=== PATIENT | female | born 1950 | race Caucasian/White ===

== ENCOUNTER 2016-09-11 13:35 | Inpatient (IN) | payer MEDICARE ==
[2016-09-11] MEDS ORDERED: methylPREDNISolone SOD SUCCI 125 MG/2 ML VIAL IV STA (14:32)
[2016-09-11] MEDS ORDERED: IPRATROPIUM-ALBUTEROL 3 ML NEB INHALATION STA ×2 (14:32→15:47)
[2016-09-11] MEDS ORDERED: SODIUM CHLORIDE 0.9% 1,000 ML IV STA (14:32)
[2016-09-11] MEDS ORDERED: MAGNESIUM SULFATE-D5W PMX 1 GM in DEXTROSE/WATER 1 100ML.BAG IVPB STA (14:36)
--- NOTE | 2016-09-11 14:51 | ED ---
SOB HPI - General Chief Complaint: Shortness of Breath Stated Complaint: AILYN Time Seen by Provider: 09/11/16 14:18 Source: patient, family, RN notes reviewed Mode of arrival: wheelchair Limitations: no limitations - History of Present Illness Initial Comments: This is a 66-year-old female history of COPD and emphysema who does still smoke but she states as much as she used to presents with complaints of a protracted course of cough or shortness of breath. She states this started about a month ago and some her family members developed influenza. His been stressed been over last 2 weeks she's had fevers and chills cough with multiple colored phlegm ranging from clear to brown to yellow. Some right-sided discomfort when she takes a deep breath. No other overt chest pain. She has exertional dyspnea she does use oxygen at night 2 L/m none during the day she does not seem to suffer from orthopnea. She denies any peripheral edema. She states that while other family members are getting better she has not. She does also complain some rhinorrhea. MD Complaint: shortness of breath, cough, pain with inspiration - Related Data Home Medications Medication Instructions Recorded Confirmed Albuterol Nebulized [Ventolin 2.5 mg INHALATION RT-Q6H PRN 02/01/16 09/11/16 Nebulized] Aspirin 81 mg PO HS 02/01/16 09/11/16 Cholecalciferol [Vitamin D3] 1,000 unit PO HS 02/01/16 09/11/16 Furosemide [Lasix] 20 mg PO DAILY 02/01/16 09/11/16 Insulin Detemir [Levemir] 80 unit SQ HS 02/01/16 09/11/16 Isosorbide Mononitrate ER [Imdur] 30 mg PO HS 02/01/16 09/11/16 Lisinopril [Zestril] 20 mg PO DAILY 02/01/16 09/11/16 Montelukast [Singulair] 10 mg PO HS 02/01/16 09/11/16 [place]-3 Fatty Acids/Fish Oil [Fish 1 cap PO DAILY 02/01/16 09/11/16 Oil 1,000 mg Softgel] PARoxetine [Paxil] 20 mg PO DAILY 02/01/16 09/11/16 Pravastatin Sodium [Pravachol] 40 mg PO DAILY 02/01/16 09/11/16 metFORMIN HCL [Glucophage] 1,000 mg PO BID 02/01/16 09/11/16 Gabapentin [Neurontin] 300 mg PO QAM 07/13/16 09/11/16 Gabapentin [Neurontin] 600 mg PO HS 09/11/16 09/11/16 Insulin Aspart [NovoLOG Flexpen] 13 units SQ AC-TID 09/11/16 09/11/16 Allergies Allergy/AdvReac Type Severity Reaction Status Date / Time codeine AdvReac jittery Verified 09/11/16 14:51 and shaky Review of Systems ROS Statement: Those systems with pertinent positive or pertinent negative responses have been documented in the HPI. ROS Other: All systems not noted in ROS Statement are negative. 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 Past Anesthesia/Blood Transfusion Reactions: No Reported Reaction Past Psychological History: Panic Disorder Smoking Status: Current every day smoker Past Alcohol Use History: None Reported Additional Past Alcohol Use History / Comment(s): <ppd since age of 16, down from 2ppd Past Drug Use History: None Reported - Past Family History Mother Family Medical History: Cancer Additional Family Medical History / Comment(s): breast General Exam - General Exam Comments Initial Comments: This is a well-developed well-nourished awake alert oriented history female she does demonstrate audible wheezing Limitations: no limitations General appearance: alert, in no apparent distress Head exam: Present: atraumatic, normocephalic, normal inspection Eye exam: Present: normal appearance, PERRL, EOMI. Absent: scleral icterus, conjunctival injection, periorbital swelling ENT exam: Present: normal exam, mucous membranes moist Neck exam: Present: normal inspection. Absent: tenderness, meningismus, lymphadenopathy Respiratory exam: Present: wheezes, accessory muscle use, decreased breath sounds. Absent: respiratory distress, rales, rhonchi, stridor Cardiovascular Exam: Present: regular rate, normal rhythm, normal heart sounds. Absent: systolic murmur, diastolic murmur, rubs, gallop, clicks GI/Abdominal exam: Present: soft, normal bowel sounds. Absent: distended, tenderness, guarding, rebound, rigid Extremities exam: Present: normal inspection, full ROM, normal capillary refill. Absent: tenderness, pedal edema, joint swelling, calf tenderness Back exam: Present: normal inspection Neurological exam: Present: alert, oriented X3, CN II-XII intact Psychiatric exam: Present: normal affect, normal mood Skin exam: Present: warm, dry, intact, normal color. Absent: rash Course Vital Signs 09/11/16 09/11/16 09/11/16 14:15 15:06 15:19 Temperature 101.7 F H Pulse Rate 87 111 H Respiratory 20 22 22 Rate Blood Pressure 144/83 140/61 O2 Sat by Pulse 89 L 90 L Oximetry 09/11/16 09/11/16 15:25 15:35 Temperature Pulse Rate 109 H 112 H Respiratory Rate Blood Pressure O2 Sat by Pulse Oximetry - Reevaluation(s) Reevaluation #1: 09/11/16 15:47 Reevaluation the patient after the initial updraft treatment reveals very slight improvement in her aeration there is more wheezing audible there is some crepitus or right lower lobe Reevaluation #2: 09/11/16 15:51 Patient will require additional updraft treatment she is currently getting IV magnesium. Medical Decision Making - Medical Decision Making I did discuss findings with the patient and family members. Patient does demonstrate a right lower lobe pneumonia along with a COPD/emphysema exacerbation. She will require inpatient treatment. - Lab Data Result diagrams: 09/11/16 14:55 09/11/16 14:55 Lab Results 09/11/16 09/11/16 09/11/16 Range/Units 14:55 14:55 14:55 WBC 18.6 H (3.8-10.6) k/uL RBC 3.69 L (3.80-5.40) m/uL Hgb 11.2 L (11.4-16.0) gm/dL Hct 36.7 (34.0-46.0) % MCV 99.6 (80.0-100.0) fL MCH 30.5 (25.0-35.0) pg MCHC 30.6 L (31.0-37.0) g/dL RDW 15.1 (11.5-15.5) % Plt Count 258 (150-450) k/uL Neutrophils % 86 % Lymphocytes % 8 % Monocytes % 4 % Eosinophils % 1 % Basophils % 0 % Neutrophils # 15.9 H (1.3-7.7) k/uL Lymphocytes # 1.5 (1.0-4.8) k/uL Monocytes # 0.7 (0-1.0) k/uL Eosinophils # 0.2 (0-0.7) k/uL Basophils # 0.1 (0-0.2) k/uL Hypochromasia Moderate Macrocytosis Slight PT 10.0 (9.0-12.0) sec INR 1.0 (<1.1) APTT 22.5 (22.0-30.0) sec D-Dimer 1.21 H (<0.60) mg/L FEU Sodium 138 (137-145) mmol/L Potassium 4.8 (3.5-5.1) mmol/L Chloride 97 L (98-107) mmol/L Carbon Dioxide 31 H (22-30) mmol/L Anion Gap 10 mmol/L BUN 24 H (7-17) mg/dL Creatinine 1.15 H (0.52-1.04) mg/dL Est GFR (MDRD) Af Amer 57 (>60 ml/min/1.73 sqM) Est GFR (MDRD) Non-Af 47 (>60 ml/min/1.73 sqM) Glucose 115 H (74-99) mg/dL Plasma Lactic Acid Elian (0.7-2.0) mmol/L Calcium 10.2 (8.4-10.2) mg/dL Magnesium 1.3 L (1.6-2.3) mg/dL Total Bilirubin 0.9 (0.2-1.3) mg/dL AST 18 (14-36) U/L ALT 24 (9-52) U/L Alkaline Phosphatase 124 (38-126) U/L Total Protein 7.5 (6.3-8.2) g/dL Albumin 4.1 (3.5-5.0) g/dL 09/11/16 Range/Units 14:55 WBC (3.8-10.6) k/uL RBC (3.80-5.40) m/uL Hgb (11.4-16.0) gm/dL Hct (34.0-46.0) % MCV (80.0-100.0) fL MCH (25.0-35.0) pg MCHC (31.0-37.0) g/dL RDW (11.5-15.5) % Plt Count (150-450) k/uL Neutrophils % % Lymphocytes % % Monocytes % % Eosinophils % % Basophils % % Neutrophils # (1.3-7.7) k/uL Lymphocytes # (1.0-4.8) k/uL Monocytes # (0-1.0) k/uL Eosinophils # (0-0.7) k/uL Basophils # (0-0.2) k/uL Hypochromasia Macrocytosis PT (9.0-12.0) sec INR (<1.1) APTT (22.0-30.0) sec D-Dimer (<0.60) mg/L FEU Sodium (137-145) mmol/L Potassium (3.5-5.1) mmol/L Chloride (98-107) mmol/L Carbon Dioxide (22-30) mmol/L Anion Gap mmol/L BUN (7-17) mg/dL Creatinine (0.52-1.04) mg/dL Est GFR (MDRD) Af Amer (>60 ml/min/1.73 sqM) Est GFR (MDRD) Non-Af (>60 ml/min/1.73 sqM) Glucose (74-99) mg/dL Plasma Lactic Acid Elian 1.9 (0.7-2.0) mmol/L Calcium (8.4-10.2) mg/dL Magnesium (1.6-2.3) mg/dL Total Bilirubin (0.2-1.3) mg/dL AST (14-36) U/L ALT (9-52) U/L Alkaline Phosphatase (38-126) U/L Total Protein (6.3-8.2) g/dL Albumin (3.5-5.0) g/dL - EKG Data -: EKG Interpreted by Ny EKG shows normal: sinus rhythm (Sinus rhythm a rate of 113. Interval 120 QRS duration 80 daily since QTC of 314/4:30 left exodeviation old septal changes no acute ST elevations or depressions are is artifact present) Rate: tachycardia - Radiology Data Radiology results: report reviewed, image reviewed (I did review the x-ray and report there is a right lower lobe infiltrate.) Critical Care Time Critical Care Time: Yes Critical Care Time: 37 minutes of critical care time which includes initial presentation with history physical lab and x-rays. Evaluation of the same. Reevaluation patient on several occasions for responsive therapy. Discussion with patient family member regarding the findings. Discussion with the admitting physician. Admission orders documentation of the above. Patient did demonstrate hypoxemia. Her serum lactic acid is within normal limits. She does demonstrate leukocytosis. Disposition Clinical Impression: Adult respiratory distress syndrome, Community acquired pneumonia, Acute exacerbation of chronic obstructive airways disease, Hypoxemia, Febrile illness , acute Disposition: ADMITTED IP TO THIS HOSP Condition: Serious
[2016-09-11 15:24] LABS: Basophils # (A) 0.1 k/uL (0-0.2); Basophils % (A) 0 %; CH 30.2; CHCM 30.4; Eosinophils # (A) 0.2 k/uL (0-0.7); Eosinophils % (A) 1 %; HCT 36.7 % (34.0-46.0); HDW 2.65; HGB 11.2 gm/dL (11.4-16.0); Hypochromasia Moderate; Luc # (Auto) 0.27; Luc % (Auto) 2; Lymphocytes # (A) 1.5 k/uL (1.0-4.8); Lymphocytes % (A) 8 %; MCH 30.5 pg (25.0-35.0); MCHC 30.6 g/dL (31.0-37.0); MCV 99.6 fL (80.0-100.0); Macrocytosis Slight; Mean Platelet Volume 8.4; Monocytes # (A) 0.7 k/uL (0-1.0); Monocytes % (A) 4 %; Neutrophils # (A) 15.9 k/uL (1.3-7.7); Neutrophils % (A) 86 %; RBC 3.69 m/uL (3.80-5.40); RDW 15.1 % (11.5-15.5); WBC 18.6 k/uL (3.8-10.6); WBC (Perox) 19.44
--- NOTE | 2016-09-11 15:31 | XR ---
EXAMINATION TYPE: XR chest 2V DATE OF EXAM: 09/11/2016 3:25 PM COMPARISON: Prior chest x-ray 27 April 2011 HISTORY: Difficulty breathing, cough TECHNIQUE: Frontal and lateral views of the chest are obtained. FINDINGS: Increased attenuation is present at the right lung base which is developed in the interval . Patient is rotated. There is no evident pneumothorax or pleural effusion. Heart may be enlarged. Th ere are prominent lung volumes compatible with emphysema. Suspect coronary artery calcification. IMPRESSION: Findings may represent right lower lobe pneumonia, follow-up is recommended to resolutio n to exclude an underlying mass. Additional findings above.
[2016-09-11 15:38] LABS: Calcium 10.2 mg/dL (8.4-10.2); Magnesium 1.3 mg/dL (1.6-2.3); Potassium 4.8 mmol/L (3.5-5.1); Total Bilirubin 0.9 mg/dL (0.2-1.3); Total Protein 7.5 g/dL (6.3-8.2)
[2016-09-11 15:39] LABS: Partial Thromboplastin Time 22.5 sec (22.0-30.0)
[2016-09-11] MEDS ORDERED: PIPERACILLIN-TAZOBACTAM 3.375 GM in DEXTROSE/WATER 1 50ML.BAG IVPB STA (15:46)
[2016-09-11] MEDS ORDERED: PNEUMONIA PROTOCOL UTILIZED 1 EACH MISC PO PRN (15:53)
[2016-09-11] MEDS ORDERED: LEVOFLOXACIN 750MG-D5W PMX 750 MG in DEXTROSE/WATER 1 150ML.BAG IVPB STA (15:53)
--- NOTE | 2016-09-11 16:00 | ED ---
Medical Decision Making - Lab Data Result diagrams: 09/11/16 14:55 09/11/16 14:55 Lab Results 09/11/16 09/11/16 09/11/16 Range/Units 14:55 14:55 14:55 WBC 18.6 H (3.8-10.6) k/uL RBC 3.69 L (3.80-5.40) m/uL Hgb 11.2 L (11.4-16.0) gm/dL Hct 36.7 (34.0-46.0) % MCV 99.6 (80.0-100.0) fL MCH 30.5 (25.0-35.0) pg MCHC 30.6 L (31.0-37.0) g/dL RDW 15.1 (11.5-15.5) % Plt Count 258 (150-450) k/uL Neutrophils % 86 % Lymphocytes % 8 % Monocytes % 4 % Eosinophils % 1 % Basophils % 0 % Neutrophils # 15.9 H (1.3-7.7) k/uL Lymphocytes # 1.5 (1.0-4.8) k/uL Monocytes # 0.7 (0-1.0) k/uL Eosinophils # 0.2 (0-0.7) k/uL Basophils # 0.1 (0-0.2) k/uL Hypochromasia Moderate Macrocytosis Slight PT 10.0 (9.0-12.0) sec INR 1.0 (<1.1) APTT 22.5 (22.0-30.0) sec D-Dimer 1.21 H (<0.60) mg/L FEU Sodium 138 (137-145) mmol/L Potassium 4.8 (3.5-5.1) mmol/L Chloride 97 L (98-107) mmol/L Carbon Dioxide 31 H (22-30) mmol/L Anion Gap 10 mmol/L BUN 24 H (7-17) mg/dL Creatinine 1.15 H (0.52-1.04) mg/dL Est GFR (MDRD) Af Amer 57 (>60 ml/min/1.73 sqM) Est GFR (MDRD) Non-Af 47 (>60 ml/min/1.73 sqM) Glucose 115 H (74-99) mg/dL Plasma Lactic Acid Elian (0.7-2.0) mmol/L Calcium 10.2 (8.4-10.2) mg/dL Magnesium 1.3 L (1.6-2.3) mg/dL Total Bilirubin 0.9 (0.2-1.3) mg/dL AST 18 (14-36) U/L ALT 24 (9-52) U/L Alkaline Phosphatase 124 (38-126) U/L NT-Pro-B Natriuret Pep pg/mL Total Protein 7.5 (6.3-8.2) g/dL Albumin 4.1 (3.5-5.0) g/dL 09/11/16 09/11/16 Range/Units 14:55 14:55 WBC (3.8-10.6) k/uL RBC (3.80-5.40) m/uL Hgb (11.4-16.0) gm/dL Hct (34.0-46.0) % MCV (80.0-100.0) fL MCH (25.0-35.0) pg MCHC (31.0-37.0) g/dL RDW (11.5-15.5) % Plt Count (150-450) k/uL Neutrophils % % Lymphocytes % % Monocytes % % Eosinophils % % Basophils % % Neutrophils # (1.3-7.7) k/uL Lymphocytes # (1.0-4.8) k/uL Monocytes # (0-1.0) k/uL Eosinophils # (0-0.7) k/uL Basophils # (0-0.2) k/uL Hypochromasia Macrocytosis PT (9.0-12.0) sec INR (<1.1) APTT (22.0-30.0) sec D-Dimer (<0.60) mg/L FEU Sodium (137-145) mmol/L Potassium (3.5-5.1) mmol/L Chloride (98-107) mmol/L Carbon Dioxide (22-30) mmol/L Anion Gap mmol/L BUN (7-17) mg/dL Creatinine (0.52-1.04) mg/dL Est GFR (MDRD) Af Amer (>60 ml/min/1.73 sqM) Est GFR (MDRD) Non-Af (>60 ml/min/1.73 sqM) Glucose (74-99) mg/dL Plasma Lactic Acid Elian 1.9 (0.7-2.0) mmol/L Calcium (8.4-10.2) mg/dL Magnesium (1.6-2.3) mg/dL Total Bilirubin (0.2-1.3) mg/dL AST (14-36) U/L ALT (9-52) U/L Alkaline Phosphatase (38-126) U/L NT-Pro-B Natriuret Pep 621 pg/mL Total Protein (6.3-8.2) g/dL Albumin (3.5-5.0) g/dL Disposition Clinical Impression: Adult respiratory distress syndrome, Community acquired pneumonia, Acute exacerbation of chronic obstructive airways disease, Hypoxemia, Febrile illness , acute, Hypomagnesemia Disposition: ADMITTED IP TO THIS [facility] Condition: Serious Referrals: Zion Cramer MD [Primary Care Provider] - 1-2 days
[2016-09-11 16:03] LABS: Creatine Kinase MB 0.6 ng/mL (0.0-2.4)
[2016-09-11 16:14] LABS: Troponin I 0.048 ng/mL (0.000-0.034)
[2016-09-11] MEDS ORDERED: RX INFO: IV CONTRAST WAS GIVEN 1 EACH MISC MISCELLANE PRN (16:42)
--- NOTE | 2016-09-11 18:57 | CT ---
EXAMINATION TYPE: CT angio chest DATE OF EXAM: 09/11/2016 5:46 PM HISTORY: Pt states of SOB and pneumonia. Elevated D-Dimer. CT DLP: 631 mGycm Automated exposure control for dose reduction was used. CONTRAST: CTA scan of the thorax is performed with IV Contrast, patient injected with 50 mL of Visipaque 320, p ulmonary embolism protocol. FINDINGS: LUNGS/PLEURAL SPACES: There is no pulmonary edema. There are bilateral nonspecific scattered ill-defi arlen added pulmonary opacities, particularly in the lung bases and particularly on the right. These ar e nonspecific and most appear chronic. Clinical exclusion of developing or resolving bronchopneumonia is requested. There is no pleural effusion or pneumothorax seen. The tracheobronchial tree is paten t. MEDIASTINUM: There is satisfactory enhancement of the pulmonary artery and its branches, there is no CT evidence for pulmonary embolism. There are no greater than 1 cm hilar or mediastinal lymph nodes. Coronary calcifications are noted, prominent in degree. Pericardial spaces is unremarkable. There i s no cardiomegaly. The aorta is unremarkable except for atherosclerotic calcifications. The proximal subclavian artery shows prominent stenosis with hard and soft plaque, proximal to the origin of the l eft vertebral artery. 4 significance, correlate for vertebral steal phenomenon. OTHER: The skeletal structures are unremarkable. No incidental findings seen within the visualized pathak bdiaphragmatic anatomy. IMPRESSION: 1. NEGATIVE FOR PULMONARY EMBOLISM. NO DEFINITE ACUTE THORACIC PROCESS. 2. MILD SCATTERED MULTIFOCAL NONSPECIFIC FINDINGS, CAN CORRELATE WITH A CLINICAL DIAGNOSIS OF MULTIFO TARUN BRONCHOPNEUMONIA. 3. CENTRAL FINDING: LEFT SUBCLAVIAN ARTERY SHORT SEGMENT STENOSIS, CORRELATE FOR VERTEBRAL ARTERIAL S TEAL PHYSIOLOGY.
[2016-09-11] MEDS ORDERED: ACETAMINOPHEN TAB 500 MG TAB PO PRN (19:53)
[2016-09-11] MEDS: IPRATROPIUM-ALBUTEROL 3 ML NEB INHALATION SCH (20:16)
[2016-09-11 21:10] LABS: Glucose,Whole Blood 427 mg/dL (75-99)
[2016-09-11] MEDS: ASPIRIN 81 MG CHEW PO SCH (22:21)
[2016-09-11] MEDS: GABAPENTIN 300 MG CAP PO SCH (22:22)
[2016-09-11] MEDS: CHOLECALCIFEROL 1,000 UNIT TAB PO SCH (22:22)
[2016-09-11] MEDS: MONTELUKAST 10 MG TAB PO SCH (22:22)
[2016-09-11] MEDS: ISOSORBIDE MONONITRATE ER 30 MG TAB.ER.24H PO SCH (22:22)
[2016-09-11] MEDS: INSULIN LISPRO (humaLOG) 300 UNIT/3 ML VIAL SQ SCH ×2 (22:24→22:45)
[2016-09-11] MEDS: INSULIN DETEMIR 100 UNIT/ML 10 ML VIAL SQ SCH (22:24)
[2016-09-11] MEDS: metFORMIN 500 MG TAB PO SCH (22:44)
[2016-09-11] MEDS: SODIUM CHLORIDE 0.9% 1,000 ML IV SCH (23:39)
[2016-09-12] MEDS: IPRATROPIUM-ALBUTEROL 3 ML NEB INHALATION SCH ×6 (00:36→20:13)
[2016-09-12] MEDS: PIPERACILLIN-TAZOBACTAM 3.375 GM in DEXTROSE/WATER 1 50ML.BAG IVPB SCH ×4 (02:46→22:54)
[2016-09-12] MEDS: SODIUM CHLORIDE 0.9% 1,000 ML IV SCH ×3 (04:35→20:05)
[2016-09-12 05:45] LABS: Glucose,Whole Blood 203 mg/dL (75-99)
[2016-09-12] MEDS: metFORMIN 500 MG TAB PO SCH ×2 (06:32→12:12)
[2016-09-12] MEDS: INSULIN LISPRO (humaLOG) 300 UNIT/3 ML VIAL SQ SCH ×4 (06:34→21:30)
--- NOTE | 2016-09-12 07:41 | XR ---
EXAMINATION TYPE: XR chest 2V DATE OF EXAM: 09/12/2016 6:30 AM COMPARISON: 09/11/2016 TECHNIQUE: PA and lateral views submitted. HISTORY: Pneumonia FINDINGS: Pleural-based thickening or tiny right effusion with subsegmental changes at both lung bases. The hea rt is enlarged and there is an interstitial pattern. No pneumothorax. Hypertrophic and degenerative c hange of the spine noted. Arthropathy of the shoulders. Postsurgical change in the abdomen. IMPRESSION: 1. Correlate for interstitial pneumonitis or mild venous congestion
[2016-09-12] MEDS: LISINOPRIL 20 MG TAB PO SCH (08:52)
[2016-09-12] MEDS: PRAVASTATIN SODIUM 40 MG TAB PO SCH (08:52)
[2016-09-12] MEDS: PARoxetine 20 MG TAB PO SCH (08:52)
[2016-09-12] MEDS: FUROSEMIDE 20 MG TAB PO SCH (08:52)
[2016-09-12] MEDS: GABAPENTIN 300 MG CAP PO SCH ×2 (08:52→20:03)
[2016-09-12] MEDS ORDERED: NON-FORMULARY DRUG (Omega-3 Fatty Acids/Fish Oil [Fish Oil 1,000 Mg Softgel] 1 CAP) PO SCH (09:00)
[2016-09-12 11:11] LABS: Basophils % (A) 0 %; CH 29.5; CHCM 29.8; Eosinophils % (A) 0 %; HCT 31.2 % (34.0-46.0); HDW 2.73; HGB 9.9 gm/dL (11.4-16.0); Hypochromasia Marked; Luc # (Auto) 0.25; Luc % (Auto) 2; Lymphocytes # (A) 1.4 k/uL (1.0-4.8); Lymphocytes % (A) 10 %; MCH 31.5 pg (25.0-35.0); MCHC 31.8 g/dL (31.0-37.0); MCV 99.2 fL (80.0-100.0); Macrocytosis Slight; Mean Platelet Volume 7.2; Monocytes # (A) 0.7 k/uL (0-1.0); Monocytes % (A) 5 %; Neutrophils # (A) 11.5 k/uL (1.3-7.7); Neutrophils % (A) 83 %; RBC 3.14 m/uL (3.80-5.40); RDW 14.7 % (11.5-15.5); WBC 13.9 k/uL (3.8-10.6); WBC (Perox) 15.45
[2016-09-12 11:19] LABS: Calcium 9.8 mg/dL (8.4-10.2); Magnesium 1.8 mg/dL (1.6-2.3); Potassium 4.2 mmol/L (3.5-5.1)
[2016-09-12 12:10] LABS: Glucose,Whole Blood 192 mg/dL (75-99)
[2016-09-12] MEDS ORDERED: NICOTINE POLACRILEX 2 MG GUM BUCCAL PRN (14:54)
[2016-09-12] MEDS: methylPREDNISolone SOD SUCCI 125 MG/2 ML VIAL IV SCH ×2 (15:06→22:53)
[2016-09-12] MEDS: NICOTINE 21MG/24HR PATCH TRANSDERM SCH (15:06)
[2016-09-12] MEDS ORDERED: LEVOFLOXACIN 750 MG TAB PO SCH (16:00)
--- NOTE | 2016-09-12 16:00 | HP ---
DATE OF ADMISSION: 09/11/2016 PRESENTING COMPLAINT: Short of breath, cough, wheezing. HISTORY OF PRESENTING COMPLAINT: A very pleasant 66-year-old patient of Dr. Cramer whose chronic stable medical conditions include congestive heart failure, diabetes, hyperlipidemia, hypertension, seizure, sleep apnea on home oxygen at night 2 liters, presented with progressive short of breath going on for days, wheezing, cough, with sputum production. Some fever. Feels tired and run down. Admitted with diagnosis of pneumonia, COPD exacerbation. Denies any chest pain. REVIEW OF SYSTEMS: CONSTITUTIONAL: Tired. HEENT: None. RESPIRATORY: As above. CARDIOVASCULAR: No chest pain. GASTROINTESTINAL: None. GENITOURINARY: None. MUSCULOSKELETAL: None. Dermatological: None. HEMATOLOGICAL: None. LYMPHATIC: None. PSYCHIATRY: None. Neurologic: none. Past medical history of CHF, COPD, diabetes, hyperlipidemia, hypertension, seizures, sleep apnea, chronic respiratory failure. PAST SURGICAL HISTORY: Appendectomy, bladder surgery, cholecystectomy, hysterectomy, tonsillectomy, tubal ligation, and rotator cuff surgery on the left side, vein stripping, tumor remoted from the ovary. Past psych history of panic attacks. SOCIAL HISTORY: The patient smoking about a pack a day down from 2 packs a day smoking for close to 40 years. . FAMILY HISTORY: Breast and liver cancer. HOME MEDICATIONS: 1. Glucophage 1000 milligrams p.o. b.i.d. 2. Pravachol 40 mg p.o. daily. 3. Paxil 20 mg p.o. daily. 4. Fish oil 1 capsule p.o. daily. 5. Singulair 10 mg p.o. q.h.s. 6. Zestril 20 mg p.o. daily. 7. Imdur ER 30 mg q.h.s. 8. Levemir 80 units subcu q.h.s. 9. NovoLog 13 units subcu a.c. t.i.d. 10. Neurontin 600 mg p.o. q.h.s. 11. Neurontin 300 mg in the morning. 12. Lasix 20 mg p.o. daily. 13. Vitamin D3 1000 units p.o. q.h.s. 14. Aspirin 81 mg q.h.s. 15. Ventolin 2.5 every 6 hours p.r.n. ALLERGIES TO CODEINE. On examination vital signs on presentation: Temperature 101.7, pulse 111, respirations 22, blood pressure 140/61, pulse ox 90% on 3 liters. GENERAL APPEARANCE: Well built, BMI of 31.8 sitting up, tired-appearing. EYES: Pupils equal. Conjunctivae normal. HEENT: External appearance of nose and ears normal. Oral cavity normal. NECK: JVD not raised. Mass not palpable. RESPIRATORY: Effort increased. LUNGS: Diminished breath sounds with prolonged expiration and wheezing. CARDIOVASCULAR: First and second sounds normal. No edema. ABDOMEN: Soft, nontender. Liver and spleen not palpable. LYMPHATIC: No lymph nodes palpable in neck or axillae. PSYCHIATRY: Alert and oriented x3. Mood and affect normal. NEUROLOGICAL: Pupils equal. Cranial nerves grossly intact. Power and sensation grossly intact. INVESTIGATIONS: White count 18.6, hemoglobin 11.2, potassium 4.8. BUN 24, creatinine 1.15. Troponin 0.048. ProBNP 621. Chest x-ray shows infiltrates in the right lower lobe. ASSESSMENT: 1. Right lower lobe bronchopneumonia, present on admission from gram-negative organism. 2. Acute severe chronic obstructive pulmonary disease exacerbation in a smoker. 3. Chronic nicotine dependence. Patient is a longstanding smoker. 4. Diabetes mellitus, type II, on oral hypoglycemic. 5. Hyperlipidemia. 6. Essential hypertension. 7. Obstructive sleep apnea, uses CPAP machine. 8. Chronic hypoxic respiratory failure on home oxygen. 9. Severe sepsis on presentation from underlying pneumonia. PLAN: Patient started on IV Zosyn and Levaquin. Also, nebulized bronchodilators, steroids. Patient counseled against smoking. We will put on nicotine patch. Home meds are resumed. Patient has no cardiac symptoms. Troponin leak is felt to be from hemodynamic mismatch. Care was discussed with the patient. Copy to Dr. Cramer.
[2016-09-12 16:28] LABS: Glucose,Whole Blood 190 mg/dL (75-99)
[2016-09-12] MEDS: MONTELUKAST 10 MG TAB PO SCH (20:03)
[2016-09-12] MEDS: CHOLECALCIFEROL 1,000 UNIT TAB PO SCH (20:03)
[2016-09-12] MEDS: ASPIRIN 81 MG CHEW PO SCH (20:03)
[2016-09-12] MEDS: ISOSORBIDE MONONITRATE ER 30 MG TAB.ER.24H PO SCH (20:03)
[2016-09-12 20:54] LABS: Glucose,Whole Blood 211 mg/dL (75-99)
[2016-09-12] MEDS: INSULIN DETEMIR 100 UNIT/ML 10 ML VIAL SQ SCH (21:29)
[2016-09-13] MEDS: IPRATROPIUM-ALBUTEROL 3 ML NEB INHALATION SCH ×6 (00:09→20:33)
[2016-09-13 05:47] LABS: Glucose,Whole Blood 277 mg/dL (75-99)
[2016-09-13] MEDS: INSULIN LISPRO (humaLOG) 300 UNIT/3 ML VIAL SQ SCH ×5 (06:31→20:53)
[2016-09-13] MEDS: metFORMIN 500 MG TAB PO SCH ×2 (06:31→17:35)
[2016-09-13] MEDS: methylPREDNISolone SOD SUCCI 125 MG/2 ML VIAL IV SCH (08:48)
[2016-09-13] MEDS: PARoxetine 20 MG TAB PO SCH (08:50)
[2016-09-13] MEDS: GABAPENTIN 300 MG CAP PO SCH ×2 (08:51→20:49)
[2016-09-13] MEDS: LISINOPRIL 20 MG TAB PO SCH (08:51)
[2016-09-13] MEDS: PRAVASTATIN SODIUM 40 MG TAB PO SCH (08:51)
[2016-09-13] MEDS: NICOTINE 21MG/24HR PATCH TRANSDERM SCH (08:52)
[2016-09-13] MEDS: FUROSEMIDE 20 MG TAB PO SCH (08:52)
[2016-09-13] MEDS: PIPERACILLIN-TAZOBACTAM 3.375 GM in DEXTROSE/WATER 1 50ML.BAG IVPB SCH ×3 (08:55→22:35)
[2016-09-13] MEDS: SODIUM CHLORIDE 0.9% 1,000 ML IV SCH ×2 (08:57→17:37)
[2016-09-13 11:39] LABS: Glucose,Whole Blood 203 mg/dL (75-99)
--- NOTE | 2016-09-13 13:20 | CDI ---
In responding to this query, please exercise your independent professional judgment. The [facility] Coding Staff and Clinical Documentation Specialists appreciate your assistance in clarifying documentation, maintaining compliance with coding guidelines, accurately documenting patients condition and capturing severity of illness. The fact that a question is asked does not imply that any particular answer is desired or expected. Communication forms are a method of clarifying documentation and are not made part of the Legal Health Record. Thank you in advance for your clarification. Last Revision, April 2015 Seda Guzman [address] [facility] [place] [address] Documentation Clarification Form Date: 09/13/2016 1:14:00 PM From: Christina Victor Admit Date: 09/11/2016 3:53:00 PM Patient Name: Lisette Patel Visit Number: [id number] Dr. Teodoro Cid History/Risk Factors: Hypertension DM type 2 Clinical Indicators: Labs: BUN 36, Cr 1.44, GFR 37, hgb 9.9 on 09/12 Treatment: IV fluids In order to capture the severity of condition, please clarify if the condition signifies: Acute renal failure Acute on chronic renal failure Chronic kidney disease (CKD) and please stage Stage 1 GFR >90 Stage 2 GFR 60-89 Stage 3 GFR 30-59 Stage 4 GFR 15-29 Stage 5 GFR <15 Unable to determine Other, specify Please document in your progress notes and discharge summary in order to capture severity of illness and risk of mortality. Include clinical findings that support your diagnosis. FYI: Press F11 to launch patient chart. Place X here if this finding has no clinical significance, is not applicable or if you are not able to provide any additional documentation. MTDD
[2016-09-13 16:54] LABS: Glucose,Whole Blood 230 mg/dL (75-99)
--- NOTE | 2016-09-13 19:06 | PN ---
DATE OF SERVICE: 09/13/2016 PRESENTING COMPLAINT: Short of breath, cough, wheezing. INTERVAL HISTORY: This is a patient who presented with bronchopneumonia and severe COPD exacerbation; still wheezing, short of breath, cough, not feeling well, tired. Only a shade better. Did tolerate some diet. Review of systems done for constitutional, cardiovascular, GI, pulmonary; relevant findings as above. Current medications are reviewed that include IV Solu-Medrol, DuoNeb. On examination, temperature 97.9, pulse 99, respiration 18, blood pressure 129/60, pulse ox 92% on 4 L. GENERAL APPEARANCE: Sitting up, tired-appearing. EYES: Pupils equal. Conjunctivae normal. NECK: JVD not raised. Mass not palpable. RESPIRATORY: Effort increased. LUNGS: Decreased breath sounds. Prolonged expiration. CARDIOVASCULAR: First and second sounds normal. No edema. ABDOMEN: Soft, nontender. Liver and spleen not palpable. PSYCHIATRY: Alert and oriented x3. Mood and affect normal. INVESTIGATIONS: Accu-Cheks are noted. ASSESSMENT: 1. Right lower lobe bronchopneumonia; suspect Gram-negative organism; present on admission, slow to respond. 2. Acute severe chronic obstructive pulmonary disease exacerbation in a smoker, slow to respond. 3. Chronic nicotine dependence. Patient is a long-standing smoker. 4. Diabetes mellitus, type 2, on oral hyperglycemic, uncontrolled from steroids. 5. Hyperlipidemia. 6. Essential hypertension. 7. Obstructive sleep apnea; uses CPAP machine. 8. Chronic hypoxic respiratory failure, on home oxygen. 9. Severe sepsis on presentation from underlying pneumonia. PLAN: Continue current medication and treatment plan, including antibiotics, steroids, nebulized bronchodilators. Care was discussed with the patient. Will follow.
[2016-09-13] MEDS: BUDESONIDE 1 MG/2 ML NEBU INHALATION SCH (20:33)
[2016-09-13] MEDS: INSULIN DETEMIR 100 UNIT/ML 10 ML VIAL SQ SCH (20:49)
[2016-09-13] MEDS: CHOLECALCIFEROL 1,000 UNIT TAB PO SCH (20:49)
[2016-09-13] MEDS: ASPIRIN 81 MG CHEW PO SCH (20:49)
[2016-09-13] MEDS: MONTELUKAST 10 MG TAB PO SCH (20:50)
[2016-09-13] MEDS: ISOSORBIDE MONONITRATE ER 30 MG TAB.ER.24H PO SCH (20:50)
[2016-09-13 20:56] LABS: Glucose,Whole Blood 196 mg/dL (75-99)
[2016-09-13] MEDS: methylPREDNISolone SOD SUCCI 40 MG/ML 1 ML VIAL IV SCH (22:35)
[2016-09-14] MEDS ORDERED: IPRATROPIUM-ALBUTEROL 3 ML NEB ONE (03:30)
[2016-09-14] MEDS: IPRATROPIUM-ALBUTEROL 3 ML NEB INHALATION SCH ×4 (05:20→20:14)
[2016-09-14 06:15] LABS: Glucose,Whole Blood 182 mg/dL (75-99)
[2016-09-14] MEDS: INSULIN LISPRO (humaLOG) 300 UNIT/3 ML VIAL SQ SCH ×4 (06:20→23:27)
[2016-09-14] MEDS: SODIUM CHLORIDE 0.9% 1,000 ML IV SCH ×3 (06:20→23:10)
[2016-09-14 06:31] LABS: Calcium 9.9 mg/dL (8.4-10.2); Potassium 5.7 mmol/L (3.5-5.1)
[2016-09-14] MEDS: PIPERACILLIN-TAZOBACTAM 3.375 GM in DEXTROSE/WATER 1 50ML.BAG IVPB SCH ×3 (09:26→23:09)
[2016-09-14] MEDS: methylPREDNISolone SOD SUCCI 40 MG/ML 1 ML VIAL IV SCH ×3 (09:27→23:09)
[2016-09-14] MEDS: GABAPENTIN 300 MG CAP PO SCH ×2 (09:27→20:41)
[2016-09-14] MEDS: NICOTINE 21MG/24HR PATCH TRANSDERM SCH (09:27)
[2016-09-14] MEDS: LISINOPRIL 20 MG TAB PO SCH (09:28)
[2016-09-14] MEDS: FUROSEMIDE 20 MG TAB PO SCH (09:28)
[2016-09-14] MEDS: PRAVASTATIN SODIUM 40 MG TAB PO SCH (09:29)
[2016-09-14] MEDS: PARoxetine 20 MG TAB PO SCH (09:29)
[2016-09-14] MEDS: BUDESONIDE 1 MG/2 ML NEBU INHALATION SCH ×2 (09:39→20:14)
--- NOTE | 2016-09-14 10:13 | P.CNPUL ---
History of Present Illness Consult date: 09/14/16 Requesting physician: Teodoro Cid Reason for consult: COPD Chief complaint: Shortness of breath History of present illness: This is a 66-year-old patient who is being evaluated and examined today on the sixth floor. This patient came into the emergency room with progressive shortness of breath have been going on for the last few days along with wheezing , and a productive cough. She also reported some subjective fevers. Patient feels extremely tired and weak and rundown. Patient also states she has been around family members who had influenza. Chest x-ray reveals the patient has interstitial pneumonitis or mild venous congestion. CTA was negative for pulmonary embolism, however showed multifocal bronchopneumonia. She was admitted to the hospital with a diagnosis of pneumonia, acute COPD exacerbation. Review of Systems 14 point review of systems was completed and is negative other than what's noted in the HPI Past Medical History Past Medical History: Heart Failure, COPD, Diabetes Mellitus, Hyperlipidemia, Hypertension, Seizure Disorder, Sleep Apnea/CPAP/BIPAP Additional Past Medical History / Comment(s): had 2 seizures 40 yrs ago-never had anymore-not sure of cause,uses oxygen 2L @[facility] History of Any Multi-Drug Resistant Organisms: None Reported Past Surgical History: Appendectomy, Bladder Surgery, Cholecystectomy, Hysterectomy, Orthopedic Surgery, Tonsillectomy, Tubal Ligation Additional Past Surgical History / Comment(s): left rotator cuff repair, vein stripping, 20# 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 Past Anesthesia/Blood Transfusion Reactions: No Reported Reaction Past Psychological History: Panic Disorder Additional Psychological History / Comment(s): panick attacks while going through menopause when pt was in her 40's, pt started paxil and is doing fine now Smoking Status: Current every day smoker Past Alcohol Use History: None Reported Additional Past Alcohol Use History / Comment(s): <ppd since age of 16, down from 2ppd Past Drug Use History: None Reported - Past Family History Mother Family Medical History: Cancer Additional Family Medical History / Comment(s): breast/liver Medications and Allergies Home Medications Medication Instructions Recorded Confirmed Type Albuterol Nebulized [Ventolin 2.5 mg INHALATION RT-Q6H PRN 02/01/16 09/11/16 History Nebulized] Aspirin 81 mg PO HS 02/01/16 09/11/16 History Cholecalciferol [Vitamin D3] 1,000 unit PO HS 02/01/16 09/11/16 History Furosemide [Lasix] 20 mg PO DAILY 02/01/16 09/11/16 History Insulin Detemir [Levemir] 80 unit SQ HS 02/01/16 09/11/16 History Isosorbide Mononitrate ER [Imdur] 30 mg PO HS 02/01/16 09/11/16 History Lisinopril [Zestril] 20 mg PO DAILY 02/01/16 09/11/16 History Montelukast [Singulair] 10 mg PO HS 02/01/16 09/11/16 History [employer]-3 Fatty Acids/Fish Oil [Fish 1 cap PO DAILY 02/01/16 09/11/16 History Oil 1,000 mg Softgel] PARoxetine [Paxil] 20 mg PO DAILY 02/01/16 09/11/16 History Pravastatin Sodium [Pravachol] 40 mg PO DAILY 02/01/16 09/11/16 History metFORMIN HCL [Glucophage] 1,000 mg PO BID 02/01/16 09/11/16 History Gabapentin [Neurontin] 300 mg PO [facility] 07/13/16 09/11/16 History Gabapentin [Neurontin] 600 mg PO HS 09/11/16 09/11/16 History Insulin Aspart [NovoLOG Flexpen] 13 units SQ AC-TID 09/11/16 09/11/16 History Allergies Allergy/AdvReac Type Severity Reaction Status Date / Time codeine AdvReac jittery Verified 09/11/16 14:51 and shaky Physical Exam Vitals: Vital Signs Temp Pulse Pulse Resp BP Pulse Ox 09/14/16 09:39 100 09/14/16 04:00 98.6 F 105 H 18 149/66 92 L 09/13/16 22:49 97.8 F 100 18 126/58 92 L 09/13/16 20:48 98 09/13/16 20:33 98 09/13/16 20:00 97.1 F L 98 18 131/63 96 09/13/16 17:42 100 09/13/16 17:30 100 09/13/16 15:35 97.5 F L 102 H 18 132/63 95 09/13/16 12:02 96 09/13/16 11:51 96 09/13/16 11:44 97.9 F 99 18 129/60 92 L Intake and Output 09/13/16 09/14/16 09/14/16 22:59 06:59 14:59 Intake Total 650 950 Output Total 1000 525 Balance -350 425 Intake: IV 400 900 Sodium Chloride 0.9% 1, 400 900 000 ml @ 100 mls/hr IV . Q10H [facility]ARCELO Rx#:[id number] Intake, IV Titration 50 50 Amount Piperacillin-Tazobactam 3 50 50 .375 gm In Dextrose/Water 1 50ml.bag @ 12.5 mls/hr IVPB Q8HR MARCELO Rx#: [id number] Oral 200 Output: Urine 1000 525 Other: Voiding Method Toilet Toilet # Voids 1 1 Weight 90.1 kg GENERAL EXAM: Alert, comfortable in no apparent distress. HEAD: Normocephalic. EYES: Normal reaction of pupils, equal size. NOSE: Clear with pink turbinates. THROAT: No erythema or exudates. NECK: No masses, no JVD. CHEST: No chest wall deformity. LUNGS: Decreased air entry which is coarse, prolonged expiration with wheeze. CVS: S1 and S2 normal with no audible mumurs, regular rhythm. ABDOMEN: No hepatosplenomegaly, normal bowel sounds, no guarding or rigidity. EXTREMITIES: No edema noted, pedal pulses palpable. SKIN: No rashes CENTRAL NERVOUS SYSTEM: No focal deficits, tone is normal in all 4 extremities. Results - Laboratory Findings CBC and BMP: 09/12/16 10:37 09/14/16 05:31 PT/INR, D-dimer PT 10.0 sec (9.0-12.0) 09/11/16 14:55 INR 1.0 (<1.1) 09/11/16 14:55 D-Dimer 1.21 mg/L FEU (<0.60) H 09/11/16 14:55 Abnormal lab findings: Abnormal Labs 09/11/16 09/12/16 09/12/16 21:09 05:43 10:37 WBC 13.9 H RBC 3.14 L Hgb 9.9 L Hct 31.2 L Neutrophils # 11.5 H Potassium Chloride Carbon Dioxide BUN Creatinine Glucose POC Glucose (mg/dL) 427 H 203 H 09/12/16 09/12/16 09/12/16 10:37 12:08 16:22 WBC RBC Hgb Hct Neutrophils # Potassium Chloride 97 L Carbon Dioxide 31 H BUN 36 H Creatinine 1.44 H Glucose 130 H POC Glucose (mg/dL) 192 H 190 H 09/12/16 09/13/16 09/13/16 20:52 05:45 11:37 WBC RBC Hgb Hct Neutrophils # Potassium Chloride Carbon Dioxide BUN Creatinine Glucose POC Glucose (mg/dL) 211 H 277 H 203 H 09/13/16 09/13/16 09/14/16 16:53 20:38 05:31 WBC RBC Hgb Hct Neutrophils # Potassium 5.7 H Chloride Carbon Dioxide BUN 53 H Creatinine 1.47 H Glucose 170 H POC Glucose (mg/dL) 230 H 196 H 09/14/16 06:03 WBC RBC Hgb Hct Neutrophils # Potassium Chloride Carbon Dioxide BUN Creatinine Glucose POC Glucose (mg/dL) 182 H - Diagnostic Findings Chest x-ray: report reviewed CT scan - chest: report reviewed Assessment and Plan Plan: Assessment Acute on chronic hypoxic respiratory failure, patient uses nocturnal oxygen 2 LPM Community-acquired Right lower lobe pneumonia, suspect gram-negative organism Acute exacerbation of COPD Obstructive sleep apnea, uses home CPAP Current nicotine dependence Diabetes mellitus type 2 Hyperlipidemia Hypertension Plan Medications have been reviewed and will be continued. Continue with antibiotics and IV steroids as well as nebulizer treatments. We will continue with pulmonary hygiene, supplemental oxygen, and supportive care. Incentive spirometer initiated. Continue use of home CPAP machine. We will continue to monitor labs/results and adjust treatment as necessary. I performed an examination of the patient and discussed their management with the nurse practitioner. I have reviewed the nurse practitioner's note and agree with the documented findings and plan of care.
[2016-09-14 11:35] LABS: Glucose,Whole Blood 157 mg/dL (75-99)
[2016-09-14] MEDS ORDERED: ALBUTEROL NEB (CONC) 2.5 MG/0.5 ML INHALATION SCH ×2 (16:00→20:00)
[2016-09-14] MEDS ORDERED: IPRATROPIUM 0.5 MG/2.5 ML NEBU INHALATION SCH (16:00)
[2016-09-14] MEDS ORDERED: SODIUM POLYSTYRENE SULFONATE 15 GM/60 ML BOTTLE PO STA (16:18)
[2016-09-14] MEDS ORDERED: SODIUM BICARB 8.4% 50 ML SYR (1 MEQ/ML) IV STA (16:20)
[2016-09-14 16:23] LABS: Glucose,Whole Blood 211 mg/dL (75-99)
[2016-09-14] MEDS: LEVOFLOXACIN 750 MG TAB PO SCH (16:24)
[2016-09-14] MEDS ORDERED: IPRATROPIUM-ALBUTEROL 3 ML NEB INHALATION PRN (18:49)
[2016-09-14 20:31] LABS: Magnesium 1.7 mg/dL (1.6-2.3); Potassium 4.9 mmol/L (3.5-5.1)
[2016-09-14] MEDS: ALBUTEROL NEB (CONC) 2.5 MG/0.5 ML INHALATION SCH (20:34)
[2016-09-14] MEDS: CHOLECALCIFEROL 1,000 UNIT TAB PO SCH (20:40)
[2016-09-14] MEDS: ASPIRIN 81 MG CHEW PO SCH (20:40)
[2016-09-14] MEDS: MONTELUKAST 10 MG TAB PO SCH (20:41)
[2016-09-14] MEDS: ISOSORBIDE MONONITRATE ER 30 MG TAB.ER.24H PO SCH (20:41)
[2016-09-14 21:03] LABS: Glucose,Whole Blood 281 mg/dL (75-99)
--- NOTE | 2016-09-14 22:09 | PN ---
DATE OF SERVICE: 09/14/2016 PRESENTING COMPLAINT: Short of breath, cough. INTERVAL HISTORY: This patient presented with bronchopneumonia, severe COPD exacerbation. Still wheezing, cough, short of breath, tired, slow to respond. Review of systems done for constitutional, cardiovascular, GI, pulmonary; relevant findings as above. Current medications are reviewed. On examination, temperature 97.3, pulse 93, respirations 22, blood pressure 140/69, pulse ox 94% on 4L. GENERAL APPEARANCE: Sitting on his bed, short of breath, coughing. EYES: Pupils equal. Conjunctivae normal. NECK: Not raised. Mass not palpable. RESPIRATORY: Effort increased. LUNGS: Decreased breath sounds. Prolonged expiration, expiratory crackles. CARDIOVASCULAR: First and second sounds normal. No edema. ABDOMEN: Soft, nontender. Liver and spleen not palpable. PSYCHIATRY: Alert and oriented x3. Mood and affect anxious-appearing. INVESTIGATIONS: Potassium 5.7. BUN 33, creatinine 1.47. Accu-Cheks are noted. Sputum is showing normal respiratory mango. ASSESSMENT: 1. Right lower lobe bronchopneumonia, suspect gram-negative organism, present on admission, slow to respond. 2. Acute severe chronic obstructive pulmonary disease exacerbation in a smoker, slow to respond. 3. Chronic nicotine dependence. Patient a long-standing smoker. 4. Diabetes mellitus type 2 on oral hypoglycemic, uncontrolled from steroids. 5. Hyperlipidemia. 6. Essential hypertension. 7. Obstructive sleep apnea, uses CPAP machine. 8. Chronic hypoxic respiratory failure, on home oxygen. 9. Severe sepsis, on presentation, underlying pneumonia. 10. Severe hyperkalemia. PLAN: At this point, will increase patient's nebulized bronchodilators every 4 hours, increasing the albuterol to 5 mg q.4. Also will make the oxygen humidified. Kayexalate 30 g will be given and bicarb. The patient is already on bronchodilators that help with the potassium. Patient's LUIS inhibitor is being discontinued.
[2016-09-14] MEDS: INSULIN DETEMIR 100 UNIT/ML 10 ML VIAL SQ SCH (22:27)
[2016-09-15 06:17] LABS: Calcium 9.8 mg/dL (8.4-10.2); Potassium 4.8 mmol/L (3.5-5.1)
[2016-09-15 06:22] LABS: Glucose,Whole Blood 218 mg/dL (75-99)
[2016-09-15] MEDS: SODIUM CHLORIDE 0.9% 1,000 ML IV SCH ×2 (06:53→09:16)
[2016-09-15] MEDS: INSULIN LISPRO (humaLOG) 300 UNIT/3 ML VIAL SQ SCH ×7 (06:57→20:46)
[2016-09-15] MEDS: metFORMIN 500 MG TAB PO SCH ×2 (07:00→16:57)
[2016-09-15] MEDS: BUDESONIDE 1 MG/2 ML NEBU INHALATION SCH ×2 (08:14→19:12)
[2016-09-15] MEDS: IPRATROPIUM-ALBUTEROL 3 ML NEB INHALATION SCH ×4 (08:14→19:12)
[2016-09-15] MEDS: ALBUTEROL NEB (CONC) 2.5 MG/0.5 ML INHALATION SCH ×4 (08:14→19:12)
[2016-09-15] MEDS: methylPREDNISolone SOD SUCCI 40 MG/ML 1 ML VIAL IV SCH ×2 (09:15→16:26)
[2016-09-15] MEDS: NICOTINE 21MG/24HR PATCH TRANSDERM SCH (09:16)
[2016-09-15] MEDS: FUROSEMIDE 20 MG TAB PO SCH (09:17)
[2016-09-15] MEDS: PRAVASTATIN SODIUM 40 MG TAB PO SCH (09:18)
[2016-09-15] MEDS: PARoxetine 20 MG TAB PO SCH (09:18)
[2016-09-15] MEDS: GABAPENTIN 300 MG CAP PO SCH ×2 (09:18→20:45)
[2016-09-15] MEDS: PIPERACILLIN-TAZOBACTAM 3.375 GM in DEXTROSE/WATER 1 50ML.BAG IVPB SCH ×2 (09:24→16:26)
[2016-09-15 11:59] LABS: Glucose,Whole Blood 134 mg/dL (75-99)
--- NOTE | 2016-09-15 16:15 | P.PN ---
Subjective This patient is a 66-year-old female who is being evaluated and examined today on the sixth floor. The patient came into the emergency room with progressive shortness of breath that had been going on a few days prior to coming in along with wheezing and a productive cough. She also reports some subjective fevers. Patient feels extremely tired and didn't run down. Chest x-ray reveals interstitial pneumonitis or mild venous congestion. CTA was negative for pulmonary embolism, however showed multifocal bronchopneumonia. She was admitted to the hospital with diagnosis of pneumonia and acute exacerbation of COPD. Upon examination the patient is resting up in bed on 3 L of oxygen via nasal cannula. Patient continues to complain of a productive cough. Objective - Vital Signs Vital signs: Vital Signs Temp 98.2 F 09/15/16 11:59 Pulse 101 H 09/15/16 15:36 Resp 18 09/15/16 11:59 BP 136/63 09/15/16 11:59 Pulse Ox 95 09/15/16 15:36 Intake & Output 09/14/16 09/15/16 09/15/16 18:59 06:59 18:59 Intake Total 605 650 780 Output Total 800 Balance -195 650 780 Weight 90.3 kg Intake: IV 650 600 Piperacillin-Tazobactam 3 50 .375 gm In Dextrose/Water 1 50ml.bag @ 12.5 mls/hr IVPB Q8HR MARCELO Rx#: [id number] Sodium Chloride 0.9% 1, 600 600 000 ml @ 100 mls/hr IV . Q10H MARCELO Rx#:[id number] Oral 605 180 Output: Urine 800 Other: Voiding Method Toilet Toilet # Voids 2 1 # Bowel Movements 0 - Exam GENERAL EXAM: Alert, comfortable in no apparent distress. HEAD: Normocephalic. EYES: Normal reaction of pupils, equal size. NOSE: Clear with pink turbinates. THROAT: No erythema or exudates. NECK: No masses, no JVD. CHEST: No chest wall deformity. LUNGS: Decreased air entry which is coarse, prolonged expiration with wheeze. CVS: S1 and S2 normal with no audible mumurs, regular rhythm. ABDOMEN: No hepatosplenomegaly, normal bowel sounds, no guarding or rigidity. EXTREMITIES: No edema noted, pedal pulses palpable. SKIN: No rashes CENTRAL NERVOUS SYSTEM: No focal deficits, tone is normal in all 4 extremities. - Labs CBC & Chem 7: 09/12/16 10:37 09/15/16 05:41 Labs: Abnormal Lab Results - Last 24 Hours (Table) 09/14/16 09/14/16 09/15/16 Range/Units 16:22 20:50 05:41 Carbon Dioxide 33 H (22-30) mmol/L BUN 48 H (7-17) mg/dL Creatinine 1.24 H (0.52-1.04) mg/dL Glucose 205 H (74-99) mg/dL POC Glucose (mg/dL) 211 H 281 H (75-99) mg/dL 09/15/16 09/15/16 Range/Units 06:20 11:58 Carbon Dioxide (22-30) mmol/L BUN (7-17) mg/dL Creatinine (0.52-1.04) mg/dL Glucose (74-99) mg/dL POC Glucose (mg/dL) 218 H 134 H (75-99) mg/dL Assessment and Plan Plan: Assessment Acute on chronic hypoxic respiratory failure, patient uses nocturnal oxygen 2 LPM Community-acquired Right lower lobe pneumonia, suspect gram-negative organism Acute exacerbation of COPD Obstructive sleep apnea, uses home CPAP Current nicotine dependence Diabetes mellitus type 2 Hyperlipidemia Hypertension Plan Medications have been reviewed and will be continued. Continue with antibiotics and IV steroids as well as nebulizer treatments. We will continue with pulmonary hygiene, supplemental oxygen, and supportive care. Incentive spirometer encouraged. Continue use of home CPAP machine. We will continue to monitor labs/results and adjust treatment as necessary. I performed an examination of the patient and discussed their management with the nurse practitioner. I have reviewed the nurse practitioner's note and agree with the documented findings and plan of care.
[2016-09-15 16:52] LABS: Glucose,Whole Blood 177 mg/dL (75-99)
[2016-09-15 20:40] LABS: Glucose,Whole Blood 231 mg/dL (75-99)
[2016-09-15] MEDS: MONTELUKAST 10 MG TAB PO SCH (20:45)
[2016-09-15] MEDS: ASPIRIN 81 MG CHEW PO SCH (20:45)
[2016-09-15] MEDS: CHOLECALCIFEROL 1,000 UNIT TAB PO SCH (20:45)
[2016-09-15] MEDS: ISOSORBIDE MONONITRATE ER 30 MG TAB.ER.24H PO SCH (20:45)
[2016-09-15] MEDS: INSULIN DETEMIR 100 UNIT/ML 10 ML VIAL SQ SCH (20:50)
[2016-09-16] MEDS: PIPERACILLIN-TAZOBACTAM 3.375 GM in DEXTROSE/WATER 1 50ML.BAG IVPB SCH ×4 (00:12→23:08)
[2016-09-16] MEDS: methylPREDNISolone SOD SUCCI 40 MG/ML 1 ML VIAL IV SCH ×5 (00:13→23:07)
[2016-09-16 06:24] LABS: Glucose,Whole Blood 161 mg/dL (75-99)
[2016-09-16] MEDS: metFORMIN 500 MG TAB PO SCH ×2 (06:54→17:19)
[2016-09-16] MEDS: SODIUM CHLORIDE 0.9% 1,000 ML IV SCH ×2 (06:54→15:58)
[2016-09-16] MEDS: INSULIN LISPRO (humaLOG) 300 UNIT/3 ML VIAL SQ SCH ×7 (07:03→21:09)
[2016-09-16] MEDS: methylPREDNISolone SOD SUCCI 125 MG/2 ML VIAL IV SCH (07:36)
[2016-09-16] MEDS: ALBUTEROL NEB (CONC) 2.5 MG/0.5 ML INHALATION SCH ×4 (08:37→20:43)
[2016-09-16] MEDS: BUDESONIDE 1 MG/2 ML NEBU INHALATION SCH ×2 (08:37→20:44)
[2016-09-16] MEDS: IPRATROPIUM-ALBUTEROL 3 ML NEB INHALATION SCH ×4 (08:37→20:43)
[2016-09-16] MEDS: GABAPENTIN 300 MG CAP PO SCH ×2 (09:34→21:54)
[2016-09-16] MEDS: PARoxetine 20 MG TAB PO SCH (09:34)
[2016-09-16] MEDS: PRAVASTATIN SODIUM 40 MG TAB PO SCH (09:34)
[2016-09-16] MEDS: FUROSEMIDE 20 MG TAB PO SCH (09:34)
--- NOTE | 2016-09-16 11:14 | PN ---
DATE OF SERVICE: 09/15/2016 PRESENTING COMPLAINT: Shortness of breath, cough and ( ) bronchopneumonia and severe chronic obstructive pulmonary disease exacerbation. Wheezing is a shade better. Moving air a bit better. Tolerating a diet, sitting up on the bed. REVIEW OF SYSTEMS: For constitutional, cardiovascular, GI, pulmonary are as above. Current medications are reviewed that include nebulized bronchodilators, IV Solu-Medrol, IV Zosyn. On examination, temperature 98.6, pulse 90, respirations 20, blood pressure 127/93, pulse ox 99% on 3 liters. GENERAL APPEARANCE: Sitting up, short of breath. Eyes: Conjunctivae normal. NECK: JVD not raised. Mass not palpable. RESPIRATORY: Effort increased. LUNGS: Decreased breath sounds. Prolonged expiration wheezing. CARDIOVASCULAR: First and second sounds normal. No edema. ABDOMEN: Soft, nontender. Liver and spleen not palpable. PSYCHIATRY: Alert and oriented x3. Mood and affect normal. INVESTIGATIONS: Potassium 4.8. BUN 48, creatinine 1.24. Accu-Cheks as noted. ASSESSMENT: 1. Right lower lobe bronchopneumonia, suspect gram-negative organism, present on admission. 2. Acute severe chronic obstructive pulmonary disease exacerbation in a smoker, slow to respond. 3. Chronic nicotine dependence. Patient is a long-standing smoker. 4. Diabetes mellitus type 2, on oral hypoglycemic, uncontrolled from steroids. 5. Hyperlipidemia. 6. Essential hypertension. 7. Obstructive sleep apnea, uses CPAP machine. 8. Chronic hypoxic respiratory failure on home oxygen. 9. Severe sepsis on presentation from underlying pneumonia. 10. Severe hyperkalemia, improved. PLAN: Continue current medication and treatment plan. ( ) steroids. The patient will still need to be in the hospital because of the severity.
[2016-09-16 11:36] LABS: Glucose,Whole Blood 166 mg/dL (75-99)
--- NOTE | 2016-09-16 13:37 | P.PN ---
Subjective This patient is a 66-year-old female who is being evaluated and examined today on the sixth floor. The patient came into the emergency room with progressive shortness of breath that had been going on a few days prior to coming in along with wheezing and a productive cough. She also reports some subjective fevers. Patient feels extremely tired and didn't run down. Chest x-ray reveals interstitial pneumonitis or mild venous congestion. CTA was negative for pulmonary embolism, however showed multifocal bronchopneumonia. She was admitted to the hospital with diagnosis of pneumonia and acute exacerbation of COPD. Upon examination the patient is resting up in bed on 3-4 L of oxygen via nasal cannula. Patient continues to complain of a productive cough, however she states the frequency is decreasing. Patient states she is starting to feel better. Objective - Vital Signs Vital signs: Vital Signs Temp 97.9 F 09/16/16 12:06 Pulse 84 09/16/16 13:17 Resp 20 09/16/16 12:06 BP 152/72 09/16/16 12:06 Pulse Ox 98 09/16/16 12:06 Intake & Output 09/15/16 09/16/16 09/16/16 18:59 06:59 18:59 Intake Total 1410 600 890 Output Total 300 Balance 1110 600 890 Weight 90.4 kg Intake: IV 1050 600 650 Piperacillin-Tazobactam 3 50 50 .375 gm In Dextrose/Water 1 50ml.bag @ 12.5 mls/hr IVPB Q8HR [facility]ELO Rx#: [id number] Sodium Chloride 0.9% 1, 1000 600 600 000 ml @ 100 mls/hr IV . Q10H MARCELO Rx#:[id number] Oral 360 240 Output: Urine 300 Other: Voiding Method Toilet Toilet Toilet # Voids 1 1 1 # Bowel Movements 0 - Exam GENERAL EXAM: Alert, comfortable in no apparent distress. HEAD: Normocephalic. EYES: Normal reaction of pupils, equal size. NOSE: Clear with pink turbinates. THROAT: No erythema or exudates. NECK: No masses, no JVD. CHEST: No chest wall deformity. LUNGS: Decreased air entry which is coarse, prolonged expiration with wheeze. CVS: S1 and S2 normal with no audible mumurs, regular rhythm. ABDOMEN: No hepatosplenomegaly, normal bowel sounds, no guarding or rigidity. EXTREMITIES: No edema noted, pedal pulses palpable. SKIN: No rashes CENTRAL NERVOUS SYSTEM: No focal deficits, tone is normal in all 4 extremities. - Labs CBC & Chem 7: 09/12/16 10:37 09/15/16 05:41 Labs: Abnormal Lab Results - Last 24 Hours (Table) 09/15/16 09/15/16 09/16/16 Range/Units 16:50 20:38 06:17 POC Glucose (mg/dL) 177 H 231 H 161 H (75-99) mg/dL 09/16/16 Range/Units 11:27 POC Glucose (mg/dL) 166 H (75-99) mg/dL Assessment and Plan Plan: Assessment Acute on chronic hypoxic respiratory failure, patient uses nocturnal oxygen 2 LPM Community-acquired Right lower lobe pneumonia, suspect gram-negative organism Acute exacerbation of COPD Obstructive sleep apnea, uses home CPAP Current nicotine dependence Diabetes mellitus type 2 Hyperlipidemia Hypertension Plan Medications have been reviewed and will be continued. Continue with antibiotics and IV steroids as well as nebulizer treatments. We will continue with pulmonary hygiene, supplemental oxygen, and supportive care. Incentive spirometer encouraged. Continue use of home CPAP machine. We will continue to monitor labs/results and adjust treatment as necessary. I performed an examination of the patient and discussed their management with the nurse practitioner. I have reviewed the nurse practitioner's note and agree with the documented findings and plan of care.
[2016-09-16] MEDS: LEVOFLOXACIN 750 MG TAB PO SCH (16:01)
[2016-09-16 16:48] LABS: Glucose,Whole Blood 275 mg/dL (75-99)
[2016-09-16] MEDS ORDERED: INSULIN LISPRO (humaLOG) 300 UNIT/3 ML VIAL SQ ONE (17:28)
[2016-09-16 20:43] LABS: Glucose,Whole Blood 191 mg/dL (75-99)
[2016-09-16] MEDS: INSULIN DETEMIR 100 UNIT/ML 10 ML VIAL SQ SCH (21:09)
[2016-09-16] MEDS ORDERED: FUROSEMIDE 10 MG/ML 4 ML VIAL IV STA (21:25)
[2016-09-16] MEDS: ISOSORBIDE MONONITRATE ER 30 MG TAB.ER.24H PO SCH (21:54)
[2016-09-16] MEDS: ASPIRIN 81 MG CHEW PO SCH (21:54)
[2016-09-16] MEDS: MONTELUKAST 10 MG TAB PO SCH (21:54)
[2016-09-16] MEDS: CHOLECALCIFEROL 1,000 UNIT TAB PO SCH (21:54)
[2016-09-17] MEDS ORDERED: HEPARIN SODIUM,PORCINE 5,000 UNIT/ML 1 ML VIAL IV ONE (02:07)
[2016-09-17 02:11] LABS: Glucose,Whole Blood 103 mg/dL (75-99)
[2016-09-17] MEDS ORDERED: DILTIAZEM 125 MG in SODIUM CHLORIDE 0.9% 100 ML IV SCH (02:15)
[2016-09-17] MEDS: HEPARIN SODIUM,PORCINE/D5W PMX 25,000 UNIT in DEXTROSE/WATER 1 500ML.BAG IV SCH ×2 (02:49→23:12)
[2016-09-17 06:30] LABS: Glucose,Whole Blood 146 mg/dL (75-99)
[2016-09-17] MEDS: INSULIN LISPRO (humaLOG) 300 UNIT/3 ML VIAL SQ SCH ×7 (07:12→21:04)
[2016-09-17] MEDS: metFORMIN 500 MG TAB PO SCH ×2 (07:13→17:30)
[2016-09-17] MEDS: ALBUTEROL NEB (CONC) 2.5 MG/0.5 ML INHALATION SCH ×4 (08:24→19:53)
[2016-09-17] MEDS: IPRATROPIUM-ALBUTEROL 3 ML NEB INHALATION SCH ×2 (08:24→11:55)
[2016-09-17] MEDS: BUDESONIDE 1 MG/2 ML NEBU INHALATION SCH ×2 (08:24→19:53)
[2016-09-17 08:36] LABS: Basophils % (A) 0 %; CH 29.9; CHCM 29.9; Eosinophils # (A) 0.1 k/uL (0-0.7); Eosinophils % (A) 1 %; HCT 33.2 % (34.0-46.0); HDW 2.59; Hypochromasia Marked; Luc # (Auto) 0.11; Luc % (Auto) 1; Lymphocytes # (A) 1.2 k/uL (1.0-4.8); Lymphocytes % (A) 11 %; MCH 30.2 pg (25.0-35.0); MCHC 30.1 g/dL (31.0-37.0); MCV 100.2 fL (80.0-100.0); Macrocytosis Slight; Monocytes # (A) 0.3 k/uL (0-1.0); Monocytes % (A) 3 %; Neutrophils # (A) 9.5 k/uL (1.3-7.7); Neutrophils % (A) 84 %; RBC 3.31 m/uL (3.80-5.40); RDW 14.7 % (11.5-15.5); WBC 11.3 k/uL (3.8-10.6); WBC (Perox) 12.35
[2016-09-17 08:43] LABS: INR 1.1 (<1.1); Prothrombin Time 10.9 sec (9.0-12.0)
[2016-09-17 08:48] LABS: Potassium 4.4 mmol/L (3.5-5.1)
--- NOTE | 2016-09-17 08:54 | PN ---
DATE OF SERVICE: 09/16/2016 PRESENTING COMPLAINT: Short of breath. INTERVAL HISTORY: This is a patient who presented with bronchopneumonia, severe COPD exacerbation, still wheezing, coughing though slight improvement in sputum production, tired, been in and out of bed. Review of systems done for constitutional, cardiovascular, GI, pulmonary; relevant findings as above. Current medications include nebulized bronchodilators, steroids, antibiotics including Zosyn. On examination, afebrile, pulse 90, respiration 20, blood pressure 152/67, pulse ox 98% on 4 L. GENERAL APPEARANCE: Sitting up, tired appearing. EYES: Pupils equal. Conjunctivae normal. NECK: JVD not raised. Mass not palpable. RESPIRATORY: Effort increased. LUNGS: Decreased breath sounds. Prolonged expiration and wheezing. Some crackles are present. CARDIOVASCULAR: First and second sounds normal. No edema. ABDOMEN: Soft, nontender. Liver and spleen not palpable. PSYCHIATRY: Alert and oriented x3. Mood and affect normal. INVESTIGATIONS: Potassium 4.8. BUN 48, creatinine 1.24. Accu-Cheks are noted. ASSESSMENT: 1. Right lower lobe bronchopneumonia, suspect gram-negative organism, present on admission, slow to respond. 2. Acute severe chronic obstructive pulmonary disease exacerbation in a smoker, slow to respond. 3. Chronic nicotine dependence. Patient is a long-standing smoker. 4. Possibly fluid overload from IV fluids. 5. Diabetes mellitus type 2, on oral hypoglycemics, uncontrolled from steroids. 6. Hyperlipidemia. 7. Essential hypertension. 8. Obstructive sleep apnea, uses CPAP machine. 9. Chronic hypoxic respiratory failure, on home oxygen. 10. Severe sepsis on presentation from underlying pneumonia. 11. Severe hyperkalemia, improved. PLAN: Will discontinue the IV fluids. Give one dose of IV Lasix. Repeat a chest x-ray in the morning and electrolytes. Patient is definitely slow to respond.
[2016-09-17] MEDS: FUROSEMIDE 20 MG TAB PO SCH (09:05)
[2016-09-17] MEDS: methylPREDNISolone SOD SUCCI 40 MG/ML 1 ML VIAL IV SCH ×2 (09:05→16:01)
[2016-09-17] MEDS: NICOTINE 21MG/24HR PATCH TRANSDERM SCH (09:06)
[2016-09-17] MEDS: PRAVASTATIN SODIUM 40 MG TAB PO SCH (09:06)
[2016-09-17] MEDS: GABAPENTIN 300 MG CAP PO SCH ×2 (09:06→21:03)
[2016-09-17] MEDS: PIPERACILLIN-TAZOBACTAM 3.375 GM in DEXTROSE/WATER 1 50ML.BAG IVPB SCH ×2 (09:10→16:04)
[2016-09-17] MEDS: HEPARIN SODIUM,PORCINE 5,000 UNIT/ML 1 ML VIAL IV PRN ×2 (09:15→16:01)
[2016-09-17] MEDS: PARoxetine 20 MG TAB PO SCH (09:48)
--- NOTE | 2016-09-17 11:44 | P.CRDCN ---
History of Present Illness Consult date: 09/17/16 Requesting physician: Teodoro Cid Reason for Consult (text): arrhythmia Chief complaint: Shortness of breath History of present illness: This is a 66-year-old female with history of hypertension, hyperlipidemia, diabetes, COPD O2, chronic nicotine dependence, who initially presented to the hospital with a right lower lobe pneumonia and exacerbation of COPD. Patient was apparently ready for discharge yesterday when her heart rate noted to go fast, they did an EKG at that time which read atrial fibrillation with rapid ventricular response. For this reason her discharge was delayed and a cardiology consultation was requested. According to the patient, she was asymptomatic at the time her heart rate went fast, she does state at times at home she does feel a fluttering in her chest. Patient was initiated on IV heparin and IV Cardizem. This morning is currently in a normal sinus. Patient is noted on her rhythm strips to be tachycardic at times, she was also noted to have 1 run of nonsustained ventricular tachycardia. The patient denies any prior to her knowledge. Initial chest x-ray when the patient was admitted showed pneumonia. CTA of the chest negative for pulmonary embolism. Blood pressure 136/60 with a heart rate in the 70s, 98% on 3 L of oxygen. White blood cell count 11.3, hemoglobin 10.0, BUN 50, creatinine 1.3. BNP level 1700 , on admission 621. Past Medical History Past Medical History: Heart Failure, COPD, Diabetes Mellitus, Hyperlipidemia, Hypertension, Seizure Disorder, Sleep Apnea/CPAP/BIPAP Additional Past Medical History / Comment(s): had 2 seizures 40 yrs ago-never had anymore-not sure of cause,uses oxygen 2L @[facility] History of Any Multi-Drug Resistant Organisms: None Reported Past Surgical History: Appendectomy, Bladder Surgery, Cholecystectomy, Hysterectomy, Orthopedic Surgery, Tonsillectomy, Tubal Ligation Additional Past Surgical History / Comment(s): left rotator cuff repair, vein stripping, 20# 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 Past Anesthesia/Blood Transfusion Reactions: No Reported Reaction Past Psychological History: Panic Disorder Additional Psychological History / Comment(s): panick attacks while going through menopause when pt was in her 40's, pt started paxil and is doing fine now Smoking Status: Current every day smoker Past Alcohol Use History: None Reported Additional Past Alcohol Use History / Comment(s): <ppd since age of 16, down from 2ppd Past Drug Use History: None Reported - Past Family History Mother Family Medical History: Cancer Additional Family Medical History / Comment(s): breast/liver Medications and Allergies Home Medications Medication Instructions Recorded Confirmed Type Albuterol Nebulized [Ventolin 2.5 mg INHALATION RT-Q6H PRN 02/01/16 09/11/16 History Nebulized] Aspirin 81 mg PO HS 02/01/16 09/11/16 History Cholecalciferol [Vitamin D3] 1,000 unit PO HS 02/01/16 09/11/16 History Furosemide [Lasix] 20 mg PO DAILY 02/01/16 09/11/16 History Insulin Detemir [Levemir] 80 unit SQ HS 02/01/16 09/11/16 History Isosorbide Mononitrate ER [Imdur] 30 mg PO HS 02/01/16 09/11/16 History Lisinopril [Zestril] 20 mg PO DAILY 02/01/16 09/11/16 History Montelukast [Singulair] 10 mg PO HS 02/01/16 09/11/16 History [place]-3 Fatty Acids/Fish Oil [Fish 1 cap PO DAILY 02/01/16 09/11/16 History Oil 1,000 mg Softgel] PARoxetine [Paxil] 20 mg PO DAILY 02/01/16 09/11/16 History Pravastatin Sodium [Pravachol] 40 mg PO DAILY 02/01/16 09/11/16 History metFORMIN HCL [Glucophage] 1,000 mg PO BID 02/01/16 09/11/16 History Gabapentin [Neurontin] 300 mg PO QA 07/13/16 09/11/16 History Gabapentin [Neurontin] 600 mg PO 09/11/16 09/11/16 History Insulin Aspart [NovoLOG Flexpen] 13 units SQ AC-TID 09/11/16 09/11/16 History Allergies Allergy/AdvReac Type Severity Reaction Status Date / Time codeine AdvReac jittery Verified 09/11/16 14:51 and shaky Physical Exam Vitals: Vital Signs Temp Pulse Pulse Pulse Resp BP BP 09/17/16 09:05 98.4 F 78 20 136/65 09/17/16 08:43 85 09/17/16 08:27 82 09/17/16 04:00 97 F L 142 H 18 120/74 09/17/16 03:00 153 H 18 09/17/16 02:40 138 H 18 150/62 09/17/16 02:15 148 H 18 113/59 09/17/16 00:00 98.8 F 95 18 154/74 09/16/16 21:06 84 09/16/16 20:48 84 09/16/16 20:00 98.7 F 98 18 149/64 09/16/16 19:37 18 09/16/16 19:00 18 09/16/16 16:57 80 09/16/16 16:47 80 09/16/16 16:35 112 H 22 09/16/16 16:00 97.9 F 90 20 152/67 09/16/16 13:17 84 09/16/16 13:09 80 09/16/16 12:06 97.9 F 91 20 152/72 Pulse Ox 09/17/16 09:05 98 09/17/16 08:43 09/17/16 08:27 96 09/17/16 04:00 93 L 09/17/16 03:00 93 L 09/17/16 02:40 93 L 09/17/16 02:15 92 L 09/17/16 00:00 98 09/16/16 21:06 09/16/16 20:48 09/16/16 20:00 93 L 09/16/16 19:37 93 L 09/16/16 19:00 97 09/16/16 16:57 09/16/16 16:47 09/16/16 16:35 87 L 09/16/16 16:00 98 09/16/16 13:17 09/16/16 13:09 09/16/16 12:06 98 Intake and Output 09/16/16 09/17/16 09/17/16 22:59 06:59 14:59 Intake Total 640 445.18 129.053 Output Total 400 Balance 640 45.18 129.053 Intake: IV 400 50 Piperacillin-Tazobactam 3 50 .375 gm In Dextrose/Water 1 50ml.bag @ 12.5 mls/hr IVPB Q8HR MARCELO Rx#: [id number] Sodium Chloride 0.9% 1, 400 000 ml @ 100 mls/hr IV . Q10H MARCELO Rx#:[id number] Intake, IV Titration 95.18 129.053 Amount Diltiazem 125 mg In 35 Sodium Chloride 0.9% 100 ml @ 10 MG/HR 10 mls/hr IV .[id number] MARCELO Rx#: [id number] Heparin Sodium,Porcine/ 60.18 129.053 D5w Pmx 25,000 unit In Dextrose/Water 1 500ml. bag @ 11.1 UNITS/KG/HR 20 .06 mls/hr IV .Q24H MARCELO Rx#:[id number] Oral 240 300 Output: Urine 400 Other: Voiding Method Toilet Toilet Toilet # Voids 1 Weight 87.5 kg PHYSICAL EXAMINATION: HEENT: Head is atraumatic, normocephalic. Pupils equal, round. Neck is supple. There is no elevated jugular venous pressure. HEART EXAMINATION: Heart S1, S2 normal. No murmur or gallop heard. CHEST EXAMINATION: Lungs reveal decreased air exchange throughout with fine expiratory wheezing. ABDOMEN: Soft, nontender. Bowel sounds are heard. No organomegaly noted. EXTREMITIES: 2+ peripheral pulses with no evidence of peripheral edema and no calf tenderness noted. NEUROLOGIC patient is awake, alert and oriented -3. . Results 09/17/16 08:13 09/17/16 08:13 Coagulation 09/17/16 Range/Units 08:13 PT 10.9 (9.0-12.0) sec APTT 30.0 (22.0-30.0) sec CBC 09/17/16 Range/Units 08:13 WBC 11.3 H (3.8-10.6) k/uL RBC 3.31 L (3.80-5.40) m/uL Hgb 10.0 L (11.4-16.0) gm/dL Hct 33.2 L (34.0-46.0) % Plt Count 325 (150-450) k/uL Comprehensive Metabolic Panel 09/17/16 Range/Units 08:13 Sodium 142 (137-145) mmol/L Potassium 4.4 (3.5-5.1) mmol/L Chloride 90 L (98-107) mmol/L Carbon Dioxide 39 H (22-30) mmol/L BUN 50 H (7-17) mg/dL Creatinine 1.31 H (0.52-1.04) mg/dL Glucose 233 H (74-99) mg/dL Calcium 10.0 (8.4-10.2) mg/dL Current Medications Generic Name Dose Route Start Last Admin Trade Name Freq PRN Reason Stop Dose Admin Acetaminophen 1,000 mg 09/11/16 19:53 09/11/16 19:54 Tylenol Tab PO 1,000 mg ONCE PRN Administration Fever and/ or Pain Albuterol Sulfate 2.5 mg 09/15/16 08:00 09/17/16 08:24 Ventolin Nebulized (Conc) INHALATION 2.5 mg RT-QID MARCELO Administration Albuterol/Ipratropium 3 ml 09/14/16 18:49 Duoneb 0.5 Mg-3 Mg/3 Ml Soln INHALATION RT-QID PRN Shortness Of Breath Or Wheezing Albuterol/Ipratropium 3 ml 09/14/16 20:00 09/17/16 08:24 Duoneb 0.5 Mg-3 Mg/3 Ml Soln INHALATION 3 ml RT-QID MARCELO Administration Aspirin 81 mg 09/11/16 21:00 09/16/16 21:54 Aspirin PO 81 mg HS MARCELO Administration Budesonide 1 mg 09/13/16 20:00 09/17/16 08:24 Pulmicort INHALATION 1 mg RT-BID MARCELO Administration Cholecalciferol 1,000 unit 09/11/16 21:00 09/16/16 21:54 Vitamin D3 PO 1,000 unit HS MARCELO Administration Furosemide 20 mg 09/12/16 09:00 09/17/16 09:05 Lasix PO 20 mg DAILY MARCELO Administration Gabapentin 300 mg 09/12/16 09:00 09/17/16 09:06 Neurontin PO 300 mg QAM MARCELO Administration Gabapentin 600 mg 09/11/16 21:00 09/16/16 21:54 Neurontin PO 600 mg HS MARCELO Administration Heparin Sodium (Porcine) 0 unit 09/17/16 02:07 09/17/16 09:15 Heparin IV 4,000 unit PER PROTOCOL PRN Administration Low PTT Protocol Piperacillin/Tazobactam/ 50 mls @ 12.5 mls/hr 09/12/16 00:00 09/17/16 09:10 Dextrose 3.375 gm/ IV Solution IVPB 09/21/16 00:01 12.5 mls/hr Q8HR MARCELO Administration Diltiazem HCl 125 mg/ Sodium 125 mls @ 10 mls/hr 09/17/16 02:15 09/17/16 02: 49 Chloride IV 10 mg/hr .[id number] MARCELO 10 mls/hr Protocol Administration 10 MG/HR Heparin Sodium/Dextrose 25,000 500 mls @ 20.06 mls/hr 09/17/16 02:15 09:15 unit/ IV Solution IV 14.06 units/kg/hr .Q24H MARCELO 25.42 mls/hr Protocol Titration 11.1 UNITS/KG/HR Insulin Detemir 80 unit 09/11/16 21:00 09/16/16 21:09 Levemir SQ 80 unit HS MARCELO Administration Insulin Human Lispro 0 unit 09/11/16 17:30 09/17/16 07:12 Humalog SQ 2 unit ACHS MARCELO Administration Protocol Insulin Human Lispro 13 unit 09/15/16 07:30 09/17/16 07:12 Humalog SQ 13 unit AC-TID MARCELO Administration Isosorbide Mononitrate 30 mg 09/11/16 21:00 09/16/16 21:54 Imdur PO 30 mg HS MARCELO Administration Levofloxacin 750 mg 09/14/16 16:00 09/16/16 16:01 Levaquin PO 09/17/16 16:01 750 mg Q48H MARCELO Administration Metformin HCl 1,000 mg 09/11/16 17:30 09/17/16 07:13 Glucophage PO 1,000 mg AC-BID MARCELO Administration Methylprednisolone Sodium Succinate 40 mg 09/14/16 00:00 09/17/16 09:05 Solu-Medrol IV 40 mg Q8HR MARCELO Administration Miscellaneous Information 1 each 09/11/16 15:53 Pneumonia Protocol Utilized PO ONCE PRN Per Protocol Montelukast Sodium 10 mg 09/11/16 21:00 09/16/16 21:54 Singulair PO 10 mg HS MARCELO Administration Nicotine 1 patch 09/12/16 15:00 09/17/16 09:06 Habitrol 21mg/24hr Patch TRANSDERM 1 patch DAILY MARCELO Administration Nicotine Polacrilex 2 mg 09/12/16 14:54 Nicorette Gum BUCCAL Q4HR PRN Nicotine Cravings Paroxetine HCl 20 mg 09/12/16 09:00 09/17/16 09:48 Paxil PO 20 mg DAILY MARCELO Administration Pravastatin Sodium 40 mg 09/12/16 09:00 09/17/16 09:06 Pravachol PO 40 mg DAILY MARCELO Administration Intake and Output 09/16/16 09/17/16 09/17/16 22:59 06:59 14:59 Intake Total 640 445.18 129.053 Output Total 400 Balance 640 45.18 129.053 Intake: IV 400 50 Piperacillin-Tazobactam 3 50 .375 gm In Dextrose/Water 1 50ml.bag @ 12.5 mls/hr IVPB Q8HR MARCELO Rx#: [id number] Sodium Chloride 0.9% 1, 400 000 ml @ 100 mls/hr IV . Q10H MARCELO Rx#:[id number] Intake, IV Titration 95.18 129.053 Amount Diltiazem 125 mg In 35 Sodium Chloride 0.9% 100 ml @ 10 MG/HR 10 mls/hr IV .[id number] MARCELO Rx#: [id number] Heparin Sodium,Porcine/ 60.18 129.053 D5w Pmx 25,000 unit In Dextrose/Water 1 500ml. bag @ 11.1 UNITS/KG/HR 20 .06 mls/hr IV .Q24H MARCELO Rx#:[id number] Oral 240 300 Output: Urine 400 Other: Voiding Method Toilet Toilet Toilet # Voids 1 Weight 87.5 kg 09/17/16 08:13 09/17/16 08:13 EKG Interpretations (text) Initial EKG on admission showed a sinus tachycardia with nonspecific ST-T wave changes. EKG performed this morning shows atrial fibrillation with rapid ventricular response. Assessment and Plan Plan: Assessment and plan #1 right lower lobe pneumonia #2 acute severe chronic obstructive pulmonary disease exacerbation #3 nicotine dependence #4 hypertension #5 hyperlipidemia #6 diabetes #7 sleep apnea #8 COPD with home O2 use #9 atrial fibrillation, paroxysmal, of new onset. #10 congestive heart failure, likely diastolic in nature Plan We will discontinue the IV Cardizem and start the patient on verapamil. Obtain echocardiogram with Doppler study. We will also give the patient a one time dose of IV Lasix. Continue IV heparin, we will also look into one of the newer anticoagulants to see if the patient has coverage. Obtain free T4 and TSH level. We'll obtain repeat BNP level Further recommendations to follow. DNP note has been reviewed, I agree with a documented findings and plan of care. Patient was seen and examined.
[2016-09-17 11:49] LABS: Glucose,Whole Blood 223 mg/dL (75-99)
[2016-09-17] MEDS: VERAPAMIL 80 MG TAB PO SCH ×3 (12:10→21:04)
--- NOTE | 2016-09-17 14:28 | P.PN ---
Subjective This patient is a 66-year-old female who is being evaluated and examined today on the sixth floor. The patient came into the emergency room with progressive shortness of breath that had been going on a few days prior to coming in along with wheezing and a productive cough. She also reports some subjective fevers. Patient feels extremely tired and didn't run down. Chest x-ray reveals interstitial pneumonitis or mild venous congestion. CTA was negative for pulmonary embolism, however showed multifocal bronchopneumonia. She was admitted to the hospital with diagnosis of pneumonia and acute exacerbation of COPD. Upon examination the patient is resting up in bed on 3-4 L of oxygen via nasal cannula. Patient continues to complain of a productive cough, however she states the frequency is decreasing. Patient states she is starting to feel better. The patient did have some ectopy noted last night and also went into atrial fibrillation, cardiology on consult. Patient was put on a heparin drip and a Cardizem drip. Objective - Vital Signs Vital signs: Vital Signs Temp 98.4 F 09/17/16 09:05 Pulse 78 09/17/16 09:05 Resp 20 09/17/16 09:05 BP 136/65 09/17/16 09:05 Pulse Ox 98 09/17/16 09:05 Intake & Output 09/16/16 09/17/16 09/17/16 18:59 06:59 18:59 Intake Total 1770 445.18 129.053 Output Total 400 Balance 1770 45.18 129.053 Weight 87.5 kg Intake: IV 1050 50 Piperacillin-Tazobactam 3 50 50 .375 gm In Dextrose/Water 1 50ml.bag @ 12.5 mls/hr IVPB Q8HR MARCELO Rx#: [id number] Sodium Chloride 0.9% 1, 1000 000 ml @ 100 mls/hr IV . Q10H MARCELO Rx#:[id number] Intake, IV Titration 95.18 129.053 Amount Diltiazem 125 mg In 35 Sodium Chloride 0.9% 100 ml @ 10 MG/HR 10 mls/hr IV .[id number] MARCELO Rx#: [id number] Heparin Sodium,Porcine/ 60.18 129.053 D5w Pmx 25,000 unit In Dextrose/Water 1 500ml. bag @ 11.1 UNITS/KG/HR 20 .06 mls/hr IV .Q24H MARCELO Rx#:[id number] Oral 720 300 Output: Urine 400 Other: Voiding Method Toilet Toilet Toilet # Voids 1 1 # Bowel Movements 0 - Exam GENERAL EXAM: Alert, comfortable in no apparent distress. HEAD: Normocephalic. EYES: Normal reaction of pupils, equal size. NOSE: Clear with pink turbinates. THROAT: No erythema or exudates. NECK: No masses, no JVD. CHEST: No chest wall deformity. LUNGS: Decreased air entry which is coarse, prolonged expiration with wheeze. CVS: S1 and S2 normal with no audible mumurs, regular rhythm. ABDOMEN: No hepatosplenomegaly, normal bowel sounds, no guarding or rigidity. EXTREMITIES: No edema noted, pedal pulses palpable. SKIN: No rashes CENTRAL NERVOUS SYSTEM: No focal deficits, tone is normal in all 4 extremities. - Labs CBC & Chem 7: 09/17/16 08:13 09/17/16 08:13 Labs: Abnormal Lab Results - Last 24 Hours (Table) 09/16/16 09/16/16 09/16/16 Range/Units 11:27 16:36 20:40 WBC (3.8-10.6) k/uL RBC (3.80-5.40) m/uL Hgb (11.4-16.0) gm/dL Hct (34.0-46.0) % MCV (80.0-100.0) fL MCHC (31.0-37.0) g/dL Neutrophils # (1.3-7.7) k/uL Chloride (98-107) mmol/L Carbon Dioxide (22-30) mmol/L BUN (7-17) mg/dL Creatinine (0.52-1.04) mg/dL Glucose (74-99) mg/dL POC Glucose (mg/dL) 166 H 275 H 191 H (75-99) mg/dL 09/17/16 09/17/16 09/17/16 Range/Units 02:09 06:28 08:13 WBC (3.8-10.6) k/uL RBC (3.80-5.40) m/uL Hgb (11.4-16.0) gm/dL Hct (34.0-46.0) % MCV (80.0-100.0) fL MCHC (31.0-37.0) g/dL Neutrophils # (1.3-7.7) k/uL Chloride 90 L (98-107) mmol/L Carbon Dioxide 39 H (22-30) mmol/L BUN 50 H (7-17) mg/dL Creatinine 1.31 H (0.52-1.04) mg/dL Glucose 233 H (74-99) mg/dL POC Glucose (mg/dL) 103 H 146 H (75-99) mg/dL 09/17/16 Range/Units 08:13 WBC 11.3 H (3.8-10.6) k/uL RBC 3.31 L (3.80-5.40) m/uL Hgb 10.0 L (11.4-16.0) gm/dL Hct 33.2 L (34.0-46.0) % MCV 100.2 H (80.0-100.0) fL MCHC 30.1 L (31.0-37.0) g/dL Neutrophils # 9.5 H (1.3-7.7) k/uL Chloride (98-107) mmol/L Carbon Dioxide (22-30) mmol/L BUN (7-17) mg/dL Creatinine (0.52-1.04) mg/dL Glucose (74-99) mg/dL POC Glucose (mg/dL) (75-99) mg/dL Assessment and Plan Plan: Assessment Acute on chronic hypoxic respiratory failure, patient uses nocturnal oxygen 2 LPM Community-acquired Right lower lobe pneumonia, suspect gram-negative organism Acute exacerbation of COPD Obstructive sleep apnea, uses home CPAP Current nicotine dependence Diabetes mellitus type 2 Hyperlipidemia Hypertension Plan Medications have been reviewed and will be continued. Currently awaiting chest x-ray to be completed. The patient's nebulizer treatments have been switched from albuterol to Xopenex due to her going into A. fib with RVR. Continue with antibiotics and IV steroids as well as nebulizer treatments. We will continue with pulmonary hygiene, supplemental oxygen, and supportive care. Incentive spirometer encouraged. Continue use of home CPAP machine. We will continue to monitor labs/results and adjust treatment as necessary. I performed an examination of the patient and discussed their management with the nurse practitioner. I have reviewed the nurse practitioner's note and agree with the documented findings and plan of care.
--- NOTE | 2016-09-17 15:18 | XR ---
EXAMINATION TYPE: XR chest 2V DATE OF EXAM: 09/17/2016 1:06 PM COMPARISON: Prior chest x-ray September HISTORY: Pneumonia TECHNIQUE: Frontal and lateral views of the chest are obtained. FINDINGS: Prominent lung volumes are again noted. Improved aeration is suspected at the posterior yesica ng bases. Surgical clips are present in the upper outer. No pneumothorax or pleural effusion. Cardiac mediastinal silhouette, pulmonary vascularity and deb are not significantly changed from the heart is enlarged. Patient is rotated. There are overlying cardiac leads. Postop change suspected to the di stal left clavicle. IMPRESSION: Similar findings. Cardiomegaly. There is improved aeration as compared to prior exam.
[2016-09-17] MEDS: IPRATROPIUM 0.5 MG/2.5 ML NEBU INHALATION SCH ×2 (15:50→19:53)
[2016-09-17] MEDS: LEVALBUTEROL NEB (CONC) 1.25 MG/0.5 ML AMP INHALATION SCH ×2 (15:50→19:53)
[2016-09-17 17:02] LABS: Glucose,Whole Blood 279 mg/dL (75-99)
[2016-09-17] MEDS ORDERED: INSULIN LISPRO (humaLOG) 300 UNIT/3 ML VIAL SQ ONE (17:39)
[2016-09-17 20:48] LABS: Glucose,Whole Blood 202 mg/dL (75-99)
[2016-09-17] MEDS: ASPIRIN 81 MG CHEW PO SCH (21:03)
[2016-09-17] MEDS: CHOLECALCIFEROL 1,000 UNIT TAB PO SCH (21:03)
[2016-09-17] MEDS: AMOXIC-POT CLAV 500-125 MG 1 EACH TAB PO SCH (21:03)
[2016-09-17] MEDS: INSULIN DETEMIR 100 UNIT/ML 10 ML VIAL SQ SCH (21:04)
[2016-09-17] MEDS: ISOSORBIDE MONONITRATE ER 30 MG TAB.ER.24H PO SCH (21:04)
[2016-09-17] MEDS: MONTELUKAST 10 MG TAB PO SCH (21:04)
--- NOTE | 2016-09-17 22:59 | PN ---
DATE OF SERVICE: 09/17/2016 PRESENTING COMPLAINT: Short of breath. INTERVAL HISTORY: This patient presented with bronchopneumonia, severe COPD exacerbation. Wheezing and coughing are better. Overnight the patient did go into atrial fibrillation. Cardiology was consulted. Patient was started on IV Cardizem. Patient then later reverted to sinus rhythm. Overall feeling better. Diet is being tolerated. Two-D echo is pending. Review of systems done for constitutional, cardiovascular, GI, pulmonary; relevant findings as above. Current medications are reviewed that include nebulized bronchodilator, IV heparin, IV Solu-Medrol, IV Zosyn. On examination, temperature 97.1, pulse 83, respiration 20, blood pressure 106/54, pulse ox 93% on 3 L. GENERAL APPEARANCE: Sitting up on bed, looking more peppy. EYES: Pupils equal. Conjunctivae normal. NECK: JVD not raised. Mass not palpable. RESPIRATORY: Effort increased. LUNGS: Improved air entry. Decreased wheezing. CARDIOVASCULAR: First and second sounds normal. No edema. ABDOMEN: Soft, nontender. Liver and spleen not palpable. PSYCHIATRY: Alert and oriented x3. Mood and affect normal. INVESTIGATIONS: White count 11.3, hemoglobin 10. Potassium 4.4. BUN 50, creatinine 1.31. Accu-Cheks are noted. Chest x-ray reviewed by me; it shows cardiomegaly; ( ) infiltrates have improved. ASSESSMENT: 1. Right lower lobe bronchopneumonia; suspect Gram-negative organism; with clinical improvement. 2. Paroxysmal atrial fibrillation, back in sinus rhythm. Anticoagulation per Cardiology. 3. Acute severe chronic obstructive pulmonary disease exacerbation in a smoker, responding well now. 4. Chronic nicotine dependence. Patient is a long-standing smoker. 5. Diabetes mellitus, type 2, on oral hypoglycemic, uncontrolled from steroids. 6. Hyperlipidemia. 7. Essential hypertension. 8. Obstructive sleep apnea; uses a CPAP machine. 9. Chronic hypoxic respiratory failure, on home oxygen. 10. Severe sepsis on presentation from underlying pneumonia. 11. Severe ( )emia, improved. 12. Chronic kidney disease, stage III, from diabetic nephropathy and hypertensive nephrosclerosis. 13. Intravenous heparin monitoring. PLAN: Will switch the patient to p.o. prednisone. IV heparin to be maintained until anticoagulation is resumed. Patient will be switched to p.o. Augmentin. Patient encouraged to walk in the hallway. Patient is already walking up to the bathroom. Looking at hopefully discharge tomorrow. Two-D echo is pending.
[2016-09-18 01:44] VITALS: RESP 18
[2016-09-18 06:13] LABS: Glucose,Whole Blood 150 mg/dL (75-99)
[2016-09-18] MEDS: metFORMIN 500 MG TAB PO SCH (07:02)
[2016-09-18] MEDS: INSULIN LISPRO (humaLOG) 300 UNIT/3 ML VIAL SQ SCH ×4 (07:02→12:17)
[2016-09-18 07:37] LABS: Basophils % (A) 0 %; CH 29.6; CHCM 30.2; Eosinophils % (A) 0 %; HCT 31.2 % (34.0-46.0); HDW 2.53; HGB 9.5 gm/dL (11.4-16.0); Hypochromasia Moderate; Luc # (Auto) 0.43; Luc % (Auto) 3; Lymphocytes # (A) 2.2 k/uL (1.0-4.8); Lymphocytes % (A) 16 %; MCH 29.8 pg (25.0-35.0); MCHC 30.4 g/dL (31.0-37.0); MCV 98.3 fL (80.0-100.0); Mean Platelet Volume 7.2; Monocytes # (A) 0.9 k/uL (0-1.0); Monocytes % (A) 7 %; Neutrophils % (A) 74 %; RBC 3.17 m/uL (3.80-5.40); RDW 14.8 % (11.5-15.5); WBC 13.6 k/uL (3.8-10.6); WBC (Perox) 14.45
[2016-09-18 08:18] LABS: Calcium 9.8 mg/dL (8.4-10.2); Magnesium 1.7 mg/dL (1.6-2.3); Potassium 4.1 mmol/L (3.5-5.1); Total Bilirubin 0.4 mg/dL (0.2-1.3); Total Protein 6.2 g/dL (6.3-8.2)
[2016-09-18] MEDS: AMOXIC-POT CLAV 500-125 MG 1 EACH TAB PO SCH (08:27)
[2016-09-18] MEDS: VERAPAMIL 80 MG TAB PO SCH ×2 (08:28→15:45)
[2016-09-18] MEDS: GABAPENTIN 300 MG CAP PO SCH (08:28)
[2016-09-18] MEDS: PRAVASTATIN SODIUM 40 MG TAB PO SCH (08:29)
[2016-09-18] MEDS: PARoxetine 20 MG TAB PO SCH (08:29)
[2016-09-18] MEDS: FUROSEMIDE 20 MG TAB PO SCH (08:29)
[2016-09-18] MEDS: NICOTINE 21MG/24HR PATCH TRANSDERM SCH (08:33)
[2016-09-18 08:38] VITALS: TEMP 96.2
[2016-09-18] MEDS: BUDESONIDE 1 MG/2 ML NEBU INHALATION SCH (08:54)
[2016-09-18] MEDS: IPRATROPIUM 0.5 MG/2.5 ML NEBU INHALATION SCH ×2 (08:55→13:08)
[2016-09-18] MEDS: ALBUTEROL NEB (CONC) 2.5 MG/0.5 ML INHALATION SCH ×2 (08:55→13:08)
[2016-09-18] MEDS ORDERED: predniSONE 20 MG TAB PO SCH (09:00)
[2016-09-18] MEDS: LEVALBUTEROL NEB (CONC) 1.25 MG/0.5 ML AMP INHALATION SCH ×3 (09:23→13:27)
--- NOTE | 2016-09-18 10:16 | ECHOF ---
Referral Reason:AFIB MEASUREMENTS -------- HEIGHT: 167.6 cm WEIGHT: 87.1 kg BP: 136/65 RVIDd: 3.5 cm (< 3.3) IVSd: 1.2 cm (0.6 - 1.1) LVIDd: 4.7 cm (3.9 - 5.3) LVPWd: 1.3 cm (0.6 - 1.1) IVSs: 2.2 cm LVIDs: 3.4 cm LVPWs: 1.6 cm LA Diam: 3.5 cm (2.7 - 3.8) LAESV Index (A-L): 25.84 ml/m Ao Diam: 2.8 cm (2.0 - 3.7) AV Cusp: 1.6 cm (1.5 - 2.6) LA Diam: 2.9 cm (2.7 - 3.8) MV EXCURSION: 12.169 mm (> 18.000) MV EF SLOPE: 61 mm/s (70 - 150) EPSS: 0.5 cm MV E Blake: 1.12 m/s MV DecT: 220 ms MV A Blake: 0.98 m/s MV E/A Ratio: 1.15 AV maxP.53 mmHg AV meanP.01 mmHg FINDINGS -------- Sinus rhythm. This was a technically adequate study. There is mild concentric left ventricular hypertrophy. Overall left ventricular systolic function is normal with, an EF between 55 - 60 %. The right ventricle is mildly enlarged. Normal LA size by volume 22+/-6 ml/m2. The right atrium is normal in size. Aortic valve is trileaflet and is mildly thickened. Peak/mean gradient across the Aortic Valve is 16.53mmHg / 9.01mmHg. Mild mitral annular calcification present. There is trace mitral regurgitation. Trace tricuspid regurgitation present. Trace/mild (physiologic) pulmonic regurgitation. The aortic root size is normal. Normal inferior vena cava with normal inspiratory collapse consistent with estimated right atrial pressure of 5 mmHg. Echo free space may represent effusion or a pericardial fat pad. CONCLUSIONS -------- 1. Sinus rhythm. 2. Mild mitral annular calcification present. 3. There is trace mitral regurgitation. 4. Trace tricuspid regurgitation present. 5. Trace/mild (physiologic) pulmonic regurgitation. 6. The aortic root size is normal. 7. Normal inferior vena cava with normal inspiratory collapse consistent with estimated right atrial pressure of 5 mmHg. 8. Echo free space may represent effusion or a pericardial fat pad. 9. This was a technically adequate study. 10. There is mild concentric left ventricular hypertrophy. 11. Overall left ventricular systolic function is normal with, an EF between 55 - 60 %. 12. The right ventricle is mildly enlarged. 13. Normal LA size by volume 22+/-6 ml/m2. 14. The right atrium is normal in size. 15. Aortic valve is trileaflet and is mildly thickened. 16. Peak/mean gradient across the Aortic Valve is 16.53mmHg / 9.01mmHg. 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
--- NOTE | 2016-09-18 11:00 | P.PN ---
Subjective This patient is a 66-year-old female who is being evaluated and examined today on the sixth floor. The patient came into the emergency room with progressive shortness of breath that had been going on a few days prior to coming in along with wheezing and a productive cough. She also reports some subjective fevers. Patient feels extremely tired and didn't run down. Chest x-ray reveals interstitial pneumonitis or mild venous congestion. CTA was negative for pulmonary embolism, however showed multifocal bronchopneumonia. She was admitted to the hospital with diagnosis of pneumonia and acute exacerbation of COPD. Upon examination the patient is resting up in bed on 3 L of oxygen via nasal cannula. Patient continues to complain of a productive cough, however she states the frequency is decreasing. Patient states she is starting to feel better. The patient did have some ectopy noted last night and also went into atrial fibrillation, cardiology on consult. Patient currently in normal sinus rhythm. Patient had an echocardiogram which revealed an EF between 55-60%. Objective - Vital Signs Vital signs: Vital Signs Temp 96.2 F L 09/18/16 08:00 Pulse 84 09/18/16 09:15 Resp 18 09/18/16 08:00 BP 108/58 09/18/16 08:00 Pulse Ox 96 09/18/16 08:00 Intake & Output 09/17/16 09/18/16 09/18/16 18:59 06:59 18:59 Intake Total 661.485 758.515 240 Output Total 1150 300 Balance -488.515 758.515 -60 Weight 89 kg Intake: IV 360 Heparin Sodium,Porcine/ 360 D5w Pmx 25,000 unit In Dextrose/Water 1 500ml. bag @ 11.1 UNITS/KG/HR 20 .06 mls/hr IV .Q24H MARCELO Rx#:[id number] Intake, IV Titration 301.485 198.515 Amount Heparin Sodium,Porcine/ 301.485 198.515 D5w Pmx 25,000 unit In Dextrose/Water 1 500ml. bag @ 11.1 UNITS/KG/HR 20 .06 mls/hr IV .Q24H MARCELO Rx#:[id number] Oral 360 200 240 Output: Urine 1150 300 Other: Voiding Method Toilet Toilet # Voids 1 # Bowel Movements 0 0 - Exam GENERAL EXAM: Alert, comfortable in no apparent distress. HEAD: Normocephalic. EYES: Normal reaction of pupils, equal size. NOSE: Clear with pink turbinates. THROAT: No erythema or exudates. NECK: No masses, no JVD. CHEST: No chest wall deformity. LUNGS: Decreased air entry which is coarse, prolonged expiration with wheeze. CVS: S1 and S2 normal with no audible mumurs, regular rhythm. ABDOMEN: No hepatosplenomegaly, normal bowel sounds, no guarding or rigidity. EXTREMITIES: No edema noted, pedal pulses palpable. SKIN: No rashes CENTRAL NERVOUS SYSTEM: No focal deficits, tone is normal in all 4 extremities. - Labs CBC & Chem 7: 09/18/16 06:53 09/18/16 06:53 Labs: Abnormal Lab Results - Last 24 Hours (Table) 09/17/16 09/17/16 09/17/16 Range/Units 11:39 15:15 16:55 WBC (3.8-10.6) k/uL RBC (3.80-5.40) m/uL Hgb (11.4-16.0) gm/dL Hct (34.0-46.0) % MCHC (31.0-37.0) g/dL Neutrophils # (1.3-7.7) k/uL APTT 39.3 H (22.0-30.0) sec Chloride (98-107) mmol/L Carbon Dioxide (22-30) mmol/L BUN (7-17) mg/dL Creatinine (0.52-1.04) mg/dL Glucose (74-99) mg/dL POC Glucose (mg/dL) 223 H 279 H (75-99) mg/dL Total Protein (6.3-8.2) g/dL Albumin (3.5-5.0) g/dL 09/17/16 09/17/16 09/18/16 Range/Units 20:47 21:30 06:12 WBC (3.8-10.6) k/uL RBC (3.80-5.40) m/uL Hgb (11.4-16.0) gm/dL Hct (34.0-46.0) % MCHC (31.0-37.0) g/dL Neutrophils # (1.3-7.7) k/uL APTT 54.3 H (22.0-30.0) sec Chloride (98-107) mmol/L Carbon Dioxide (22-30) mmol/L BUN (7-17) mg/dL Creatinine (0.52-1.04) mg/dL Glucose (74-99) mg/dL POC Glucose (mg/dL) 202 H 150 H (75-99) mg/dL Total Protein (6.3-8.2) g/dL Albumin (3.5-5.0) g/dL 09/18/16 09/18/16 Range/Units 06:53 06:53 WBC 13.6 H (3.8-10.6) k/uL RBC 3.17 L (3.80-5.40) m/uL Hgb 9.5 L (11.4-16.0) gm/dL Hct 31.2 L (34.0-46.0) % MCHC 30.4 L (31.0-37.0) g/dL Neutrophils # 10.0 H (1.3-7.7) k/uL APTT (22.0-30.0) sec Chloride 96 L (98-107) mmol/L Carbon Dioxide 37 H (22-30) mmol/L BUN 56 H (7-17) mg/dL Creatinine 1.48 H (0.52-1.04) mg/dL Glucose 121 H (74-99) mg/dL POC Glucose (mg/dL) (75-99) mg/dL Total Protein 6.2 L (6.3-8.2) g/dL Albumin 3.3 L (3.5-5.0) g/dL Assessment and Plan Plan: Assessment Acute on chronic hypoxic respiratory failure, patient uses nocturnal oxygen 2 LPM Community-acquired Right lower lobe pneumonia, suspect gram-negative organism Acute exacerbation of COPD Obstructive sleep apnea, uses home CPAP Current nicotine dependence Diabetes mellitus type 2 Hyperlipidemia Hypertension Plan Patient could be discharged from a pulmonary standpoint.Medications have been reviewed and will be continued. The patient's nebulizer treatments have been switched from albuterol to Xopenex due to her going into A. fib with RVR. Continue with antibiotics as well as nebulizer treatments. patient has been switched from IV steroids to oral. We will continue with pulmonary hygiene, supplemental oxygen, and supportive care. Incentive spirometer encouraged. Continue use of home CPAP machine. We will continue to monitor labs/results and adjust treatment as necessary. I performed an examination of the patient and discussed their management with the nurse practitioner. I have reviewed the nurse practitioner's note and agree with the documented findings and plan of care.
--- NOTE | 2016-09-18 11:03 | XR ---
EXAMINATION TYPE: XR chest 2V DATE OF EXAM: 09/18/2016 8:14 AM COMPARISON: Prior chest x-ray September HISTORY: Recent fall, shortness of breath, cough TECHNIQUE: Frontal and lateral views of the chest are obtained. FINDINGS: There are prominent lung volumes. Heart size is stable. No pneumothorax or pleural effusio n. Apical scarring is stable. Patient is rotated. There are coronary artery calcifications. IMPRESSION: Similar findings to prior exam. Emphysema, there is likely associated scarring. Follow-u p as indicated.
[2016-09-18 11:54] LABS: Glucose,Whole Blood 155 mg/dL (75-99)
[2016-09-18 12:28] VITALS: BP 116/58
[2016-09-18 13:12] VITALS: PULSE 80
--- NOTE | 2016-09-18 14:53 | CDI ---
In responding to this query, please exercise your independent professional judgment. The [facility] Coding Staff and Clinical Documentation Specialists appreciate your assistance in clarifying documentation, maintaining compliance with coding guidelines, accurately documenting patients condition and capturing severity of illness. The fact that a question is asked does not imply that any particular answer is desired or expected. Communication forms are a method of clarifying documentation and are not made part of the Legal Health Record. Thank you in advance for your clarification. Last Revision, August [address] [place] [address] Documentation Clarification Form Date: 09/18/2016 2:37:00 PM From: Christina Victor Admit Date: 09/11/2016 3:53:00 PM Patient Name: Lisette Patel Visit Number: [id number] Dr. Kalli Maria and Shana Robles DNP CHF likely diastolic is documented in the progress note on 09/17. Further specificity needed. History/Risk Factors: Hypertension COPD Pneumonia Diabetes Atrial Fibrillation Clinical Indicators: BNP on 09/17: 1700 Echo on 09/17: ef 55-60%, mild left vent hypertrophy Chest X Ray on 09/17: prominent lung volumes, no pleural effusion Treatment: IV Lasix x1 Consults: Cardiology In your professional opinion, can you please clarify the acuity of CHF if known? Acute Diastolic CHF Chronic Diastolic CHF Acute on Chronic Diastolic CHF Unable to determine Other, please specify Please document in your progress notes and discharge summary in order to capture severity of illness and risk of mortality. Include clinical findings that support your diagnosis. FYI: Press F11 to launch patient chart. Place X here if this finding has no clinical significance, is not applicable or if you are not able to provide any additional documentation. BRANDYN
[2016-09-18 15:13] VITALS: BMI 31.6
--- NOTE | 2016-09-18 15:58 | P.PN ---
Subjective Principal diagnosis: COPD exacerbation This is a 66-year-old female with history of hypertension, hyperlipidemia, diabetes, COPD O2, chronic nicotine dependence, who initially presented to the hospital with a right lower lobe pneumonia and exacerbation of COPD. Patient was apparently ready for discharge yesterday when her heart rate noted to go fast, they did an EKG at that time which read atrial fibrillation with rapid ventricular response. For this reason a cardiology consultation was requested. Patient is currently in a normal sinus rhythm. She was initiated today on Eliquis 5 mg one tablet by mouth twice a day. Overall the patient is feeling much better and is eager to be discharged home today. Objective - Vital Signs Vital signs: Vital Signs Temp 96.2 F L 09/18/16 12:00 Pulse 80 09/18/16 13:24 Resp 18 09/18/16 12:00 BP 116/58 09/18/16 12:00 Pulse Ox 92 L 09/18/16 12:00 Intake & Output 09/17/16 09/18/16 09/18/16 18:59 06:59 18:59 Intake Total 661.485 788.634 6950 Output Total 1150 600 Balance -488.515 758.515 500 Weight 89 kg 89 kg Intake: IV 360 180 Heparin Sodium,Porcine/ 360 180 D5w Pmx 25,000 unit In Dextrose/Water 1 500ml. bag @ 11.1 UNITS/KG/HR 20 .06 mls/hr IV .Q24H MARCELO Rx#:[id number] Intake, IV Titration 301.485 198.515 Amount Heparin Sodium,Porcine/ 301.485 198.515 D5w Pmx 25,000 unit In Dextrose/Water 1 500ml. bag @ 11.1 UNITS/KG/HR 20 .06 mls/hr IV .Q24H MARCELO Rx#:[id number] Oral 360 200 920 Output: Urine 1150 600 Other: Voiding Method Toilet Toilet # Voids 1 1 # Bowel Movements 0 0 - Exam PHYSICAL EXAMINATION: HEENT: Head is atraumatic, normocephalic. Pupils equal, round. Neck is supple. There is no elevated jugular venous pressure. HEART EXAMINATION: Heart S1, S2 normal. No murmur or gallop heard. CHEST EXAMINATION: Lungs reveal decreased air exchange throughout with fine expiratory wheezing. ABDOMEN: Soft, nontender. Bowel sounds are heard. No organomegaly noted. EXTREMITIES: 2+ peripheral pulses with no evidence of peripheral edema and no calf tenderness noted. NEUROLOGIC patient is awake, alert and oriented -3. - Labs CBC & Chem 7: 09/18/16 06:53 09/18/16 06:53 Labs: Abnormal Lab Results - Last 24 Hours (Table) 09/17/16 09/17/16 09/17/16 Range/Units 16:55 20:47 21:30 WBC (3.8-10.6) k/uL RBC (3.80-5.40) m/uL Hgb (11.4-16.0) gm/dL Hct (34.0-46.0) % MCHC (31.0-37.0) g/dL Neutrophils # (1.3-7.7) k/uL APTT 54.3 H (22.0-30.0) sec Chloride (98-107) mmol/L Carbon Dioxide (22-30) mmol/L BUN (7-17) mg/dL Creatinine (0.52-1.04) mg/dL Glucose (74-99) mg/dL POC Glucose (mg/dL) 279 H 202 H (75-99) mg/dL Total Protein (6.3-8.2) g/dL Albumin (3.5-5.0) g/dL 09/18/16 09/18/16 09/18/16 Range/Units 06:12 06:53 06:53 WBC 13.6 H (3.8-10.6) k/uL RBC 3.17 L (3.80-5.40) m/uL Hgb 9.5 L (11.4-16.0) gm/dL Hct 31.2 L (34.0-46.0) % MCHC 30.4 L (31.0-37.0) g/dL Neutrophils # 10.0 H (1.3-7.7) k/uL APTT (22.0-30.0) sec Chloride 96 L (98-107) mmol/L Carbon Dioxide 37 H (22-30) mmol/L BUN 56 H (7-17) mg/dL Creatinine 1.48 H (0.52-1.04) mg/dL Glucose 121 H (74-99) mg/dL POC Glucose (mg/dL) 150 H (75-99) mg/dL Total Protein 6.2 L (6.3-8.2) g/dL Albumin 3.3 L (3.5-5.0) g/dL 09/18/16 Range/Units 11:53 WBC (3.8-10.6) k/uL RBC (3.80-5.40) m/uL Hgb (11.4-16.0) gm/dL Hct (34.0-46.0) % MCHC (31.0-37.0) g/dL Neutrophils # (1.3-7.7) k/uL APTT (22.0-30.0) sec Chloride (98-107) mmol/L Carbon Dioxide (22-30) mmol/L BUN (7-17) mg/dL Creatinine (0.52-1.04) mg/dL Glucose (74-99) mg/dL POC Glucose (mg/dL) 155 H (75-99) mg/dL Total Protein (6.3-8.2) g/dL Albumin (3.5-5.0) g/dL Assessment and Plan Plan: Assessment and plan #1 right lower lobe pneumonia #2 acute severe chronic obstructive pulmonary disease exacerbation #3 nicotine dependence #4 hypertension #5 hyperlipidemia #6 diabetes #7 sleep apnea #8 COPD with home O2 use #9 atrial fibrillation, paroxysmal, of new onset. #10 congestive heart failure, diastolic, acute on chronic, likely secondary to atrial fibrillation. Plan Patient has been initiated on Eliquis 5 mg one tablet by mouth twice a day. From cardiology standpoint she may be able to be discharged home today. Appointment will be made with Dr. Maria in the office post discharge. DNP note has been reviewed, I agree with a documented findings and plan of care. Patient was seen and examined.
[2016-09-18] MEDS ORDERED: APIXABAN 5 MG TAB PO SCH (21:00)
--- NOTE | 2016-09-19 23:11 | DS ---
DATE OF ADMISSION: 09/11/2016 DATE OF DISCHARGE: 09/18/2016 FINAL DIAGNOSES: 1. Right lower lobe pneumonia; suspect Gram-negative organism, with clinical improvement. 2. Paroxysmal atrial fibrillation, back in sinus rhythm. Patient was started on Eliquis. 3. Acute severe chronic obstructive pulmonary disease exacerbation in a smoker, present on admission. 4. Chronic nicotine dependence. Patient is a long-standing smoker. 5. Diabetes mellitus, type 2, on oral hypoglycemic, uncontrolled from steroids. 6. Hyperlipidemia. 7. Essential hypertension. 8. Obstructive sleep apnea; uses CPAP machine. 9. Chronic hypoxic respiratory failure, on home oxygen. 10. Severe sepsis on presentation underlying pneumonia. 11. Chronic kidney disease, stage III, from diabetic nephropathy and hypertensive nephrosclerosis. 12. Intravenous heparin monitoring. HOSPITAL COURSE: This patient, a smoker, presented with pneumonia, severe COPD exacerbation. Doing better at the time of discharge. Patient did go into paroxysmal atrial fibrillation, then reverted to sinus rhythm on Cardizem. Patient's 2-D echocardiogram showed EF preserved at 55% to 60%. Patient was counseled against smoking. CONSULTATIONS: 1. [facility]. 2. Dr. Sae Guillermo from Pulmonary. DISCHARGE MEDICATIONS: 1. Aspirin 81 mg at bedtime. 2. Vitamin D3 1000 units p.o. at bedtime. 3. Lasix 20 mg p.o. daily. 4. Levemir 80 units subcutaneously at bedtime. 5. Imdur ER 30 mg at bedtime. 6. Zestril 20 mg p.o. daily. 7. Singulair 10 mg p.o. at bedtime. 8. Fish oil 1000 mg p.o. daily. 9. Paxil 20 mg p.o. daily. 10. Pravachol 40 mg p.o. daily. 11. Glucophage 1000 mg p.o. b.i.d. 12. Neurontin 300 mg in the morning, 600 mg at night. 13. FlexPen 13 units subcutaneously before meals t.i.d. 14. Augmentin 500 one tablet p.o. b.i.d. 15. Eliquis 5 mg p.o. b.i.d. 16. Pulmicort 1 mg nebulizer b.i.d. 17. Atrovent nebulizer q.i.d. 18. Xopenex nebulizer 1.25 mg q.i.d. 19. Nicotine patch. 20. Isoptin 80 mg p.o. t.i.d. 21. Prednisone taper. Discharge planning more than 35 minutes. Follow up with Dr. Cramer in 3 days. Follow up with Dr. Sae Guillermo on 10/04/16. Follow up with Dr. Maria on 10/03/16. Eliquis prescriptions has been sent by Cardiology to the outpatient pharmacy.
--- NOTE | 2016-10-25 11:14 | DS ---
DATE OF ADMISSION: 09/11/2016 DATE OF DISCHARGE: 09/18/2016 ADDENDUM On exam, lungs decreased breath sounds, mild wheezing. CARDIOVASCULAR: First and second sounds normal. PSYCH: Alert and oriented x3. Mood and affect normal.
== END 2016-09-18 16:09 | disposition home or self-care (01) | DRG 871 ==
LOC: EC 13:35 → 6SEL 15:53
PROVIDERS: ADMIT Hospitalist; ATTEND Hospitalist
DX: A41.50 Gram-negative sepsis, unspecified (principal); J96.21 Acute and chronic respiratory failure with hypoxia; I47.2 Ventricular tachycardia; I50.33 Acute on chronic diastolic (congestive) heart failure; N18.3 Chronic kidney disease, stage 3 (moderate); J18.0 Bronchopneumonia, unspecified organism; J44.1 Chronic obstructive pulmonary disease with (acute) exacerbation; J44.0 Chronic obstructive pulmonary disease with (acute) lower respiratory infection; I13.0 Hypertensive heart and chronic kidney disease with heart failure and stage 1 through stage 4 chronic kidney disease, or unspecified chronic kidney disease; E11.21 Type 2 diabetes mellitus with diabetic nephropathy; Z99.81 Dependence on supplemental oxygen; R65.20 Severe sepsis without septic shock; I48.0 Paroxysmal atrial fibrillation; T38.0X5A Adverse effect of glucocorticoids and synthetic analogues, initial encounter; E11.22 Type 2 diabetes mellitus with diabetic chronic kidney disease; E83.42 Hypomagnesemia; E87.5 Hyperkalemia; E11.65 Type 2 diabetes mellitus with hyperglycemia; G47.33 Obstructive sleep apnea (adult) (pediatric); G40.909 Epilepsy, unspecified, not intractable, without status epilepticus; E78.5 Hyperlipidemia, unspecified; F41.0 Panic disorder [episodic paroxysmal anxiety]; R74.8 Abnormal levels of other serum enzymes; J34.89 Other specified disorders of nose and nasal sinuses; M19.90 Unspecified osteoarthritis, unspecified site; F17.200 Nicotine dependence, unspecified, uncomplicated; R53.1 Weakness; Z71.3 Dietary counseling and surveillance; Z98.51 Tubal ligation status; Z90.710 Acquired absence of both cervix and uterus; Z90.49 Acquired absence of other specified parts of digestive tract; Z63.79 Other stressful life events affecting family and household; Z80.3 Family history of malignant neoplasm of breast; Z71.6 Tobacco abuse counseling; Z79.4 Long term (current) use of insulin; Z79.899 Other long term (current) drug therapy; Z79.82 Long term (current) use of aspirin; Z88.5 Allergy status to narcotic agent; Z80.0 Family history of malignant neoplasm of digestive organs; Z87.42 Personal history of other diseases of the female genital tract; Z78.0 Asymptomatic menopausal state
CPT/HCPCS: 36415; 71020; 71275; 80048; 80053; 82550; 82553; 83036; 83605; 83735; 83880; 84132; 84443; 84484; 85025; 85379; 85610; 85730; 87040; 87070; 87205; 87502; 93005; 93306; 94640; 94760; 96365; 96366; 96367; 96375; 99291

== ENCOUNTER 2016-10-18 12:29 | Inpatient (IN) | payer MEDICARE ==
[2016-10-18 13:19] LABS: Glucose,Whole Blood 166 mg/dL (75-99)
[2016-10-18 13:56] LABS: Basophils # (A) 0.1 k/uL (0-0.2); Basophils % (A) 1 %; CH 27.2; Eosinophils # (A) 0.1 k/uL (0-0.7); Eosinophils % (A) 1 %; HCT 25.3 % (34.0-46.0); HDW 3.57; Hypochromasia Marked; Luc # (Auto) 0.26; Luc % (Auto) 3; Lymphocytes # (A) 1.5 k/uL (1.0-4.8); Lymphocytes % (A) 15 %; MCHC 27.8 g/dL (31.0-37.0); MCV 97.2 fL (80.0-100.0); Monocytes # (A) 0.5 k/uL (0-1.0); Monocytes % (A) 5 %; Neutrophils # (A) 7.5 k/uL (1.3-7.7); Neutrophils % (A) 76 %; Poikilocytosis Slight; RDW 15.6 % (11.5-15.5); WBC 9.9 k/uL (3.8-10.6); WBC (Perox) 10.26
[2016-10-18 14:00] LABS: Calcium 9.5 mg/dL (8.4-10.2); Potassium 4.9 mmol/L (3.5-5.1)
[2016-10-18] MEDS ORDERED: IPRATROPIUM-ALBUTEROL 3 ML NEB INHALATION PRN (14:36)
--- NOTE | 2016-10-18 15:21 | XR ---
EXAMINATION TYPE: XR chest 2V DATE OF EXAM: 10/18/2016 3:17 PM COMPARISON: Chest x-ray from one month ago HISTORY: Shortness of breath for 2 days. TECHNIQUE: Frontal and lateral views of the chest are obtained. FINDINGS: There is chronic emphysematous change without suspicious focal air space opacity, pleural effusion, or pneumothorax seen. The cardiac silhouette size is enlarged. The osseous structures ar e intact. IMPRESSION: Cardiomegaly and chronic emphysematous change without acute pulmonary process.
[2016-10-18] MEDS: methylPREDNISolone SOD SUCCI 40 MG/ML 1 ML VIAL IV SCH ×2 (16:00→23:52)
[2016-10-18] MEDS ORDERED: IPRATROPIUM-ALBUTEROL 3 ML NEB INHALATION SCH (16:00)
[2016-10-18] MEDS: VERAPAMIL 80 MG TAB PO SCH ×2 (16:01→23:51)
[2016-10-18 16:48] LABS: Glucose,Whole Blood 166 mg/dL (75-99)
[2016-10-18] MEDS: PANTOPRAZOLE 40 MG/10 ML VIAL IVP SCH (17:07)
[2016-10-18] MEDS: ENOXAPARIN 40 MG/0.4 ML SYRINGE SQ SCH (17:08)
[2016-10-18] MEDS: INSULIN LISPRO (humaLOG) 300 UNIT/3 ML VIAL SQ SCH ×3 (17:09→22:14)
[2016-10-18 17:23] LABS: Appearance,Urine Clear (Clear); Bilirubin,Urine Negative (Negative); Glucose,Urine (UA) Negative (Negative); Ketones,Urine Negative (Negative); Leukocyte Esterase,Urine Negative (Negative); Nitrite,Urine Negative (Negative); Protein,Urine Negative (Negative); Specific Gravity,Urine 1.009 (1.001-1.035); UA Billing (MACRO vs. MICRO) CHEM; Urobilinogen,Urine <2.0 mg/dL (<2.0)
[2016-10-18] MEDS ORDERED: INSULIN NPH/REG INSULIN 70/30 300 UNIT/3 ML VIAL SQ SCH (17:30)
[2016-10-18] MEDS ORDERED: SODIUM BICARB 8.4% 50 ML SYR (1 MEQ/ML) ONE (18:29)
[2016-10-18] MEDS ORDERED: EPINEPHrine 10 ML SYRINGE (0.1 MG/ML) ONE (18:29)
[2016-10-18 18:50] LABS: Hemoglobin A1C 6.6 % (4.2-6.1)
--- NOTE | 2016-10-18 19:25 | CONS ---
DATE OF CONSULTATION: 10/18/2016 CHIEF COMPLAINT: Increased shortness of breath and acute on chronic hypoxic respiratory failure. Ms. Lisette Patel is seen, evaluated and examined in the office followed by in the hospital. This is a 66-year-old female who not been feeling well for increasing shortness of breath, increased lower extremity swelling. Of note that 4 days ago, patient was evaluated by Cardiovascular Service. At that time, patient was asymptomatic; however, 3 days prior to coming into the office, started having increased lower extremity swelling and increasing shortness of breath up to a point that she gets short of breath on taking 3 or 4 steps. Patient was brought in ( ) here in the office. Her stats were noted to be only 70%. Her FiO2 was increased to 3L. With that, her stats were 88% to 89%. She was obviously short of breath with audible wheezing. She does have cough with thick purulent sputum production. She also describes her leg to be more swollen. At that time, discussion were done with the patient and the daughter present at bedside at length. Patient elected to be admitted to hospital, given progressive worsening clinical status. Past medical history significant for recent pneumonia, severe COPD, chronic hypoxic respiratory failure, diabetes mellitus, congestive heart failure related to chronic diastolic heart failure. Last echo performed back in September revealed ejection fraction of 55% to 60%. ALLERGIES INCLUDE CODEINE. Medications at home include: 1. Insulin. 2. Humalog 13 units 3 times a day with meals. 3. Glucophage 1 g 2 times a day. 4. Isoptin 80 mg 2 times a day. 5. Pravachol 40 mg daily. 6. Paxil 20 mg daily. 7. [place]-3 fatty acids. 8. Also on Singulair 10 mg. 9. Zestril 20 mg daily. 10. Imdur 30 mg daily. 11. Levemir 80 mg daily. 12. Neurontin 60 mg daily and 300 mg in the morning. 13. Lasix 20 mg p.o. daily. 14. Vitamin D3. 15. Eliquis 5 mg p.o. 2 times a day. 16. Ventolin HFA 4 times a day along with nebulizer 2 or 3 times a day. PAST SURGICAL HISTORY: Unremarkable. FAMILY HISTORY AND SOCIAL HISTORY: Extensive history of smoking and nicotine use. REVIEW OF SYSTEMS: CHIEF PHYSICAL THERAPIST: Denies any seizure activity, loss of consciousness or hemiparesis. CARDIORESPIRATORY: As dictated above, includes shortness of breath, cough and wheezing; however, denies any chest pain. GI/: Unremarkable. MUSCULOSKELETAL/DERMATOLOGICAL: Unremarkable and noncontributory. On examination, her most recent vitals include blood pressure is 126/48, respiratory rate 16, pulse 87, temperature 98, saturation 96% on 2L oxygen. HEENT: Atraumatic, normocephalic. Pharynx is clear. Narrow pharyngeal opening is present. NECK: Supple. Neck veins are prominent. LUNGS: Bilateral coarse inspiratory and expiratory wheezing and rhonchi are present. HEART: Regular rate and rhythm. S1 and S2 audible. ABDOMEN: Soft. No rebound or rigidity. EXTREMITIES: +1 peripheral pulses. NEUROLOGICAL: Awake, alert. EXTREMITIES: +2 to 3 edema. Chest x-ray performed consistent with COPD-like changes. Labs are reviewed. White cell count 9009, hemoglobin 7, hematocrit 25, platelet count 394,000. BUN and creatinine 32 and 1.32, glucose is 140. Calcium is 9.5. IMPRESSION: 1. Acute chronic obstructive pulmonary disease exacerbation. 2. Purulent tracheobronchitis. Current pneumonia cannot be excluded. 3. Severe anemia. Will check stool for occult blood. Patient to be started on proton pump inhibitor as well. If the stool for occult blood is positive, consider holding Eliquis. 4. Paroxysmal atrial fibrillation as above. At this point in time, however, will hold Eliquis. Repeat labs tomorrow. Follow clinical course closely. The patient will be started on broad-spectrum antibiotics, breathing treatments and steroids as well. Care plan discussed with the primary service at length.
--- NOTE | 2016-10-18 19:41 | HP ---
DATE OF ADMISSION: 10/18/2016 PRESENTING COMPLAINT: Short of breath, wheezing. HISTORY OF PRESENTING COMPLAINT: This is a pleasant 66-year-old patient who was admitted today from Dr. Sae Guillermo's office. Patient's chronic stable medical conditions include diabetes mellitus, type II, hyperlipidemia, hypertension, obstructive sleep apnea, hypoxic respiratory failure on 2 L at home including and chronic kidney disease. Patient has continued to smoke a pack a day. Patient presents with worsening shortness of breath. Some edema in lower extremity. Clear sputum, decreased appetite, tired, rundown, short of breath, wheezing, admitted for the same. REVIEW OF SYSTEMS: CONSTITUTIONAL: Tired. HEENT: As above. RESPIRATORY: As above. CARDIOVASCULAR: None. GASTROINTESTINAL: None. GENITOURINARY: None. MUSCULOSKELETAL: Pain in different joints. Dermatological: None. HEMATOLOGIC: None. LYMPHATIC: None. PSYCHIATRY: Some anxiety. NEUROLOGICAL: None. PAST MEDICAL HISTORY: Paroxysmal atrial fibrillation, COPD, diabetes mellitus type 2, hyperlipidemia, hypertension, obstructive sleep apnea, home oxygen. Chronic kidney disease, stage III, also seizure disorder. PAST SURGICAL HISTORY: Appendectomy, bladder surgery, cholecystectomy, hysterectomy, tonsillectomy, tubal ligation, and left rotator cuff repair, left leg vein stripping, benign tumor removed from the ovary and bladder suspension. SOCIAL HISTORY: , ( ) sometimes uses a cane. The patient used to smoke more than 2 packs a day, down to a pack a day, close to 50 years. ALCOHOL: None. . FAMILY HISTORY: Breast and liver cancer. HOME MEDICATIONS: 1. Insulin Humalog 30 units subcu a.c. t.i.d. 2. Glucophage 1000 mg p.o. b.i.d. 3. Isoptin 80 mg p.o. t.i.d. 4. Pravachol 40 mg p.o. daily. 5. Paxil 20 mg p.o. daily. 6. Fish oil 1 capsule p.o. daily. 7. Singulair 10 mg p.o. q.h.s. 8. Zestril 20 mg p.o. daily. 9. Imdur ER 30 mg p.o. q.h.s. 10. Levemir 80 milligrams subcu q.h.s. 11. Neurontin 600 mg p.o. q.h.s. 12. ( ) mg p.o. daily. 13. Lasix 20 mg p.o. daily. 14. Vitamin D3, 1000 units p.o. q.h.s. 15. Eliquis 5 mg b.i.d. 16. Ventolin HFA 1 to 2 puffs q.4 p.r.n. ALLERGIES: CODEINE. On examination, temperature 97.6, pulse 90, respiration 22, blood pressure 111/52, pulse ox 80% on room air. GENERAL APPEARANCE: Overweight, BMI of 32. Sitting up, short of breath, wheezing. EYES: Pupils equal. Conjunctivae normal. HEENT: External appearance of nose and ears normal. Oral cavity normal. NECK: JVD unable to assess. Mass not palpable. RESPIRATORY: Effort increased. Short of breath at rest. Decreased breath sounds. Prolonged expiration, expiratory wheezing. CARDIOVASCULAR: First and second sounds normal. No edema. Mild edema. ABDOMEN: Soft, nontender. Liver and spleen not palpable. LYMPHATIC: No lymph nodes palpable in neck or axilla. PSYCHIATRY: Mood and affect anxious -appearing. NEUROLOGICAL: Pupils equal. Cranial nerves grossly intact. Power and sensation grossly intact. INVESTIGATIONS: White count 9.9, hemoglobin is 7. BUN 32, creatinine 1.32. The patient hemoglobin was 9.5 on 09/18/2016 and BUN and creatinine are 56 and 1.06. Chest x-ray shows questionable infiltrate. ASSESSMENT: 1. Acute severe chronic obstructive pulmonary disease exacerbation in a smoker probably a viral pneumonitis, cannot rule out a gram-negative organism. 2. Paroxysmal atrial fibrillation. 3. Chronic nicotine dependence. Patient is a long-standing smoker. 4. Type 2 diabetes mellitus, on oral hypoglycemics. 5. Hyperlipidemia. 6. Essential hypertension. 7. Obstructive sleep apnea using CPAP machine. 8. Chronic hypoxic respiratory failure on home oxygen. 9. Acute hypoxic respiratory failure secondary to chronic obstructive pulmonary disease exacerbation, present on admission. 10. Chronic kidney disease, stage III, from diabetic nephropathy and hypertensive nephrosclerosis. PLAN: Dr. Guillermo from pulmonary is consulted. Patient's home medications are resumed. We will put the DuoNebs to q.4 hours and IV Solu-Medrol. Patient advised against smoking. Will be given a nicotine patch. Also put on IV ceftriaxone. Copy to Dr. Cramer.
[2016-10-18] MEDS ORDERED: BUDESONIDE 0.5 MG/2 ML NEBU INHALATION SCH (20:00)
[2016-10-18 20:39] LABS: Glucose,Whole Blood 256 mg/dL (75-99)
[2016-10-18] MEDS ORDERED: APIXABAN 5 MG TAB PO SCH (21:00)
[2016-10-18] MEDS: IPRATROPIUM-ALBUTEROL 3 ML NEB INHALATION SCH (21:13)
[2016-10-18] MEDS: BUDESONIDE 1 MG/2 ML NEBU INHALATION SCH (21:13)
[2016-10-18] MEDS: NICOTINE 21MG/24HR PATCH TRANSDERM SCH (22:10)
[2016-10-18] MEDS: GABAPENTIN 300 MG CAP PO SCH (22:12)
[2016-10-18] MEDS: INSULIN DETEMIR 100 UNIT/ML 10 ML VIAL SQ SCH (22:12)
[2016-10-18] MEDS: CHOLECALCIFEROL 1,000 UNIT TAB PO SCH (22:13)
[2016-10-18] MEDS: ISOSORBIDE MONONITRATE ER 30 MG TAB.ER.24H PO SCH (22:15)
[2016-10-18] MEDS: metFORMIN 500 MG TAB PO SCH (22:16)
[2016-10-18] MEDS: MONTELUKAST 10 MG TAB PO SCH (22:16)
[2016-10-19] MEDS: IPRATROPIUM-ALBUTEROL 3 ML NEB INHALATION SCH ×6 (00:21→20:32)
[2016-10-19 05:36] LABS: Glucose,Whole Blood 316 mg/dL (75-99)
[2016-10-19 06:28] LABS: Basophils % (A) 0 %; CH 27.6; CHCM 28.3; Eosinophils % (A) 0 %; HCT 22.4 % (34.0-46.0); HDW 3.56; Hypochromasia Marked; Luc # (Auto) 0.05; Luc % (Auto) 0; Lymphocytes # (A) 0.5 k/uL (1.0-4.8); Lymphocytes % (A) 4 %; MCH 28.8 pg (25.0-35.0); MCHC 29.5 g/dL (31.0-37.0); MCV 97.7 fL (80.0-100.0); Mean Platelet Volume 7.1; Monocytes # (A) 0.2 k/uL (0-1.0); Monocytes % (A) 2 %; Neutrophils # (A) 10.4 k/uL (1.3-7.7); Neutrophils % (A) 93 %; Poikilocytosis Slight; RBC 2.29 m/uL (3.80-5.40); RDW 15.4 % (11.5-15.5); WBC 11.2 k/uL (3.8-10.6); WBC (Perox) 11.28
[2016-10-19 06:41] LABS: Magnesium 1.9 mg/dL (1.6-2.3); Phosphorous 3.7 mg/dL (2.5-4.5)
[2016-10-19 06:51] LABS: HGB 6.6 gm/dL (11.4-16.0)
[2016-10-19] MEDS: INSULIN LISPRO (humaLOG) 300 UNIT/3 ML VIAL SQ SCH ×7 (07:14→22:49)
[2016-10-19] MEDS: BUDESONIDE 1 MG/2 ML NEBU INHALATION SCH ×2 (07:30→20:32)
[2016-10-19] MEDS: methylPREDNISolone SOD SUCCI 40 MG/ML 1 ML VIAL IV SCH ×3 (08:36→22:50)
[2016-10-19] MEDS: ENOXAPARIN 40 MG/0.4 ML SYRINGE SQ SCH (08:37)
[2016-10-19] MEDS: LISINOPRIL 20 MG TAB PO SCH (08:38)
[2016-10-19] MEDS: NICOTINE 21MG/24HR PATCH TRANSDERM SCH (08:38)
[2016-10-19] MEDS: metFORMIN 500 MG TAB PO SCH ×2 (08:38→20:11)
[2016-10-19] MEDS: PARoxetine 20 MG TAB PO SCH (08:38)
[2016-10-19] MEDS: GABAPENTIN 300 MG CAP PO SCH ×2 (08:38→20:12)
[2016-10-19] MEDS: VERAPAMIL 80 MG TAB PO SCH ×3 (08:39→20:11)
[2016-10-19] MEDS: PRAVASTATIN SODIUM 40 MG TAB PO SCH (08:39)
--- NOTE | 2016-10-19 09:45 | P.CRDCN ---
History of Present Illness Consult date: 10/19/16 Reason for Consult (text): CHF Chief complaint: shortness of breath History of present illness: This is a pleasant 66-year-old female who was sent here from Dr. Guillermo's office yesterday for increased shortness of breath and acute on chronic hypoxic respiratory failure. Patient has a recent history of paroxysmal atrial fibrillation and follows with Dr. Maria in the office. She has a known history also of COPD, on home O2, recent pneumonia, chronic diastolic heart failure, diabetes mellitus type 2 and current smoker. Upon admission BNP was 463 and chest x-ray showed chronic emphysematous change without acute cardiopulmonary process. Her diagnosis of paroxysmal atrial fibrillation is fairly new and she was started on Eliquis about a month ago. Labs showed the patient to be anemic with a hemoglobin of 6.6. Anticoagulation is currently on hold. Upon examination this morning, patient is feeling quite a bit better on Solu-Medrol and breathing treatments. Past Medical History Past Medical History: Atrial Fibrillation, Heart Failure, COPD, Diabetes Mellitus, Hyperlipidemia, Hypertension, Pneumonia, Renal Disease, Seizure Disorder, Sleep Apnea/CPAP/BIPAP Additional Past Medical History / Comment(s): Pt recently admitted to [facility] on 04/19 with R lower lobe pnemonia/paroxysmal Afib with was converted to NSR at discharge/ acute exacerbation of COPD. Other HX: had 2 seizures 40 yrs ago- never had anymore-not sure of cause,uses oxygen 2L/NC ATC, CKD stage III- nephropathy, RAMIN/CPAP, tracheobronchitis, cataracts bilaterally, DJD. 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 Past Anesthesia/Blood Transfusion Reactions: No Reported Reaction Past Psychological History: Panic Disorder Additional Psychological History / Comment(s): Panick attacks while going through menopause when pt was in her 40's, pt started paxil and is doing fine now. Pt resides with her spouse and her adult daughter. She just started using a cane today. She is not currently driving due to cataracts/eyesight issues-she is to have cataract surgery soon and hopes to then be able to drive. she manages her own medications. Her david takes her to app. She has home O2 concentrator, nebulizer and glucometer at home. Smoking Status: Current every day smoker Past Alcohol Use History: None Reported Additional Past Alcohol Use History / Comment(s): <ppd since age of 16, down from 2ppd. Pt states she is quitting smoking today. Past Drug Use History: None Reported - Past Family History Mother Family Medical History: Cancer Additional Family Medical History / Comment(s): breast/liver Medications and Allergies Home Medications Medication Instructions Recorded Confirmed Type Cholecalciferol [Vitamin D3] 1,000 unit PO HS 02/01/16 10/18/16 History Furosemide [Lasix] 20 mg PO DAILY 02/01/16 10/18/16 History Insulin Detemir [Levemir] 80 unit SQ HS 02/01/16 10/18/16 History Isosorbide Mononitrate ER [Imdur] 30 mg PO HS 02/01/16 10/18/16 History Lisinopril [Zestril] 20 mg PO DAILY 02/01/16 10/18/16 History Montelukast [Singulair] 10 mg PO HS 02/01/16 10/18/16 History Whatley-3 Fatty Acids/Fish Oil [Fish 1 cap PO DAILY 02/01/16 10/18/16 History Oil 1,000 mg Softgel] PARoxetine [Paxil] 20 mg PO DAILY 02/01/16 10/18/16 History Pravastatin Sodium [Pravachol] 40 mg PO DAILY 02/01/16 10/18/16 History metFORMIN HCL [Glucophage] 1,000 mg PO BID 02/01/16 10/18/16 History Gabapentin [Neurontin] 300 mg PO QAM 07/13/16 10/18/16 History Gabapentin [Neurontin] 600 mg PO HS 09/11/16 10/18/16 History Albuterol Inhaler [Ventolin Hfa 1 - 2 puff INHALATION RT-Q4H PRN 10/18/16 History Inhaler] INSULIN LISPRO (HumaLOG) [HumaLOG] 13 units SQ AC-TID 10/18/16 10/18/16 History Allergies Allergy/AdvReac Type Severity Reaction Status Date / Time codeine AdvReac jittery Verified 10/18/16 14:23 and shaky Physical Exam Vitals: Vital Signs Temp Pulse Pulse Resp BP Pulse Ox 10/19/16 07:44 96 10/19/16 07:30 100 10/19/16 04:05 88 10/19/16 04:00 98.0 F 98 18 130/67 91 L 10/19/16 03:54 88 10/19/16 00:25 88 10/19/16 00:15 80 10/19/16 00:00 98.4 F 104 H 16 137/66 10/18/16 21:33 94 10/18/16 21:13 94 10/18/16 20:00 99.0 F 95 16 111/77 10/18/16 16:17 90 10/18/16 16:07 90 96 10/18/16 15:50 16 10/18/16 15:29 87 16 126/48 96 10/18/16 12:58 97 10/18/16 12:57 97.6 F 90 16 111/52 80 L Intake and Output 10/18/16 10/19/16 10/19/16 22:59 06:59 14:59 Intake Total 180 Output Total 300 Balance -120 Intake: Oral 180 Output: Urine 300 Other: # Voids 1 Weight 91.3 kg PHYSICAL EXAMINATION: HEENT: Head is atraumatic, normocephalic. Pupils equal, round. Neck is supple. There is no elevated jugular venous pressure. HEART EXAMINATION: Heart sounds regular, S1 and S2 normal. No murmur or gallop heard. CHEST EXAMINATION: Lungs are diminished with faint expiratory wheezing throughout. No chest wall tenderness is noted on palpation or with deep breathing. ABDOMEN: Soft, nontender. Bowel sounds are heard. No organomegaly noted. EXTREMITIES: 2+ peripheral pulses with no evidence of peripheral edema and no calf tenderness noted. NEUROLOGIC patient is awake, alert and oriented x3. . Results 10/19/16 06:09 10/18/16 13:16 CBC 10/18/16 10/19/16 Range/Units 13:16 06:09 WBC 9.9 11.2 H (3.8-10.6) k/uL RBC 2.60 L 2.29 L (3.80-5.40) m/uL Hgb 7.0 L* D 6.6 L* (11.4-16.0) gm/dL Hct 25.3 L 22.4 L (34.0-46.0) % Plt Count 394 371 (150-450) k/uL Comprehensive Metabolic Panel 10/18/16 Range/Units 13:16 Sodium 142 (137-145) mmol/L Potassium 4.9 (3.5-5.1) mmol/L Chloride 102 (98-107) mmol/L Carbon Dioxide 29 (22-30) mmol/L BUN 32 H (7-17) mg/dL Creatinine 1.32 H (0.52-1.04) mg/dL Glucose 140 H (74-99) mg/dL Calcium 9.5 (8.4-10.2) mg/dL Current Medications Generic Name Dose Route Start Last Admin Trade Name Freq PRN Reason Stop Dose Admin Albuterol/Ipratropium 3 ml 10/18/16 14:36 Duoneb 0.5 Mg-3 Mg/3 Ml Soln INHALATION RT-Q2H PRN Shortness Of Breath Or Wheezing Albuterol/Ipratropium 3 ml 10/18/16 20:00 10/19/16 07:30 Duoneb 0.5 Mg-3 Mg/3 Ml Soln INHALATION 3 ml RT-Q4H MARCELO Administration Budesonide 1 mg 10/18/16 20:00 10/19/16 07:30 Pulmicort INHALATION 1 mg RT-BID MARCELO Administration Cholecalciferol 1,000 unit 10/18/16 21:00 10/18/16 22:13 Vitamin D3 PO 1,000 unit HS MARCELO Administration Enoxaparin Sodium 40 mg 10/18/16 17:00 10/19/16 08:37 Lovenox SQ Not Given DAILY MARCELO Gabapentin 300 mg 10/19/16 09:00 10/19/16 08:38 Neurontin PO 300 mg QAM MARCELO Administration Gabapentin 600 mg 10/18/16 21:00 10/18/16 22:12 Neurontin PO 600 mg HS MARCELO Administration Ceftriaxone Sodium 1,000 mg/ 50 mls @ 100 mls/hr 10/18/16 15:00 10/18/16 16: 00 Sodium Chloride IVPB 100 mls/hr Q24HR MARCELO Administration Insulin Detemir 80 unit 10/18/16 21:00 10/18/16 22:12 Levemir SQ 80 unit HS MARCELO Administration Insulin Human Lispro 0 unit 10/18/16 17:30 10/19/16 07:15 Humalog SQ 8 unit ACHS MARCELO Administration Protocol Insulin Human Lispro 13 unit 10/18/16 17:30 10/19/16 07:14 Humalog SQ 13 unit AC-TID MARCELO Administration Isosorbide Mononitrate 30 mg 10/18/16 21:00 10/18/16 22:15 Imdur PO 30 mg HS MARCELO Administration Lisinopril 20 mg 10/19/16 09:00 10/19/16 08:38 Zestril PO 20 mg DAILY MARCELO Administration Metformin HCl 1,000 mg 10/18/16 21:00 10/19/16 08:38 Glucophage PO 1,000 mg BID MARCELO Administration Methylprednisolone Sodium Succinate 40 mg 10/18/16 16:00 10/19/16 08:36 Solu-Medrol IV 40 mg Q8HR MARCELO Administration Montelukast Sodium 10 mg 10/18/16 21:00 10/18/16 22:16 Singulair PO 10 mg HS MARCELO Administration Nicotine 1 patch 10/18/16 17:00 10/19/16 08:38 Habitrol 21mg/24hr Patch TRANSDERM 1 patch DAILY MARCELO Administration Pantoprazole Sodium 40 mg 10/18/16 16:30 10/18/16 17:07 Protonix IVP 40 mg DAILY MARCELO Administration Paroxetine HCl 20 mg 10/19/16 09:00 10/19/16 08:38 Paxil PO 20 mg DAILY MARCELO Administration Pravastatin Sodium 40 mg 10/19/16 09:00 10/19/16 08:39 Pravachol PO 40 mg DAILY MARCELO Administration Verapamil HCl 80 mg 10/18/16 16:00 10/19/16 08:39 Isoptin PO 80 mg TID MARCELO Administration Intake and Output 10/18/16 10/19/16 10/19/16 22:59 06:59 14:59 Intake Total 180 Output Total 300 Balance -120 Intake: Oral 180 Output: Urine 300 Other: # Voids 1 Weight 91.3 kg 10/19/16 06:09 10/18/16 13:16 Assessment and Plan Plan: Assessment and plan #1 acute COPD exacerbation #2. Purulent tracheobronchitis, pneumonia cannot be excluded #3 severe anemia, stool for occult blood is ordered, anticoagulant and hold #4 chronic diastolic heart failure, there does not appear to be any acute exacerbation of this time #5 paroxysmal atrial fibrillation, currently maintaining sinus rhythm From a cardiac standpoint, most recent echocardiogram was reviewed view and showed ejection fraction of 55-60%. We do not believe that this is an acute exacerbation of chronic congestive heart failure with a BNP of 463 in no acute process on chest x-ray. Primary to determine source of bleeding and decide on resuming anticoagulation. We will follow the patient on an as-needed basis. Please do not hesitate to call for questions. PAYROLL REPRESENTATIVE note has been reviewed, I agree with a documented findings and plan of care. Patient was seen and examined.
[2016-10-19] MEDS: PANTOPRAZOLE 40 MG/10 ML VIAL IVP SCH (09:47)
--- NOTE | 2016-10-19 11:00 | P.PN ---
Subjective This is a 66-year-old female who is being evaluated and examined today on the sixth floor. This patient has came in with increasing shortness of breath over the last few weeks as well as increased lower extremity swelling. Of note the patient was evaluated 4 days ago in the cardimi vascular office and at that time the patient was asymptomatic however after that she started having lower extremity swelling and increasing shortness of breath and she couldn't take 3 or 4 steps without eating break. Therefore she was brought in to our office. The patient's pulse ox is ranged from 88-89% on 3 L in the office, so Dr. Guillermo recommended she come into the hospital. She currently wears 2 L of oxygen at home via nasal cannula. She is easily short of breath with no audible wheeze. She also has cough with thick purulent sputum production. Upon examination today the patient is resting up in bed on 4 L of oxygen she feels her lungs continue to be tight. Patient states that she's had good urine output and her appetite has been stable. Objective - Vital Signs Vital signs: Vital Signs Temp 98.0 F 10/19/16 04:00 Pulse 96 10/19/16 07:44 Resp 18 10/19/16 04:00 BP 130/67 10/19/16 04:00 Pulse Ox 91 L 10/19/16 04:00 Intake & Output 10/18/16 10/19/16 10/19/16 18:59 06:59 18:59 Intake Total 180 Output Total 300 Balance 180 -300 Weight 89.9 kg 91.3 kg Intake: Oral 180 Output: Urine 300 Other: # Voids 1 - Exam GENERAL EXAM: Alert, active, comfortable in no apparent distress. HEAD: Normocephalic. EYES: Normal reaction of pupils, equal size. NOSE: Clear with pink turbinates. THROAT: No erythema or exudates. No pharyngeal opening is present NECK: No masses, no JVD. CHEST: No chest wall deformity. LUNGS: Bilaterally coarse expiratory and expiratory wheezing and rhonchi are scattered throughout. CVS: S1 and S2 normal with no audible mumurs, regular rhythm. ABDOMEN: No hepatosplenomegaly, normal bowel sounds, no guarding or rigidity. EXTREMITIES: +2-3 edema noted, pedal pulses palpable. SKIN: No rashes CENTRAL NERVOUS SYSTEM: No focal deficits, tone is normal in all 4 extremities. - Labs CBC & Chem 7: 0519/17 06:09 10/18/16 13:16 Labs: Abnormal Lab Results - Last 24 Hours (Table) 10/18/16 10/18/16 10/18/16 Range/Units 13:14 13:16 13:16 WBC (3.8-10.6) k/uL RBC 2.60 L (3.80-5.40) m/uL Hgb 7.0 L* D (11.4-16.0) gm/dL Hct 25.3 L (34.0-46.0) % MCHC 27.8 L (31.0-37.0) g/dL RDW 15.6 H (11.5-15.5) % Neutrophils # (1.3-7.7) k/uL Lymphocytes # (1.0-4.8) k/uL BUN 32 H (7-17) mg/dL Creatinine 1.32 H (0.52-1.04) mg/dL Glucose 140 H (74-99) mg/dL POC Glucose (mg/dL) 166 H (75-99) mg/dL Hemoglobin A1c (4.2-6.1) % 10/18/16 10/18/16 10/18/16 Range/Units 13:16 16:36 20:38 WBC (3.8-10.6) k/uL RBC (3.80-5.40) m/uL Hgb (11.4-16.0) gm/dL Hct (34.0-46.0) % MCHC (31.0-37.0) g/dL RDW (11.5-15.5) % Neutrophils # (1.3-7.7) k/uL Lymphocytes # (1.0-4.8) k/uL BUN (7-17) mg/dL Creatinine (0.52-1.04) mg/dL Glucose (74-99) mg/dL POC Glucose (mg/dL) 166 H 256 H (75-99) mg/dL Hemoglobin A1c 6.6 H (4.2-6.1) % 10/19/16 10/19/16 Range/Units 05:34 06:09 WBC 11.2 H (3.8-10.6) k/uL RBC 2.29 L (3.80-5.40) m/uL Hgb 6.6 L* (11.4-16.0) gm/dL Hct 22.4 L (34.0-46.0) % MCHC 29.5 L (31.0-37.0) g/dL RDW (11.5-15.5) % Neutrophils # 10.4 H (1.3-7.7) k/uL Lymphocytes # 0.5 L (1.0-4.8) k/uL BUN (7-17) mg/dL Creatinine (0.52-1.04) mg/dL Glucose (74-99) mg/dL POC Glucose (mg/dL) 316 H (75-99) mg/dL Hemoglobin A1c (4.2-6.1) % Microbiology - Last 24 Hours (Table) 10/18/16 17:15 Urine Culture - Preliminary Urine,Clean Catch Assessment and Plan Plan: Assessment Acute exacerbation of COPD Acute on chronic hypoxic respiratory failure Purulent tracheobronchitis, pneumonia cannot be excluded Severe anemia Paroxysmal atrial fibrillation Diabetes mellitus2 Hypertension Obstructive sleep apnea Chronic kidney disease stage III Plan Medications have been reviewed and will be continued as ordered. Patient should bring in home CPAP machine to use while in the hospital. Continue on supplemental oxygen via nasal cannula to keep oxygen saturations above 92%. Continue on broad-spectrum antibiotics, breathing treatments as well as steroids. Obtain stool for occult blood. Obtain sputum culture Continue to hold Eliqus. Smoking cessation discussed at length, patient on nicotine patch currently. We will continue to monitor labs/results and adjust treatment as necessary.
--- NOTE | 2016-10-19 11:47 | PN ---
DATE OF SERVICE: 10/19/2016 PRESENTING COMPLAINT: Shortness of breath and wheezing. INTERVAL HISTORY: This is a 66-year-old patient who presented to the emergency department with increasing shortness of breath and wheezing. Patient is a current smoker. Today patient is sitting up in bed, looking quite spry, full of energy, states she feels much improved from how she was on admission. No shortness of breath noted. No nasal flaring. No accessory muscle use. Review of systems done for constitutional, cardiovascular, GI, pulmonary, with relevant findings as above. CURRENT MEDICATIONS: DuoNeb, Pulmicort, ceftriaxone, Lovenox, insulin, Solu-Medrol, Singulair, nicotine patch, verapamil. PHYSICAL EXAM: VITAL SIGNS: Temperature 98.2, pulse 92, respirations 18, blood pressure 142/66, oxygen saturation 97% on 4 L nasal cannula. GENERAL APPEARANCE: Patient is awake and alert, sitting up in bed. No acute distress noted or voiced. Pupils equal. Conjunctivae are normal. NECK: JVD not raised. Mass not palpable. Lung sounds crackles to the right, dim to the left, tight breath sounds in the upper lobes. RESPIRATORY: Effort normal, slightly labored. CARDIOVASCULAR: First and second sounds noted, +1 edema to bilateral lower extremities. ABDOMEN: Soft, nontender. Liver and spleen not palpable. PSYCHIATRY: Alert and oriented x3. Mood and affect normal. INVESTIGATIONS: White blood cell count 11.2, hemoglobin 6.6, platelet count 371. Cardiology consultation. ASSESSMENT: 1. Acute severe chronic obstructive pulmonary disease exacerbation in a smoker, probably viral pneumonitis. Cannot rule out gram-negative organism. 2. Paroxysmal atrial fibrillation. 3. Chronic nicotine dependence. Patient is a long-time smoker. 4. Diabetes type 2 mellitus on oral hypoglycemics. 5. Hyperlipidemia. 6. Essential hypertension. 7. Obstructive sleep apnea, using CPAP machine. 8. Chronic hypoxic respiratory failure, on home oxygen therapy. 9. Acute hypoxic respiratory failure secondary to chronic obstructive pulmonary disease exacerbation. Present on admission. 10. Chronic kidney disease stage III from diabetic nephropathy and hypertensive nephrosclerosis. PLAN: Awaiting Pulmonology consult and recommendations. Will continue current medication and treatment plan. Hemoglobin found to be 6.6. Will resend lab value to evaluate if in fact this is a true drop in her hemoglobin and assess the need for a unit of blood; however, the patient is not currently symptomatic. Will continue to follow. Patient was seen and examined by nurse practitioner, Susi Funes and all elements of the case discussed with attending, Dr. Cid.
[2016-10-19 12:12] LABS: Glucose,Whole Blood 268 mg/dL (75-99)
[2016-10-19 12:30] LABS: CH 27.6; CHCM 28.3; HCT 22.3 % (34.0-46.0); HDW 3.57; Hypochromasia Marked; MCH 27.8 pg (25.0-35.0); MCHC 28.5 g/dL (31.0-37.0); MCV 97.6 fL (80.0-100.0); Macrocytosis Slight; Mean Platelet Volume 7.4; Poikilocytosis Slight; RBC 2.28 m/uL (3.80-5.40); RDW 15.6 % (11.5-15.5); WBC 10.7 k/uL (3.8-10.6)
[2016-10-19 12:31] LABS: HGB 6.3 gm/dL (11.4-16.0)
[2016-10-19 16:21] LABS: Glucose,Whole Blood 188 mg/dL (75-99)
[2016-10-19] MEDS: MONTELUKAST 10 MG TAB PO SCH (20:11)
[2016-10-19] MEDS: CHOLECALCIFEROL 1,000 UNIT TAB PO SCH (20:12)
[2016-10-19] MEDS: ISOSORBIDE MONONITRATE ER 30 MG TAB.ER.24H PO SCH (20:12)
[2016-10-19 20:34] LABS: Glucose,Whole Blood 256 mg/dL (75-99)
--- NOTE | 2016-10-19 22:18 | PN ---
DATE OF SERVICE: 10/19/2016 ATTENDING NOTE: This patient examined by me earlier today. I reviewed the note of my nurse practitioner, Melody Funes, discussed and agree with the same. The patient admitted with COPD exacerbation in a smoker with acute hypoxic respiratory failure. Patient is a shade better. Patient did get to the bathroom, but became very short of breath. Did tolerate some diet. Current medications include: 1. IV ceftriaxone. 2. IV Solu-Medrol. On examination, blood pressure 142/66, pulse ox 97% on 4L. GENERAL APPEARANCE: Sitting up in bed, tired-appearing. LUNGS: Increased respiration. Diminished breath sounds. Prolonged expiration, wheezing. CARDIOVASCULAR: First and second sounds normal. INVESTIGATIONS: Hemoglobin is 6.3. Accu-Cheks are noted. ASSESSMENT: 1. Acute severe chronic obstructive pulmonary disease exacerbation in a smoker, probably viral pneumonitis, could be gram-negative organism, slow to respond. 2. Symptomatic anemia hypotensive. 3. Other medical problems. PLAN: Will transfuse a unit of blood. Continue with other medication and treatment plan. Follow.
[2016-10-19] MEDS: INSULIN DETEMIR 100 UNIT/ML 10 ML VIAL SQ SCH (22:50)
[2016-10-20] MEDS: IPRATROPIUM-ALBUTEROL 3 ML NEB INHALATION SCH ×6 (00:42→21:19)
[2016-10-20 06:25] LABS: Glucose,Whole Blood 254 mg/dL (75-99)
[2016-10-20 06:59] LABS: Basophils % (A) 0 %; CH 27.4; CHCM 28.5; Eosinophils % (A) 0 %; HCT 26.8 % (34.0-46.0); HDW 3.76; HGB 7.6 gm/dL (11.4-16.0); Hypochromasia Marked; Luc # (Auto) 0.13; Luc % (Auto) 1; Lymphocytes # (A) 0.4 k/uL (1.0-4.8); Lymphocytes % (A) 3 %; MCH 27.6 pg (25.0-35.0); MCHC 28.6 g/dL (31.0-37.0); MCV 96.6 fL (80.0-100.0); Mean Platelet Volume 7.4; Monocytes # (A) 0.4 k/uL (0-1.0); Monocytes % (A) 3 %; Neutrophils # (A) 13.1 k/uL (1.3-7.7); Neutrophils % (A) 93 %; Poikilocytosis Slight; RBC 2.77 m/uL (3.80-5.40); RDW 15.9 % (11.5-15.5); WBC (Perox) 14.73
[2016-10-20] MEDS: PANTOPRAZOLE 40 MG TABLET PO SCH (07:09)
[2016-10-20] MEDS: INSULIN LISPRO (humaLOG) 300 UNIT/3 ML VIAL SQ SCH ×7 (07:09→21:33)
[2016-10-20 08:13] LABS: Phosphorous 3.9 mg/dL (2.5-4.5)
[2016-10-20] MEDS: methylPREDNISolone SOD SUCCI 40 MG/ML 1 ML VIAL IV SCH ×2 (09:02→21:34)
[2016-10-20] MEDS: ENOXAPARIN 40 MG/0.4 ML SYRINGE SQ SCH (09:02)
[2016-10-20] MEDS: GABAPENTIN 300 MG CAP PO SCH ×2 (09:03→21:33)
[2016-10-20] MEDS: metFORMIN 500 MG TAB PO SCH ×2 (09:03→21:34)
[2016-10-20] MEDS: LISINOPRIL 20 MG TAB PO SCH (09:03)
[2016-10-20] MEDS: NICOTINE 21MG/24HR PATCH TRANSDERM SCH (09:04)
[2016-10-20] MEDS: PARoxetine 20 MG TAB PO SCH (09:04)
[2016-10-20] MEDS: PRAVASTATIN SODIUM 40 MG TAB PO SCH (09:04)
[2016-10-20] MEDS: VERAPAMIL 80 MG TAB PO SCH ×3 (09:04→22:21)
[2016-10-20] MEDS: BUDESONIDE 1 MG/2 ML NEBU INHALATION SCH ×2 (09:48→21:19)
[2016-10-20 11:45] LABS: Glucose,Whole Blood 161 mg/dL (75-99)
--- NOTE | 2016-10-20 12:40 | P.PN ---
Subjective Principal diagnosis: Acute exacerbation of COPD Patient seen and examined covering for Dr. Guillermo. The patient states that she is feeling a little bit better today. She states she did have to have a blood transfusion overnight because her hemoglobin was 6. She denies any evidence of bleeding including black tarry stools. The patient states that she has not had a bowel movement today. She states she is still coughing but does not have fevers or chills. Objective - Vital Signs Vital signs: Vital Signs Temp 97.6 F 10/20/16 04:00 Pulse 90 10/20/16 12:26 Resp 18 10/20/16 08:00 BP 112/70 10/20/16 08:00 Pulse Ox 94 L 10/20/16 09:49 Intake & Output 10/19/16 10/20/16 10/20/16 18:59 06:59 18:59 Intake Total 1050 310 118 Balance 1050 310 118 Weight 93.8 kg Intake: IV 100 60 0.9 NS 100 60 Intake, IV Titration 50 Amount cefTRIAXone 1,000 mg In 50 Sodium Chloride 0.9% 50 ml @ 100 mls/hr IVPB Q24HR [facility] Rx#:[id number] Oral 900 118 Blood Product 250 Rc Cpda-1 Unit 250 [id number] Other: # Voids 1 - Exam Gen.: Patient is alert and oriented 3, no acute distress Cardiovascular: Regular rate and rhythm, S1/S2 Lungs: Diminished breath sounds bilaterally with scattered expiratory wheezing Abdomen: Soft nontender nondistended positive bowel sounds Extremities: No edema - Labs CBC & Chem 7: 10/20/16 06:27 10/18/16 13:16 Labs: Abnormal Lab Results - Last 24 Hours (Table) 10/19/16 10/19/16 10/19/16 Range/Units 16:19 19:54 20:33 WBC (3.8-10.6) k/uL RBC (3.80-5.40) m/uL Hgb (11.4-16.0) gm/dL Hct (34.0-46.0) % MCHC (31.0-37.0) g/dL RDW (11.5-15.5) % Neutrophils # (1.3-7.7) k/uL Lymphocytes # (1.0-4.8) k/uL POC Glucose (mg/dL) 188 H 256 H (75-99) mg/dL Crossmatch See Detail 10/20/16 10/20/16 10/20/16 Range/Units 06:19 06:27 11:42 WBC 14.0 H (3.8-10.6) k/uL RBC 2.77 L (3.80-5.40) m/uL Hgb 7.6 L (11.4-16.0) gm/dL Hct 26.8 L (34.0-46.0) % MCHC 28.6 L (31.0-37.0) g/dL RDW 15.9 H (11.5-15.5) % Neutrophils # 13.1 H (1.3-7.7) k/uL Lymphocytes # 0.4 L (1.0-4.8) k/uL POC Glucose (mg/dL) 254 H 161 H (75-99) mg/dL Crossmatch Microbiology - Last 24 Hours (Table) 10/18/16 17:15 Urine Culture - Final Urine,Clean Catch 10/18/16 15:58 Blood Culture - Preliminary Blood No Growth after 24 hours 10/18/16 15:43 Blood Culture - Preliminary Blood No Growth after 24 hours Assessment and Plan Plan: Acute exacerbation of COPD Acute on chronic hypoxic respiratory failure Purulent tracheobronchitis, pneumonia cannot be excluded Severe anemia Paroxysmal atrial fibrillation Diabetes mellitus2 Hypertension Obstructive sleep apnea Chronic kidney disease stage III Plan Medications have been reviewed and will be continued as ordered. Patient should bring in home CPAP machine to use while in the hospital. Continue on supplemental oxygen via nasal cannula to keep oxygen saturations above 92%. Continue on broad-spectrum antibiotics, breathing treatments as well as steroids. Obtain stool for occult blood. Obtain sputum culture Continue to hold Eliqus. Smoking cessation discussed at length, patient on nicotine patch currently. We will continue to monitor labs/results and adjust treatment as necessary. Steroid taper. Transfuse for Hgb < 7.
[2016-10-20 16:07] LABS: Glucose,Whole Blood 237 mg/dL (75-99)
--- NOTE | 2016-10-20 19:03 | PN ---
DATE OF SERVICE: 10/20/2016 PRESENTING COMPLAINT: Shortness of breath or wheezing. INTERVAL HISTORY: This is a patient with exacerbation of COPD. Today patient is sitting up in bed breathing mildly labored. Patient states she is "getting better." Review of systems done for constitutional, cardiovascular, GI, pulmonary, with relevant findings as above. CURRENT MEDICATIONS: DuoNeb 0.5 mg-3 mg/3 ml solution every 2 hours p.r.n., Pulmicort 1 mg inhalation b.i.d., Ceftin 500 mg b.i.d., Solu-Medrol 40 mg IV q.12h., verapamil 80 mg p.o. t.i.d., Pravachol 40 mg. PHYSICAL EXAMINATION: VITAL SIGNS: Temperature 97.6, heart rate 88, respiratory rate 16, blood pressure 112/70, oxygen saturation 92% on 2 liters nasal cannula. GENERAL APPEARANCE: Patient sitting up in bed, legs crossed in a tripod position, breathing mildly labored. EYES: Pupils equal. Conjunctivae normal. NECK: JVD not raised. Mass not palpable. LUNGS: Breath sounds diminished bilaterally. RESPIRATORY: Effort normal. CARDIOVASCULAR: First and second sounds normal. No edema. ABDOMEN: Soft, nontender. Liver and spleen not palpable. PSYCHIATRY: Alert and oriented x3. Mood and affect normal. INVESTIGATIONS: White blood cell count 14.0, hemoglobin 7.6, platelet count 416, phosphorus 3.9, magnesium 2.0. ASSESSMENT: 1. Acute severe chronic obstructive pulmonary disease exacerbation in a smoker, probably viral pneumonitis. Cannot rule out gram-negative organism, improving. 2. Paroxysmal atrial fibrillation controlled. 3. Chronic nicotine dependence. Patient is a long-time smoker. 4. Diabetes mellitus, type II on oral hypoglycemics. 5. Hyperlipidemia. 6. Essential hypertension. 7. Obstructive sleep apnea, uses a CPAP machine. 8. Chronic hypoxic respiratory failure, on home oxygen therapy. 9. Acute hypoxic respiratory failure secondary to chronic obstructive pulmonary disease exacerbation. Present on admission. 10. Chronic kidney disease stage III from diabetic nephropathy and hypertensive nephrosclerosis. PLAN: We will continue current medication and treatment plan. Per Pulmonology's recommendations, continued antibiotics, breathing treatments and steroids. We will follow. Patient was seen and examined by nurse practitioner, Susi Funes, and all the elements of the case discussed with attending, Dr. Cid. I performed a history and physical examination of this patient and discussed the same with the dictator. I agree with the dictator's note. Any additional findings/opinions, etc. will be noted.
[2016-10-20 21:17] LABS: Glucose,Whole Blood 216 mg/dL (75-99)
[2016-10-20] MEDS: CHOLECALCIFEROL 1,000 UNIT TAB PO SCH (21:32)
[2016-10-20] MEDS: INSULIN DETEMIR 100 UNIT/ML 10 ML VIAL SQ SCH (21:33)
[2016-10-20] MEDS: ISOSORBIDE MONONITRATE ER 30 MG TAB.ER.24H PO SCH (21:34)
[2016-10-20] MEDS: MONTELUKAST 10 MG TAB PO SCH (21:35)
--- NOTE | 2016-10-20 22:37 | PN ---
DATE OF SERVICE: 10/21/2016 ATTENDING NOTE: This patient was seen and examined by me earlier today. I reviewed the note of my nurse practitioner, Ms. Funes, and discussed with her. Patient admitted with COPD exacerbation. Breathing slightly getting better. Did tolerate some diet. Did get up to the bathroom. On examination, blood pressure 100/78, pulse ox 92% on 2L. RESPIRATORY: Effort increased. LUNGS: Decreased breath sounds. Mild wheezing. CARDIOVASCULAR: First and second sounds normal. No edema. PSYCH: Alert and oriented x3. INVESTIGATIONS: White count 14, hemoglobin 7.6. Accu-Cheks are noted. ASSESSMENT: 1. Acute severe chronic obstructive pulmonary disease exacerbation in a smoker, probably a viral pneumonitis, cannot rule out gram-negative organism, improving. 2. Paroxysmal atrial fibrillation, controlled. 3. Symptomatic anemia, status post blood transfusion. 4. Diabetes mellitus type 2, uncontrolled from IV steroids. PLAN: At this point continue with IV Solu-Medrol, nebulized bronchodilators. Care was discussed with the patient. Will switch the patient to oral antibiotic. Encouraged to be out of bed.
[2016-10-21] MEDS: IPRATROPIUM-ALBUTEROL 3 ML NEB INHALATION SCH ×6 (00:19→20:39)
[2016-10-21 01:58] LABS: Basophils # (A) 0.1 k/uL (0-0.2); Basophils % (A) 0 %; CH 27.4; CHCM 28.1; Eosinophils % (A) 0 %; HCT 26.8 % (34.0-46.0); HDW 3.76; HGB 7.4 gm/dL (11.4-16.0); Hypochromasia Marked; Luc # (Auto) 0.18; Luc % (Auto) 1; Lymphocytes # (A) 0.4 k/uL (1.0-4.8); Lymphocytes % (A) 3 %; MCH 26.8 pg (25.0-35.0); MCHC 27.5 g/dL (31.0-37.0); MCV 97.8 fL (80.0-100.0); Macrocytosis Slight; Mean Platelet Volume 7.6; Monocytes # (A) 0.5 k/uL (0-1.0); Monocytes % (A) 3 %; Neutrophils # (A) 14.9 k/uL (1.3-7.7); Neutrophils % (A) 93 %; Poikilocytosis Slight; RBC 2.74 m/uL (3.80-5.40); RDW 15.8 % (11.5-15.5); WBC (Perox) 16.27
[2016-10-21] MEDS: DILTIAZEM 125 MG in SODIUM CHLORIDE 0.9% 100 ML IV SCH ×2 (02:41→14:07)
[2016-10-21 07:05] LABS: Basophils % (A) 0 %; CH 27.2; CHCM 27.8; Eosinophils % (A) 0 %; HCT 27.7 % (34.0-46.0); HDW 3.67; HGB 7.8 gm/dL (11.4-16.0); Hypochromasia Marked; Luc # (Auto) 0.14; Luc % (Auto) 1; Lymphocytes # (A) 0.5 k/uL (1.0-4.8); Lymphocytes % (A) 3 %; MCH 27.9 pg (25.0-35.0); MCHC 28.3 g/dL (31.0-37.0); MCV 98.4 fL (80.0-100.0); Macrocytosis Slight; Mean Platelet Volume 7.3; Monocytes # (A) 0.4 k/uL (0-1.0); Monocytes % (A) 3 %; Neutrophils # (A) 13.3 k/uL (1.3-7.7); Neutrophils % (A) 93 %; Poikilocytosis Slight; RBC 2.81 m/uL (3.80-5.40); RDW 15.6 % (11.5-15.5); WBC 14.3 k/uL (3.8-10.6); WBC (Perox) 15.39
[2016-10-21 07:12] LABS: Glucose,Whole Blood 248 mg/dL (75-99)
[2016-10-21 07:17] LABS: Magnesium 2.2 mg/dL (1.6-2.3); Phosphorous 4.8 mg/dL (2.5-4.5)
[2016-10-21] MEDS: PANTOPRAZOLE 40 MG TABLET PO SCH (07:25)
[2016-10-21] MEDS: INSULIN LISPRO (humaLOG) 300 UNIT/3 ML VIAL SQ SCH ×7 (07:25→21:07)
[2016-10-21 08:33] LABS: Calcium 9.1 mg/dL (8.4-10.2); Potassium 5.8 mmol/L (3.5-5.1)
[2016-10-21] MEDS: CEFUROXIME 250 MG TAB PO SCH ×2 (08:53→21:05)
[2016-10-21] MEDS: GABAPENTIN 300 MG CAP PO SCH ×2 (08:54→21:06)
[2016-10-21] MEDS: LISINOPRIL 20 MG TAB PO SCH (08:54)
[2016-10-21] MEDS: BUDESONIDE 1 MG/2 ML NEBU INHALATION SCH ×2 (08:54→20:39)
[2016-10-21] MEDS: methylPREDNISolone SOD SUCCI 40 MG/ML 1 ML VIAL IV SCH (08:54)
[2016-10-21] MEDS: metFORMIN 500 MG TAB PO SCH (08:54)
[2016-10-21] MEDS: NICOTINE 21MG/24HR PATCH TRANSDERM SCH (08:55)
[2016-10-21] MEDS: PARoxetine 20 MG TAB PO SCH (08:55)
[2016-10-21] MEDS: PRAVASTATIN SODIUM 40 MG TAB PO SCH (08:55)
[2016-10-21 12:00] LABS: Glucose,Whole Blood 221 mg/dL (75-99)
[2016-10-21] MEDS: ENOXAPARIN 40 MG/0.4 ML SYRINGE SQ SCH (13:18)
[2016-10-21] MEDS: FERROUS SULFATE 325 MG TAB PO SCH (13:18)
[2016-10-21] MEDS ORDERED: SODIUM POLYSTYRENE SULFONATE 15 GM/60 ML BOTTLE PO STA (13:25)
[2016-10-21] MEDS ORDERED: CALCIUM GLUCONATE 1,000 MG in SODIUM CHLORIDE 0.9% 100 ML IVPB ONE (13:45)
[2016-10-21] MEDS: predniSONE 20 MG TAB PO SCH (14:13)
[2016-10-21] MEDS ORDERED: ONDANSETRON 4 MG/2 ML VIAL IVP STA (14:23)
--- NOTE | 2016-10-21 15:47 | P.PN ---
Subjective Principal diagnosis: Acute exacerbation of COPD Patient seen and examined covering for Dr. Guillermo. The patient states that her breathing is okay today however she is having nausea, vomiting, abdominal pain. The patient states it has been several days since she had a bowel movement. She was given Zofran for nausea which is helping. She also has elevated potassium and is taking Kayexalate. The patient denies any dark tarry stools, fever, chills. Objective - Vital Signs Vital signs: Vital Signs Temp 96.7 F L 10/21/16 08:45 Pulse 89 10/21/16 12:10 Resp 18 10/21/16 12:10 BP 123/58 10/21/16 12:10 Pulse Ox 90 L 10/21/16 12:10 Intake & Output 10/20/16 10/21/16 10/21/16 18:59 06:59 18:59 Intake Total 598 10 114.333 Balance 598 10 114.333 Weight 95.3 kg Intake: IV 120 10 0.9 NS 120 Diltiazem 125 mg In 10 Sodium Chloride 0.9% 100 ml @ 10 MG/HR 10 mls/hr IV .[id number] MARCELO Rx#: [id number] Intake, IV Titration 114.333 Amount Diltiazem 125 mg In 114.333 Sodium Chloride 0.9% 100 ml @ 10 MG/HR 10 mls/hr IV .[id number] MARCELO Rx#: [id number] Oral 478 Other: # Voids 1 1 1 - Exam Gen.: Patient is alert and oriented 3, no acute distress Cardiovascular: Regular rate and rhythm, S1/S2 Lungs: Diminished breath sounds bilaterally with scattered expiratory wheezing Abdomen: Soft nontender nondistended positive bowel sounds Extremities: No edema - Labs CBC & Chem 7: 10/21/16 06:36 10/21/16 06:36 Labs: Abnormal Lab Results - Last 24 Hours (Table) 10/20/16 10/20/16 10/21/16 Range/Units 16:06 21:13 01:39 WBC 16.0 H (3.8-10.6) k/uL RBC 2.74 L (3.80-5.40) m/uL Hgb 7.4 L (11.4-16.0) gm/dL Hct 26.8 L (34.0-46.0) % MCHC 27.5 L (31.0-37.0) g/dL RDW 15.8 H (11.5-15.5) % Plt Count (150-450) k/uL Neutrophils # 14.9 H (1.3-7.7) k/uL Lymphocytes # 0.4 L (1.0-4.8) k/uL Potassium (3.5-5.1) mmol/L BUN (7-17) mg/dL Creatinine (0.52-1.04) mg/dL Glucose (74-99) mg/dL POC Glucose (mg/dL) 237 H 216 H (75-99) mg/dL Phosphorus (2.5-4.5) mg/dL 10/21/16 10/21/16 10/21/16 Range/Units 06:36 06:36 06:36 WBC 14.3 H (3.8-10.6) k/uL RBC 2.81 L (3.80-5.40) m/uL Hgb 7.8 L (11.4-16.0) gm/dL Hct 27.7 L (34.0-46.0) % MCHC 28.3 L (31.0-37.0) g/dL RDW 15.6 H (11.5-15.5) % Plt Count 481 H (150-450) k/uL Neutrophils # 13.3 H (1.3-7.7) k/uL Lymphocytes # 0.5 L (1.0-4.8) k/uL Potassium 5.8 H (3.5-5.1) mmol/L BUN 82 H* (7-17) mg/dL Creatinine 1.82 H (0.52-1.04) mg/dL Glucose 247 H (74-99) mg/dL POC Glucose (mg/dL) (75-99) mg/dL Phosphorus 4.8 H (2.5-4.5) mg/dL 10/21/16 10/21/16 Range/Units 06:51 11:58 WBC (3.8-10.6) k/uL RBC (3.80-5.40) m/uL Hgb (11.4-16.0) gm/dL Hct (34.0-46.0) % MCHC (31.0-37.0) g/dL RDW (11.5-15.5) % Plt Count (150-450) k/uL Neutrophils # (1.3-7.7) k/uL Lymphocytes # (1.0-4.8) k/uL Potassium (3.5-5.1) mmol/L BUN (7-17) mg/dL Creatinine (0.52-1.04) mg/dL Glucose (74-99) mg/dL POC Glucose (mg/dL) 248 H 221 H (75-99) mg/dL Phosphorus (2.5-4.5) mg/dL Microbiology - Last 24 Hours (Table) 10/18/16 15:58 Blood Culture - Preliminary Blood No Growth after 48 hours 10/18/16 15:43 Blood Culture - Preliminary Blood No Growth after 48 hours Assessment and Plan Plan: Acute exacerbation of COPD Acute on chronic hypoxic respiratory failure Purulent tracheobronchitis, pneumonia cannot be excluded Severe anemia Paroxysmal atrial fibrillation Diabetes mellitus2 Hypertension Obstructive sleep apnea Chronic kidney disease stage III Plan Medications have been reviewed and will be continued as ordered. Patient should bring in home CPAP machine to use while in the hospital. Continue on supplemental oxygen via nasal cannula to keep oxygen saturations above 92%. Continue on broad-spectrum antibiotics, breathing treatments as well as steroids. Obtain stool for occult blood. Obtain sputum culture Continue to hold Eliqus. Smoking cessation discussed at length, patient on nicotine patch currently. We will continue to monitor labs/results and adjust treatment as necessary. Steroid taper. Transfuse for Hgb < 7. Increase IV fluids, check abdominal x-ray
--- NOTE | 2016-10-21 16:54 | PN ---
DATE OF SERVICE: 10/21/2016 PRESENTING COMPLAINT: Shortness of breath and wheezing. INTERVAL HISTORY: This is a patient with a COPD exacerbation. Today patient looks comfortable, lying in the bed, breathing is mildly labored. Patient states she is very tired, had a very difficult night. Patient is very sleepy. Review of systems done for constitutional, cardiovascular, GI, pulmonary with relevant findings as above. CURRENT MEDICATIONS: 1. DuoNeb 3 mL solution every 2 hours p.r.n. 2. Pulmicort 1 mg inhalation b.i.d. 3. Ceftin 500 mg b.i.d. 4. Solu-Medrol 40 mg IV q.12 hours. 5. Verapamil 80 mg p.o. t.i.d. 6. Pravachol 40 mg daily. PHYSICAL EXAMINATION: VITAL SIGNS: Temperature 96.6, pulse 84, respirations 16, blood pressure 110/51, 92% on 4 liters nasal cannula oxygen saturation. GENERAL APPEARANCE: Patient lying in bed appears tired, breathing mildly labored. EYES: Pupils equal. Conjunctivae normal. NECK: JVD not raised. Mass not palpable. LUNG: Sounds diminished bilaterally. Some expiratory wheezing noted. RESPIRATORY: Effort normal. CARDIOVASCULAR: First and second sounds noted. Mild edema noted. ABDOMEN: Soft, nontender. Liver and spleen not palpable. PSYCHIATRY: Alert and oriented x3. Mood and affect are normal. INVESTIGATIONS: White blood cell count 14.3, hemoglobin 7.8, platelet count 481. Sodium 141, potassium 5.8. BUN 82, creatinine 1.82. ASSESSMENT: 1. Acute severe chronic obstructive pulmonary disease exacerbation in a smoker, probably viral pneumonitis and cannot rule out gram-negative organism, improving. 2. Paroxysmal atrial fibrillation, controlled. 3. Symptomatic anemia, status post blood transfusion. 4. Diabetes mellitus type 2, uncontrolled from IV steroids. 5. Chronic nicotine dependence. Patient is a long-time smoker. 6. Hyperlipidemia. 7. Essential hypertension. 8. Obstructive sleep apnea uses a CPAP machine. 9. Chronic hypoxic respiratory failure, on home oxygen therapy. 10. Acute hypoxic respiratory failure secondary to chronic obstructive pulmonary disease exacerbation, present on admission. 11. Chronic kidney disease stage III from diabetic nephropathy and hypertensive nephrosclerosis. 12. Hyperkalemia. PLAN: Patient's potassium was 5.8. Today patient received calcium gluconate and Kayexalate to bring down her potassium level. Additionally, lisinopril, Glucophage was stopped and we changed Solu-Medrol to prednisone. Will continue with current medication and treatment plan and make changes as patient's condition warrants. Patient was seen and examined by nurse practitioner, Susi Funes, and all elements of the case discussed with attending, Dr. Cid.
--- NOTE | 2016-10-21 17:13 | XR ---
EXAMINATION TYPE: XR abdomen acute w cxr DATE OF EXAM: 10/21/2016 4:25 PM COMPARISON: Chest x-ray 10/18/2016 HISTORY: Abdominal pain nausea vomiting TECHNIQUE: Supine and upright views abdomen supplemented with a frontal chest. FINDINGS: There is prominent pulmonary vascular markings. Heart size is at the upper limits of normal . No suspicious focal consolidation is evident. No free air is under the diaphragm. Some blunting of the right costophrenic angle may be present. Cholecystectomy clips are present. Nonspecific colonic bowel gas is present. No mass effect is eviden t. No suspicious air-fluid levels or differential air-fluid levels are present. IMPRESSION: 1. Nonspecific abdomen. 2. Suggestion of mild right lower lobe infiltrate at the costophrenic angle. 3. Possible early volume overload
[2016-10-21 17:49] LABS: Glucose,Whole Blood 108 mg/dL (75-99)
[2016-10-21] MEDS: SODIUM CHLORIDE 0.9% 1,000 ML IV SCH (17:54)
[2016-10-21 21:01] LABS: Glucose,Whole Blood 207 mg/dL (75-99)
[2016-10-21] MEDS: CHOLECALCIFEROL 1,000 UNIT TAB PO SCH (21:05)
[2016-10-21] MEDS: ISOSORBIDE MONONITRATE ER 30 MG TAB.ER.24H PO SCH (21:06)
[2016-10-21] MEDS: MONTELUKAST 10 MG TAB PO SCH (21:07)
[2016-10-21] MEDS: INSULIN DETEMIR 100 UNIT/ML 10 ML VIAL SQ SCH (21:45)
[2016-10-22] MEDS: IPRATROPIUM-ALBUTEROL 3 ML NEB INHALATION SCH ×6 (00:09→19:11)
[2016-10-22 06:20] LABS: Glucose,Whole Blood 141 mg/dL (75-99)
[2016-10-22 06:55] LABS: Basophils # (A) 0.1 k/uL (0-0.2); Basophils % (A) 0 %; CH 27.5; CHCM 27.6; Eosinophils % (A) 0 %; HCT 29.5 % (34.0-46.0); HDW 3.66; Hypochromasia Marked; Luc # (Auto) 0.43; Luc % (Auto) 3; Lymphocytes # (A) 1.4 k/uL (1.0-4.8); Lymphocytes % (A) 9 %; MCH 27.2 pg (25.0-35.0); MCHC 27.2 g/dL (31.0-37.0); MCV 99.9 fL (80.0-100.0); Macrocytosis Slight; Mean Platelet Volume 7.1; Monocytes # (A) 1.3 k/uL (0-1.0); Monocytes % (A) 8 %; Neutrophils # (A) 12.6 k/uL (1.3-7.7); Neutrophils % (A) 80 %; Poikilocytosis Slight; RBC 2.96 m/uL (3.80-5.40); RDW 15.9 % (11.5-15.5); WBC 15.8 k/uL (3.8-10.6); WBC (Perox) 15.71
[2016-10-22 07:30] LABS: Magnesium 2.4 mg/dL (1.6-2.3); Phosphorous 5.3 mg/dL (2.5-4.5)
[2016-10-22] MEDS ORDERED: SODIUM POLYSTYRENE SULFONATE 15 GM/60 ML BOTTLE PO STA ×2 (07:48→13:35)
[2016-10-22] MEDS: DILTIAZEM 125 MG in SODIUM CHLORIDE 0.9% 100 ML IV SCH ×2 (08:09→17:31)
[2016-10-22] MEDS: PANTOPRAZOLE 40 MG TABLET PO SCH ×2 (08:10→09:13)
[2016-10-22] MEDS: INSULIN LISPRO (humaLOG) 300 UNIT/3 ML VIAL SQ SCH ×9 (08:10→22:38)
[2016-10-22 08:31] LABS: Glucose,Whole Blood 162 mg/dL (75-99)
[2016-10-22] MEDS: BUDESONIDE 1 MG/2 ML NEBU INHALATION SCH ×2 (08:45→19:11)
[2016-10-22 08:49] LABS: Calcium 9.7 mg/dL (8.4-10.2); Potassium 5.5 mmol/L (3.5-5.1); Total Bilirubin 0.4 mg/dL (0.2-1.3); Total Protein 6.6 g/dL (6.3-8.2)
--- NOTE | 2016-10-22 09:02 | PN ---
DATE OF SERVICE: 10/21/2016 ATTENDING NOTE: This patient was seen and examined by me yesterday on 10/21/2016. I reviewed the note of my nurse practitioner, Ms. Funes and discussed with her. This patient admitted with COPD exacerbation, breathing is somewhat better, but really not sleep too well last night, rather tired and somnolent. On examination, temperature 96.6, blood pressure 125/51, pulse ox 92% on 4 L. GENERAL APPEARANCE: Tired -appearing. LUNGS: Diminished breath sounds, less wheezing, arousable. INVESTIGATIONS: Hemoglobin 7.8. Potassium 5.8. BUN 82, creatinine 1.82. ASSESSMENT: 1. Acute severe chronic obstructive pulmonary disease exacerbation in a smoker, probably viral pneumonitis, cannot rule out a gram-negative organism. 2. Hyperkalemia, secondary to acute renal failure. 3. Acute renal failure, probably from decreased oral intake and from patient being on a diuretic and LUIS inhibitor. PLAN: Patient's lisinopril, Glucophage is being discontinued. IV Solu-Medrol changed to prednisone. Patient will be given Kayexalate, breathing treatment. Calcium gluconate to bring the potassium down. Will be rechecked.
[2016-10-22] MEDS: ENOXAPARIN 40 MG/0.4 ML SYRINGE SQ SCH (09:09)
[2016-10-22] MEDS: NICOTINE 21MG/24HR PATCH TRANSDERM SCH (09:09)
[2016-10-22 09:26] LABS: ABG Base Excess -0.5 mmol/L; ABG HCO3 26 mmol/L (21-25); ABG PCO2 64 mmHg (35-45); ABG PH 7.23 (7.35-7.45); ABG PO2 325 mmHg (83-108); ABG TCO2 28 mmol/L (19-24)
[2016-10-22 11:20] LABS: Glucose,Whole Blood 176 mg/dL (75-99)
--- NOTE | 2016-10-22 13:34 | P.PN ---
Subjective This is a 66-year-old female who is being evaluated and examined today on the sixth floor. This patient has came in with increasing shortness of breath over the last few weeks as well as increased lower extremity swelling. Of note the patient was evaluated 4 days ago in the [facility] and at that time the patient was asymptomatic however after that she started having lower extremity swelling and increasing shortness of breath and she couldn't take 3 or 4 steps without eating break. Therefore she was brought in to our office. The patient's pulse ox is ranged from 88-89% on 3 L in the office, so Dr. Guillermo recommended she come into the hospital. She currently wears 2 L of oxygen at home via nasal cannula. Upon examination today the patient is resting up in bed on BiPAP. Apparently the patient was found this morning with her oxygen off and her oxygen saturations were 51% ejection was reapplied and she was put up to 6 L of O2 via nasal cannula to which she recovered well and pulse ox increased to 93%. Patient then continued with to become lethargic and was unable to eat her breakfast. We obtained stat blood gases and in her oxygen saturations continued to decrease despite a nonrebreather mask. Therefore patient was put on BiPAP and she responded well. The patient continues to be lethargic however her pulse ox is stable. We will put in stat VQ scan and days that bilateral lower extremity ultrasound. Stat d-dimer was obtained and noted to be elevated as well. Objective - Vital Signs Vital signs: Vital Signs Temp 97.0 F L 10/22/16 08:00 Pulse 88 10/22/16 12:48 Resp 18 10/22/16 12:00 BP 133/61 10/22/16 12:00 Pulse Ox 94 L 10/22/16 12:00 Intake & Output 10/21/16 10/22/16 10/22/16 18:59 06:59 18:59 Intake Total 114.333 365 350 Balance 114.333 365 350 Weight 97.1 kg Intake: IV 250 0.9 NS 250 Intake, IV Titration 114.333 125 Amount Diltiazem 125 mg In 114.333 125 Sodium Chloride 0.9% 100 ml @ 10 MG/HR 10 mls/hr IV .[id number] [facility]ARCELO Rx#: [id number] Oral 240 100 Other: Voiding Method Toilet Toilet # Voids 1 1 - Exam GENERAL EXAM: Alert, active, comfortable in no apparent distress. HEAD: Normocephalic. EYES: Normal reaction of pupils, equal size. NOSE: Clear with pink turbinates. THROAT: No erythema or exudates. No pharyngeal opening is present NECK: No masses, no JVD. CHEST: No chest wall deformity. LUNGS: Lungs noted to have bilaterally poor air entry throughout. CVS: S1 and S2 normal with no audible mumurs, regular rhythm. ABDOMEN: No hepatosplenomegaly, normal bowel sounds, no guarding or rigidity. EXTREMITIES: +2-3 edema noted, pedal pulses palpable. SKIN: No rashes CENTRAL NERVOUS SYSTEM: No focal deficits, tone is normal in all 4 extremities. - Labs CBC & Chem 7: 10/22/16 06:01 10/22/16 06:01 Labs: Abnormal Lab Results - Last 24 Hours (Table) 10/21/16 10/21/16 10/21/16 Range/Units 17:21 19:45 21:00 WBC (3.8-10.6) k/uL RBC (3.80-5.40) m/uL Hgb (11.4-16.0) gm/dL Hct (34.0-46.0) % MCHC (31.0-37.0) g/dL RDW (11.5-15.5) % Plt Count (150-450) k/uL Neutrophils # (1.3-7.7) k/uL Monocytes # (0-1.0) k/uL D-Dimer (<0.60) mg/L FEU ABG pH (7.35-7.45) ABG pCO2 (35-45) mmHg ABG pO2 (83-108) mmHg ABG HCO3 (21-25) mmol/L ABG Total CO2 (19-24) mmol/L ABG O2 Saturation (94-97) % Potassium 5.6 H (3.5-5.1) mmol/L BUN (7-17) mg/dL Creatinine (0.52-1.04) mg/dL Glucose (74-99) mg/dL POC Glucose (mg/dL) 108 H 207 H (75-99) mg/dL Phosphorus (2.5-4.5) mg/dL Magnesium (1.6-2.3) mg/dL 10/22/16 10/22/16 10/22/16 Range/Units 06:01 06:01 06:01 WBC 15.8 H (3.8-10.6) k/uL RBC 2.96 L (3.80-5.40) m/uL Hgb 8.0 L (11.4-16.0) gm/dL Hct 29.5 L (34.0-46.0) % MCHC 27.2 L (31.0-37.0) g/dL RDW 15.9 H (11.5-15.5) % Plt Count 562 H (150-450) k/uL Neutrophils # 12.6 H (1.3-7.7) k/uL Monocytes # 1.3 H (0-1.0) k/uL D-Dimer (<0.60) mg/L FEU ABG pH (7.35-7.45) ABG pCO2 (35-45) mmHg ABG pO2 (83-108) mmHg ABG HCO3 (21-25) mmol/L ABG Total CO2 (19-24) mmol/L ABG O2 Saturation (94-97) % Potassium 5.5 H (3.5-5.1) mmol/L BUN 93 H* (7-17) mg/dL Creatinine 2.07 H (0.52-1.04) mg/dL Glucose 133 H (74-99) mg/dL POC Glucose (mg/dL) (75-99) mg/dL Phosphorus 5.3 H (2.5-4.5) mg/dL Magnesium 2.4 H (1.6-2.3) mg/dL 10/22/16 10/22/16 10/22/16 Range/Units 06:18 08:19 08:50 WBC (3.8-10.6) k/uL RBC (3.80-5.40) m/uL Hgb (11.4-16.0) gm/dL Hct (34.0-46.0) % MCHC (31.0-37.0) g/dL RDW (11.5-15.5) % Plt Count (150-450) k/uL Neutrophils # (1.3-7.7) k/uL Monocytes # (0-1.0) k/uL D-Dimer (<0.60) mg/L FEU ABG pH 7.23 L (7.35-7.45) ABG pCO2 64 H (35-45) mmHg ABG pO2 325 H (83-108) mmHg ABG HCO3 26 H (21-25) mmol/L ABG Total CO2 28 H (19-24) mmol/L ABG O2 Saturation 100.0 H (94-97) % Potassium (3.5-5.1) mmol/L BUN (7-17) mg/dL Creatinine (0.52-1.04) mg/dL Glucose (74-99) mg/dL POC Glucose (mg/dL) 141 H 162 H (75-99) mg/dL Phosphorus (2.5-4.5) mg/dL Magnesium (1.6-2.3) mg/dL 10/22/16 10/22/16 Range/Units 09:13 11:18 WBC (3.8-10.6) k/uL RBC (3.80-5.40) m/uL Hgb (11.4-16.0) gm/dL Hct (34.0-46.0) % MCHC (31.0-37.0) g/dL RDW (11.5-15.5) % Plt Count (150-450) k/uL Neutrophils # (1.3-7.7) k/uL Monocytes # (0-1.0) k/uL D-Dimer 1.72 H (<0.60) mg/L FEU ABG pH (7.35-7.45) ABG pCO2 (35-45) mmHg ABG pO2 (83-108) mmHg ABG HCO3 (21-25) mmol/L ABG Total CO2 (19-24) mmol/L ABG O2 Saturation (94-97) % Potassium (3.5-5.1) mmol/L BUN (7-17) mg/dL Creatinine (0.52-1.04) mg/dL Glucose (74-99) mg/dL POC Glucose (mg/dL) 176 H (75-99) mg/dL Phosphorus (2.5-4.5) mg/dL Magnesium (1.6-2.3) mg/dL Microbiology - Last 24 Hours (Table) 10/18/16 15:58 Blood Culture - Preliminary Blood No Growth after 72 hours 10/18/16 15:43 Blood Culture - Preliminary Blood No Growth after 72 hours Assessment and Plan Plan: Assessment Acute exacerbation of COPD Acute on chronic hypoxic respiratory failure Purulent tracheobronchitis, pneumonia cannot be excluded Severe anemia Paroxysmal atrial fibrillation Diabetes mellitus2 Hypertension Obstructive sleep apnea Chronic kidney disease stage III Plan We will obtain stat VQ scan and stat bilateral lower extremity ultrasound to look for PE or DVT. Repeat ABG to be done at 4 PM. We will start the patient on low-dose heparin drip with no bolus. Medications have been reviewed and will be continued as ordered. P Continue on supplemental oxygen via nasal cannula to keep oxygen saturations above 92%. Continue on broad-spectrum antibiotics, breathing treatments as well as steroids. Obtain stool for occult blood. Smoking cessation discussed at length, patient on nicotine patch currently. We will obtain a repeat chest x-ray in the morning. We will continue to monitor labs/results and adjust treatment as necessary.
[2016-10-22] MEDS ORDERED: CALCIUM GLUCONATE 1,000 MG in SODIUM CHLORIDE 0.9% 100 ML IVPB ONE (14:00)
[2016-10-22 14:50] LABS: Prothrombin Time 10.5 sec (9.0-12.0)
[2016-10-22 15:02] LABS: Partial Thromboplastin Time 20.9 sec (22.0-30.0)
--- NOTE | 2016-10-22 15:24 | CT ---
EXAMINATION TYPE: CT brain wo con DATE OF EXAM: 10/22/2016 3:19 PM COMPARISON: NONE HISTORY: Decreased LOC and lethargic. CT DLP: 1033.6 mGycm Automated exposure control for dose reduction was used. FINDINGS: Central structures are midline. There is mild prominence of the ventricular system is especially true of the occipital horn on the right. There is no mass effect, midline shift or intracranial blood. There is mild mucoperiosteal thickening involving the ethmoid air cells. The remainder of the paranas al sinuses and mastoids are clear. IMPRESSION: MILD PROMINENCE OF THE VENTRICLES OUT OF KEEPING WITH THE DEGREE OF SULCAL PROMINENCE. I CANNOT EXCLU DE SOME DEGREE OF NORMAL PRESSURE HYDROCEPHALUS.
--- NOTE | 2016-10-22 16:28 | NM ---
EXAMINATION TYPE: NM pul vent and perfuse DATE OF EXAM: 10/22/2016 4:24 PM COMPARISON: Chest x-ray 10/23/2016 HISTORY: Short of breath TECHNIQUE: Utilizing inhalation of 66.8 mCi Tc 99m DTPA aerosol and intravenous injection of 5.5 mCi of Tc 99m MAA, ventilation and perfusion images are acquired post injection in multiple projections. FINDINGS: There is abnormal radiotracer accumulation perfusion. Ventilation and patchy central deposition liliam tible COPD. This makes the study. No moderate or large mismatched defects are evident. IMPRESSION: Indeterminate probability for pulmonary embolism
[2016-10-22] MEDS: CEFUROXIME 250 MG TAB PO SCH ×2 (16:41→19:54)
[2016-10-22] MEDS: PARoxetine 20 MG TAB PO SCH (16:41)
[2016-10-22] MEDS: GABAPENTIN 300 MG CAP PO SCH ×2 (16:41→19:54)
[2016-10-22] MEDS: predniSONE 20 MG TAB PO SCH (16:42)
[2016-10-22] MEDS: FERROUS SULFATE 325 MG TAB PO SCH (16:42)
[2016-10-22 16:51] LABS: Glucose,Whole Blood 97 mg/dL (75-99)
[2016-10-22] MEDS: SODIUM CHLORIDE 0.9% 1,000 ML IV SCH (17:19)
[2016-10-22] MEDS: PRAVASTATIN SODIUM 40 MG TAB PO SCH (17:19)
[2016-10-22] MEDS: VERAPAMIL 80 MG TAB PO SCH ×2 (17:20→17:21)
[2016-10-22] MEDS: HEPARIN SODIUM,PORCINE/D5W PMX 25,000 UNIT in DEXTROSE/WATER 1 500ML.BAG IV SCH (17:25)
--- NOTE | 2016-10-22 18:45 | US ---
EXAMINATION TYPE: US venous doppler duplex LE BI DATE OF EXAM: 10/22/2016 3:57 PM COMPARISON: 08/10/2009 CLINICAL HISTORY: mario leg swelling. SIDE PERFORMED: bilateral TECHNIQUE: The lower extremity deep venous system is examined utilizing real time linear array sonog ike with graded compression, doppler sonography and color-flow sonography. VESSELS IMAGED: External Iliac Vein (EIV) Common Femoral Vein Deep Femoral Vein Greater Saphenous Vein * Femoral Vein Popliteal Vein Small Saphenous Vein * Proximal Calf Veins (* superficial vessels) Right Leg: Negative for DVT Left Leg: Negative for DVT IMPRESSION: Grayscale, color doppler, spectral doppler imaging performed of the deep veins of the lo wer extremities. There is normal flow, compressibility, vascular waveforms bilaterally. Normal exam . No evidence of deep venous thrombosis in both legs.
[2016-10-22 19:00] LABS: ABG Base Excess -0.2 mmol/L; ABG HCO3 26 mmol/L (21-25); ABG PCO2 61 mmHg (35-45); ABG PH 7.25 (7.35-7.45); ABG PO2 72 mmHg (83-108); ABG TCO2 28 mmol/L (19-24)
[2016-10-22] MEDS: CHOLECALCIFEROL 1,000 UNIT TAB PO SCH (19:54)
[2016-10-22] MEDS: ISOSORBIDE MONONITRATE ER 30 MG TAB.ER.24H PO SCH (19:55)
[2016-10-22] MEDS: MONTELUKAST 10 MG TAB PO SCH (19:55)
[2016-10-22 20:38] LABS: Glucose,Whole Blood 231 mg/dL (75-99)
[2016-10-22] MEDS: INSULIN DETEMIR 100 UNIT/ML 10 ML VIAL SQ SCH (22:39)
[2016-10-23] MEDS: IPRATROPIUM-ALBUTEROL 3 ML NEB INHALATION SCH ×7 (00:25→23:49)
[2016-10-23 05:05] LABS: Basophils % (A) 0 %; CH 27.2; CHCM 27.6; Eosinophils # (A) 0.1 k/uL (0-0.7); Eosinophils % (A) 1 %; HCT 29.7 % (34.0-46.0); HDW 3.59; HGB 8.3 gm/dL (11.4-16.0); Hypochromasia Marked; Luc # (Auto) 0.14; Luc % (Auto) 1; Lymphocytes # (A) 0.6 k/uL (1.0-4.8); Lymphocytes % (A) 5 %; MCH 27.5 pg (25.0-35.0); MCHC 27.8 g/dL (31.0-37.0); MCV 98.8 fL (80.0-100.0); Macrocytosis Slight; Mean Platelet Volume 7.3; Monocytes # (A) 0.4 k/uL (0-1.0); Monocytes % (A) 4 %; Neutrophils # (A) 10.4 k/uL (1.3-7.7); Neutrophils % (A) 89 %; Poikilocytosis Slight; RBC 3.01 m/uL (3.80-5.40); RDW 15.8 % (11.5-15.5); WBC 11.7 k/uL (3.8-10.6); WBC (Perox) 12.61
[2016-10-23 05:15] LABS: Calcium 9.8 mg/dL (8.4-10.2); Magnesium 2.4 mg/dL (1.6-2.3); Phosphorous 5.4 mg/dL (2.5-4.5); Potassium 5.1 mmol/L (3.5-5.1); Total Bilirubin 0.2 mg/dL (0.2-1.3); Total Protein 6.6 g/dL (6.3-8.2)
[2016-10-23 06:07] LABS: Glucose,Whole Blood 138 mg/dL (75-99)
--- NOTE | 2016-10-23 06:29 | PN ---
DATE OF SERVICE: 10/22/2016 INTERVAL HISTORY: This is a patient with COPD exacerbation. Today, patient is on a BiPAP. Informed by the nurse that the patient had several acute episodes of acute desaturation of oxygen. Breathing is labored. However, she looks comfortable on the BiPAP. Patient really is unable to speak with the BiPAP mask on. Patient is very sleepy. Review of systems done for constitutional, cardiovascular, GI, pulmonary with relevant findings as above. CURRENT MEDICATIONS: DuoNeb 3 mL solution every 2 hours p.r.n., Pulmicort 1 mg inhalation b.i.d., Ceftin 500 mg b.i.d., Solu-Medrol 40 mg IV q.12 hours, verapamil 80 mg p.o. t.i.d., Pravachol 40 mg daily. PHYSICAL EXAM: VITAL SIGNS: Temperature 97.0, pulse 84, respirations 18, oxygen saturation 98% on 15 L BiPAP. GENERAL APPEARANCE: Patient looks comfortable on the BiPAP. Lying in bed. EYES: Pupils equal. Conjunctivae normal. NECK: JVD not raised. Mass not palpable. Lung sounds diminished bilaterally. Some expiratory wheezing noted. RESPIRATORY: Effort normal. CARDIOVASCULAR: First and second sounds noted. Mild edema noted. ABDOMEN: Soft, nontender. Liver and spleen not palpable. PSYCHIATRY: Alert to name only. Patient is really unable to speak at this time. INVESTIGATIONS: White blood cell count 15.8, hemoglobin 8.0, platelet count 562. D-dimer 1.72. ABG pH 7.25, pCO2 of 61, pO2 of 72, HCO3 of 26, base excess -0.2. Sodium 144, potassium 5.5, BUN 93, creatinine 2.07. Phosphorus 5.3. Museum 2.4. ASSESSMENT: 1. Acute severe chronic obstructive pulmonary disease exacerbation in a smoker, probably viral pneumonitis, cannot rule out gram-negative organism, worsening. 2. Paroxysmal atrial fibrillation, controlled. 3. Symptomatic anemia, status post drug blood transfusion. 4. Diabetes mellitus, type 2, uncontrolled from IV steroids. 5. Chronic nicotine dependence. Patient is a long-time smoker. 6. Hyperlipidemia, stable. 7. Essential hypertension, stable. 8. Obstructive sleep apnea, uses a CPAP machine. 9. Chronic hypoxic respiratory failure on home oxygen therapy. 10. Acute hypoxic respiratory failure secondary to chronic obstructive pulmonary disease exacerbation, present on admission. 11. Chronic kidney disease, stage III from diabetic nephropathy and hypertensive nephrosclerosis. 12. Hyperkalemia likely due to acute renal failure. 13. Acute renal failure worsening from acute tubular necrosis. 14. Metabolic encephalopathy, multifactorial. PLAN: Patient's potassium was 5.5 today. Patient received calcium gluconate and Kayexalate to bring down potassium level. We will consult Nephrology. Pulmonology on the case and awaiting additional recommendations from them. Will continue to follow closely. Patient was seen and examined by nurse practitioner, Susi Funes, and all elements of the case was discussed with Dr. Cid attending.
[2016-10-23] MEDS: BUDESONIDE 1 MG/2 ML NEBU INHALATION SCH ×2 (07:14→19:23)
[2016-10-23] MEDS: INSULIN LISPRO (humaLOG) 300 UNIT/3 ML VIAL SQ SCH ×7 (07:28→20:57)
[2016-10-23] MEDS: PANTOPRAZOLE 40 MG TABLET PO SCH (07:29)
--- NOTE | 2016-10-23 08:42 | XR ---
EXAMINATION TYPE: XR chest 1V DATE OF EXAM: 10/23/2016 7:09 AM COMPARISON: NONE HISTORY: pt on BiPap TECHNIQUE: Single frontal view of the chest is obtained. FINDINGS: The heart is prominent there is a diffuse interstitial pattern which is stable. Subsegmenta l changes at the left lung base. No pneumothorax. IMPRESSION: 1. Correlate for mild chronic interstitial venous congestion or pneumonitis. Findings are stable. 2. Cardiomegaly and left basilar atelectasis or infiltrate.
[2016-10-23] MEDS: SODIUM CHLORIDE 0.9% 1,000 ML IV SCH (09:25)
--- NOTE | 2016-10-23 10:21 | P.NPCON ---
History of Present Illness - Reason for Consult acute renal failure - History of Present Illness Reason for consultation: Acute kidney injury History of present illness: Patient is a 66-year-old female seen in renal consultation for acute kidney injury on chronic kidney disease. Patient has chronic kidney disease stage III secondary to nephrosclerosis with baseline creatinine in the range of 1.1-1.2. Her creatinine this admission peaked at 2 and is down to 1.5 today. Patient presented with dyspnea and is currently being treated for COPD exacerbation. She does have diastolic CHF which seems to be compensated at this time. There is no pitting edema. Patient was also noted to have a hemoglobin of 6.3 for which she did receive a blood transfusion this admission. Hemoglobin is 8.3 this morning. Urinalysis is noted to be benign. She did go into atrial fibrillation with RVR last night and is currently maintained on IV heparin drip as well as a Cardizem drip. No vomiting or diarrhea. She is currently on a BiPAP and does open her eyes to verbal commands but is not able to provide much history. She is nonoliguric. Vital signs are stable. General: The patient appeared well nourished and normally developed. HEENT: Head exam is unremarkable. Neck is without jugular venous distension. LUNGS: Rhonchi at bases. Breath sounds decreased. HEART: Rate and Rhythm are regular. First and second heart sounds normal. No murmurs, rubs or gallops. ABDOMEN: Abdominal exam reveals normal bowel sounds. Non-tender and non- distended. No evidence of peritonitis. EXTREMITITES: No clubbing, cyanosis, or edema. Past Medical History Past Medical History: Atrial Fibrillation, Heart Failure, COPD, Diabetes Mellitus, Hyperlipidemia, Hypertension, Pneumonia, Renal Disease, Seizure Disorder, Sleep Apnea/CPAP/BIPAP Additional Past Medical History / Comment(s): Pt recently admitted to [facility] on 04/19 with R lower lobe pnemonia/paroxysmal Afib with was converted to NSR at discharge/ acute exacerbation of COPD. Other HX: had 2 seizures 40 yrs ago- never had anymore-not sure of cause,uses oxygen 2L/NC ATC, CKD stage III- nephropathy, RAMIN/CPAP, tracheobronchitis, cataracts bilaterally, DJD. 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 Past Anesthesia/Blood Transfusion Reactions: No Reported Reaction Past Psychological History: Panic Disorder Additional Psychological History / Comment(s): Panick attacks while going through menopause when pt was in her 40's, pt started paxil and is doing fine now. Pt resides with her spouse and her adult daughter. She just started using a cane today. She is not currently driving due to cataracts/eyesight issues-she is to have cataract surgery soon and hopes to then be able to drive. she manages her own medications. Her david takes her to appts. She has home O2 concentrator, nebulizer and glucometer at home. Smoking Status: Current every day smoker Past Alcohol Use History: None Reported Additional Past Alcohol Use History / Comment(s): <ppd since age of 16, down from 2ppd. Pt states she is quitting smoking today. Past Drug Use History: None Reported - Past Family History Mother Family Medical History: Cancer Additional Family Medical History / Comment(s): breast/liver Medications and Allergies Home Medications Medication Instructions Recorded Confirmed Type Cholecalciferol [Vitamin D3] 1,000 unit PO HS 02/01/16 10/18/16 History Furosemide [Lasix] 20 mg PO DAILY 02/01/16 10/18/16 History Insulin Detemir [Levemir] 80 unit SQ HS 02/01/16 10/18/16 History Isosorbide Mononitrate ER [Imdur] 30 mg PO HS 02/01/16 10/18/16 History Lisinopril [Zestril] 20 mg PO DAILY 02/01/16 10/18/16 History Montelukast [Singulair] 10 mg PO HS 02/01/16 10/18/16 History [place]-3 Fatty Acids/Fish Oil [Fish 1 cap PO DAILY 02/01/16 10/18/16 History Oil 1,000 mg Softgel] PARoxetine [Paxil] 20 mg PO DAILY 02/01/16 10/18/16 History Pravastatin Sodium [Pravachol] 40 mg PO DAILY 02/01/16 10/18/16 History metFORMIN HCL [Glucophage] 1,000 mg PO BID 02/01/16 10/18/16 History Gabapentin [Neurontin] 300 mg PO QAM 07/13/16 10/18/16 History Gabapentin [Neurontin] 600 mg PO HS 09/11/16 10/18/16 History Albuterol Inhaler [Ventolin Hfa 1 - 2 puff INHALATION RT-Q4H PRN 10/18/16 History Inhaler] INSULIN LISPRO (HumaLOG) [HumaLOG] 13 units SQ AC-TID 10/18/16 10/18/16 History Allergies Allergy/AdvReac Type Severity Reaction Status Date / Time codeine AdvReac jittery Verified 10/18/16 14:23 and shaky Physical Exam Vitals: Vital Signs Temp Pulse Pulse Resp BP Pulse Ox 10/23/16 07:24 88 10/23/16 07:14 84 10/23/16 04:00 137 H 18 109/73 96 10/23/16 03:59 88 10/23/16 03:48 88 10/23/16 00:29 88 10/23/16 00:14 88 10/23/16 00:00 72 18 117/56 98 10/22/16 20:00 97.1 F L 146 H 18 127/68 96 10/22/16 19:24 110 H 10/22/16 19:11 110 H 10/22/16 17:39 120 H 10/22/16 17:28 132 H 97 10/22/16 16:00 132 H 18 132/68 94 L 10/22/16 12:48 88 10/22/16 12:40 88 10/22/16 12:00 78 18 133/61 94 L Intake and Output 10/22/16 10/23/16 10/23/16 22:59 06:59 14:59 Intake Total 740 263.667 Output Total 600 Balance 740 -336.333 Intake: IV 440 0.9 NS 400 Diltiazem 125 mg In 40 Sodium Chloride 0.9% 100 ml @ 10 MG/HR 10 mls/hr IV .[id number] [facility] Rx#: [id number] Intake, IV Titration 263.667 Amount Heparin Sodium,Porcine/ 263.667 D5w Pmx 25,000 unit In Dextrose/Water 1 500ml. bag @ 10.3 UNITS/KG/HR 20 mls/hr IV .Q24H [facility] Rx#: [id number] Oral 300 Output: Urine 600 Other: Voiding Method Bedside Commode Bedside Commode Weight 97.2 kg Results - Lab Results Most recent lab results ABG pH 7.25 (7.35-7.45) L 10/22/16 18:54 ABG pCO2 61 mmHg (35-45) H 10/22/16 18:54 ABG pO2 72 mmHg (83-108) L 10/22/16 18:54 ABG HCO3 26 mmol/L (21-25) H 10/22/16 18:54 ABG O2 Saturation 91.0 % (94-97) L 10/22/16 18:54 Calcium 9.8 mg/dL (8.4-10.2) 10/23/16 04:41 Phosphorus 5.4 mg/dL (2.5-4.5) H 10/23/16 04:41 Magnesium 2.4 mg/dL (1.6-2.3) H 10/23/16 04:41 10/23/16 04:41 10/23/16 04:41 Assessment and Plan Plan: Assessment: #1. Nonoliguric acute kidney injury mostly prerenal in nature secondary to acute anemia and hemodynamic instability. Creatinine peaked at 2 this admission and is down to 1.5 today. Urinalysis noted to be benign. #2. Chronic kidney disease stage III with baseline creatinine in the range of 1.1-1.2 secondary to nephrosclerosis. #3. Acute anemia status post blood transfusion. Hemoglobin 8.3 this morning. #4. Atrial fibrillation with RVR. Currently maintained on heparin as well as Cardizem drip. #5. Insulin-dependent diabetes mellitus. No proteinuria on urinalysis. #6. Dyspnea secondary to acute COPD exacerbation. Plan: Continue normal saline to be run at 50 mL an hour. Monitor hemoglobin and transfuse as needed. Check iron studies. Check renal ultrasound. Avoid nephrotoxic agents and hypotensive episodes. Repeat electrolytes in the morning. Cardiology following. Thank you for the consultation. I will continue to follow the patient with you during her hospital stay.
[2016-10-23 11:10] LABS: % Iron Saturation 10.1 % (20-50)
--- NOTE | 2016-10-23 11:33 | PN ---
DATE OF SERVICE: 10/22/2016 This patient was seen and examined by me yesterday. I reviewed the note of my nurse practitioner, Ms. Funes, discussed and agree with the same. Patient has been tired on and off. Renal function is a bit more off. On examination, tired but able to communicate. LUNGS: Decreased breath sounds, decreased wheezing. ABDOMEN: Soft, nontender. INVESTIGATIONS: White count 15.8, hemoglobin 8, potassium 5.5. BUN 93, creatinine 2.07. ASSESSMENT: 1. Acute severe chronic obstructive pulmonary disease exacerbation in a smoker. 2. Viral pneumonitis, with some improvement. 3. Metabolic encephalopathy, likely from renal failure. 4. Acute renal failure, worsening, probably from acute tubular necrosis. 5. Hyperkalemia, due to his renal failure. PLAN: Patient continues to be hydrated, more Kayexalate was given, potassium is being treated. I do expect patient to turn around in the next 24 hours. Care was discussed with the patient.
--- NOTE | 2016-10-23 11:39 | P.PN ---
Subjective This is a 66-year-old female who is being evaluated and examined today on the sixth floor. This patient has came in with increasing shortness of breath over the last few weeks as well as increased lower extremity swelling. Of note the patient was evaluated 4 days ago in the cardial vascular office and at that time the patient was asymptomatic however after that she started having lower extremity swelling and increasing shortness of breath and she couldn't take 3 or 4 steps without eating break. Therefore she was brought in to our office. The patient's pulse ox is ranged from 88-89% on 3 L in the office, so Dr. Guillermo recommended she come into the hospital. She currently wears 2 L of oxygen at home via nasal cannula. Patient did have a venous Doppler of the bilateral lower shortness x-ray is negative. DVT. Patient also had a brain CT completed which showed mild prominence of ventricles out of keeping with the degree of sulcal prominence cannot exclude some degree of normal pressure hydrocephalus. V/Q scan was completed and showed indeterminate probability of pulmonary embolism. Upon examination today the patient is resting up in bed on BiPAP, napping. Patient is able to wake up and to respond appropriately to questions. She does open her eyes however she is noted to be tired. Patient currently continues on heparin drip and Cardizem drip. Nephrology was also put on consult. Objective - Vital Signs Vital signs: Vital Signs Temp 97 F L 10/23/16 08:00 Pulse 88 10/23/16 11:14 Resp 18 10/23/16 04:00 BP 121/86 10/23/16 08:00 Pulse Ox 94 L 10/23/16 08:00 Intake & Output 10/22/16 10/23/16 10/23/16 18:59 06:59 18:59 Intake Total 650 703.667 Output Total 600 Balance 650 103.667 Weight 97.2 kg Intake: IV 250 440 0.9 NS 250 400 Diltiazem 125 mg In 40 Sodium Chloride 0.9% 100 ml @ 10 MG/HR 10 mls/hr IV .[id number] [facility] Rx#: [id number] Intake, IV Titration 263.667 Amount Heparin Sodium,Porcine/ 263.667 D5w Pmx 25,000 unit In Dextrose/Water 1 500ml. bag @ 10.3 UNITS/KG/HR 20 mls/hr IV .Q24H [facility] Rx#: [id number] Oral 400 Output: Urine 600 Other: Voiding Method Toilet Bedside Commode - Exam GENERAL EXAM: Alert, active, comfortable in no apparent distress. HEAD: Normocephalic. EYES: Normal reaction of pupils, equal size. NOSE: Clear with pink turbinates. THROAT: No erythema or exudates. No pharyngeal opening is present NECK: No masses, no JVD. CHEST: No chest wall deformity. LUNGS: Lungs noted to have bilaterally poor air entry throughout. Rhonchi noticed at bases CVS: S1 and S2 normal with no audible mumurs, regular rhythm. ABDOMEN: No hepatosplenomegaly, normal bowel sounds, no guarding or rigidity. EXTREMITIES: +2-3 edema noted, pedal pulses palpable. SKIN: No rashes CENTRAL NERVOUS SYSTEM: No focal deficits, tone is normal in all 4 extremities. - Labs CBC & Chem 7: 10/23/16 04:41 10/23/16 04:41 Labs: Abnormal Lab Results - Last 24 Hours (Table) 10/22/16 10/22/16 10/22/16 Range/Units 14:30 16:56 18:54 WBC (3.8-10.6) k/uL RBC (3.80-5.40) m/uL Hgb (11.4-16.0) gm/dL Hct (34.0-46.0) % MCHC (31.0-37.0) g/dL RDW (11.5-15.5) % Plt Count (150-450) k/uL Neutrophils # (1.3-7.7) k/uL Lymphocytes # (1.0-4.8) k/uL APTT 20.9 L (22.0-30.0) sec ABG pH 7.25 L (7.35-7.45) ABG pCO2 61 H (35-45) mmHg ABG pO2 72 L (83-108) mmHg ABG HCO3 26 H (21-25) mmol/L ABG Total CO2 28 H (19-24) mmol/L ABG O2 Saturation 91.0 L (94-97) % Potassium 5.3 H (3.5-5.1) mmol/L BUN (7-17) mg/dL Creatinine (0.52-1.04) mg/dL Glucose (74-99) mg/dL POC Glucose (mg/dL) (75-99) mg/dL Phosphorus (2.5-4.5) mg/dL Magnesium (1.6-2.3) mg/dL % Saturation (20-50) % 10/22/16 10/23/16 10/23/16 Range/Units 20:37 04:41 04:41 WBC 11.7 H (3.8-10.6) k/uL RBC 3.01 L (3.80-5.40) m/uL Hgb 8.3 L (11.4-16.0) gm/dL Hct 29.7 L (34.0-46.0) % MCHC 27.8 L (31.0-37.0) g/dL RDW 15.8 H (11.5-15.5) % Plt Count 471 H (150-450) k/uL Neutrophils # 10.4 H (1.3-7.7) k/uL Lymphocytes # 0.6 L (1.0-4.8) k/uL APTT (22.0-30.0) sec ABG pH (7.35-7.45) ABG pCO2 (35-45) mmHg ABG pO2 (83-108) mmHg ABG HCO3 (21-25) mmol/L ABG Total CO2 (19-24) mmol/L ABG O2 Saturation (94-97) % Potassium (3.5-5.1) mmol/L BUN 70 H (7-17) mg/dL Creatinine 1.50 H (0.52-1.04) mg/dL Glucose 133 H (74-99) mg/dL POC Glucose (mg/dL) 231 H (75-99) mg/dL Phosphorus 5.4 H (2.5-4.5) mg/dL Magnesium 2.4 H (1.6-2.3) mg/dL % Saturation (20-50) % 10/23/16 10/23/16 10/23/16 Range/Units 04:41 04:41 06:06 WBC (3.8-10.6) k/uL RBC (3.80-5.40) m/uL Hgb (11.4-16.0) gm/dL Hct (34.0-46.0) % MCHC (31.0-37.0) g/dL RDW (11.5-15.5) % Plt Count (150-450) k/uL Neutrophils # (1.3-7.7) k/uL Lymphocytes # (1.0-4.8) k/uL APTT 36.8 H (22.0-30.0) sec ABG pH (7.35-7.45) ABG pCO2 (35-45) mmHg ABG pO2 (83-108) mmHg ABG HCO3 (21-25) mmol/L ABG Total CO2 (19-24) mmol/L ABG O2 Saturation (94-97) % Potassium (3.5-5.1) mmol/L BUN (7-17) mg/dL Creatinine (0.52-1.04) mg/dL Glucose (74-99) mg/dL POC Glucose (mg/dL) 138 H (75-99) mg/dL Phosphorus (2.5-4.5) mg/dL Magnesium (1.6-2.3) mg/dL % Saturation 10.1 L (20-50) % Microbiology - Last 24 Hours (Table) 10/18/16 15:58 Blood Culture - Preliminary Blood No Growth after 96 hours 10/18/16 15:43 Blood Culture - Preliminary Blood No Growth after 96 hours Assessment and Plan Plan: Assessment Pneumonitis, suspect mixed bacterial Acute exacerbation of COPD Acute on chronic hypoxic respiratory failure Purulent tracheobronchitis, pneumonia cannot be excluded Severe anemia Paroxysmal atrial fibrillation Diabetes mellitus2 Hypertension Obstructive sleep apnea Chronic kidney disease stage III Plan Medications have been reviewed and will be continued as ordered. BiPAP at night and when necessary as well as during naps. Continue on supplemental oxygen via nasal cannula to keep oxygen saturations above 92%. Continue on broad-spectrum antibiotics, breathing treatments as well as steroids. Obtain stool for occult blood. Smoking cessation discussed at length, patient on nicotine patch currently. Continue on heparin drip and Cardizem drip. We will obtain a sputum culture. We will continue to monitor labs/results and adjust treatment as necessary. I performed an examination of the patient and discussed their management with the nurse practitioner. I have reviewed the nurse practitioner's note and agree with the documented findings and plan of care.
[2016-10-23 11:58] LABS: Glucose,Whole Blood 110 mg/dL (75-99)
[2016-10-23] MEDS: NICOTINE 21MG/24HR PATCH TRANSDERM SCH (12:49)
[2016-10-23] MEDS: CEFUROXIME 250 MG TAB PO SCH ×2 (12:49→19:57)
[2016-10-23] MEDS: FERROUS SULFATE 325 MG TAB PO SCH (12:49)
[2016-10-23] MEDS: PARoxetine 20 MG TAB PO SCH (12:50)
[2016-10-23] MEDS: predniSONE 20 MG TAB PO SCH (12:50)
[2016-10-23] MEDS: PRAVASTATIN SODIUM 40 MG TAB PO SCH (12:50)
[2016-10-23] MEDS: GABAPENTIN 300 MG CAP PO SCH ×2 (12:50→19:57)
--- NOTE | 2016-10-23 14:53 | US ---
EXAMINATION TYPE: US kidneys/renal and bladder DATE OF EXAM: 10/23/2016 1:50 PM COMPARISON: NONE CLINICAL HISTORY: arsalan. Renal failure EXAM MEASUREMENTS: Right Kidney: 10.8 x 5.4 x 5.3 cm Left Kidney: 9.9 x5.5 x 4.3 cm Post Void Residual Volume not completed on this inpatient as she needed a nurse to help. Right Kidney: wnl, Partially Obscured by overlying bowel gas Left Kidney: wnl, Partially Obscured by overlying bowel gas Bladder: very distended Bilateral Jets seen: yes Normal Post Void Residual: Not completed. IMPRESSION: 1. Limited exam demonstrates no definite hydronephrosis or nephrolithiasis.
[2016-10-23 16:29] LABS: Glucose,Whole Blood 90 mg/dL (75-99)
[2016-10-23] MEDS: HEPARIN SODIUM,PORCINE/D5W PMX 25,000 UNIT in DEXTROSE/WATER 1 500ML.BAG IV SCH (17:54)
[2016-10-23] MEDS: DILTIAZEM 125 MG in SODIUM CHLORIDE 0.9% 100 ML IV SCH ×3 (17:55→18:23)
[2016-10-23] MEDS ORDERED: DILTIAZEM 5 MG/ML 5 ML VIAL IVP STA (18:08)
[2016-10-23] MEDS: CHOLECALCIFEROL 1,000 UNIT TAB PO SCH (19:57)
[2016-10-23] MEDS: MONTELUKAST 10 MG TAB PO SCH (19:57)
[2016-10-23] MEDS: ISOSORBIDE MONONITRATE ER 30 MG TAB.ER.24H PO SCH (19:57)
[2016-10-23] MEDS: METOPROLOL TARTRATE 25 MG TAB PO SCH (19:57)
[2016-10-23 20:54] LABS: Glucose,Whole Blood 301 mg/dL (75-99)
[2016-10-23] MEDS: INSULIN DETEMIR 100 UNIT/ML 10 ML VIAL SQ SCH (20:58)
[2016-10-24] MEDS: SODIUM CHLORIDE 0.9% 1,000 ML IV SCH ×2 (02:42→23:18)
[2016-10-24] MEDS: IPRATROPIUM-ALBUTEROL 3 ML NEB INHALATION SCH ×5 (03:37→18:56)
[2016-10-24] MEDS: DILTIAZEM 125 MG in SODIUM CHLORIDE 0.9% 100 ML IV SCH ×2 (04:54→16:05)
[2016-10-24 05:41] LABS: Glucose,Whole Blood 135 mg/dL (75-99)
[2016-10-24] MEDS: INSULIN LISPRO (humaLOG) 300 UNIT/3 ML VIAL SQ SCH ×7 (07:15→21:05)
[2016-10-24] MEDS: PANTOPRAZOLE 40 MG TABLET PO SCH (07:15)
[2016-10-24 07:28] LABS: Anisocytosis Slight; Basophils % (A) 0 %; CH 27.4; CHCM 28.4; Eosinophils % (A) 0 %; HCT 26.1 % (34.0-46.0); HDW 3.61; HGB 7.5 gm/dL (11.4-16.0); Hypochromasia Marked; Luc # (Auto) 0.26; Luc % (Auto) 2; Lymphocytes # (A) 2.2 k/uL (1.0-4.8); Lymphocytes % (A) 19 %; MCHC 28.9 g/dL (31.0-37.0); MCV 96.9 fL (80.0-100.0); Macrocytosis Slight; Mean Platelet Volume 7.3; Monocytes # (A) 0.8 k/uL (0-1.0); Monocytes % (A) 7 %; Neutrophils # (A) 8.4 k/uL (1.3-7.7); Neutrophils % (A) 72 %; Poikilocytosis Slight; RBC 2.69 m/uL (3.80-5.40); RDW 16.2 % (11.5-15.5); WBC 11.7 k/uL (3.8-10.6); WBC (Perox) 12.32
[2016-10-24 07:34] LABS: Calcium 9.6 mg/dL (8.4-10.2); Potassium 4.4 mmol/L (3.5-5.1)
[2016-10-24] MEDS: BUDESONIDE 1 MG/2 ML NEBU INHALATION SCH ×2 (08:15→18:56)
--- NOTE | 2016-10-24 09:18 | P.PN ---
Subjective Patient is seen in follow-up for acute kidney injury on chronic kidney disease. It appears patient has chronic kidney disease stage III. Baseline creatinine in the range of 1.1-1.2 secondary to nephrosclerosis. Her creatinine peaked at to this admission and is down to 1.22 today. She is current is sitting up in bed. Denies chest pain. Dyspnea is improved. No vomiting or diarrhea. Admits to good urine output. Her hemoglobin was as low as 6.3 this admission and she did receive blood transfusion. Hemoglobin is 7.5 this morning. Vital signs are stable. General: The patient appeared well nourished and normally developed. HEENT: Head exam is unremarkable. Neck is without jugular venous distension. LUNGS: Lungs are clear to auscultation and percussion. Breath sounds decreased. HEART: Rate and Rhythm are regular. First and second heart sounds normal. No murmurs, rubs or gallops. ABDOMEN: Abdominal exam reveals normal bowel sounds. Non-tender and non- distended. No evidence of peritonitis. EXTREMITITES: No clubbing, cyanosis, or edema. Objective - Vital Signs Vital signs: Vital Signs Temp 98.4 F 10/24/16 08:39 Pulse 142 H 10/24/16 08:39 Resp 18 10/24/16 08:39 BP 92/55 10/24/16 08:39 Pulse Ox 91 L 10/24/16 08:39 Intake & Output 10/23/16 10/24/16 10/24/16 18:59 06:59 18:59 Intake Total 776.015 8440.167 180 Output Total 302 200 Balance 418.166 856.167 180 Weight 98.6 kg Intake: IV 350 Diltiazem 125 mg In 100 Sodium Chloride 0.9% 100 ml @ 10 MG/HR 10 mls/hr IV .[id number] [facility] Rx#: [id number] Heparin Sodium,Porcine/ 250 D5w Pmx 25,000 unit In Dextrose/Water 1 500ml. bag @ 10.3 UNITS/KG/HR 20 mls/hr IV .Q24H [facility] Rx#: [id number] Intake, IV Titration 360.166 106.167 Amount Diltiazem 125 mg In 123.833 106.167 Sodium Chloride 0.9% 100 ml @ 10 MG/HR 10 mls/hr IV .[id number] [facility] Rx#: [id number] Heparin Sodium,Porcine/ 236.333 D5w Pmx 25,000 unit In Dextrose/Water 1 500ml. bag @ 10.3 UNITS/KG/HR 20 mls/hr IV .Q24H [facility] Rx#: [id number] Oral 360 600 180 Output: Urine 300 200 Stool 2 Other: Voiding Method Bedside Commode # Voids 1 1 # Bowel Movements 1 - Labs CBC & Chem 7: 10/24/16 06:35 10/24/16 06:35 Labs: Abnormal Lab Results - Last 24 Hours (Table) 10/23/16 10/23/16 10/23/16 Range/Units 04:41 11:54 20:53 WBC (3.8-10.6) k/uL RBC (3.80-5.40) m/uL Hgb (11.4-16.0) gm/dL Hct (34.0-46.0) % MCHC (31.0-37.0) g/dL RDW (11.5-15.5) % Plt Count (150-450) k/uL Neutrophils # (1.3-7.7) k/uL APTT (22.0-30.0) sec BUN (7-17) mg/dL Creatinine (0.52-1.04) mg/dL Glucose (74-99) mg/dL POC Glucose (mg/dL) 110 H 301 H (75-99) mg/dL % Saturation 10.1 L (20-50) % 10/24/16 10/24/16 10/24/16 Range/Units 05:39 06:35 06:35 WBC 11.7 H (3.8-10.6) k/uL RBC 2.69 L (3.80-5.40) m/uL Hgb 7.5 L (11.4-16.0) gm/dL Hct 26.1 L (34.0-46.0) % MCHC 28.9 L (31.0-37.0) g/dL RDW 16.2 H (11.5-15.5) % Plt Count 462 H (150-450) k/uL Neutrophils # 8.4 H (1.3-7.7) k/uL APTT (22.0-30.0) sec BUN 60 H (7-17) mg/dL Creatinine 1.22 H (0.52-1.04) mg/dL Glucose 100 H (74-99) mg/dL POC Glucose (mg/dL) 135 H (75-99) mg/dL % Saturation (20-50) % 10/24/16 Range/Units 06:35 WBC (3.8-10.6) k/uL RBC (3.80-5.40) m/uL Hgb (11.4-16.0) gm/dL Hct (34.0-46.0) % MCHC (31.0-37.0) g/dL RDW (11.5-15.5) % Plt Count (150-450) k/uL Neutrophils # (1.3-7.7) k/uL APTT 49.6 H (22.0-30.0) sec BUN (7-17) mg/dL Creatinine (0.52-1.04) mg/dL Glucose (74-99) mg/dL POC Glucose (mg/dL) (75-99) mg/dL % Saturation (20-50) % Microbiology - Last 24 Hours (Table) 10/18/16 15:58 Blood Culture - Preliminary Blood No Growth after 120 hours 10/18/16 15:43 Blood Culture - Preliminary Blood No Growth after 120 hours Assessment and Plan Plan: Assessment: #1. Nonoliguric acute kidney injury mostly prerenal in nature secondary to acute anemia and hemodynamic instability. Creatinine peaked at 2 this admission and is down to 1.22 today. Urinalysis noted to be benign. No evidence of hydronephrosis. #2. Chronic kidney disease stage III with baseline creatinine in the range of 1.1-1.2 secondary to nephrosclerosis. #3. Acute anemia status post blood transfusion. Hemoglobin 7.5 this morning. Iron deficiency present. #4. Atrial fibrillation with RVR. Currently maintained on heparin as well as Cardizem drip. #5. Insulin-dependent diabetes mellitus. No proteinuria on urinalysis. #6. Dyspnea secondary to acute COPD exacerbation. Plan: Continue normal saline to be run at 50 mL an hour. Monitor hemoglobin and transfuse as needed. Ferrlecit 125 mg IV daily for 3 days. First dose today. Avoid nephrotoxic agents and hypotensive episodes. Repeat electrolytes in the morning. Cardiology following.
[2016-10-24] MEDS: NICOTINE 21MG/24HR PATCH TRANSDERM SCH (09:20)
[2016-10-24] MEDS: METOPROLOL TARTRATE 25 MG TAB PO SCH ×2 (09:20→21:06)
[2016-10-24] MEDS: GABAPENTIN 300 MG CAP PO SCH ×2 (09:20→21:06)
[2016-10-24] MEDS: predniSONE 20 MG TAB PO SCH (09:20)
[2016-10-24] MEDS: CEFUROXIME 250 MG TAB PO SCH ×2 (09:20→21:06)
[2016-10-24] MEDS: PARoxetine 20 MG TAB PO SCH (09:21)
[2016-10-24] MEDS: PRAVASTATIN SODIUM 40 MG TAB PO SCH (09:21)
[2016-10-24] MEDS: HEPARIN SODIUM,PORCINE/D5W PMX 25,000 UNIT in DEXTROSE/WATER 1 500ML.BAG IV SCH (10:13)
--- NOTE | 2016-10-24 10:42 | P.PN ---
Subjective This is a 66-year-old female who is being evaluated and examined today on the sixth floor. This patient has came in with increasing shortness of breath over the last few weeks as well as increased lower extremity swelling. Of note the patient was evaluated 4 days ago in the [facility] vascular office and at that time the patient was asymptomatic however after that she started having lower extremity swelling and increasing shortness of breath and she couldn't take 3 or 4 steps without eating break. Therefore she was brought in to our office. The patient's pulse ox is ranged from 88-89% on 3 L in the office, so Dr. Guillermo recommended she come into the hospital. She currently wears 2 L of oxygen at home via nasal cannula. Patient did have a venous Doppler of the bilateral lower shortness x-ray is negative. DVT. Patient also had a brain CT completed which showed mild prominence of ventricles out of keeping with the degree of sulcal prominence cannot exclude some degree of normal pressure hydrocephalus. V/Q scan was completed and showed indeterminate probability of pulmonary embolism. Upon examination today the patient is resting up in bed on 3 L of oxygen via nasal cannula. Patient is much more alert and awake today. Patient is also consuming more food and fluids today. Patient will be working with physical therapy today. Patient currently continues on heparin drip and Cardizem drip. Nephrology was also put on consult. Objective - Vital Signs Vital signs: Vital Signs Temp 98.4 F 10/24/16 08:39 Pulse 142 H 10/24/16 08:39 Resp 18 10/24/16 08:39 BP 131/63 10/24/16 10:21 Pulse Ox 91 L 10/24/16 08:39 Intake & Output 10/23/16 10/24/16 10/24/16 18:59 06:59 18:59 Intake Total 443.756 2455.167 601.296 Output Total 302 200 Balance 418.166 856.167 601.296 Weight 98.6 kg Intake: IV 350 Diltiazem 125 mg In 100 Sodium Chloride 0.9% 100 ml @ 10 MG/HR 10 mls/hr IV .[id number] [facility] Rx#: [id number] Heparin Sodium,Porcine/ 250 D5w Pmx 25,000 unit In Dextrose/Water 1 500ml. bag @ 10.3 UNITS/KG/HR 20 mls/hr IV .Q24H [facility]O Rx#: [id number] Intake, IV Titration 360.166 106.167 421.296 Amount Diltiazem 125 mg In 123.833 106.167 Sodium Chloride 0.9% 100 ml @ 10 MG/HR 10 mls/hr IV .[id number] [facility] Rx#: [id number] Heparin Sodium,Porcine/ 236.333 421.296 D5w Pmx 25,000 unit In Dextrose/Water 1 500ml. bag @ 10.3 UNITS/KG/HR 20 mls/hr IV .Q24H [facility] Rx#: [id number] Oral 360 600 180 Output: Urine 300 200 Stool 2 Other: Voiding Method Bedside Commode # Voids 1 1 # Bowel Movements 1 - Exam GENERAL EXAM: Alert, active, comfortable in no apparent distress. HEAD: Normocephalic. EYES: Normal reaction of pupils, equal size. NOSE: Clear with pink turbinates. THROAT: No erythema or exudates. No pharyngeal opening is present NECK: No masses, no JVD. CHEST: No chest wall deformity. LUNGS: Lungs noted to have bilaterally poor air entry throughout. Rhonchi noticed at bases CVS: S1 and S2 normal with no audible mumurs, regular rhythm. ABDOMEN: No hepatosplenomegaly, normal bowel sounds, no guarding or rigidity. EXTREMITIES: +2-3 edema noted, pedal pulses palpable. SKIN: No rashes CENTRAL NERVOUS SYSTEM: No focal deficits, tone is normal in all 4 extremities. - Labs CBC & Chem 7: 10/24/16 06:35 10/24/16 06:35 Labs: Abnormal Lab Results - Last 24 Hours (Table) 10/23/16 10/23/16 10/23/16 Range/Units 04:41 11:54 20:53 WBC (3.8-10.6) k/uL RBC (3.80-5.40) m/uL Hgb (11.4-16.0) gm/dL Hct (34.0-46.0) % MCHC (31.0-37.0) g/dL RDW (11.5-15.5) % Plt Count (150-450) k/uL Neutrophils # (1.3-7.7) k/uL APTT (22.0-30.0) sec BUN (7-17) mg/dL Creatinine (0.52-1.04) mg/dL Glucose (74-99) mg/dL POC Glucose (mg/dL) 110 H 301 H (75-99) mg/dL % Saturation 10.1 L (20-50) % 10/24/16 10/24/16 10/24/16 Range/Units 05:39 06:35 06:35 WBC 11.7 H (3.8-10.6) k/uL RBC 2.69 L (3.80-5.40) m/uL Hgb 7.5 L (11.4-16.0) gm/dL Hct 26.1 L (34.0-46.0) % MCHC 28.9 L (31.0-37.0) g/dL RDW 16.2 H (11.5-15.5) % Plt Count 462 H (150-450) k/uL Neutrophils # 8.4 H (1.3-7.7) k/uL APTT (22.0-30.0) sec BUN 60 H (7-17) mg/dL Creatinine 1.22 H (0.52-1.04) mg/dL Glucose 100 H (74-99) mg/dL POC Glucose (mg/dL) 135 H (75-99) mg/dL % Saturation (20-50) % 10/24/16 Range/Units 06:35 WBC (3.8-10.6) k/uL RBC (3.80-5.40) m/uL Hgb (11.4-16.0) gm/dL Hct (34.0-46.0) % MCHC (31.0-37.0) g/dL RDW (11.5-15.5) % Plt Count (150-450) k/uL Neutrophils # (1.3-7.7) k/uL APTT 49.6 H (22.0-30.0) sec BUN (7-17) mg/dL Creatinine (0.52-1.04) mg/dL Glucose (74-99) mg/dL POC Glucose (mg/dL) (75-99) mg/dL % Saturation (20-50) % Microbiology - Last 24 Hours (Table) 10/18/16 15:58 Blood Culture - Preliminary Blood No Growth after 120 hours 10/18/16 15:43 Blood Culture - Preliminary Blood No Growth after 120 hours Assessment and Plan Plan: Assessment Pneumonitis, suspect mixed bacterial Acute exacerbation of COPD Acute on chronic hypoxic respiratory failure Purulent tracheobronchitis, pneumonia cannot be excluded Severe anemia Paroxysmal atrial fibrillation Diabetes mellitus2 Hypertension Obstructive sleep apnea Chronic kidney disease stage III Plan Medications have been reviewed and will be continued as ordered. BiPAP at night and when necessary as well as during naps. Continue on supplemental oxygen via nasal cannula to keep oxygen saturations above 92%. Continue on broad-spectrum antibiotics, breathing treatments as well as steroids. Obtain stool for occult blood. Smoking cessation discussed at length, patient on nicotine patch currently. Continue on heparin drip and Cardizem drip. We will obtain a sputum culture. Increase activity as tolerated and work with physical therapy. Continue to try to wean the oxygen down to 2 L which is her baseline. We will continue to monitor labs/results and adjust treatment as necessary. I performed an examination of the patient and discussed their management with the nurse practitioner. I have reviewed the nurse practitioner's note and agree with the documented findings and plan of care.
[2016-10-24] MEDS: SODIUM FERRIC GLUCONAT-SUCROSE 125 MG in SODIUM CHLORIDE 0.9% 100 ML IVPB SCH (10:59)
[2016-10-24] MEDS ORDERED: APIXABAN 5 MG TAB PO SCH (11:15)
[2016-10-24 11:35] VITALS: BMI 35.1
[2016-10-24 11:35] LABS: Glucose,Whole Blood 161 mg/dL (75-99)
[2016-10-24] MEDS: VERAPAMIL SR 240 MG TABLET.ER PO SCH (12:01)
[2016-10-24] MEDS: FERROUS SULFATE 325 MG TAB PO SCH (12:01)
--- NOTE | 2016-10-24 14:20 | P.PN ---
Subjective Principal diagnosis: Atrial fibrillation This is a pleasant 66-year-old female who was sent here from Dr. Guillermo's office for increased shortness of breath and acute on chronic hypoxic respiratory failure. Patient has a recent history of paroxysmal atrial fibrillation and follows with Dr. Maria in the office. She has a known history also of COPD, on home O2, recent pneumonia, chronic diastolic heart failure, diabetes mellitus type 2 and current smoker. Upon admission BNP was 463 and chest x-ray showed chronic emphysematous change without acute cardiopulmonary process. Her diagnosis of paroxysmal atrial fibrillation is fairly new and she was started on Eliquis about a month ago. This was initially held on admission here because of anemia. HemoGlobin today 7.5. She went back into A. fib with RVR, was resumed on IV Cardizem drip. She was started yesterday on beta jonathan as well. We will resume the verapamil 240 mg daily along with a Cardizem drip with intention to discontinue the Cardizem drip tomorrow if the heart rate stabilizes. Objective - Vital Signs Vital signs: Vital Signs Temp 96.1 F L 10/24/16 12:00 Pulse 100 10/24/16 12:12 Resp 20 10/24/16 12:00 BP 117/56 10/24/16 12:00 Pulse Ox 92 L 10/24/16 12:00 Intake & Output 10/23/16 10/24/16 10/24/16 18:59 06:59 18:59 Intake Total 623.709 5221.167 1446.296 Output Total 302 200 Balance 418.166 205.076 0249.296 Weight 98.6 kg 98.6 kg Intake: IV 350 645 0.9 NS 400 Diltiazem 125 mg In 100 120 Sodium Chloride 0.9% 100 ml @ 10 MG/HR 10 mls/hr IV .[id number] [facility] Rx#: [id number] Heparin Sodium,Porcine/ 250 125 D5w Pmx 25,000 unit In Dextrose/Water 1 500ml. bag @ 10.3 UNITS/KG/HR 20 mls/hr IV .Q24H [facility] Rx#: [id number] Intake, IV Titration 360.166 106.167 521.296 Amount Diltiazem 125 mg In 123.833 106.167 Sodium Chloride 0.9% 100 ml @ 10 MG/HR 10 mls/hr IV .[id number] [facility] Rx#: [id number] Heparin Sodium,Porcine/ 236.333 421.296 D5w Pmx 25,000 unit In Dextrose/Water 1 500ml. bag @ 10.3 UNITS/KG/HR 20 mls/hr IV .Q24H [facility] Rx#: [id number] Sodium Ferric Gluconat- 100 Sucrose 125 mg In Sodium Chloride 0.9% 100 ml @ 100 mls/hr IVPB DAILY [facility] Rx#:[id number] Oral 360 600 280 Output: Urine 300 200 Stool 2 Other: Voiding Method Bedside Commode Bedside Commode # Voids 1 1 # Bowel Movements 1 - Exam PHYSICAL EXAMINATION: HEENT: Head is atraumatic, normocephalic. Pupils equal, round. Neck is supple. There is no elevated jugular venous pressure. HEART EXAMINATION: Heart sounds regular, S1 and S2 normal. No murmur or gallop heard. CHEST EXAMINATION: Lungs are diminished with faint expiratory wheezing throughout. No chest wall tenderness is noted on palpation or with deep breathing. ABDOMEN: Soft, nontender. Bowel sounds are heard. No organomegaly noted. EXTREMITIES: 2+ peripheral pulses with no evidence of peripheral edema and no calf tenderness noted. NEUROLOGIC patient is awake, alert and oriented x3. . - Labs CBC & Chem 7: 10/24/16 06:35 10/24/16 06:35 Labs: Abnormal Lab Results - Last 24 Hours (Table) 10/23/16 10/24/16 10/24/16 Range/Units 20:53 05:39 06:35 WBC 11.7 H (3.8-10.6) k/uL RBC 2.69 L (3.80-5.40) m/uL Hgb 7.5 L (11.4-16.0) gm/dL Hct 26.1 L (34.0-46.0) % MCHC 28.9 L (31.0-37.0) g/dL RDW 16.2 H (11.5-15.5) % Plt Count 462 H (150-450) k/uL Neutrophils # 8.4 H (1.3-7.7) k/uL APTT (22.0-30.0) sec BUN (7-17) mg/dL Creatinine (0.52-1.04) mg/dL Glucose (74-99) mg/dL POC Glucose (mg/dL) 301 H 135 H (75-99) mg/dL 10/24/16 10/24/16 10/24/16 Range/Units 06:35 06:35 11:33 WBC (3.8-10.6) k/uL RBC (3.80-5.40) m/uL Hgb (11.4-16.0) gm/dL Hct (34.0-46.0) % MCHC (31.0-37.0) g/dL RDW (11.5-15.5) % Plt Count (150-450) k/uL Neutrophils # (1.3-7.7) k/uL APTT 49.6 H (22.0-30.0) sec BUN 60 H (7-17) mg/dL Creatinine 1.22 H (0.52-1.04) mg/dL Glucose 100 H (74-99) mg/dL POC Glucose (mg/dL) 161 H (75-99) mg/dL Microbiology - Last 24 Hours (Table) 10/18/16 15:58 Blood Culture - Preliminary Blood No Growth after 120 hours 10/18/16 15:43 Blood Culture - Preliminary Blood No Growth after 120 hours Assessment and Plan (1) Tracheobronchitis Status: Acute (2) Diastolic CHF, chronic Status: Acute (3) Paroxysmal a-fib Status: Acute (4) Acute exacerbation of chronic obstructive airways disease Status: Acute (5) Adult respiratory distress syndrome Status: Acute Plan: From cardiology's perspective, we will add verapamil 240 mg to the patient's medication regime and continue along with the Cardizem until tomorrow. Patient maintains adequate heart rate control we will discontinue the Cardizem drip from tomorrow. DNP note has been reviewed, I agree with a documented findings and plan of care. Patient was seen and examined.
[2016-10-24 16:33] LABS: Glucose,Whole Blood 121 mg/dL (75-99)
[2016-10-24] MEDS: ALPRAZolam 0.25 MG TAB PO PRN (17:28)
[2016-10-24 20:48] LABS: Glucose,Whole Blood 133 mg/dL (75-99)
[2016-10-24] MEDS: CHOLECALCIFEROL 1,000 UNIT TAB PO SCH (21:06)
[2016-10-24] MEDS: MONTELUKAST 10 MG TAB PO SCH (21:06)
--- NOTE | 2016-10-24 22:02 | PN ---
DATE OF SERVICE: 10/23/2016 PRESENTING COMPLAINT: Short of breath. This patient was seen and examined by me on 10/23/2016. Patient was admitted with COPD exacerbation, oxygen-dependent fluctuating. Patient does get tired easily but less coughing, the patient also in acute renal failure, getting IV fluids. Review of systems done for constitutional, cardiovascular, GI, pulmonary findings as above. Current medications are reviewed. On examination, temperature 97, pulse 120, blood pressure 120/86, pulse ox 94% on BiPAP. GENERAL APPEARANCE: Lying in bed, tired-appearing. EYES: Pupils equal. Conjunctivae normal. NECK: JVD not raised. Mass not palpable. RESPIRATORY: Effort increased. LUNGS: Diminished breath sounds. Some wheezing. CARDIOVASCULAR: First and second sounds normal. No edema. ABDOMEN: Soft, liver and spleen not palpable. PSYCHIATRY: The patient lethargic but arousable. Answer questions and then dozes off. INVESTIGATIONS: White count 11.7, hemoglobin 8.3, potassium 5.1. BUN 70, creatinine 1.50. ASSESSMENT: 1. Acute severe chronic obstructive pulmonary disease exacerbation in a smoker, probably viral pneumonitis, versus possibly gram-negative pneumonia, courses a bit fluctuating, but overall it seems a bit better. 2. Paroxysmal atrial fibrillation in and out of atrial fibrillation. 3. Symptomatic anemia, status post blood transfusion. 4. Diabetes mellitus type 2, uncontrolled from IV steroids. 5. Chronic nicotine dependence. The patient is a long-standing smoker. 6. Hyperlipidemia. 7. Essential hypertension. 8. Obstructive sleep apnea, uses CPAP machine. 9. Chronic hypoxic respiratory failure on home oxygen therapy. 10. Acute hypoxic respiratory failure, secondary to chronic obstructive pulmonary disease exacerbation. 11. Chronic kidney disease, stage III, from diabetic nephropathy and hypertensive nephrosclerosis. 12. Hyperkalemia secondary to acute renal failure. 13. Acute renal failure from acute tubular necrosis with some improvement. 14. Metabolic encephalopathy, multifactorial fluctuating. PLAN: Continue current medication and treatment plan. Expect the renal function to be a bit more better tomorrow. Follow with pulmonary. Oncology is on the case for ( ) in and out. This patient was seen by me yesterday on 10/23/2016. I am doing the note today.
--- NOTE | 2016-10-24 22:28 | PN ---
DATE OF SERVICE: 10/24/2016 INTERVAL HISTORY: This is a patient with COPD exacerbation. Today patient is sitting up in the bed, awake, alert, much more perky than she has been over the previous days. Patient has eaten her breakfast. She has gotten up to the bathroom with assistance. She looks comfortable at this time. She is on nasal cannula. Review of systems is done for constitutional, cardiovascular, GI, pulmonary, with relevant findings as above. CURRENT MEDICATIONS: 1. DuoNeb 3 mL solution every 2 hours p.r.n. 2. Pulmicort 1 mg inhalation b.i.d. 3. Ceftin 500 mg b.i.d. 4. Solu-Medrol 40 mg IV q.12 hours. 5. Verapamil 80 mg p.o. t.i.d. 6. Pravachol 40 mg daily. 7. Cardizem drip 10 mL/hour. PHYSICAL EXAMINATION: VITAL SIGNS: Temperature 96.7, pulse 67, respiratory rate 22, blood pressure 130/91, oxygen saturation 91% on 3 L nasal cannula. GENERAL APPEARANCE: Patient appears relaxed, comfortable, breathing easily. Nasal cannula in place. No accessory muscle use noted. EYES: Pupils equal. Conjunctivae normal. NECK: JVD not raised. Mass not palpable LUNGS: Diminished bilaterally. Some expiratory wheezing noted. CARDIOVASCULAR: First and second sounds noted, irregular. Mild edema noted. ABDOMEN: Soft, nontender. Liver and spleen not palpable. PSYCHIATRY: Alert and oriented x3. Mood and affect normal. INVESTIGATIONS: White blood cell count 11.7, hemoglobin 7.5, platelets 462. BUN 60, creatinine 1.22. Abdominal and bladder ultrasound is a limited exam; demonstrates no definite hydronephrosis or nephrolithiasis. ASSESSMENT: 1. Acute severe chronic obstructive pulmonary disease exacerbation in a smoker, probably viral pneumonitis. Cannot rule out Gram-negative organism. Improving. 2. Paroxysmal atrial fibrillation, uncontrolled, on Cardizem drip. 3. Symptomatic anemia, status post blood transfusion. 4. Diabetes mellitus, type 2, uncontrolled from IV steroids. 5. Nicotine dependence. Patient is a long-time smoker. 6. Hyperlipidemia, stable. 7. Essential hypertension, stable. 8. Obstructive sleep apnea; uses a CPAP machine. 9. Chronic hypoxic respiratory failure, on home oxygen therapy. 10. Acute hypoxic respiratory failure secondary to chronic obstructive pulmonary disease exacerbation, present on admission. 11. Chronic kidney disease, stage III, from diabetic nephropathy and hypertensive nephrosclerosis. 12. Hyperkalemia, likely due to acute renal failure. 13. Acute renal failure, worsening, from acute tubular necrosis. 14. Metabolic encephalopathy, multifactorial. PLAN: Patient is much more alert today, looking much better. Cardiology is planning on increasing patient's Verapamil back to her home dose of 240 along with a Cardizem drip and hopes to discontinue the Cardizem in the morning. Pulmonology wants the patient to wear her BiPAP at night and during naps. Will continue antibiotic therapy and will collect a sputum culture. Nephrology ordered Ferrlecit 125 mg IV daily for 3 days. We will continue medication regimen and await additional recommendations from consultants. Patient was seen and examined by nurse practitioner Susi Funes, and all elements of the case were discussed with Dr. Cid, attending.
[2016-10-24] MEDS: ISOSORBIDE MONONITRATE ER 30 MG TAB.ER.24H PO SCH (23:16)
[2016-10-24] MEDS: INSULIN DETEMIR 100 UNIT/ML 10 ML VIAL SQ SCH (23:17)
[2016-10-25] MEDS: IPRATROPIUM-ALBUTEROL 3 ML NEB INHALATION SCH ×6 (00:28→19:34)
[2016-10-25 02:02] LABS: Glucose,Whole Blood 207 mg/dL (75-99)
[2016-10-25] MEDS: DILTIAZEM 125 MG in SODIUM CHLORIDE 0.9% 100 ML IV SCH (05:57)
[2016-10-25 05:58] LABS: Glucose,Whole Blood 224 mg/dL (75-99)
[2016-10-25 06:58] LABS: Calcium 9.1 mg/dL (8.4-10.2); Potassium 5.3 mmol/L (3.5-5.1)
[2016-10-25] MEDS: INSULIN LISPRO (humaLOG) 300 UNIT/3 ML VIAL SQ SCH ×7 (06:59→20:50)
[2016-10-25] MEDS: PANTOPRAZOLE 40 MG TABLET PO SCH (07:00)
[2016-10-25 07:18] LABS: Anisocytosis Slight; CH 27.6; CHCM 28.1; HCT 29.1 % (34.0-46.0); HDW 3.25; HGB 8.2 gm/dL (11.4-16.0); Hypochromasia Marked; MCH 27.7 pg (25.0-35.0); MCHC 28.2 g/dL (31.0-37.0); MCV 98.3 fL (80.0-100.0); Macrocytosis Slight; Mean Platelet Volume 8.2; RBC 2.96 m/uL (3.80-5.40); RDW 16.6 % (11.5-15.5); WBC 21.7 k/uL (3.8-10.6); WBC (Perox) 21.91
[2016-10-25] MEDS: PARoxetine 20 MG TAB PO SCH (07:54)
[2016-10-25] MEDS: CEFUROXIME 250 MG TAB PO SCH ×2 (07:54→20:49)
[2016-10-25] MEDS: predniSONE 20 MG TAB PO SCH (07:54)
[2016-10-25] MEDS: METOPROLOL TARTRATE 25 MG TAB PO SCH ×2 (07:54→20:34)
[2016-10-25] MEDS: PRAVASTATIN SODIUM 40 MG TAB PO SCH (07:54)
[2016-10-25] MEDS: VERAPAMIL SR 240 MG TABLET.ER PO SCH (07:54)
[2016-10-25] MEDS: NICOTINE 21MG/24HR PATCH TRANSDERM SCH (07:55)
[2016-10-25] MEDS: SODIUM FERRIC GLUCONAT-SUCROSE 125 MG in SODIUM CHLORIDE 0.9% 100 ML IVPB SCH (07:55)
[2016-10-25] MEDS: GABAPENTIN 300 MG CAP PO SCH ×2 (07:55→20:50)
[2016-10-25 08:02] LABS: Add Differential Manual Differential
[2016-10-25 08:04] LABS: Manual Review Performed; Metamyelocytes % 1.5 %; Myelocytes % 3.5 %; Nucleated Red Blood Cells 0 /100 WBC (0-0); Total Cells Counted 200
[2016-10-25 08:05] LABS: Polychromasia Present
[2016-10-25] MEDS: BUDESONIDE 1 MG/2 ML NEBU INHALATION SCH ×2 (09:12→19:34)
[2016-10-25] MEDS: SODIUM CHLORIDE 0.9% 1,000 ML IV SCH ×4 (09:24→22:28)
--- NOTE | 2016-10-25 10:04 | P.PN ---
Subjective Patient is seen in follow-up for acute kidney injury on chronic kidney disease. It appears patient has chronic kidney disease stage III. Baseline creatinine in the range of 1.1-1.2 secondary to nephrosclerosis. Renal function was recovering and creatinine was down to 1.22 yesterday and is elevated at 2.26 today. She is currently resting in bed. Denies chest pain. Dyspnea is improved. No vomiting or diarrhea. Admits to good urine output. Her hemoglobin was as low as 6.3 this admission and she did receive blood transfusion. Hemoglobin is 8.2 this morning. She was also in atrial fibrillation this admission and is now in sinus rhythm. Her blood pressures have been on the lower side and was as low as 92/55 yesterday. Vital signs are stable. General: The patient appeared well nourished and normally developed. HEENT: Head exam is unremarkable. Neck is without jugular venous distension. LUNGS: Lungs are clear to auscultation and percussion. Breath sounds decreased. HEART: Rate and Rhythm are regular. First and second heart sounds normal. No murmurs, rubs or gallops. ABDOMEN: Abdominal exam reveals normal bowel sounds. Non-tender and non- distended. No evidence of peritonitis. EXTREMITITES: No clubbing, cyanosis, or edema. Objective - Vital Signs Vital signs: Vital Signs Temp 96.9 F L 10/25/16 07:58 Pulse 90 10/25/16 09:30 Resp 20 10/25/16 07:58 BP 118/56 10/25/16 07:58 Pulse Ox 91 L 10/25/16 07:58 Intake & Output 10/24/16 10/25/16 10/25/16 18:59 06:59 18:59 Intake Total 1446.296 600 240 Balance 1446.296 600 240 Weight 98.6 kg 101 kg Intake: IV 645 600 0.9 NS 400 600 Diltiazem 125 mg In 120 Sodium Chloride 0.9% 100 ml @ 10 MG/HR 10 mls/hr IV .[id number] [facility] Rx#: [id number] Heparin Sodium,Porcine/ 125 D5w Pmx 25,000 unit In Dextrose/Water 1 500ml. bag @ 10.3 UNITS/KG/HR 20 mls/hr IV .Q24H [facility] Rx#: [id number] Intake, IV Titration 521.296 Amount Heparin Sodium,Porcine/ 421.296 D5w Pmx 25,000 unit In Dextrose/Water 1 500ml. bag @ 10.3 UNITS/KG/HR 20 mls/hr IV .Q24H [facility] Rx#: [id number] Sodium Ferric Gluconat- 100 Sucrose 125 mg In Sodium Chloride 0.9% 100 ml @ 100 mls/hr IVPB DAILY [facility] Rx#:[id number] Oral 280 240 Other: Voiding Method Bedside Commode Bedside Commode Bedside Commode # Voids 1 - Labs CBC & Chem 7: 10/25/16 05:57 10/25/16 05:57 Labs: Abnormal Lab Results - Last 24 Hours (Table) 10/24/16 10/24/16 10/24/16 Range/Units 11:33 16:31 20:46 WBC (3.8-10.6) k/uL RBC (3.80-5.40) m/uL Hgb (11.4-16.0) gm/dL Hct (34.0-46.0) % MCHC (31.0-37.0) g/dL RDW (11.5-15.5) % Neutrophils # (Manual) (1.3-7.7) k/uL Monocytes # (Manual) (0-1.0) k/uL APTT (22.0-30.0) sec Potassium (3.5-5.1) mmol/L BUN (7-17) mg/dL Creatinine (0.52-1.04) mg/dL Glucose (74-99) mg/dL POC Glucose (mg/dL) 161 H 121 H 133 H (75-99) mg/dL 10/25/16 10/25/16 10/25/16 Range/Units 02:00 05:57 05:57 WBC 21.7 H (3.8-10.6) k/uL RBC 2.96 L (3.80-5.40) m/uL Hgb 8.2 L (11.4-16.0) gm/dL Hct 29.1 L (34.0-46.0) % MCHC 28.2 L (31.0-37.0) g/dL RDW 16.6 H (11.5-15.5) % Neutrophils # (Manual) 18.0 H (1.3-7.7) k/uL Monocytes # (Manual) 1.3 H (0-1.0) k/uL APTT (22.0-30.0) sec Potassium 5.3 H (3.5-5.1) mmol/L BUN 73 H (7-17) mg/dL Creatinine 2.26 H (0.52-1.04) mg/dL Glucose 177 H (74-99) mg/dL POC Glucose (mg/dL) 207 H (75-99) mg/dL 10/25/16 10/25/16 Range/Units 05:57 05:57 WBC (3.8-10.6) k/uL RBC (3.80-5.40) m/uL Hgb (11.4-16.0) gm/dL Hct (34.0-46.0) % MCHC (31.0-37.0) g/dL RDW (11.5-15.5) % Neutrophils # (Manual) (1.3-7.7) k/uL Monocytes # (Manual) (0-1.0) k/uL APTT 21.7 L (22.0-30.0) sec Potassium (3.5-5.1) mmol/L BUN (7-17) mg/dL Creatinine (0.52-1.04) mg/dL Glucose (74-99) mg/dL POC Glucose (mg/dL) 224 H (75-99) mg/dL Microbiology - Last 24 Hours (Table) 10/18/16 15:58 Blood Culture - Final Blood No Growth after 144 hours 10/18/16 15:43 Blood Culture - Final Blood No Growth after 144 hours Assessment and Plan Plan: Assessment: #1. Nonoliguric acute kidney injury mostly prerenal in nature secondary to acute anemia and hemodynamic instability. Renal function worsened with creatinine at 2.26 today. Urinalysis noted to be benign. No evidence of hydronephrosis. No evidence of urinary retention. #2. Chronic kidney disease stage III with baseline creatinine in the range of 1.1-1.2 secondary to nephrosclerosis. #3. Acute anemia status post blood transfusion. Hemoglobin 8.2 this morning. Iron deficiency present. #4. Atrial fibrillation with RVR. Now in sinus rhythm. #5. Insulin-dependent diabetes mellitus. No proteinuria on urinalysis. #6. Dyspnea secondary to acute COPD exacerbation. Plan: Increase normal saline to be run at 75 mL an hour. Continue to monitor serial postvoid residuals and to insert Andres greater than 250 mL present. Strict I's and O's. Monitor hemoglobin and transfuse as needed. Ferrlecit 125 mg IV daily for 3 days. Second dose today. Avoid nephrotoxic agents and hypotensive episodes. Repeat electrolytes in the morning. Cardiology following. Repeat urinalysis. Patient also noted to have significant jump in white blood cell count. Repeat cultures.
--- NOTE | 2016-10-25 10:29 | PN ---
DATE OF SERVICE: 10/24/2016 ATTENDING NOTE: This patient was seen and examined by me on 10/24/2016. I reviewed the note by my nurse practitioner, Ms. Funes and discussed. Patient is more awake, but tired, tolerating some diet. Does get bouts of anxiety. On examination, afebrile, blood pressure 130/91, pulse ox 91% on 3 L. GENERAL: Sitting up in bed, somewhat tired -appearing. RESPIRATORY: Effort increased. LUNGS: Decreased breath sounds, decreased wheezing. CARDIOVASCULAR: First and second sounds normal. Minimal edema. PSYCH: Tired-appearing. INVESTIGATIONS: White count 11.7, hemoglobin 7.5, potassium 4.4. BUN 60, creatinine 1.22. ASSESSMENT: 1. Chronic obstructive pulmonary disease exacerbation, improving. 2. Paroxysmal atrial fibrillation back in atrial fibrillation, uncontrolled, been on Cardizem drip. 3. Metabolic encephalopathy, multifactorial. PLAN: Renal function is actually improving. Cardiology has increased patient's verapamil. From a pulmonary standpoint patient is actually doing better. Keep a close eye. Will follow.
--- NOTE | 2016-10-25 10:47 | P.PN ---
Subjective This is a 66-year-old female who is being evaluated and examined today on the sixth floor. This patient has came in with increasing shortness of breath over the last few weeks as well as increased lower extremity swelling. Of note the patient was evaluated 4 days ago in the cardial vascular office and at that time the patient was asymptomatic however after that she started having lower extremity swelling and increasing shortness of breath and she couldn't take 3 or 4 steps without eating break. Therefore she was brought in to our office. The patient's pulse ox is ranged from 88-89% on 3 L in the office, so Dr. Guillermo recommended she come into the hospital. She currently wears 2 L of oxygen at home via nasal cannula. Patient did have a venous Doppler of the bilateral lower shortness x-ray is negative. DVT. Patient also had a brain CT completed which showed mild prominence of ventricles out of keeping with the degree of sulcal prominence cannot exclude some degree of normal pressure hydrocephalus. V/Q scan was completed and showed indeterminate probability of pulmonary embolism. Upon examination today the patient is resting up in bed on 3 L of oxygen via nasal cannula. Patient did have some anxiety overnight with increased shortness of breath. She also could not tolerate the BiPAP when she was having some bouts of anxiety. The patient's white cell count was noted to have jumps to 21.7 we will get repeat cultures as well as consult infectious disease. Per the nursing staff the patient was also confused throughout the night, intermittently. Cardizem drip was discontinued yesterday for some transient bradycardia. Nephrology on consult. Objective - Vital Signs Vital signs: Vital Signs Temp 96.9 F L 10/25/16 07:58 Pulse 90 10/25/16 09:30 Resp 20 10/25/16 07:58 BP 118/56 10/25/16 07:58 Pulse Ox 91 L 10/25/16 07:58 Intake & Output 10/24/16 10/25/16 10/25/16 18:59 06:59 18:59 Intake Total 1446.296 600 240 Balance 1446.296 600 240 Weight 98.6 kg 101 kg Intake: IV 645 600 0.9 NS 400 600 Diltiazem 125 mg In 120 Sodium Chloride 0.9% 100 ml @ 10 MG/HR 10 mls/hr IV .[id number] [facility] Rx#: [id number] Heparin Sodium,Porcine/ 125 D5w Pmx 25,000 unit In Dextrose/Water 1 500ml. bag @ 10.3 UNITS/KG/HR 20 mls/hr IV .Q24H [facility] Rx#: [id number] Intake, IV Titration 521.296 Amount Heparin Sodium,Porcine/ 421.296 D5w Pmx 25,000 unit In Dextrose/Water 1 500ml. bag @ 10.3 UNITS/KG/HR 20 mls/hr IV .Q24H [facility] Rx#: [id number] Sodium Ferric Gluconat- 100 Sucrose 125 mg In Sodium Chloride 0.9% 100 ml @ 100 mls/hr IVPB DAILY [facility] Rx#:[id number] Oral 280 240 Other: Voiding Method Bedside Commode Bedside Commode Bedside Commode # Voids 1 - Exam GENERAL EXAM: Alert, active, comfortable in no apparent distress. HEAD: Normocephalic. EYES: Normal reaction of pupils, equal size. NOSE: Clear with pink turbinates. THROAT: No erythema or exudates. No pharyngeal opening is present NECK: No masses, no JVD. CHEST: No chest wall deformity. LUNGS: Lungs noted to have bilaterally poor air entry throughout. Rhonchi noticed at bases CVS: S1 and S2 normal with no audible mumurs, regular rhythm. ABDOMEN: No hepatosplenomegaly, normal bowel sounds, no guarding or rigidity. EXTREMITIES: +2-3 edema noted, pedal pulses palpable. SKIN: No rashes CENTRAL NERVOUS SYSTEM: No focal deficits, tone is normal in all 4 extremities. - Labs CBC & Chem 7: 10/25/16 05:57 10/25/16 05:57 Labs: Abnormal Lab Results - Last 24 Hours (Table) 10/24/16 10/24/16 10/24/16 Range/Units 11:33 16:31 20:46 WBC (3.8-10.6) k/uL RBC (3.80-5.40) m/uL Hgb (11.4-16.0) gm/dL Hct (34.0-46.0) % MCHC (31.0-37.0) g/dL RDW (11.5-15.5) % Neutrophils # (Manual) (1.3-7.7) k/uL Monocytes # (Manual) (0-1.0) k/uL APTT (22.0-30.0) sec Potassium (3.5-5.1) mmol/L BUN (7-17) mg/dL Creatinine (0.52-1.04) mg/dL Glucose (74-99) mg/dL POC Glucose (mg/dL) 161 H 121 H 133 H (75-99) mg/dL 10/25/16 10/25/16 10/25/16 Range/Units 02:00 05:57 05:57 WBC 21.7 H (3.8-10.6) k/uL RBC 2.96 L (3.80-5.40) m/uL Hgb 8.2 L (11.4-16.0) gm/dL Hct 29.1 L (34.0-46.0) % MCHC 28.2 L (31.0-37.0) g/dL RDW 16.6 H (11.5-15.5) % Neutrophils # (Manual) 18.0 H (1.3-7.7) k/uL Monocytes # (Manual) 1.3 H (0-1.0) k/uL APTT (22.0-30.0) sec Potassium 5.3 H (3.5-5.1) mmol/L BUN 73 H (7-17) mg/dL Creatinine 2.26 H (0.52-1.04) mg/dL Glucose 177 H (74-99) mg/dL POC Glucose (mg/dL) 207 H (75-99) mg/dL 10/25/16 10/25/16 Range/Units 05:57 05:57 WBC (3.8-10.6) k/uL RBC (3.80-5.40) m/uL Hgb (11.4-16.0) gm/dL Hct (34.0-46.0) % MCHC (31.0-37.0) g/dL RDW (11.5-15.5) % Neutrophils # (Manual) (1.3-7.7) k/uL Monocytes # (Manual) (0-1.0) k/uL APTT 21.7 L (22.0-30.0) sec Potassium (3.5-5.1) mmol/L BUN (7-17) mg/dL Creatinine (0.52-1.04) mg/dL Glucose (74-99) mg/dL POC Glucose (mg/dL) 224 H (75-99) mg/dL Microbiology - Last 24 Hours (Table) 10/18/16 15:58 Blood Culture - Final Blood No Growth after 144 hours 10/18/16 15:43 Blood Culture - Final Blood No Growth after 144 hours Assessment and Plan Plan: Assessment Pneumonitis, suspect mixed bacterial Acute exacerbation of COPD Acute on chronic hypoxic respiratory failure Purulent tracheobronchitis, pneumonia cannot be excluded Severe anemia Paroxysmal atrial fibrillation Diabetes mellitus2 Hypertension Obstructive sleep apnea Chronic kidney disease stage III Plan Medications have been reviewed and will be continued as ordered. BiPAP at night and when necessary as well as during naps. Continue on supplemental oxygen via nasal cannula to keep oxygen saturations above 92%. Continue on broad-spectrum antibiotics, breathing treatments as well as steroids. We will repeat cultures. Infectious disease on consult. Smoking cessation discussed at length, patient on nicotine patch currently. We will obtain a sputum culture. Repeat chest x-ray today. Increase activity as tolerated and work with physical therapy. Continue to try to wean the oxygen down to 2 L which is her baseline. We will continue to monitor labs/results and adjust treatment as necessary. I performed an examination of the patient and discussed their management with the nurse practitioner. I have reviewed the nurse practitioner's note and agree with the documented findings and plan of care.
[2016-10-25 11:55] LABS: Glucose,Whole Blood 227 mg/dL (75-99)
[2016-10-25] MEDS: FERROUS SULFATE 325 MG TAB PO SCH (12:12)
--- NOTE | 2016-10-25 13:43 | XR ---
EXAMINATION TYPE: XR chest 2V DATE OF EXAM: 10/25/2016 1:12 PM HISTORY: shortness of breath. REFERENCE: Previous study dated 10/23/2016. FINDINGS: The heart is enlarged. There is vascular congestion and mild interstitial change. There are bilateral effusions. IMPRESSION: 1. WORSENING CHANGES OF HEART FAILURE. 2. CARDIOMEGALY. 3. WORSENING BILATERAL EFFUSIONS.
[2016-10-25 13:51] LABS: Anisocytosis Slight; Basophils # (A) 0.1 k/uL (0-0.2); Basophils % (A) 0 %; CH 27.3; Eosinophils # (A) 0.1 k/uL (0-0.7); Eosinophils % (A) 0 %; HCT 28.5 % (34.0-46.0); HDW 3.27; Hypochromasia Marked; Luc # (Auto) 0.12; Luc % (Auto) 1; Lymphocytes # (A) 0.5 k/uL (1.0-4.8); Lymphocytes % (A) 3 %; MCH 27.7 pg (25.0-35.0); MCHC 28.2 g/dL (31.0-37.0); Macrocytosis Slight; Mean Platelet Volume 7.6; Monocytes # (A) 0.6 k/uL (0-1.0); Monocytes % (A) 4 %; Neutrophils # (A) 14.5 k/uL (1.3-7.7); Neutrophils % (A) 91 %; RBC 2.91 m/uL (3.80-5.40); RDW 16.3 % (11.5-15.5); WBC 15.9 k/uL (3.8-10.6); WBC (Perox) 16.73
[2016-10-25 14:03] LABS: Calcium 8.8 mg/dL (8.4-10.2); Potassium 5.2 mmol/L (3.5-5.1)
--- NOTE | 2016-10-25 14:41 | P.PN ---
Subjective Principal diagnosis: Atrial fibrillation This is a pleasant 66-year-old female who was sent here from Dr. Guillermo's office for increased shortness of breath and acute on chronic hypoxic respiratory failure. Patient has a recent history of paroxysmal atrial fibrillation and follows with Dr. Maria in the office. She has a known history also of COPD, on home O2, recent pneumonia, chronic diastolic heart failure, diabetes mellitus type 2 and current smoker. Upon admission BNP was 463 and chest x-ray showed chronic emphysematous change without acute cardiopulmonary process. Her diagnosis of paroxysmal atrial fibrillation is fairly new and she was started on Eliquis about a month ago. This was held on admission here because of anemia. Cardiology was asked to revisit the patient yesterday because of A. fib with RVR. Cardizem drip has now been discontinued and she is currently on verapamil 240 mg daily which we will recommend to continue Objective - Vital Signs Vital signs: Vital Signs Temp 96.7 F L 10/25/16 11:40 Pulse 88 10/25/16 12:01 Resp 16 10/25/16 11:40 BP 97/51 10/25/16 11:40 Pulse Ox 93 L 10/25/16 11:40 Intake & Output 10/24/16 10/25/16 10/25/16 18:59 06:59 18:59 Intake Total 1446.296 600 240 Balance 1446.296 600 240 Weight 98.6 kg 101 kg Intake: IV 645 600 0.9 NS 400 600 Diltiazem 125 mg In 120 Sodium Chloride 0.9% 100 ml @ 10 MG/HR 10 mls/hr IV .[id number] [facility] Rx#: [id number] Heparin Sodium,Porcine/ 125 D5w Pmx 25,000 unit In Dextrose/Water 1 500ml. bag @ 10.3 UNITS/KG/HR 20 mls/hr IV .Q24H [facility] Rx#: [id number] Intake, IV Titration 521.296 Amount Heparin Sodium,Porcine/ 421.296 D5w Pmx 25,000 unit In Dextrose/Water 1 500ml. bag @ 10.3 UNITS/KG/HR 20 mls/hr IV .Q24H [facility] Rx#: [id number] Sodium Ferric Gluconat- 100 Sucrose 125 mg In Sodium Chloride 0.9% 100 ml @ 100 mls/hr IVPB DAILY [facility] Rx#:[id number] Oral 280 240 Other: Voiding Method Bedside Commode Bedside Commode Bedside Commode # Voids 1 - Exam PHYSICAL EXAMINATION: HEENT: Head is atraumatic, normocephalic. Pupils equal, round. Neck is supple. There is no elevated jugular venous pressure. HEART EXAMINATION: Heart sounds regular, S1 and S2 normal. No murmur or gallop heard. CHEST EXAMINATION: Lungs are diminished with faint expiratory wheezing throughout. No chest wall tenderness is noted on palpation or with deep breathing. ABDOMEN: Soft, nontender. Bowel sounds are heard. No organomegaly noted. EXTREMITIES: 2+ peripheral pulses with no evidence of peripheral edema and no calf tenderness noted. NEUROLOGIC patient is awake, alert and oriented x3. . - Labs CBC & Chem 7: 10/25/16 13:26 10/25/16 05:57 Labs: Abnormal Lab Results - Last 24 Hours (Table) 10/24/16 10/24/16 10/25/16 Range/Units 16:31 20:46 02:00 WBC (3.8-10.6) k/uL RBC (3.80-5.40) m/uL Hgb (11.4-16.0) gm/dL Hct (34.0-46.0) % MCHC (31.0-37.0) g/dL RDW (11.5-15.5) % Neutrophils # (1.3-7.7) k/uL Neutrophils # (Manual) (1.3-7.7) k/uL Lymphocytes # (1.0-4.8) k/uL Monocytes # (Manual) (0-1.0) k/uL APTT (22.0-30.0) sec Potassium (3.5-5.1) mmol/L BUN (7-17) mg/dL Creatinine (0.52-1.04) mg/dL Glucose (74-99) mg/dL POC Glucose (mg/dL) 121 H 133 H 207 H (75-99) mg/dL 10/25/16 10/25/16 10/25/16 Range/Units 05:57 05:57 05:57 WBC 21.7 H (3.8-10.6) k/uL RBC 2.96 L (3.80-5.40) m/uL Hgb 8.2 L (11.4-16.0) gm/dL Hct 29.1 L (34.0-46.0) % MCHC 28.2 L (31.0-37.0) g/dL RDW 16.6 H (11.5-15.5) % Neutrophils # (1.3-7.7) k/uL Neutrophils # (Manual) 18.0 H (1.3-7.7) k/uL Lymphocytes # (1.0-4.8) k/uL Monocytes # (Manual) 1.3 H (0-1.0) k/uL APTT 21.7 L (22.0-30.0) sec Potassium 5.3 H (3.5-5.1) mmol/L BUN 73 H (7-17) mg/dL Creatinine 2.26 H (0.52-1.04) mg/dL Glucose 177 H (74-99) mg/dL POC Glucose (mg/dL) (75-99) mg/dL 10/25/16 10/25/16 10/25/16 Range/Units 05:57 11:53 13:26 WBC 15.9 H (3.8-10.6) k/uL RBC 2.91 L (3.80-5.40) m/uL Hgb 8.0 L (11.4-16.0) gm/dL Hct 28.5 L (34.0-46.0) % MCHC 28.2 L (31.0-37.0) g/dL RDW 16.3 H (11.5-15.5) % Neutrophils # 14.5 H (1.3-7.7) k/uL Neutrophils # (Manual) (1.3-7.7) k/uL Lymphocytes # 0.5 L (1.0-4.8) k/uL Monocytes # (Manual) (0-1.0) k/uL APTT (22.0-30.0) sec Potassium (3.5-5.1) mmol/L BUN (7-17) mg/dL Creatinine (0.52-1.04) mg/dL Glucose (74-99) mg/dL POC Glucose (mg/dL) 224 H 227 H (75-99) mg/dL Microbiology - Last 24 Hours (Table) 05/18/17 15:58 Blood Culture - Final Blood No Growth after 144 hours 10/18/16 15:43 Blood Culture - Final Blood No Growth after 144 hours Assessment and Plan (1) Tracheobronchitis Status: Acute (2) Diastolic CHF, chronic Status: Acute (3) Paroxysmal a-fib Status: Acute (4) Acute exacerbation of chronic obstructive airways disease Status: Acute (5) Adult respiratory distress syndrome Status: Acute Plan: From cardiology's perspective, we will recommend to continue the patient on verapamil 240 mg one tablet by mouth daily, along with the beta jonathan. is currently in normal sinus rhythm with PACs. DNP note has been reviewed, I agree with a documented findings and plan of care. Patient was seen and examined.
[2016-10-25] MEDS ORDERED: FUROSEMIDE 10 MG/ML 4 ML VIAL IV STA (14:49)
[2016-10-25 16:41] LABS: Glucose,Whole Blood 273 mg/dL (75-99)
--- NOTE | 2016-10-25 17:22 | US ---
EXAMINATION TYPE: US chest DATE OF EXAM: 10/25/2016 4:58 PM COMPARISON: CXR CLINICAL HISTORY: bilateraly pl effusions. Pleural effusions EXAM MEASUREMENTS: Right Pleural Effusion fluid pocket: 4.3m Right skin to fluid thickness: 5.0m Left Pleural Effusion fluid pocket: 1.8m Right side marked for possible thoracentesis outside the dept. Left side NOT marked for possible thoracentesis outside the dept. Pulmonologists are able to review the images in the patient?s EMR. IMPRESSIONS: Bilateral pleural effusions are demonstrated and larger on the right side.
[2016-10-25 19:08] LABS: Appearance,Urine Cloudy (Clear); Bacteria,Urine Rare /hpf; Bilirubin,Urine Negative (Negative); Glucose,Urine (UA) Negative (Negative); Ketones,Urine Negative (Negative); Leukocyte Esterase,Urine Negative (Negative); Nitrite,Urine Negative (Negative); Particle Count 28083; Protein,Urine 1+ (Negative); Specific Gravity,Urine 1.016 (1.001-1.035); Squamous Epithelial Cell,Urine 1 /hpf (0-4); UA Billing (MACRO vs. MICRO) MICRO; Urobilinogen,Urine <2.0 mg/dL (<2.0); WBC,Urine 1 /hpf (0-5)
[2016-10-25] MEDS: ISOSORBIDE MONONITRATE ER 30 MG TAB.ER.24H PO SCH (20:21)
[2016-10-25 20:23] LABS: Glucose,Whole Blood 224 mg/dL (75-99)
[2016-10-25] MEDS: CHOLECALCIFEROL 1,000 UNIT TAB PO SCH (20:49)
[2016-10-25] MEDS: INSULIN DETEMIR 100 UNIT/ML 10 ML VIAL SQ SCH (20:50)
[2016-10-25] MEDS: MONTELUKAST 10 MG TAB PO SCH (20:50)
--- NOTE | 2016-10-25 22:31 | PN ---
DATE OF SERVICE: 10/25/2016 INTERVAL HISTORY: This is a patient with COPD exacerbation. Today the patient is sitting up in bed, awake, alert. However, she looks tired. Patient has eaten her breakfast with no difficulty. Patient has been able to get up to the bathroom with minimal assistance. She remains on nasal cannula. Some shortness of breath noted at rest. Review of systems was done for constitutional, cardiovascular, GI, pulmonary, with relevant findings as above. CURRENT MEDICATIONS: 1. DuoNeb 3 mL solution every 2 hours p.r.n. 2. Pulmicort 1 mg inhalation b.i.d. 3. Ceftin 500 mg b.i.d. 4. Solu-Medrol 40 mg IV q.12 hours. 5. Verapamil 240 mg p.o. t.i.d. 6. Pravachol 40 mg p.o. daily. PHYSICAL EXAMINATION: VITAL SIGNS: Temperature 96.7, pulse 63, respirations 16, blood pressure 97/51, oxygen saturation 93% on 3 L nasal cannula. GENERAL APPEARANCE: Patient is sitting up in bed visiting with a friend. Short of breath at rest. Oxygen in place. No accessory muscle use noted. No retractions. EYES: Pupils equal. Conjunctivae normal. NECK: JVD not raised. Mass not palpable LUNGS: Diminished with an expiratory wheeze bilaterally. RESPIRATORY: Effort normal, mildly labored. CARDIOVASCULAR: First and second sounds noted. No edema. ABDOMEN: Soft, nontender. Liver and spleen not palpable. PSYCHIATRY: Alert and oriented x3. Mood and affect are normal. INVESTIGATIONS: White blood cell count 15.9, hemoglobin 8.0, platelet count 349. Potassium 5.2. BUN 77, creatinine 2.51. Blood glucose 198. Calcium 8.8. Chest x-ray reveals worsening changes of heart failure, cardiomegaly, and worsening bilateral effusions. Ultrasound of the chest wall reveals right-sided effusion and left-sided effusion. Right is greater than left. ASSESSMENT: 1. Acute severe chronic obstructive pulmonary disease exacerbation in a smoker, probably viral pneumonitis. Slow to respond. 2. Paroxysmal atrial fibrillation, currently in normal sinus rhythm on Verapamil. 3. Symptomatic anemia, status post blood transfusion. 4. Diabetes mellitus, type 2, uncontrolled from IV steroids. 5. Nicotine dependence. Patient is a long-time smoker. 6. Hyperlipidemia, stable. 7. Essential hypertension, stable. 8. Obstructive sleep apnea; uses a CPAP machine. 9. Chronic obstructive respiratory failure, on home oxygen therapy. 10. Acute hypoxic respiratory failure secondary to chronic obstructive pulmonary disease exacerbation, present on admission. 11. Chronic kidney disease, stage III, from diabetic nephropathy and hypertensive nephrosclerosis. 12. Hyperkalemia, likely due to acute renal failure. 13. Acute renal failure, likely from acute tubular necrosis, worsening. 14. Metabolic encephalopathy, multifactorial. PLAN: Patient is more alert today; however, she does not look a whole lot better. Cardiology has changed patient's Verapamil. Patient is in normal sinus rhythm. Will continue the beta jonathan. Patient has a worsening chest x-ray and bilateral pleural effusions, the right one of which may be considered for a tap. Pulmonology is following. Nephrology continues to follow, monitoring patient's acute kidney injury and chronic kidney disease. Patient was seen and examined by nurse practitioner Susi Funes, and all elements of the case were discussed with attending, Dr. Cid.
[2016-10-26] MEDS: IPRATROPIUM-ALBUTEROL 3 ML NEB INHALATION SCH ×7 (00:24→23:49)
[2016-10-26] MEDS: ALPRAZolam 0.25 MG TAB PO PRN ×2 (03:14→20:56)
[2016-10-26 06:07] LABS: Anisocytosis Slight; CHCM 29.5; Calcium 8.5 mg/dL (8.4-10.2); Hypochromasia Marked; MCV 94.3 fL (80.0-100.0); Magnesium 2.5 mg/dL (1.6-2.3); Poikilocytosis Slight; Potassium 4.8 mmol/L (3.5-5.1); Total Bilirubin 0.5 mg/dL (0.2-1.3); Total Protein 5.2 g/dL (6.3-8.2)
[2016-10-26 06:09] LABS: CH 27.8; HCT 27.5 % (34.0-46.0); HGB 8.3 gm/dL (11.4-16.0); MCH 28.5 pg (25.0-35.0); MCHC 30.3 g/dL (31.0-37.0); Mean Platelet Volume 7.7; RBC 2.92 m/uL (3.80-5.40); RDW 17.3 % (11.5-15.5); WBC 20.5 k/uL (3.8-10.6); WBC (Perox) 19.96
[2016-10-26 06:21] LABS: Add Differential Manual Differential
[2016-10-26 06:22] LABS: Glucose,Whole Blood 176 mg/dL (75-99)
[2016-10-26 06:24] LABS: Manual Review Performed; Nucleated Red Blood Cells 0 /100 WBC (0-0); Polychromasia Present; Total Cells Counted 200
[2016-10-26] MEDS: BUDESONIDE 1 MG/2 ML NEBU INHALATION SCH ×2 (08:22→20:23)
[2016-10-26] MEDS ORDERED: FUROSEMIDE 10 MG/ML 10 ML VIAL IV STA (08:28)
--- NOTE | 2016-10-26 08:28 | P.PN ---
Subjective Patient is seen in follow-up for acute kidney injury on chronic kidney disease. It appears patient has chronic kidney disease stage III. Baseline creatinine in the range of 1.1-1.2 secondary to nephrosclerosis and cardiorenal syndrome. Renal function was recovering and creatinine was down to 1.22 as of October 24. However the last 2 days her renal function has been worsening with creatinine at 3.5 this morning. Her urine output overnight was 250 mL. She has a Andres catheter in place. Her AST and ALT were also normal and now are above 4000. She is currently resting in bed and is wearing a BiPAP. Chest x-ray from yesterday showed worsening heart failure with bilateral pleural effusions. Her blood pressures have been quite labile and were noted to be as low as 84/38 yesterday. She does have history of diastolic CHF. Additionally she was anemic on admission with hemoglobin as low as 6.3 for which she did receive blood transfusion. Hemoglobin the last 2-3 days has been stable and is 8.3 this morning. Vital signs are stable. General: The patient appeared well nourished and normally developed. HEENT: Head exam is unremarkable. Neck is without jugular venous distension. LUNGS: Diffuse rhonchi. Breath sounds decreased. HEART: Rate and Rhythm are regular. First and second heart sounds normal. No murmurs, rubs or gallops. ABDOMEN: Abdominal exam reveals normal bowel sounds. Non-tender and non- distended. No evidence of peritonitis. EXTREMITITES: 1+ edema. Objective - Vital Signs Vital signs: Vital Signs Temp 97.2 F L 10/26/16 04:00 Pulse 76 10/26/16 04:11 Resp 19 10/26/16 04:00 BP 103/57 10/26/16 04:00 Pulse Ox 92 L 10/26/16 04:00 Intake & Output 10/25/16 10/26/16 10/26/16 18:59 06:59 18:59 Intake Total 1000 Output Total 100 275 Balance 1000 -100 -275 Weight 107.5 kg Intake: IV 300 0.9 NS 300 Intake, IV Titration 100 Amount Sodium Ferric Gluconat- 100 Sucrose 125 mg In Sodium Chloride 0.9% 100 ml @ 100 mls/hr IVPB DAILY [facility] Rx#:[id number] Oral 600 Output: Urine 100 275 Other: Voiding Method Bedside Commode Indwelling Catheter # Voids 0 - Labs CBC & Chem 7: 10/26/16 05:29 10/26/16 05:29 Labs: Abnormal Lab Results - Last 24 Hours (Table) 10/25/16 10/25/16 10/25/16 Range/Units 11:53 13:26 13:26 WBC 15.9 H (3.8-10.6) k/uL RBC 2.91 L (3.80-5.40) m/uL Hgb 8.0 L (11.4-16.0) gm/dL Hct 28.5 L (34.0-46.0) % MCHC 28.2 L (31.0-37.0) g/dL RDW 16.3 H (11.5-15.5) % Neutrophils # 14.5 H (1.3-7.7) k/uL Neutrophils # (Manual) (1.3-7.7) k/uL Lymphocytes # 0.5 L (1.0-4.8) k/uL Monocytes # (Manual) (0-1.0) k/uL Potassium 5.2 H (3.5-5.1) mmol/L BUN 77 H (7-17) mg/dL Creatinine 2.51 H (0.52-1.04) mg/dL Glucose 198 H (74-99) mg/dL POC Glucose (mg/dL) 227 H (75-99) mg/dL Magnesium (1.6-2.3) mg/dL AST (14-36) U/L ALT (9-52) U/L Alkaline Phosphatase (38-126) U/L Total Protein (6.3-8.2) g/dL Albumin (3.5-5.0) g/dL Urine Appearance (Clear) Urine Protein (Negative) Urine Blood (Negative) Urine Bacteria (None) /hpf 10/25/16 10/25/16 10/25/16 Range/Units 16:39 18:51 20:18 WBC (3.8-10.6) k/uL RBC (3.80-5.40) m/uL Hgb (11.4-16.0) gm/dL Hct (34.0-46.0) % MCHC (31.0-37.0) g/dL RDW (11.5-15.5) % Neutrophils # (1.3-7.7) k/uL Neutrophils # (Manual) (1.3-7.7) k/uL Lymphocytes # (1.0-4.8) k/uL Monocytes # (Manual) (0-1.0) k/uL Potassium (3.5-5.1) mmol/L BUN (7-17) mg/dL Creatinine (0.52-1.04) mg/dL Glucose (74-99) mg/dL POC Glucose (mg/dL) 273 H 224 H (75-99) mg/dL Magnesium (1.6-2.3) mg/dL AST (14-36) U/L ALT (9-52) U/L Alkaline Phosphatase (38-126) U/L Total Protein (6.3-8.2) g/dL Albumin (3.5-5.0) g/dL Urine Appearance Cloudy H (Clear) Urine Protein 1+ H (Negative) Urine Blood Trace H (Negative) Urine Bacteria Rare H (None) /hpf 10/26/16 10/26/16 10/26/16 Range/Units 05:29 05:29 06:20 WBC 20.5 H (3.8-10.6) k/uL RBC 2.92 L (3.80-5.40) m/uL Hgb 8.3 L (11.4-16.0) gm/dL Hct 27.5 L (34.0-46.0) % MCHC 30.3 L (31.0-37.0) g/dL RDW 17.3 H (11.5-15.5) % Neutrophils # (1.3-7.7) k/uL Neutrophils # (Manual) 16.7 H (1.3-7.7) k/uL Lymphocytes # (1.0-4.8) k/uL Monocytes # (Manual) 1.7 H (0-1.0) k/uL Potassium (3.5-5.1) mmol/L BUN 84 H* (7-17) mg/dL Creatinine 3.50 H (0.52-1.04) mg/dL Glucose 153 H (74-99) mg/dL POC Glucose (mg/dL) 176 H (75-99) mg/dL Magnesium 2.5 H (1.6-2.3) mg/dL AST 4436 H (14-36) U/L ALT 6713 H (9-52) U/L Alkaline Phosphatase 151 H (38-126) U/L Total Protein 5.2 L (6.3-8.2) g/dL Albumin 3.0 L (3.5-5.0) g/dL Urine Appearance (Clear) Urine Protein (Negative) Urine Blood (Negative) Urine Bacteria (None) /hpf Microbiology - Last 24 Hours (Table) 10/25/16 18:51 Urine Culture - Preliminary Urine,Catheterized Assessment and Plan Plan: Assessment: #1. Nonoliguric acute kidney injury secondary to ATN secondary to acute anemia and hemodynamic instability. Also underlying cardiorenal syndrome. Renal function worsened with creatinine at 3.5 today. Urinalysis noted to be benign initially and repeat UA shows 1+ proteinuria. No evidence of hydronephrosis. No evidence of urinary retention. #2. Chronic kidney disease stage III with baseline creatinine in the range of 1.1-1.2 secondary to nephrosclerosis and cardiorenal syndrome. #3. Acute anemia status post blood transfusion. Hemoglobin 8.3 this morning. Iron deficiency present. #4. Atrial fibrillation with RVR. Now in sinus rhythm. #5. Insulin-dependent diabetes mellitus. No proteinuria on urinalysis. #6. Dyspnea secondary to acute COPD exacerbation and fluid overload. #7. Diastolic CHF with worsening pleural effusions and pulmonary edema on chest x-ray. #8. Transaminitis with AST and ALT over 4000. There were normal on admission. Concern for sepsis. Plan: Lasix 80 mg IV once today. Start Lasix drip to be run at 5 mL an hour. Maintain Andres catheter with strict I's and O's. Monitor hemoglobin and transfuse as needed. Ferrlecit 125 mg IV daily for 3 days. Third dose today. Avoid nephrotoxic agents and hypotensive episodes. Repeat electrolytes in the morning. Cardiology following. Repeat urinalysis. Patient also noted to have significant jump in white blood cell count. Repeat cultures done. Check hepatitis panel. Family was present in the room. All their questions were answered. I did discuss with them the potential need for renal placement therapy if her renal function continues to worsen or no improvement in her urine output.
--- NOTE | 2016-10-26 09:09 | CONS ---
DATE OF CONSULTATION: 10/25/2016 Reason for consultation is worsening leukocytosis and a question of pneumonia. HISTORY OF PRESENT ILLNESS: The patient is a 56 -year-old female with past medical history significant for COPD. Patient was admitted to the hospital about a month ago to this facility and was being treated for underlying pneumonia. Patient family who provided most of the history has not completely recovered, says it has been about a week ago . The patient did have a fall per Dr. Guillermo and the patient was having significant shortness of breath just walking from the car to the office. In the office she was noted to have pulse oximetry with sats in the 70s. Hence, the patient has been sent to the ER for further evaluation. Patient was evaluated by the ER physician. The patient did have an chest x-ray which shows cardiomegaly and chronic change without acute pulmonary process. The patient has been treated with steroids and bronchodilators therapy. Patient did have acute further work-up including a VQ scan intermediate probability and lower extremity Doppler was negative for DVT. The patient with no fever during this admission. However, the patient who did have a normal white count on admission of 9.9, did jump to 21.7 this morning, was 11.7 yesterday and I did consult the pulmonary team and hence ID was consulted for further recommendation regarding antibiotic therapy. At the time of my evaluation, the patient remains to be afebrile, remains to be shortness of breath. She has very minimal cough, not bringing up a significant amount of sputum. No hemoptysis. No chest pain. No URI symptoms. The patient denies having any abdominal pain. Denies any diarrhea. No burning or frequency of urine. REVIEW OF SYSTEMS: CONSTITUTIONAL: Positive for weakness, but no fever. EYES: No complaint. ENT: No complaint. RESPIRATORY: As per HPI. CARDIOVASCULAR: As per HPI. GENITOURINARY: No complaint. GASTROINTESTINAL: No complaint. MUSCULOSKELETAL: No complaint. ENT: No complaint. PSYCHOLOGIC: No complaint. ENDOCRINE: No complaint. NEUROLOGICAL: No complaint. Past medical history significant for paroxysmal atrial fibrillation, COPD, diabetes mellitus, hypertension, hyperlipidemia, obstructive sleep apnea, chronic renal insufficiency, anxiety disorder. Past surgical history: Cholecystectomy, appendectomy, hysterectomy, tonsillectomy, tubal ligation, left rotator cuff repair, left leg vein stripping. bladder suspension. SOCIAL HISTORY: The patient is . She used to smoke about 2 packs a day. Has cut down to a pack a day with more than 50 pack years of smoking. No drinking or drug use. FAMILY HISTORY: Positive for breast and liver cancer. ALLERGIES: CODEINE. Medications currently include the patient is on: 1. Verapamil. 2. Prednisone. 3. Pravachol. 4. Paxil. 5. Protonix. 6. Nicotine patch. 7. Singular. 8. Lopressor. 9. Duoneb. 10. Xanax. On examination, blood pressure is 150/80 with a pulse of 88, temperature 98. She is 91% on 3 liters nasal cannula. General description is an elderly female, lying in bed in no distress. No tachypnea or accessory muscle of respiration use. HEENT examination shows pallor. There is no scleral icterus. Oral mucous membranes dry. NECK: Trachea central. There is no thyromegaly. LUNGS: Unlabored breathing with decreased breath sounds at the bases. Increased wheeze. HEART: S1, S2. Regular rate and rhythm. ABDOMEN: Soft, no tenderness. EXTREMITIES: No edema of feet. SKIN EXAMINATION: No rash or mass palpable. NEUROLOGICAL: The patient is awake, alert, oriented x3. Mood and affect normal. LABS: Hemoglobin 8.1, and white count 21.7 with a BUN of 77 and creatinine 2.51. Potassium 5.2. Urine has been negative x2. Chest x-ray with pleural effusion. DIAGNOSTIC IMPRESSION AND PLAN: Patient with elevated white count of 21.7, which is likely multifactorial and likely reactive and secondary to steroid use. Clinically doubt any worsening infection as the patient does not look toxic, not running any fever. Her main symptom remains to be shortness of breath, which could be related to underlying congestive heart failure, pneumonia as the patient did not have any purulent sputum. Patient UA reported to be negative. The abdomen was soft on clinical examination and no evidence of any cellulitis. PLAN: 1. We will continue to monitor closely and if the patient spikes any fever or any jump in her white count to obtain appropriate cultures and adjust antibiotics further. 2. Await possible thoracocentesis and send fluid for gram stain and culture. 3. Family was present at beside. Their questions and concerns were answered. BRANDYN
[2016-10-26] MEDS: NICOTINE 21MG/24HR PATCH TRANSDERM SCH (09:29)
[2016-10-26] MEDS: INSULIN LISPRO (humaLOG) 300 UNIT/3 ML VIAL SQ SCH ×7 (09:30→20:57)
[2016-10-26] MEDS: PANTOPRAZOLE 40 MG TABLET PO SCH (09:32)
[2016-10-26] MEDS: CEFUROXIME 250 MG TAB PO SCH ×2 (09:32→20:56)
[2016-10-26] MEDS: FUROSEMIDE 250 MG in SODIUM CHLORIDE 0.9% 225 ML IVP SCH (09:32)
[2016-10-26] MEDS: predniSONE 20 MG TAB PO SCH (09:33)
[2016-10-26] MEDS: GABAPENTIN 300 MG CAP PO SCH ×2 (09:33→20:54)
[2016-10-26] MEDS: FERROUS SULFATE 325 MG TAB PO SCH (09:33)
[2016-10-26] MEDS: VERAPAMIL SR 240 MG TABLET.ER PO SCH (09:34)
[2016-10-26] MEDS: PRAVASTATIN SODIUM 40 MG TAB PO SCH (09:35)
[2016-10-26] MEDS: PARoxetine 20 MG TAB PO SCH (09:35)
[2016-10-26] MEDS: METOPROLOL TARTRATE 25 MG TAB PO SCH ×2 (09:35→20:55)
[2016-10-26] MEDS: SODIUM FERRIC GLUCONAT-SUCROSE 125 MG in SODIUM CHLORIDE 0.9% 100 ML IVPB SCH (09:42)
[2016-10-26 10:16] LABS: Hepatitis B Surface Ag Index 0.05
[2016-10-26 10:21] LABS: Hepatitis B Core IgM Index 0.03
[2016-10-26 10:33] LABS: Hepatitis C Virus IgG Ab Negative (Negative); Hepatitis C Virus IgG Index 0.01
--- NOTE | 2016-10-26 10:37 | ECHOF ---
Referral Reason:assess lvf MEASUREMENTS -------- HEIGHT: 167.6 cm WEIGHT: 107.0 kg BP: RVIDd: 3.5 cm (< 3.3) IVSd: 1.3 cm (0.6 - 1.1) LVIDd: 5.5 cm (3.9 - 5.3) LVPWd: 1.2 cm (0.6 - 1.1) IVSs: 1.9 cm LVIDs: 3.8 cm LVPWs: 1.5 cm LAESV Index (A-L): 22.81 ml/m Ao Diam: 2.6 cm (2.0 - 3.7) AV Cusp: 1.5 cm (1.5 - 2.6) LA Diam: 4.3 cm (2.7 - 3.8) MV E Blake: 1.46 m/s MV DecT: 202 ms MV A Blake: 0.90 m/s MV E/A Ratio: 1.63 RAP: 15.00 mmHg RVSP: 72.17 mmHg FINDINGS -------- Atrial fibrillation. This was a technically adequate study. There is mild concentric left ventricular hypertrophy. Overall left ventricular systolic function is normal with, an EF between 55 - 60 %. The right ventricle is normal in size and function. Normal LA size by volume 22+/-6 ml/m2. The right atrium is normal in size. Aortic valve is trileaflet and is mildly thickened. There is no evidence of aortic regurgitation. There is no evidence of aortic stenosis. The mitral valve leaflets are mildly thickened. Mild mitral regurgitation is present. Mild tricuspid regurgitation present. There is moderate to severe pulmonary hypertension. The right ventricular systolic pressure, as measured by Doppler, is 72.17mmHg. The pulmonic valve was not well visualized. The aortic root size is normal. The inferior vena cava is dilated with no significant inspiratory collapse which is consistent estimated right atrial pressure of >20 mmHg. The pericardium is normal. There is no pericardial effusion. CONCLUSIONS -------- 1. Atrial fibrillation. 2. The right ventricular systolic pressure, as measured by Doppler, is 72.17mmHg. 3. The pulmonic valve was not well visualized. 4. The aortic root size is normal. 5. The inferior vena cava is dilated with no significant inspiratory collapse which is consistent estimated right atrial pressure of >20 mmHg. 6. There is no pericardial effusion. 7. There is mild concentric left ventricular hypertrophy. 8. Overall left ventricular systolic function is normal with, an EF between 55 - 60 %. 9. Normal LA size by volume 22+/-6 ml/m2. 10. Aortic valve is trileaflet and is mildly thickened. 11. The mitral valve leaflets are mildly thickened. 12. Mild mitral regurgitation is present. 13. Mild tricuspid regurgitation present. 14. There is moderate to severe pulmonary hypertension. PHARMACOGENETICIST: Ancelmo Pastor RDCS
[2016-10-26 11:36] LABS: Glucose,Whole Blood 167 mg/dL (75-99)
--- NOTE | 2016-10-26 15:01 | P.PN ---
Subjective This is a 66-year-old female who is being evaluated and examined today on the sixth floor. This patient has came in with increasing shortness of breath over the last few weeks as well as increased lower extremity swelling. Of note the patient was evaluated 4 days ago in the cardial vascular office and at that time the patient was asymptomatic however after that she started having lower extremity swelling and increasing shortness of breath and she couldn't take 3 or 4 steps without eating break. Therefore she was brought in to our office. The patient's pulse ox is ranged from 88-89% on 3 L in the office, so Dr. Guillermo recommended she come into the hospital. She currently wears 2 L of oxygen at home via nasal cannula. Patient did have a venous Doppler of the bilateral lower shortness x-ray is negative. DVT. Patient also had a brain CT completed which showed mild prominence of ventricles out of keeping with the degree of sulcal prominence cannot exclude some degree of normal pressure hydrocephalus. V/Q scan was completed and showed indeterminate probability of pulmonary embolism. Upon examination today the patient is resting up in bed on 3-4 L of oxygen via nasal cannula. Patient had no overnight issues. She did tolerate the BiPAP last night. She states Xanax helped her to tolerate the bipap. Patient did have a ultrasound of the chest 10/25/16, which revealed a right pleural effusion pocket of 4.3 and a left pleural effusion fluid pocket of 1.8. These effusions currently as is we will just observe no need for thoracentesis at this time. Patient was also put on Lasix strip this morning per nephrology. Patient also had an echocardiogram this morning which revealed an EF between 55 and 60% it is also noted that she has moderate to severe pulmonary hypertension. Patient has chronic A. fib. Cardiology is following closely, as well as nephrology. Objective - Vital Signs Vital signs: Vital Signs Temp 97.1 F L 10/26/16 08:00 Pulse 82 10/26/16 12:14 Resp 20 10/26/16 08:00 BP 110/57 10/26/16 08:00 Pulse Ox 93 L 10/26/16 08:00 Intake & Output 10/25/16 10/26/16 10/26/16 18:59 06:59 18:59 Intake Total 1000 120 Output Total 100 275 Balance 1000 -100 -155 Weight 107.5 kg Intake: IV 300 0.9 NS 300 Intake, IV Titration 100 Amount Sodium Ferric Gluconat- 100 Sucrose 125 mg In Sodium Chloride 0.9% 100 ml @ 100 mls/hr IVPB DAILY [facility] Rx#:[id number] Oral 600 120 Output: Urine 100 275 Other: Voiding Method Bedside Commode Indwelling Catheter Indwelling Catheter # Voids 0 - Exam GENERAL EXAM: Alert, active, comfortable in no apparent distress. HEAD: Normocephalic. EYES: Normal reaction of pupils, equal size. NOSE: Clear with pink turbinates. THROAT: No erythema or exudates. No pharyngeal opening is present NECK: No masses, no JVD. CHEST: No chest wall deformity. LUNGS: Lungs noted to have bilaterally poor air entry throughout. Rhonchi noticed at bases CVS: S1 and S2 normal with no audible mumurs, regular rhythm. ABDOMEN: No hepatosplenomegaly, normal bowel sounds, no guarding or rigidity. EXTREMITIES: +2 edema noted, pedal pulses palpable. SKIN: No rashes CENTRAL NERVOUS SYSTEM: No focal deficits, tone is normal in all 4 extremities. - Labs CBC & Chem 7: 10/26/16 05:29 10/26/16 05:29 Labs: Abnormal Lab Results - Last 24 Hours (Table) 10/25/16 10/25/16 10/25/16 Range/Units 16:39 18:51 20:18 WBC (3.8-10.6) k/uL RBC (3.80-5.40) m/uL Hgb (11.4-16.0) gm/dL Hct (34.0-46.0) % MCHC (31.0-37.0) g/dL RDW (11.5-15.5) % Neutrophils # (Manual) (1.3-7.7) k/uL Monocytes # (Manual) (0-1.0) k/uL BUN (7-17) mg/dL Creatinine (0.52-1.04) mg/dL Glucose (74-99) mg/dL POC Glucose (mg/dL) 273 H 224 H (75-99) mg/dL Magnesium (1.6-2.3) mg/dL AST (14-36) U/L ALT (9-52) U/L Alkaline Phosphatase (38-126) U/L Total Protein (6.3-8.2) g/dL Albumin (3.5-5.0) g/dL Urine Appearance Cloudy H (Clear) Urine Protein 1+ H (Negative) Urine Blood Trace H (Negative) Urine Bacteria Rare H (None) /hpf 10/26/16 10/26/16 10/26/16 Range/Units 05:29 05:29 06:20 WBC 20.5 H (3.8-10.6) k/uL RBC 2.92 L (3.80-5.40) m/uL Hgb 8.3 L (11.4-16.0) gm/dL Hct 27.5 L (34.0-46.0) % MCHC 30.3 L (31.0-37.0) g/dL RDW 17.3 H (11.5-15.5) % Neutrophils # (Manual) 16.7 H (1.3-7.7) k/uL Monocytes # (Manual) 1.7 H (0-1.0) k/uL BUN 84 H* (7-17) mg/dL Creatinine 3.50 H (0.52-1.04) mg/dL Glucose 153 H (74-99) mg/dL POC Glucose (mg/dL) 176 H (75-99) mg/dL Magnesium 2.5 H (1.6-2.3) mg/dL AST 4436 H (14-36) U/L ALT 6713 H (9-52) U/L Alkaline Phosphatase 151 H (38-126) U/L Total Protein 5.2 L (6.3-8.2) g/dL Albumin 3.0 L (3.5-5.0) g/dL Urine Appearance (Clear) Urine Protein (Negative) Urine Blood (Negative) Urine Bacteria (None) /hpf 10/26/16 Range/Units 11:31 WBC (3.8-10.6) k/uL RBC (3.80-5.40) m/uL Hgb (11.4-16.0) gm/dL Hct (34.0-46.0) % MCHC (31.0-37.0) g/dL RDW (11.5-15.5) % Neutrophils # (Manual) (1.3-7.7) k/uL Monocytes # (Manual) (0-1.0) k/uL BUN (7-17) mg/dL Creatinine (0.52-1.04) mg/dL Glucose (74-99) mg/dL POC Glucose (mg/dL) 167 H (75-99) mg/dL Magnesium (1.6-2.3) mg/dL AST (14-36) U/L ALT (9-52) U/L Alkaline Phosphatase (38-126) U/L Total Protein (6.3-8.2) g/dL Albumin (3.5-5.0) g/dL Urine Appearance (Clear) Urine Protein (Negative) Urine Blood (Negative) Urine Bacteria (None) /hpf Microbiology - Last 24 Hours (Table) 10/25/16 11:09 Blood Culture - Preliminary Blood No Growth after 24 hours 10/25/16 18:51 Urine Culture - Preliminary Urine,Catheterized Assessment and Plan Plan: Assessment Moderate to severe pulmonary hypertension Chronic diastolic congestive heart failure Pneumonitis, suspect mixed bacterial Acute exacerbation of COPD Acute on chronic hypoxic respiratory failure Purulent tracheobronchitis, pneumonia cannot be excluded Severe anemia Paroxysmal atrial fibrillation Diabetes mellitus2 Hypertension Obstructive sleep apnea Chronic kidney disease stage III Plan Medications have been reviewed and will be continued as ordered. BiPAP at night and when necessary as well as during naps. Continue on supplemental oxygen via nasal cannula to keep oxygen saturations above 92%. Continue on broad-spectrum antibiotics, breathing treatments as well as steroids. Repeat cultures, pending. Infectious disease, cardiology and nephrology on consult. Smoking cessation discussed at length, patient on nicotine patch currently. We will continue to monitor pleural effusions. Increase activity as tolerated and work with physical therapy. Continue to try to wean the oxygen down to 2 L which is her baseline. We will continue to monitor labs/results and adjust treatment as necessary. I performed an examination of the patient and discussed their management with the nurse practitioner. I have reviewed the nurse practitioner's note and agree with the documented findings and plan of care.
[2016-10-26 16:28] LABS: Glucose,Whole Blood 218 mg/dL (75-99)
[2016-10-26] MEDS: SODIUM CHLORIDE 0.9% 1,000 ML IV SCH (17:32)
--- NOTE | 2016-10-26 18:26 | PN ---
DATE OF SERVICE: 10/25/2016 ATTENDING NOTE: This patient was seen and examined by me on 10/25/16. I reviewed the note of my nurse practitioner Ms. Funes. I discussed it with her and agree with the same. Patient admitted with COPD exacerbation. Remains tired, slightly short of breath. Did tolerate some diet. On examination, afebrile. Blood pressure 97/51. LUNGS: Decreased breath sounds. Prolonged expiration. CARDIOVASCULAR: First and second sounds normal. No edema. PSYCH: Sitting up. Answering questions. INVESTIGATIONS: Potassium 5.3. BUN 73, creatinine 2.26. White count 21.7. ASSESSMENT: 1. Acute severe chronic obstructive pulmonary disease exacerbation, slow to respond. 2. Acute renal failure, probably acute tubular necrosis, worsening. 3. Hyperkalemia in the setting of acute renal failure. PLAN: Nephrology has already been consulted. Will follow with them. Patient is getting hydrated. Patient ( ) not ready right now. Discussed with her; reassured her. Will follow closely.
[2016-10-26] MEDS: CHOLECALCIFEROL 1,000 UNIT TAB PO SCH (20:55)
[2016-10-26] MEDS: MONTELUKAST 10 MG TAB PO SCH (20:56)
[2016-10-26] MEDS: ISOSORBIDE MONONITRATE ER 30 MG TAB.ER.24H PO SCH (20:56)
[2016-10-26] MEDS: INSULIN DETEMIR 100 UNIT/ML 10 ML VIAL SQ SCH (20:56)
[2016-10-26 21:09] LABS: Glucose,Whole Blood 220 mg/dL (75-99)
--- NOTE | 2016-10-26 21:46 | PN ---
DATE OF SERVICE: 10/26/2016 INTERVAL HISTORY: This is a patient with COPD exacerbation. Today the patient is sitting up in bed, awake, alert. Patient continues to look tired. She is short of breath at rest. She has had her breakfast. Family is at the bedside, both daughters and her son and a granddaughter. Patient seems to be enjoying the company. Patient is ambulatory to and from the bathroom with minimal assist. Remains on nasal cannula. Patient has had some changes to her lab values which are concerning, and additionally patient's urine output has decreased in the past 24 hours. Review of systems was done for constitutional, cardiovascular, GI, pulmonary, with relevant findings as above. CURRENT MEDICATIONS: 1. DuoNeb 3 mL solution every 2 hours p.r.n. 2. Pulmicort 1 mg inhalation b.i.d. 3. Ceftin 500 mg b.i.d. 4. Solu-Medrol 40 mg IV q.12 hours. 5. Verapamil 240 mg p.o. t.i.d. 6. Pravachol 40 mg p.o. daily. PHYSICAL EXAMINATION: VITAL SIGNS: Temperature 97.1, pulse 69, respirations 20, blood pressure 110/57, oxygen saturation 93% on 3 L nasal cannula. GENERAL APPEARANCE: Patient appears pale, tired, sick-appearing. Short of breath at rest. EYES: Pupils equal. Conjunctivae normal. NECK: JVD not raised. Mass not palpable. LUNGS: Breath sounds diminished. Expiratory wheezing noted. RESPIRATORY: Effort increased. Moderately labored. CARDIOVASCULAR: First and second sounds noted. Edema present. ABDOMEN: Soft, nontender. Liver and spleen not palpable. PSYCHIATRY: Alert and oriented x3. Mood and affect are normal. INVESTIGATIONS: White blood cell count 20.5, hemoglobin 8.3, platelet count 267. BUN 84, creatinine 3.50. Blood glucose 153. AST 4436, ALT 6713, alkaline phosphatase 151. Echocardiogram reveals atrial fibrillation and an EF between 55% and 60%. Chest ultrasound reveals right pleural effusion fluid pocket of 4.3, left pleural effusion fluid pocket 1.8. Right side was marked for possible thoracentesis. Left side is not marked for possible thoracentesis. Pulmonology will review the images. Chest x-ray shows worsening heart failure, cardiomegaly and worsening bilateral effusions. ASSESSMENT: 1. Acute severe chronic obstructive pulmonary disease exacerbation in a smoker, probably viral pneumonitis, worsening. 2. Paroxysmal atrial fibrillation, currently in normal sinus rhythm on Verapamil. 3. Symptomatic anemia, status post blood transfusion. 4. Diabetes mellitus, type 2, uncontrolled from IV steroids. 5. Nicotine dependence. Patient is a long-time smoker. 6. Hyperlipidemia, stable. 7. Essential hypertension, stable. 8. Obstructive sleep apnea; uses a CPAP machine. 9. Chronic respiratory failure, on home oxygen therapy. 10. Acute hypoxic respiratory failure secondary to chronic obstructive pulmonary disease exacerbation, present on admission. 11. Chronic kidney disease, stage III, from diabetic nephropathy and hypertensive nephrosclerosis. 12. Hyperkalemia, likely due to acute renal failure. 13. Acute renal failure, likely from acute tubular necrosis, worsening. 14. Metabolic encephalopathy, multifactorial. PLAN: Patient's urine output has dropped significantly in the last 24 hours. Patient's liver enzymes have increased significantly in the last 24 hours. There is some concern about the patient developing sepsis as a result of the increase in AST and ALT. Patient may require transfer to the ICU. Staff should have a low threshold for initiating the transfer. Pulmonology has evaluated the ultrasound of the chest and the bilateral pleural effusions, and at this time there will not be a thoracentesis scheduled. They will continue to monitor these effusions and tap if necessary. Patient's white blood cell count has jumped significantly. It is believed that it is multifactorial and reactive and secondary to the use of steroids. Infectious Disease does not feel that there is a worsening of infection, as patient does not look toxic and there are no fevers. Nursing staff was informed to have a low threshold for transfer to the ICU, should patient decompensate in any way. We will continue to follow closely. Patient was seen and examined by nurse practitioner Susi Funes, and all elements of the case were discussed with the attending, Dr. Cid.
--- NOTE | 2016-10-26 22:23 | PN ---
DATE OF SERVICE: 10/26/2016 Reason for Follow-up: Leukocytosis and a question of pneumonia. INTERVAL HISTORY: The patient is afebrile. She has been breathing more comfortably. Mild cough. Not bringing up any sputum. No chest pain. No abdominal pain. No diarrhea. On examination, blood pressure is 124/71 with a pulse of 82, temperature 96.2. She is 93% on 3 liters nasal cannula. General description: Elderly female lying in bed in no distress. RESPIRATORY SYSTEM: Unlabored breathing. Clear to auscultation. No wheeze. HEART: S1, S2 regular rate and rhythm. ABDOMEN: soft, no tenderness. labs, hemoglobin is 8.3, white count 20.5. BUN of 84, creatinine of 3.50. DIAGNOSTIC IMPRESSION AND PLAN: Patient with leukocytosis with possible reactive to steroid effect. suspicious for underlying pneumonia. await sputum, continue current antibiotics . . Family present at beside. All their questions were answered. BRANDYN
[2016-10-27] MEDS: IPRATROPIUM-ALBUTEROL 3 ML NEB INHALATION SCH ×3 (03:20→11:29)
[2016-10-27 06:00] LABS: Anisocytosis Slight; Basophils # (A) 0.2 k/uL (0-0.2); Basophils % (A) 1 %; CH 27.6; Eosinophils # (A) 0.1 k/uL (0-0.7); Eosinophils % (A) 1 %; HCT 26.3 % (34.0-46.0); HDW 3.41; HGB 7.8 gm/dL (11.4-16.0); Hypochromasia Marked; Luc % (Auto) 1; Lymphocytes # (A) 1.2 k/uL (1.0-4.8); Lymphocytes % (A) 7 %; MCH 28.2 pg (25.0-35.0); MCHC 29.5 g/dL (31.0-37.0); MCV 95.3 fL (80.0-100.0); Macrocytosis Slight; Mean Platelet Volume 8.9; Monocytes # (A) 0.7 k/uL (0-1.0); Monocytes % (A) 4 %; Neutrophils # (A) 14.3 k/uL (1.3-7.7); Neutrophils % (A) 86 %; Poikilocytosis Slight; RBC 2.75 m/uL (3.80-5.40); RDW 17.5 % (11.5-15.5); WBC 16.6 k/uL (3.8-10.6); WBC (Perox) 17.69
[2016-10-27 06:09] LABS: Calcium 8.5 mg/dL (8.4-10.2); Potassium 4.6 mmol/L (3.5-5.1); Total Bilirubin 0.6 mg/dL (0.2-1.3); Total Protein 5.1 g/dL (6.3-8.2)
[2016-10-27 06:32] LABS: Glucose,Whole Blood 114 mg/dL (75-99)
[2016-10-27] MEDS: INSULIN LISPRO (humaLOG) 300 UNIT/3 ML VIAL SQ SCH ×4 (06:40→11:53)
[2016-10-27] MEDS: PANTOPRAZOLE 40 MG TABLET PO SCH (07:07)
[2016-10-27] MEDS: FERROUS SULFATE 325 MG TAB PO SCH (07:57)
[2016-10-27] MEDS: CEFUROXIME 250 MG TAB PO SCH (07:57)
[2016-10-27] MEDS: METOPROLOL TARTRATE 25 MG TAB PO SCH (07:58)
[2016-10-27] MEDS: GABAPENTIN 300 MG CAP PO SCH (07:58)
[2016-10-27] MEDS: NICOTINE 21MG/24HR PATCH TRANSDERM SCH (07:59)
[2016-10-27] MEDS: PARoxetine 20 MG TAB PO SCH (07:59)
[2016-10-27] MEDS: PRAVASTATIN SODIUM 40 MG TAB PO SCH (07:59)
[2016-10-27] MEDS: predniSONE 20 MG TAB PO SCH (07:59)
[2016-10-27] MEDS: VERAPAMIL SR 240 MG TABLET.ER PO SCH (08:01)
[2016-10-27] MEDS: SODIUM FERRIC GLUCONAT-SUCROSE 125 MG in SODIUM CHLORIDE 0.9% 100 ML IVPB SCH (08:04)
[2016-10-27] MEDS: FUROSEMIDE 250 MG in SODIUM CHLORIDE 0.9% 225 ML IVP SCH (08:05)
[2016-10-27] MEDS: BUDESONIDE 1 MG/2 ML NEBU INHALATION SCH (08:17)
--- NOTE | 2016-10-27 08:33 | P.PN ---
Subjective Principal diagnosis: Atrial fibrillation This is a pleasant 66-year-old female who was sent here from Dr. Guillermo's office for increased shortness of breath and acute on chronic hypoxic respiratory failure. Patient has a recent history of paroxysmal atrial fibrillation and follows with Dr. Maria in the office. She has a known history also of COPD, on home O2, recent pneumonia, chronic diastolic heart failure, diabetes mellitus type 2 and current smoker. Upon admission BNP was 463 and chest x-ray showed chronic emphysematous change without acute cardiopulmonary process. Her diagnosis of paroxysmal atrial fibrillation is fairly new and she was started on Eliquis about a month ago. This was held on admission here because of anemia. Cardiology was asked to revisit the patient yesterday because of A. fib with RVR. Cardizem drip has now been discontinued and she is currently on verapamil 240 mg daily which we will recommend to continue. 10/26/2016 Patient seen and examined this morning, heart rate up into the 120s. It has been noted that in the past 2 days the patient's renal function has been worsening, 3.5 this morning. Minimal urine output. AST and ALT significantly elevated this morning as well. Patient did have a chest x-ray performed yesterday which revealed worsening congestive heart failure with bilateral effusions. Hemoglobin 8.3 this morning. Patient does state overall that she feels short of breath and incredibly fatigued today. Patient was given a dose of IV Lasix and initiated on IV Lasix drip by nephrology. Repeat echocardiogram with Doppler study was performed which revealed a normal left ventricular systolic function with moderate to severe pulmonary hypertension. Patient continues to be on verapamil along with beta jonathan. Objective - Vital Signs Vital signs: Vital Signs Temp 97.2 F L 10/27/16 04:00 Pulse 88 10/27/16 08:21 Resp 14 10/27/16 04:00 BP 101/52 10/27/16 04:00 Pulse Ox 93 L 10/27/16 08:21 Intake & Output 10/26/16 10/27/16 10/27/16 18:59 06:59 18:59 Intake Total 700 550 112.75 Output Total 625 2904 Balance 75 -2354 112.75 Weight 108 kg Intake: IV 400 500 0.9 NS 400 500 Intake, IV Titration 50 112.75 Amount Furosemide 250 mg In 50 112.75 Sodium Chloride 0.9% 225 ml @ 5 MG/HR 5 mls/hr IVP .Q24H [facility] Rx#:[id number] Oral 300 Output: Urine 625 2900 Stool 4 Other: Voiding Method Indwelling Catheter Indwelling Catheter - Exam PHYSICAL EXAMINATION: HEENT: Head is atraumatic, normocephalic. Pupils equal, round. Neck is supple. There is elevated jugular venous pressure. HEART EXAMINATION: Heart S1 and S2 irregular irregular . No murmur or gallop heard. CHEST EXAMINATION: Lungs are diminished with scattered coarse wheezing throughout. No chest wall tenderness is noted on palpation or with deep breathing. ABDOMEN: Soft, nontender. Bowel sounds are heard. No organomegaly noted. EXTREMITIES: 2+ peripheral pulses with evidence of peripheral edema and no calf tenderness noted. NEUROLOGIC patient is awake, alert and oriented x3. . - Labs CBC & Chem 7: 10/27/16 05:47 10/27/16 05:47 Labs: Abnormal Lab Results - Last 24 Hours (Table) 10/26/16 10/26/16 10/26/16 Range/Units 11:31 16:27 20:50 WBC (3.8-10.6) k/uL RBC (3.80-5.40) m/uL Hgb (11.4-16.0) gm/dL Hct (34.0-46.0) % MCHC (31.0-37.0) g/dL RDW (11.5-15.5) % Neutrophils # (1.3-7.7) k/uL BUN (7-17) mg/dL Creatinine (0.52-1.04) mg/dL Glucose (74-99) mg/dL POC Glucose (mg/dL) 167 H 218 H 220 H (75-99) mg/dL AST (14-36) U/L ALT (9-52) U/L Alkaline Phosphatase (38-126) U/L Total Protein (6.3-8.2) g/dL Albumin (3.5-5.0) g/dL 10/27/16 10/27/16 10/27/16 Range/Units 05:47 05:47 06:28 WBC 16.6 H (3.8-10.6) k/uL RBC 2.75 L (3.80-5.40) m/uL Hgb 7.8 L (11.4-16.0) gm/dL Hct 26.3 L (34.0-46.0) % MCHC 29.5 L (31.0-37.0) g/dL RDW 17.5 H (11.5-15.5) % Neutrophils # 14.3 H (1.3-7.7) k/uL BUN 96 H* (7-17) mg/dL Creatinine 3.45 H (0.52-1.04) mg/dL Glucose 113 H (74-99) mg/dL POC Glucose (mg/dL) 114 H (75-99) mg/dL AST 1221 H (14-36) U/L ALT 4125 H (9-52) U/L Alkaline Phosphatase 138 H (38-126) U/L Total Protein 5.1 L (6.3-8.2) g/dL Albumin 2.7 L (3.5-5.0) g/dL Microbiology - Last 24 Hours (Table) 10/25/16 18:51 Urine Culture - Final Urine,Catheterized 10/25/16 11:09 Blood Culture - Preliminary Blood No Growth after 24 hours Assessment and Plan (1) Tracheobronchitis Status: Acute (2) Diastolic CHF, chronic Status: Acute (3) Paroxysmal a-fib Status: Acute (4) Acute exacerbation of chronic obstructive airways disease Status: Acute (5) Adult respiratory distress syndrome Status: Acute Plan: From cardiology's perspective, we will recommend to increase metoprolol tartrate 25 mg one tablet by mouth 3 times a day continue the patient on verapamil 240 mg one tablet by mouth daily. Continue to monitor intake and output, daily CMP. DNP note has been reviewed, I agree with a documented findings and plan of care. Patient was seen and examined.
--- NOTE | 2016-10-27 08:36 | P.PN ---
Subjective Principal diagnosis: Atrial fibrillation This is a pleasant 66-year-old female who was sent here from Dr. Guillermo's office for increased shortness of breath and acute on chronic hypoxic respiratory failure. Patient has a recent history of paroxysmal atrial fibrillation and follows with Dr. Maria in the office. She has a known history also of COPD, on home O2, recent pneumonia, chronic diastolic heart failure, diabetes mellitus type 2 and current smoker. Upon admission BNP was 463 and chest x-ray showed chronic emphysematous change without acute cardiopulmonary process. Her diagnosis of paroxysmal atrial fibrillation is fairly new and she was started on Eliquis about a month ago. This was held on admission here because of anemia. Cardiology was asked to revisit the patient yesterday because of A. fib with RVR. Cardizem drip has now been discontinued and she is currently on verapamil 240 mg daily which we will recommend to continue. 10/26/2016 Patient seen and examined this morning, heart rate up into the 120s. It has been noted that in the past 2 days the patient's renal function has been worsening, 3.5 this morning. Minimal urine output. AST and ALT significantly elevated this morning as well. Patient did have a chest x-ray performed yesterday which revealed worsening congestive heart failure with bilateral effusions. Hemoglobin 8.3 this morning. Patient does state overall that she feels short of breath and incredibly fatigued today. Patient was given a dose of IV Lasix and initiated on IV Lasix drip by nephrology. Repeat echocardiogram with Doppler study was performed which revealed a normal left ventricular systolic function with moderate to severe pulmonary hypertension. Patient continues to be on verapamil along with beta jonathan. 10/27/2016 patient seen and examined this morning, states she's feeling much better overall. She slept well last night. Continues to be in atrial fibrillation, heart rate in the 1 teens to 120s this morning. HemoGlobin this morning 7.8, white blood cell count 16.6, BUN 96, creatinine 3.4. AST 1221, ALT 4125, alk phos 138. Excellent urine output through the night last night. Objective - Vital Signs Vital signs: Vital Signs Temp 97.2 F L 10/27/16 04:00 Pulse 88 10/27/16 08:30 Resp 14 10/27/16 04:00 BP 101/52 10/27/16 04:00 Pulse Ox 93 L 10/27/16 08:21 Intake & Output 10/26/16 10/27/16 10/27/16 18:59 06:59 18:59 Intake Total 700 550 112.75 Output Total 625 2904 Balance 75 -2354 112.75 Weight 108 kg Intake: IV 400 500 0.9 NS 400 500 Intake, IV Titration 50 112.75 Amount Furosemide 250 mg In 50 112.75 Sodium Chloride 0.9% 225 ml @ 5 MG/HR 5 mls/hr IVP .Q24H COUNTS INCLUDE 234 BEDS AT THE [facility] Rx#:[id number] Oral 300 Output: Urine 625 2900 Stool 4 Other: Voiding Method Indwelling Catheter Indwelling Catheter - Exam PHYSICAL EXAMINATION: HEENT: Head is atraumatic, normocephalic. Pupils equal, round. Neck is supple. There is elevated jugular venous pressure. HEART EXAMINATION: Heart S1 and S2 irregular irregular . No murmur or gallop heard. CHEST EXAMINATION: Lungs are diminished with scattered coarse wheezing throughout. No chest wall tenderness is noted on palpation or with deep breathing. ABDOMEN: Soft, nontender. Bowel sounds are heard. No organomegaly noted. EXTREMITIES: 2+ peripheral pulses with evidence of peripheral edema and no calf tenderness noted. NEUROLOGIC patient is awake, alert and oriented x3. . - Labs CBC & Chem 7: 10/27/16 05:47 10/27/16 05:47 Labs: Abnormal Lab Results - Last 24 Hours (Table) 10/26/16 10/26/16 10/26/16 Range/Units 11:31 16:27 20:50 WBC (3.8-10.6) k/uL RBC (3.80-5.40) m/uL Hgb (11.4-16.0) gm/dL Hct (34.0-46.0) % MCHC (31.0-37.0) g/dL RDW (11.5-15.5) % Neutrophils # (1.3-7.7) k/uL BUN (7-17) mg/dL Creatinine (0.52-1.04) mg/dL Glucose (74-99) mg/dL POC Glucose (mg/dL) 167 H 218 H 220 H (75-99) mg/dL AST (14-36) U/L ALT (9-52) U/L Alkaline Phosphatase (38-126) U/L Total Protein (6.3-8.2) g/dL Albumin (3.5-5.0) g/dL 10/27/16 10/27/16 10/27/16 Range/Units 05:47 05:47 06:28 WBC 16.6 H (3.8-10.6) k/uL RBC 2.75 L (3.80-5.40) m/uL Hgb 7.8 L (11.4-16.0) gm/dL Hct 26.3 L (34.0-46.0) % MCHC 29.5 L (31.0-37.0) g/dL RDW 17.5 H (11.5-15.5) % Neutrophils # 14.3 H (1.3-7.7) k/uL BUN 96 H* (7-17) mg/dL Creatinine 3.45 H (0.52-1.04) mg/dL Glucose 113 H (74-99) mg/dL POC Glucose (mg/dL) 114 H (75-99) mg/dL AST 1221 H (14-36) U/L ALT 4125 H (9-52) U/L Alkaline Phosphatase 138 H (38-126) U/L Total Protein 5.1 L (6.3-8.2) g/dL Albumin 2.7 L (3.5-5.0) g/dL Microbiology - Last 24 Hours (Table) 10/25/16 18:51 Urine Culture - Final Urine,Catheterized 10/25/16 11:09 Blood Culture - Preliminary Blood No Growth after 24 hours Assessment and Plan (1) Tracheobronchitis Status: Acute (2) Diastolic CHF, chronic Status: Acute (3) Paroxysmal a-fib Status: Acute (4) Acute exacerbation of chronic obstructive airways disease Status: Acute (5) Adult respiratory distress syndrome Status: Acute Plan: From cardiology's perspective, we will recommend to continue metoprolol tartrate 25 mg one tablet by mouth 3 times a day continue the patient on verapamil 240 mg one tablet by mouth daily. Continue Lasix drip. Patient's overall status improving today. Continue to monitor intake and output, daily CMP. DNP note has been reviewed, I agree with a documented findings and plan of care. Patient was seen and examined.
--- NOTE | 2016-10-27 11:24 | PN ---
DATE OF SERVICE: 10/26/2016 ATTENDING NOTE: This patient was seen and examined by me on 10/26/2016. I reviewed the note of my nurse practitioner, Ms. Funes and discussed and agreed with the same. Patient admitted with COPD exacerbation, has been in and out of A. fib. Then patient went into renal failure. Tolerating some diet. Family members at the bedside. Tired appearing. ON EXAMINATION: LUNGS: Decreased breath sounds. Mild wheezing. No edema. Patient is tired, but able to carry out a conversation. INVESTIGATIONS: White count 20.5, hemoglobin 8.3, BUN 84, creatinine 3.5. AST 4436, ALT 6713. ASSESSMENT: 1. Acute severe chronic obstructive pulmonary disease exacerbation in smoker, probably viral pneumonitis. 2. Paroxysmal atrial fibrillation with rapid burst of atrial fibrillation in between. 3. Acute hepatitis, likely ischemic, expect it to come down. 4. Acute renal failure, likely acute tubular necrosis, worsening. PLAN: Keep a close eye on patient's labs. Follow with Nephrology and ID. Repeat labs in the morning. Care was discussed with the patient. Additionally, we will stop patient's Pravachol and also cut back on the patient's dose of Neurontin in view of the renal failure.
[2016-10-27] MEDS: SODIUM CHLORIDE 0.9% 1,000 ML IV SCH (11:49)
[2016-10-27 12:20] LABS: Glucose,Whole Blood 178 mg/dL (75-99)
[2016-10-27] MEDS ORDERED: GABAPENTIN 100 MG CAP PO SCH (16:00)
[2016-10-27] MEDS ORDERED: LEVALBUTEROL NEB (CONC) 1.25 MG/0.5 ML AMP INHALATION SCH (16:00)
[2016-10-27] MEDS ORDERED: IPRATROPIUM 0.5 MG/2.5 ML NEBU INHALATION SCH (16:00)
[2016-10-27] MEDS ORDERED: METOPROLOL TARTRATE 25 MG TAB PO SCH (16:00)
--- NOTE | 2016-10-27 16:32 | PN ---
Patient is seen for followup for acute kidney injury. Her renal function has been slowly improving. Creatinine is at 3.45 from 3.5 yesterday. Initial creatinine was at 1.32 on 10/18. Patient is currently lying in bed. She is comfortable. She is not in any acute distress. Patient is maintained on IV fluids at about 50 mL an hour. IV fluids were held and I see patient is now on a Lasix drip. Her daughter is present at bedside. On examination, blood pressure is 104/51, heart rate about 130 per minute. She is afebrile. EXAMINATION OF THE HEART: S1 and S2. EXAMINATION OF THE LUNGS: Decreased breath sounds in bases. ABDOMEN: Soft, nontender. Examination of lower extremities shows trace edema bilaterally. Labs show sodium 139, potassium 4.6, BUN 96, serum creatinine 3.45. Hemoglobin 7.8 g/dL. ASSESSMENT: Continue with Lasix drip for now. Discontinue the IV fluids. Repeat labs in a.m.
[2016-10-27 16:57] LABS: Glucose,Whole Blood 145 mg/dL (75-99)
[2016-10-27] MEDS ORDERED: SODIUM CHLORIDE 0.9% IVPB ONE (17:25)
[2016-10-27] MEDS ORDERED: VANCOMYCIN IVPB ONE (17:25)
[2016-10-27] MEDS ORDERED: IV VANCOMYCIN PER PHARMACY 1 EACH MISC MISCELLANE PRN (17:25)
[2016-10-27] MEDS ORDERED: PIPERACILLIN-TAZOBACTAM 3.375 GM in DEXTROSE/WATER 1 50ML.BAG IVPB SCH (17:30)
[2016-10-27] MEDS ORDERED: PROPOFOL 50 ML IV ONE (17:34)
--- NOTE | 2016-10-27 17:35 | PN ---
DATE OF SERVICE: 10/27/2016 Ms. Lisette Patel is a 66-year-old female who is seen, evaluated, examined on the [facility]. The patient has been using BiPAP machine regularly. She has been on 5 mg per hour of Lasix drip as well. She is making good urine. Her urine output in the last 12 hours was more than 2 L. She had an episode of atrial fibrillation with rapid ventricular response resolved spontaneously with medications though I have discussed with cardiovascular services, Dr. Degroot. Patient has good LV function, but significant pulmonary hypertension has been noted. Of note that since I have emphasized with the family about importance of using the BiPAP machine each night and p.r.n. during the day. Currently she is on 5 L oxygen. She had transient desaturation, which has improved now. Her last set of vitals include blood pressure 104/51, respiratory rate 18, pulse 110 to 130, heart rate is 84, temperature 96, saturation of 93% on 3 L. HEENT: Atraumatic, normocephalic. Pharynx is clear. Narrow pharyngeal opening is present. Mallampati grade 4. NECK: Supple. Neck veins are prominent. No bruits present. LUNGS: Bilateral good air entry with basal crackles. HEART: Regular rate and rhythm. S1 and S2. ABDOMEN: Soft. No rebound or rigidity. EXTREMITIES: Trace to +1 edema. NEUROLOGICAL EXAMINATION: Otherwise, awake and alert. No focal neurological ( ). Labs and medications reviewed. Currently on DuoNeb updraft 4 times a day. Also on Xanax as needed, Pulmicort 2 times a day, Ceftin 500 b.i.d., cholecalciferol, ferrous sulfate, Lasix drips, sliding scale insulin, Levemir, Humalog, Imdur, Lopressor, Habitrol, Singulair, Protonix, Paxil, IV fluid normal saline is KVO, Isoptin. Laboratory data reviewed. The white cell count 16,600, hemoglobin of 7.8, hematocrit 26, platelet count 240,000. BUN and creatinine 96 and 3.45. The AST and ALT in 1221 and 4125. Total bili is 0.6. Elevated liver enzymes likely passive hepatic congestion and severe pulmonary hypertension. Laboratory data and results are reviewed. The ultrasound of the chest results are reviewed as well. Patient is receiving ferrous sulfate. IMPRESSION: 1. Acute on chronic hypoxic hypercapnic respiratory failure. 2. Severe pulmonary hypertension likely related to sleep disorder breathing and sleep apnea, obesity hypoventilation and morbid obesity. 3. Severe anemia. Anticoagulation on hold, related severe anemia. 4. Atrial fibrillation with rapid ventricular response with component of diastolic heart failure, likely acute. 5. Morbid obesity of severe ( ). 6. Uncontrolled diabetes and hyperglycemia. 7. Elevated liver enzymes likely related to severe pulmonary hypertension. 8. Acute renal failure, multifactorial process including intrinsic kidney disease as well as poor perfusion. PLAN: As above. Continue diuresis, continue BiPAP. Follow clinical course closely. Would recommend to maintain patient on current therapy. Lower down the Pulmicort to 0.5 b.i.d. Use Xopenex and discontinue the DuoNeb.
[2016-10-27 17:41] LABS: Glucose,Whole Blood 91 mg/dL (75-99)
[2016-10-27] MEDS ORDERED: PROPOFOL 500 MG in EMPTY BAG 1 BAG IV SCH (17:45)
[2016-10-27] MEDS ORDERED: VANCOMYCIN 2,000 MG in SODIUM CHLORIDE 0.9% 500 ML IVPB ONE (18:00)
--- NOTE | 2016-10-27 18:12 | XR ---
EXAMINATION TYPE: XR chest 1V portable DATE OF EXAM: 10/27/2016 COMPARISON: Prior chest x-ray 25 Oct 2016 HISTORY: Interval intubation TECHNIQUE: Single frontal view of the chest is obtained. FINDINGS: Endotracheal tube, NG tube are overlying appropriate positions. Patient is rotated. No elda dent pneumothorax. There are overlying cardiac leads. Heart size may be accentuated by rotation. Basi lar density persists. IMPRESSION: No evident complication status post intubation.
[2016-10-27] MEDS ORDERED: ATROPINE SULFATE 0.1 MG/ML 10ML SYRINGE ONE (18:28)
[2016-10-27] MEDS ORDERED: MORPHINE SULFATE 4 MG/ML SYRINGE ONE (19:00)
--- NOTE | 2016-10-27 19:10 | ED ---
Medical Decision Making - Medical Decision Making A CODE BLUE was called on the patient had approximately 1820 9 PM. I did respond to the code. Patient was found to be pulseless and appendectomy. She had previously pull out her oral tracheal tube. ACLS was in progress. Patient remained in pulselessness for a long period time she again sporadic pulses back and some agonal efforts after IV epinephrine administration. For the most part patient was in asystole however. I did discuss the findings with multiple family members or present. The family has decided to make the patient comfort care. The patient's attending physician will be notified. Patient's and daughter and multiple other family members are present at bedside. I did a long discussion regarding findings and the efforts that were put forth so far and the prognosis. Patient did demonstrate 6 and dilated pupils she was demonstrating agonal respiratory effort and intermittent agonal pulses with asystole. She was unresponsive. I perform and CPR had been performed at this time. Per family wishes the patient will be placed on TPAs and comfort measures. - Lab Data Result diagrams: 10/27/16 05:47 10/27/16 05:47 Lab Results 10/18/16 10/18/16 10/18/16 Range/Units 13:14 13:16 13:16 WBC 9.9 (3.8-10.6) k/uL RBC 2.60 L (3.80-5.40) m/uL Hgb 7.0 L* D (11.4-16.0) gm/dL Hct 25.3 L (34.0-46.0) % MCV 97.2 (80.0-100.0) fL MCH 27.0 (25.0-35.0) pg MCHC 27.8 L (31.0-37.0) g/dL RDW 15.6 H (11.5-15.5) % Plt Count 394 (150-450) k/uL Neutrophils % 76 % Neutrophils % (Manual) % Lymphocytes % 15 % Lymphocytes % (Manual) % Monocytes % 5 % Monocytes % (Manual) % Eosinophils % 1 % Basophils % 1 % Metamyelocytes % % Myelocytes % % Neutrophils # 7.5 (1.3-7.7) k/uL Neutrophils # (Manual) (1.3-7.7) k/uL Lymphocytes # 1.5 (1.0-4.8) k/uL Lymphocytes # (Manual) (1.0-4.8) k/uL Monocytes # 0.5 (0-1.0) k/uL Monocytes # (Manual) (0-1.0) k/uL Eosinophils # 0.1 (0-0.7) k/uL Basophils # 0.1 (0-0.2) k/uL Nucleated RBCs (0-0) /100 WBC Manual Slide Review Polychromasia Hypochromasia Marked Poikilocytosis Slight Poikilocytosis (manual Anisocytosis Macrocytosis PT (9.0-12.0) sec INR (<1.1) APTT (22.0-30.0) sec D-Dimer (<0.60) mg/L FEU Sample Site ABG pH (7.35-7.45) ABG pCO2 (35-45) mmHg ABG pO2 (83-108) mmHg ABG HCO3 (21-25) mmol/L ABG Total CO2 (19-24) mmol/L ABG O2 Saturation (94-97) % ABG Base Excess mmol/L FiO2 % Sodium 142 (137-145) mmol/L Potassium 4.9 (3.5-5.1) mmol/L Chloride 102 (98-107) mmol/L Carbon Dioxide 29 (22-30) mmol/L Anion Gap 11 mmol/L BUN 32 H (7-17) mg/dL Creatinine 1.32 H (0.52-1.04) mg/dL Est GFR (MDRD) Af Amer 49 (>60 ml/min/1.73 sqM) Est GFR (MDRD) Non-Af 40 (>60 ml/min/1.73 sqM) Glucose 140 H (74-99) mg/dL POC Glucose (mg/dL) 166 H (75-99) mg/dL POC Glu Regional Maintenance Manager ID Demetrio, Frieda [address] Glu mg/dL mg/dL Hemoglobin A1c (4.2-6.1) % Calcium 9.5 (8.4-10.2) mg/dL Phosphorus (2.5-4.5) mg/dL Magnesium (1.6-2.3) mg/dL Iron (37-170) ug/dL TIBC (265-497) ug/dL % Saturation (20-50) % Ferritin (11-264) ng/mL Total Bilirubin (0.2-1.3) mg/dL AST (14-36) U/L ALT (9-52) U/L Alkaline Phosphatase (38-126) U/L NT-Pro-B Natriuret Pep pg/mL Total Protein (6.3-8.2) g/dL Albumin (3.5-5.0) g/dL Urine Color Urine Appearance (Clear) Urine pH (5.0-8.0) Ur Specific [place] (1.001-1.035) Urine Protein (Negative) Urine Glucose (UA) (Negative) Urine Ketones (Negative) Urine Blood (Negative) Urine Nitrite (Negative) Urine Bilirubin (Negative) Urine Urobilinogen (<2.0) mg/dL Ur Leukocyte Esterase (Negative) Urine WBC (0-5) /hpf Ur Squamous Epith Cells (0-4) /hpf Urine Bacteria (None) /hpf Hepatitis A IgM Ab Hep Bs Antigen Hep B Core IgM Ab Hep C IgG Ab (Negative) Blood Type Blood Type Recheck Antibody Screen Crossmatch Spec Expiration Date 10/18/16 10/18/16 10/18/16 Range/Units 13:16 13:16 16:36 WBC (3.8-10.6) k/uL RBC (3.80-5.40) m/uL Hgb (11.4-16.0) gm/dL Hct (34.0-46.0) % MCV (80.0-100.0) fL MCH (25.0-35.0) pg MCHC (31.0-37.0) g/dL RDW (11.5-15.5) % Plt Count (150-450) k/uL Neutrophils % % Neutrophils % (Manual) % Lymphocytes % % Lymphocytes % (Manual) % Monocytes % % Monocytes % (Manual) % Eosinophils % % Basophils % % Metamyelocytes % % Myelocytes % % Neutrophils # (1.3-7.7) k/uL Neutrophils # (Manual) (1.3-7.7) k/uL Lymphocytes # (1.0-4.8) k/uL Lymphocytes # (Manual) (1.0-4.8) k/uL Monocytes # (0-1.0) k/uL Monocytes # (Manual) (0-1.0) k/uL Eosinophils # (0-0.7) k/uL Basophils # (0-0.2) k/uL Nucleated RBCs (0-0) /100 WBC Manual Slide Review Polychromasia Hypochromasia Poikilocytosis Poikilocytosis (manual Anisocytosis Macrocytosis PT (9.0-12.0) sec INR (<1.1) APTT (22.0-30.0) sec D-Dimer (<0.60) mg/L FEU Sample Site ABG pH (7.35-7.45) ABG pCO2 (35-45) mmHg ABG pO2 (83-108) mmHg ABG HCO3 (21-25) mmol/L ABG Total CO2 (19-24) mmol/L ABG O2 Saturation (94-97) % ABG Base Excess mmol/L FiO2 % Sodium (137-145) mmol/L Potassium (3.5-5.1) mmol/L Chloride (98-107) mmol/L Carbon Dioxide (22-30) mmol/L Anion Gap mmol/L BUN (7-17) mg/dL Creatinine (0.52-1.04) mg/dL Est GFR (MDRD) Af Amer (>60 ml/min/1.73 sqM) Est GFR (MDRD) Non-Af (>60 ml/min/1.73 sqM) Glucose (74-99) mg/dL POC Glucose (mg/dL) 166 H (75-99) mg/dL POC Glu Regional Maintenance Manager ID Demetrio, Frieda [address] Glu mg/dL 143 mg/dL Hemoglobin A1c 6.6 H (4.2-6.1) % Calcium (8.4-10.2) mg/dL Phosphorus (2.5-4.5) mg/dL Magnesium (1.6-2.3) mg/dL Iron (37-170) ug/dL TIBC (265-497) ug/dL % Saturation (20-50) % Ferritin (11-264) ng/mL Total Bilirubin (0.2-1.3) mg/dL AST (14-36) U/L ALT (9-52) U/L Alkaline Phosphatase (38-126) U/L NT-Pro-B Natriuret Pep 463 pg/mL Total Protein (6.3-8.2) g/dL Albumin (3.5-5.0) g/dL Urine Color Urine Appearance (Clear) Urine pH (5.0-8.0) Ur Specific [place] (1.001-1.035) Urine Protein (Negative) Urine Glucose (UA) (Negative) Urine Ketones (Negative) Urine Blood (Negative) Urine Nitrite (Negative) Urine Bilirubin (Negative) Urine Urobilinogen (<2.0) mg/dL Ur Leukocyte Esterase (Negative) Urine WBC (0-5) /hpf Ur Squamous Epith Cells (0-4) /hpf Urine Bacteria (None) /hpf Hepatitis A IgM Ab Hep Bs Antigen Hep B Core IgM Ab Hep C IgG Ab (Negative) Blood Type Blood Type Recheck Antibody Screen Crossmatch Spec Expiration Date 10/18/16 10/18/16 10/19/16 Range/Units 17:16 20:38 05:34 WBC (3.8-10.6) k/uL RBC (3.80-5.40) m/uL Hgb (11.4-16.0) gm/dL Hct (34.0-46.0) % MCV (80.0-100.0) fL MCH (25.0-35.0) pg MCHC (31.0-37.0) g/dL RDW (11.5-15.5) % Plt Count (150-450) k/uL Neutrophils % % Neutrophils % (Manual) % Lymphocytes % % Lymphocytes % (Manual) % Monocytes % % Monocytes % (Manual) % Eosinophils % % Basophils % % Metamyelocytes % % Myelocytes % % Neutrophils # (1.3-7.7) k/uL Neutrophils # (Manual) (1.3-7.7) k/uL Lymphocytes # (1.0-4.8) k/uL Lymphocytes # (Manual) (1.0-4.8) k/uL Monocytes # (0-1.0) k/uL Monocytes # (Manual) (0-1.0) k/uL Eosinophils # (0-0.7) k/uL Basophils # (0-0.2) k/uL Nucleated RBCs (0-0) /100 WBC Manual Slide Review Polychromasia Hypochromasia Poikilocytosis Poikilocytosis (manual Anisocytosis Macrocytosis PT (9.0-12.0) sec INR (<1.1) APTT (22.0-30.0) sec D-Dimer (<0.60) mg/L FEU Sample Site ABG pH (7.35-7.45) ABG pCO2 (35-45) mmHg ABG pO2 (83-108) mmHg ABG HCO3 (21-25) mmol/L ABG Total CO2 (19-24) mmol/L ABG O2 Saturation (94-97) % ABG Base Excess mmol/L FiO2 % Sodium (137-145) mmol/L Potassium (3.5-5.1) mmol/L Chloride (98-107) mmol/L Carbon Dioxide (22-30) mmol/L Anion Gap mmol/L BUN (7-17) mg/dL Creatinine (0.52-1.04) mg/dL Est GFR (MDRD) Af Amer (>60 ml/min/1.73 sqM) Est GFR (MDRD) Non-Af (>60 ml/min/1.73 sqM) Glucose (74-99) mg/dL POC Glucose (mg/dL) 256 H 316 H (75-99) mg/dL POC Glu Regional Maintenance Manager ID Michelle, Shiela [address] Glu mg/dL mg/dL Hemoglobin A1c (4.2-6.1) % Calcium (8.4-10.2) mg/dL Phosphorus (2.5-4.5) mg/dL Magnesium (1.6-2.3) mg/dL Iron (37-170) ug/dL TIBC (265-497) ug/dL % Saturation (20-50) % Ferritin (11-264) ng/mL Total Bilirubin (0.2-1.3) mg/dL AST (14-36) U/L ALT (9-52) U/L Alkaline Phosphatase (38-126) U/L NT-Pro-B Natriuret Pep pg/mL Total Protein (6.3-8.2) g/dL Albumin (3.5-5.0) g/dL Urine Color Light Yellow Urine Appearance Clear (Clear) Urine pH 5.0 (5.0-8.0) Ur Specific [place] 1.009 (1.001-1.035) Urine Protein Negative (Negative) Urine Glucose (UA) Negative (Negative) Urine Ketones Negative (Negative) Urine Blood Negative (Negative) Urine Nitrite Negative (Negative) Urine Bilirubin Negative (Negative) Urine Urobilinogen <2.0 (<2.0) mg/dL Ur Leukocyte Esterase Negative (Negative) Urine WBC (0-5) /hpf Ur Squamous Epith Cells (0-4) /hpf Urine Bacteria (None) /hpf Hepatitis A IgM Ab Hep Bs Antigen Hep B Core IgM Ab Hep C IgG Ab (Negative) Blood Type Blood Type Recheck Antibody Screen Crossmatch Spec Expiration Date 10/19/16 10/19/16 10/19/16 Range/Units 06:09 06:09 11:46 WBC 11.2 H 10.7 H (3.8-10.6) k/uL RBC 2.29 L 2.28 L (3.80-5.40) m/uL Hgb 6.6 L* 6.3 L* (11.4-16.0) gm/dL Hct 22.4 L 22.3 L (34.0-46.0) % MCV 97.7 97.6 (80.0-100.0) fL MCH 28.8 27.8 (25.0-35.0) pg MCHC 29.5 L 28.5 L (31.0-37.0) g/dL RDW 15.4 15.6 H (11.5-15.5) % Plt Count 371 383 (150-450) k/uL Neutrophils % 93 % Neutrophils % (Manual) % Lymphocytes % 4 % Lymphocytes % (Manual) % Monocytes % 2 % Monocytes % (Manual) % Eosinophils % 0 % Basophils % 0 % Metamyelocytes % % Myelocytes % % Neutrophils # 10.4 H (1.3-7.7) k/uL Neutrophils # (Manual) (1.3-7.7) k/uL Lymphocytes # 0.5 L (1.0-4.8) k/uL Lymphocytes # (Manual) (1.0-4.8) k/uL Monocytes # 0.2 (0-1.0) k/uL Monocytes # (Manual) (0-1.0) k/uL Eosinophils # 0.0 (0-0.7) k/uL Basophils # 0.0 (0-0.2) k/uL Nucleated RBCs (0-0) /100 WBC Manual Slide Review Polychromasia Hypochromasia Marked Marked Poikilocytosis Slight Slight Poikilocytosis (manual Anisocytosis Macrocytosis Slight PT (9.0-12.0) sec INR (<1.1) APTT (22.0-30.0) sec D-Dimer (<0.60) mg/L FEU Sample Site ABG pH (7.35-7.45) ABG pCO2 (35-45) mmHg ABG pO2 (83-108) mmHg ABG HCO3 (21-25) mmol/L ABG Total CO2 (19-24) mmol/L ABG O2 Saturation (94-97) % ABG Base Excess mmol/L FiO2 % Sodium (137-145) mmol/L Potassium (3.5-5.1) mmol/L Chloride (98-107) mmol/L Carbon Dioxide (22-30) mmol/L Anion Gap mmol/L BUN (7-17) mg/dL Creatinine (0.52-1.04) mg/dL Est GFR (MDRD) Af Amer (>60 ml/min/1.73 sqM) Est GFR (MDRD) Non-Af (>60 ml/min/1.73 sqM) Glucose (74-99) mg/dL POC Glucose (mg/dL) (75-99) mg/dL POC Glu Regional Maintenance Manager ID [address]imated Ave Glu mg/dL mg/dL Hemoglobin A1c (4.2-6.1) % Calcium (8.4-10.2) mg/dL Phosphorus 3.7 (2.5-4.5) mg/dL Magnesium 1.9 (1.6-2.3) mg/dL Iron (37-170) ug/dL TIBC (265-497) ug/dL % Saturation (20-50) % Ferritin (11-264) ng/mL Total Bilirubin (0.2-1.3) mg/dL AST (14-36) U/L ALT (9-52) U/L Alkaline Phosphatase (38-126) U/L NT-Pro-B Natriuret Pep pg/mL Total Protein (6.3-8.2) g/dL Albumin (3.5-5.0) g/dL Urine Color Urine Appearance (Clear) Urine pH (5.0-8.0) Ur Specific [place] (1.001-1.035) Urine Protein (Negative) Urine Glucose (UA) (Negative) Urine Ketones (Negative) Urine Blood (Negative) Urine Nitrite (Negative) Urine Bilirubin (Negative) Urine Urobilinogen (<2.0) mg/dL Ur Leukocyte Esterase (Negative) Urine WBC (0-5) /hpf Ur Squamous Epith Cells (0-4) /hpf Urine Bacteria (None) /hpf Hepatitis A IgM Ab Hep Bs Antigen Hep B Core IgM Ab Hep C IgG Ab (Negative) Blood Type Blood Type Recheck Antibody Screen Crossmatch Spec Expiration Date 10/19/16 10/19/16 10/19/16 Range/Units 12:01 16:19 19:54 WBC (3.8-10.6) k/uL RBC (3.80-5.40) m/uL Hgb (11.4-16.0) gm/dL Hct (34.0-46.0) % MCV (80.0-100.0) fL MCH (25.0-35.0) pg MCHC (31.0-37.0) g/dL RDW (11.5-15.5) % Plt Count (150-450) k/uL Neutrophils % % Neutrophils % (Manual) % Lymphocytes % % Lymphocytes % (Manual) % Monocytes % % Monocytes % (Manual) % Eosinophils % % Basophils % % Metamyelocytes % % Myelocytes % % Neutrophils # (1.3-7.7) k/uL Neutrophils # (Manual) (1.3-7.7) k/uL Lymphocytes # (1.0-4.8) k/uL Lymphocytes # (Manual) (1.0-4.8) k/uL Monocytes # (0-1.0) k/uL Monocytes # (Manual) (0-1.0) k/uL Eosinophils # (0-0.7) k/uL Basophils # (0-0.2) k/uL Nucleated RBCs (0-0) /100 WBC Manual Slide Review Polychromasia Hypochromasia Poikilocytosis Poikilocytosis (manual Anisocytosis Macrocytosis PT (9.0-12.0) sec INR (<1.1) APTT (22.0-30.0) sec D-Dimer (<0.60) mg/L FEU Sample Site ABG pH (7.35-7.45) ABG pCO2 (35-45) mmHg ABG pO2 (83-108) mmHg ABG HCO3 (21-25) mmol/L ABG Total CO2 (19-24) mmol/L ABG O2 Saturation (94-97) % ABG Base Excess mmol/L FiO2 % Sodium (137-145) mmol/L Potassium (3.5-5.1) mmol/L Chloride (98-107) mmol/L Carbon Dioxide (22-30) mmol/L Anion Gap mmol/L BUN (7-17) mg/dL Creatinine (0.52-1.04) mg/dL Est GFR (MDRD) Af Amer (>60 ml/min/1.73 sqM) Est GFR (MDRD) Non-Af (>60 ml/min/1.73 sqM) Glucose (74-99) mg/dL POC Glucose (mg/dL) 268 H 188 H (75-99) mg/dL POC Glu Regional Maintenance Manager Medina Cruz [address] Glu mg/dL mg/dL Hemoglobin A1c (4.2-6.1) % Calcium (8.4-10.2) mg/dL Phosphorus (2.5-4.5) mg/dL Magnesium (1.6-2.3) mg/dL Iron (37-170) ug/dL TIBC (265-497) ug/dL % Saturation (20-50) % Ferritin (11-264) ng/mL Total Bilirubin (0.2-1.3) mg/dL AST (14-36) U/L ALT (9-52) U/L Alkaline Phosphatase (38-126) U/L NT-Pro-B Natriuret Pep pg/mL Total Protein (6.3-8.2) g/dL Albumin (3.5-5.0) g/dL Urine Color Urine Appearance (Clear) Urine pH (5.0-8.0) Ur Specific [place] (1.001-1.035) Urine Protein (Negative) Urine Glucose (UA) (Negative) Urine Ketones (Negative) Urine Blood (Negative) Urine Nitrite (Negative) Urine Bilirubin (Negative) Urine Urobilinogen (<2.0) mg/dL Ur Leukocyte Esterase (Negative) Urine WBC (0-5) /hpf Ur Squamous Epith Cells (0-4) /hpf Urine Bacteria (None) /hpf Hepatitis A IgM Ab Hep Bs Antigen Hep B Core IgM Ab Hep C IgG Ab (Negative) Blood Type O Positive Blood Type Recheck No Antibody Screen NEGATIVE Crossmatch See Detail Spec Expiration Date 10/22/2016 - 235310/19/16 10/20/16 10/20/16 Range/Units 20:33 06:19 06:27 WBC 14.0 H (3.8-10.6) k/uL RBC 2.77 L (3.80-5.40) m/uL Hgb 7.6 L (11.4-16.0) gm/dL Hct 26.8 L (34.0-46.0) % MCV 96.6 (80.0-100.0) fL MCH 27.6 (25.0-35.0) pg MCHC 28.6 L (31.0-37.0) g/dL RDW 15.9 H (11.5-15.5) % Plt Count 416 (150-450) k/uL Neutrophils % 93 % Neutrophils % (Manual) % Lymphocytes % 3 % Lymphocytes % (Manual) % Monocytes % 3 % Monocytes % (Manual) % Eosinophils % 0 % Basophils % 0 % Metamyelocytes % % Myelocytes % % Neutrophils # 13.1 H (1.3-7.7) k/uL Neutrophils # (Manual) (1.3-7.7) k/uL Lymphocytes # 0.4 L (1.0-4.8) k/uL Lymphocytes # (Manual) (1.0-4.8) k/uL Monocytes # 0.4 (0-1.0) k/uL Monocytes # (Manual) (0-1.0) k/uL Eosinophils # 0.0 (0-0.7) k/uL Basophils # 0.0 (0-0.2) k/uL Nucleated RBCs (0-0) /100 WBC Manual Slide Review Polychromasia Hypochromasia Marked Poikilocytosis Slight Poikilocytosis (manual Anisocytosis Macrocytosis PT (9.0-12.0) sec INR (<1.1) APTT (22.0-30.0) sec D-Dimer (<0.60) mg/L FEU Sample Site ABG pH (7.35-7.45) ABG pCO2 (35-45) mmHg ABG pO2 (83-108) mmHg ABG HCO3 (21-25) mmol/L ABG Total CO2 (19-24) mmol/L ABG O2 Saturation (94-97) % ABG Base Excess mmol/L FiO2 % Sodium (137-145) mmol/L Potassium (3.5-5.1) mmol/L Chloride (98-107) mmol/L Carbon Dioxide (22-30) mmol/L Anion Gap mmol/L BUN (7-17) mg/dL Creatinine (0.52-1.04) mg/dL Est GFR (MDRD) Af Amer (>60 ml/min/1.73 sqM) Est GFR (MDRD) Non-Af (>60 ml/min/1.73 sqM) Glucose (74-99) mg/dL POC Glucose (mg/dL) 256 H 254 H (75-99) mg/dL POC Glu Regional Maintenance Manager ID Jung, Annmarie, Candy Jung, Annmarie, Candy [address] Glu mg/dL mg/dL Hemoglobin A1c (4.2-6.1) % Calcium (8.4-10.2) mg/dL Phosphorus (2.5-4.5) mg/dL Magnesium (1.6-2.3) mg/dL Iron (37-170) ug/dL TIBC (265-497) ug/dL % Saturation (20-50) % Ferritin (11-264) ng/mL Total Bilirubin (0.2-1.3) mg/dL AST (14-36) U/L ALT (9-52) U/L Alkaline Phosphatase (38-126) U/L NT-Pro-B Natriuret Pep pg/mL Total Protein (6.3-8.2) g/dL Albumin (3.5-5.0) g/dL Urine Color Urine Appearance (Clear) Urine pH (5.0-8.0) Ur Specific [place] (1.001-1.035) Urine Protein (Negative) Urine Glucose (UA) (Negative) Urine Ketones (Negative) Urine Blood (Negative) Urine Nitrite (Negative) Urine Bilirubin (Negative) Urine Urobilinogen (<2.0) mg/dL Ur Leukocyte Esterase (Negative) Urine WBC (0-5) /hpf Ur Squamous Epith Cells (0-4) /hpf Urine Bacteria (None) /hpf Hepatitis A IgM Ab Hep Bs Antigen Hep B Core IgM Ab Hep C IgG Ab (Negative) Blood Type Blood Type Recheck Antibody Screen Crossmatch Spec Expiration Date 10/20/16 10/20/16 10/20/16 Range/Units 06:27 11:42 16:06 WBC (3.8-10.6) k/uL RBC (3.80-5.40) m/uL Hgb (11.4-16.0) gm/dL Hct (34.0-46.0) % MCV (80.0-100.0) fL MCH (25.0-35.0) pg MCHC (31.0-37.0) g/dL RDW (11.5-15.5) % Plt Count (150-450) k/uL Neutrophils % % Neutrophils % (Manual) % Lymphocytes % % Lymphocytes % (Manual) % Monocytes % % Monocytes % (Manual) % Eosinophils % % Basophils % % Metamyelocytes % % Myelocytes % % Neutrophils # (1.3-7.7) k/uL Neutrophils # (Manual) (1.3-7.7) k/uL Lymphocytes # (1.0-4.8) k/uL Lymphocytes # (Manual) (1.0-4.8) k/uL Monocytes # (0-1.0) k/uL Monocytes # (Manual) (0-1.0) k/uL Eosinophils # (0-0.7) k/uL Basophils # (0-0.2) k/uL Nucleated RBCs (0-0) /100 WBC Manual Slide Review Polychromasia Hypochromasia Poikilocytosis Poikilocytosis (manual Anisocytosis Macrocytosis PT (9.0-12.0) sec INR (<1.1) APTT (22.0-30.0) sec D-Dimer (<0.60) mg/L FEU Sample Site ABG pH (7.35-7.45) ABG pCO2 (35-45) mmHg ABG pO2 (83-108) mmHg ABG HCO3 (21-25) mmol/L ABG Total CO2 (19-24) mmol/L ABG O2 Saturation (94-97) % ABG Base Excess mmol/L FiO2 % Sodium (137-145) mmol/L Potassium (3.5-5.1) mmol/L Chloride (98-107) mmol/L Carbon Dioxide (22-30) mmol/L Anion Gap mmol/L BUN (7-17) mg/dL Creatinine (0.52-1.04) mg/dL Est GFR (MDRD) Af Amer (>60 ml/min/1.73 sqM) Est GFR (MDRD) Non-Af (>60 ml/min/1.73 sqM) Glucose (74-99) mg/dL POC Glucose (mg/dL) 161 H 237 H (75-99) mg/dL POC Glu Regional Maintenance Manager Wendy Jose Tral[address] Glu mg/dL mg/dL Hemoglobin A1c (4.2-6.1) % Calcium (8.4-10.2) mg/dL Phosphorus 3.9 (2.5-4.5) mg/dL Magnesium 2.0 (1.6-2.3) mg/dL Iron (37-170) ug/dL TIBC (265-497) ug/dL % Saturation (20-50) % Ferritin (11-264) ng/mL Total Bilirubin (0.2-1.3) mg/dL AST (14-36) U/L ALT (9-52) U/L Alkaline Phosphatase (38-126) U/L NT-Pro-B Natriuret Pep pg/mL Total Protein (6.3-8.2) g/dL Albumin (3.5-5.0) g/dL Urine Color Urine Appearance (Clear) Urine pH (5.0-8.0) Ur Specific [place] (1.001-1.035) Urine Protein (Negative) Urine Glucose (UA) (Negative) Urine Ketones (Negative) Urine Blood (Negative) Urine Nitrite (Negative) Urine Bilirubin (Negative) Urine Urobilinogen (<2.0) mg/dL Ur Leukocyte Esterase (Negative) Urine WBC (0-5) /hpf Ur Squamous Epith Cells (0-4) /hpf Urine Bacteria (None) /hpf Hepatitis A IgM Ab Hep Bs Antigen Hep B Core IgM Ab Hep C IgG Ab (Negative) Blood Type Blood Type Recheck Antibody Screen Crossmatch Spec Expiration Date 10/20/16 10/21/16 10/21/16 Range/Units 21:13 01:39 06:36 WBC 16.0 H 14.3 H (3.8-10.6) k/uL RBC 2.74 L 2.81 L (3.80-5.40) m/uL Hgb 7.4 L 7.8 L (11.4-16.0) gm/dL Hct 26.8 L 27.7 L (34.0-46.0) % MCV 97.8 98.4 (80.0-100.0) fL MCH 26.8 27.9 (25.0-35.0) pg MCHC 27.5 L 28.3 L (31.0-37.0) g/dL RDW 15.8 H 15.6 H (11.5-15.5) % Plt Count 438 481 H (150-450) k/uL Neutrophils % 93 93 % Neutrophils % (Manual) % Lymphocytes % 3 3 % Lymphocytes % (Manual) % Monocytes % 3 3 % Monocytes % (Manual) % Eosinophils % 0 0 % Basophils % 0 0 % Metamyelocytes % % Myelocytes % % Neutrophils # 14.9 H 13.3 H (1.3-7.7) k/uL Neutrophils # (Manual) (1.3-7.7) k/uL Lymphocytes # 0.4 L 0.5 L (1.0-4.8) k/uL Lymphocytes # (Manual) (1.0-4.8) k/uL Monocytes # 0.5 0.4 (0-1.0) k/uL Monocytes # (Manual) (0-1.0) k/uL Eosinophils # 0.0 0.0 (0-0.7) k/uL Basophils # 0.1 0.0 (0-0.2) k/uL Nucleated RBCs (0-0) /100 WBC Manual Slide Review Polychromasia Hypochromasia Marked Marked Poikilocytosis Slight Slight Poikilocytosis (manual Anisocytosis Macrocytosis Slight Slight PT (9.0-12.0) sec INR (<1.1) APTT (22.0-30.0) sec D-Dimer (<0.60) mg/L FEU Sample Site ABG pH (7.35-7.45) ABG pCO2 (35-45) mmHg ABG pO2 (83-108) mmHg ABG HCO3 (21-25) mmol/L ABG Total CO2 (19-24) mmol/L ABG O2 Saturation (94-97) % ABG Base Excess mmol/L FiO2 % Sodium (137-145) mmol/L Potassium (3.5-5.1) mmol/L Chloride (98-107) mmol/L Carbon Dioxide (22-30) mmol/L Anion Gap mmol/L BUN (7-17) mg/dL Creatinine (0.52-1.04) mg/dL Est GFR (MDRD) Af Amer (>60 ml/min/1.73 sqM) Est GFR (MDRD) Non-Af (>60 ml/min/1.73 sqM) Glucose (74-99) mg/dL POC Glucose (mg/dL) 216 H (75-99) mg/dL POC Glu [employer] Manager ID Annmarie Feng [address] Glu mg/dL mg/dL Hemoglobin A1c (4.2-6.1) % Calcium (8.4-10.2) mg/dL Phosphorus (2.5-4.5) mg/dL Magnesium (1.6-2.3) mg/dL Iron (37-170) ug/dL TIBC (265-497) ug/dL % Saturation (20-50) % Ferritin (11-264) ng/mL Total Bilirubin (0.2-1.3) mg/dL AST (14-36) U/L ALT (9-52) U/L Alkaline Phosphatase (38-126) U/L NT-Pro-B Natriuret Pep pg/mL Total Protein (6.3-8.2) g/dL Albumin (3.5-5.0) g/dL Urine Color Urine Appearance (Clear) Urine pH (5.0-8.0) Ur Specific [place] (1.001-1.035) Urine Protein (Negative) Urine Glucose (UA) (Negative) Urine Ketones (Negative) Urine Blood (Negative) Urine Nitrite (Negative) Urine Bilirubin (Negative) Urine Urobilinogen (<2.0) mg/dL Ur Leukocyte Esterase (Negative) Urine WBC (0-5) /hpf Ur Squamous Epith Cells (0-4) /hpf Urine Bacteria (None) /hpf Hepatitis A IgM Ab Hep Bs Antigen Hep B Core IgM Ab Hep C IgG Ab (Negative) Blood Type Blood Type Recheck Antibody Screen Crossmatch Spec Expiration Date 10/21/16 10/21/1610/21/17 Range/Units 06:36 06:36 06:51 WBC (3.8-10.6) k/uL RBC (3.80-5.40) m/uL Hgb (11.4-16.0) gm/dL Hct (34.0-46.0) % MCV (80.0-100.0) fL MCH (25.0-35.0) pg MCHC (31.0-37.0) g/dL RDW (11.5-15.5) % Plt Count (150-450) k/uL Neutrophils % % Neutrophils % (Manual) % Lymphocytes % % Lymphocytes % (Manual) % Monocytes % % Monocytes % (Manual) % Eosinophils % % Basophils % % Metamyelocytes % % Myelocytes % % Neutrophils # (1.3-7.7) k/uL Neutrophils # (Manual) (1.3-7.7) k/uL Lymphocytes # (1.0-4.8) k/uL Lymphocytes # (Manual) (1.0-4.8) k/uL Monocytes # (0-1.0) k/uL Monocytes # (Manual) (0-1.0) k/uL Eosinophils # (0-0.7) k/uL Basophils # (0-0.2) k/uL Nucleated RBCs (0-0) /100 WBC Manual Slide Review Polychromasia Hypochromasia Poikilocytosis Poikilocytosis (manual Anisocytosis Macrocytosis PT (9.0-12.0) sec INR (<1.1) APTT (22.0-30.0) sec D-Dimer (<0.60) mg/L FEU Sample Site ABG pH (7.35-7.45) ABG pCO2 (35-45) mmHg ABG pO2 (83-108) mmHg ABG HCO3 (21-25) mmol/L ABG Total CO2 (19-24) mmol/L ABG O2 Saturation (94-97) % ABG Base Excess mmol/L FiO2 % Sodium 141 (137-145) mmol/L Potassium 5.8 H (3.5-5.1) mmol/L Chloride 104 (98-107) mmol/L Carbon Dioxide 22 (22-30) mmol/L Anion Gap 15 mmol/L BUN 82 H* (7-17) mg/dL Creatinine 1.82 H (0.52-1.04) mg/dL Est GFR (MDRD) Af Amer 34 (>60 ml/min/1.73 sqM) Est GFR (MDRD) Non-Af 28 (>60 ml/min/1.73 sqM) Glucose 247 H (74-99) mg/dL POC Glucose (mg/dL) 248 H (75-99) mg/dL POC Glu Regional Maintenance Manager ID Annmarie Feng [address] Glu mg/dL mg/dL Hemoglobin A1c (4.2-6.1) % Calcium 9.1 (8.4-10.2) mg/dL Phosphorus 4.8 H (2.5-4.5) mg/dL Magnesium 2.2 (1.6-2.3) mg/dL Iron (37-170) ug/dL TIBC (265-497) ug/dL % Saturation (20-50) % Ferritin (11-264) ng/mL Total Bilirubin (0.2-1.3) mg/dL AST (14-36) U/L ALT (9-52) U/L Alkaline Phosphatase (38-126) U/L NT-Pro-B Natriuret Pep pg/mL Total Protein (6.3-8.2) g/dL Albumin (3.5-5.0) g/dL Urine Color Urine Appearance (Clear) Urine pH (5.0-8.0) Ur Specific [place] (1.001-1.035) Urine Protein (Negative) Urine Glucose (UA) (Negative) Urine Ketones (Negative) Urine Blood (Negative) Urine Nitrite (Negative) Urine Bilirubin (Negative) Urine Urobilinogen (<2.0) mg/dL Ur Leukocyte Esterase (Negative) Urine WBC (0-5) /hpf Ur Squamous Epith Cells (0-4) /hpf Urine Bacteria (None) /hpf Hepatitis A IgM Ab Hep Bs Antigen Hep B Core IgM Ab Hep C IgG Ab (Negative) Blood Type Blood Type Recheck Antibody Screen Crossmatch Spec Expiration Date 10/21/16 10/21/16 10/21/16 Range/Units 11:58 17:21 19:45 WBC (3.8-10.6) k/uL RBC (3.80-5.40) m/uL Hgb (11.4-16.0) gm/dL Hct (34.0-46.0) % MCV (80.0-100.0) fL MCH (25.0-35.0) pg MCHC (31.0-37.0) g/dL RDW (11.5-15.5) % Plt Count (150-450) k/uL Neutrophils % % Neutrophils % (Manual) % Lymphocytes % % Lymphocytes % (Manual) % Monocytes % % Monocytes % (Manual) % Eosinophils % % Basophils % % Metamyelocytes % % Myelocytes % % Neutrophils # (1.3-7.7) k/uL Neutrophils # (Manual) (1.3-7.7) k/uL Lymphocytes # (1.0-4.8) k/uL Lymphocytes # (Manual) (1.0-4.8) k/uL Monocytes # (0-1.0) k/uL Monocytes # (Manual) (0-1.0) k/uL Eosinophils # (0-0.7) k/uL Basophils # (0-0.2) k/uL Nucleated RBCs (0-0) /100 WBC Manual Slide Review Polychromasia Hypochromasia Poikilocytosis Poikilocytosis (manual Anisocytosis Macrocytosis PT (9.0-12.0) sec INR (<1.1) APTT (22.0-30.0) sec D-Dimer (<0.60) mg/L FEU Sample Site ABG pH (7.35-7.45) ABG pCO2 (35-45) mmHg ABG pO2 (83-108) mmHg ABG HCO3 (21-25) mmol/L ABG Total CO2 (19-24) mmol/L ABG O2 Saturation (94-97) % ABG Base Excess mmol/L FiO2 % Sodium (137-145) mmol/L Potassium 5.6 H (3.5-5.1) mmol/L Chloride (98-107) mmol/L Carbon Dioxide (22-30) mmol/L Anion Gap mmol/L BUN (7-17) mg/dL Creatinine (0.52-1.04) mg/dL Est GFR (MDRD) Af Amer (>60 ml/min/1.73 sqM) Est GFR (MDRD) Non-Af (>60 ml/min/1.73 sqM) Glucose (74-99) mg/dL POC Glucose (mg/dL) 221 H 108 H (75-99) mg/dL POC Glu Regional Maintenance Manager SHRAVAN Awad, Radha Awad, Radha [address] Glu mg/dL mg/dL Hemoglobin A1c (4.2-6.1) % Calcium (8.4-10.2) mg/dL Phosphorus (2.5-4.5) mg/dL Magnesium (1.6-2.3) mg/dL Iron (37-170) ug/dL TIBC (265-497) ug/dL % Saturation (20-50) % Ferritin (11-264) ng/mL Total Bilirubin (0.2-1.3) mg/dL AST (14-36) U/L ALT (9-52) U/L Alkaline Phosphatase (38-126) U/L NT-Pro-B Natriuret Pep pg/mL Total Protein (6.3-8.2) g/dL Albumin (3.5-5.0) g/dL Urine Color Urine Appearance (Clear) Urine pH (5.0-8.0) Ur Specific [place] (1.001-1.035) Urine Protein (Negative) Urine Glucose (UA) (Negative) Urine Ketones (Negative) Urine Blood (Negative) Urine Nitrite (Negative) Urine Bilirubin (Negative) Urine Urobilinogen (<2.0) mg/dL Ur Leukocyte Esterase (Negative) Urine WBC (0-5) /hpf Ur Squamous Epith Cells (0-4) /hpf Urine Bacteria (None) /hpf Hepatitis A IgM Ab Hep Bs Antigen Hep B Core IgM Ab Hep C IgG Ab (Negative) Blood Type Blood Type Recheck Antibody Screen Crossmatch Spec Expiration Date 10/21/16 10/22/16 10/22/16 Range/Units 21:00 06:01 06:01 WBC 15.8 H (3.8-10.6) k/uL RBC 2.96 L (3.80-5.40) m/uL Hgb 8.0 L (11.4-16.0) gm/dL Hct 29.5 L (34.0-46.0) % MCV 99.9 (80.0-100.0) fL MCH 27.2 (25.0-35.0) pg MCHC 27.2 L (31.0-37.0) g/dL RDW 15.9 H (11.5-15.5) % Plt Count 562 H (150-450) k/uL Neutrophils % 80 % Neutrophils % (Manual) % Lymphocytes % 9 % Lymphocytes % (Manual) % Monocytes % 8 % Monocytes % (Manual) % Eosinophils % 0 % Basophils % 0 % Metamyelocytes % % Myelocytes % % Neutrophils # 12.6 H (1.3-7.7) k/uL Neutrophils # (Manual) (1.3-7.7) k/uL Lymphocytes # 1.4 (1.0-4.8) k/uL Lymphocytes # (Manual) (1.0-4.8) k/uL Monocytes # 1.3 H (0-1.0) k/uL Monocytes # (Manual) (0-1.0) k/uL Eosinophils # 0.0 (0-0.7) k/uL Basophils # 0.1 (0-0.2) k/uL Nucleated RBCs (0-0) /100 WBC Manual Slide Review Polychromasia Hypochromasia Marked Poikilocytosis Slight Poikilocytosis (manual Anisocytosis Macrocytosis Slight PT (9.0-12.0) sec INR (<1.1) APTT (22.0-30.0) sec D-Dimer (<0.60) mg/L FEU Sample Site ABG pH (7.35-7.45) ABG pCO2 (35-45) mmHg ABG pO2 (83-108) mmHg ABG HCO3 (21-25) mmol/L ABG Total CO2 (19-24) mmol/L ABG O2 Saturation (94-97) % ABG Base Excess mmol/L FiO2 % Sodium (137-145) mmol/L Potassium (3.5-5.1) mmol/L Chloride (98-107) mmol/L Carbon Dioxide (22-30) mmol/L Anion Gap mmol/L BUN (7-17) mg/dL Creatinine (0.52-1.04) mg/dL Est GFR (MDRD) Af Amer (>60 ml/min/1.73 sqM) Est GFR (MDRD) Non-Af (>60 ml/min/1.73 sqM) Glucose (74-99) mg/dL POC Glucose (mg/dL) 207 H (75-99) mg/dL POC Glu Regional Maintenance Manager ID Roby Pollock [address] Glu mg/dL mg/dL Hemoglobin A1c (4.2-6.1) % Calcium (8.4-10.2) mg/dL Phosphorus 5.3 H (2.5-4.5) mg/dL Magnesium 2.4 H (1.6-2.3) mg/dL Iron (37-170) ug/dL TIBC (265-497) ug/dL % Saturation (20-50) % Ferritin (11-264) ng/mL Total Bilirubin (0.2-1.3) mg/dL AST (14-36) U/L ALT (9-52) U/L Alkaline Phosphatase (38-126) U/L NT-Pro-B Natriuret Pep pg/mL Total Protein (6.3-8.2) g/dL Albumin (3.5-5.0) g/dL Urine Color Urine Appearance (Clear) Urine pH (5.0-8.0) Ur Specific [place] (1.001-1.035) Urine Protein (Negative) Urine Glucose (UA) (Negative) Urine Ketones (Negative) Urine Blood (Negative) Urine Nitrite (Negative) Urine Bilirubin (Negative) Urine Urobilinogen (<2.0) mg/dL Ur Leukocyte Esterase (Negative) Urine WBC (0-5) /hpf Ur Squamous Epith Cells (0-4) /hpf Urine Bacteria (None) /hpf Hepatitis A IgM Ab Hep Bs Antigen Hep B Core IgM Ab Hep C IgG Ab (Negative) Blood Type Blood Type Recheck Antibody Screen Crossmatch Spec Expiration Date 10/22/16 10/22/16 10/22/16 Range/Units 06:01 06:18 08:19 WBC (3.8-10.6) k/uL RBC (3.80-5.40) m/uL Hgb (11.4-16.0) gm/dL Hct (34.0-46.0) % MCV (80.0-100.0) fL MCH (25.0-35.0) pg MCHC (31.0-37.0) g/dL RDW (11.5-15.5) % Plt Count (150-450) k/uL Neutrophils % % Neutrophils % (Manual) % Lymphocytes % % Lymphocytes % (Manual) % Monocytes % % Monocytes % (Manual) % Eosinophils % % Basophils % % Metamyelocytes % % Myelocytes % % Neutrophils # (1.3-7.7) k/uL Neutrophils # (Manual) (1.3-7.7) k/uL Lymphocytes # (1.0-4.8) k/uL Lymphocytes # (Manual) (1.0-4.8) k/uL Monocytes # (0-1.0) k/uL Monocytes # (Manual) (0-1.0) k/uL Eosinophils # (0-0.7) k/uL Basophils # (0-0.2) k/uL Nucleated RBCs (0-0) /100 WBC Manual Slide Review Polychromasia Hypochromasia Poikilocytosis Poikilocytosis (manual Anisocytosis Macrocytosis PT (9.0-12.0) sec INR (<1.1) APTT (22.0-30.0) sec D-Dimer (<0.60) mg/L FEU Sample Site ABG pH (7.35-7.45) ABG pCO2 (35-45) mmHg ABG pO2 (83-108) mmHg ABG HCO3 (21-25) mmol/L ABG Total CO2 (19-24) mmol/L ABG O2 Saturation (94-97) % ABG Base Excess mmol/L FiO2 % Sodium 144 (137-145) mmol/L Potassium 5.5 H (3.5-5.1) mmol/L Chloride 107 (98-107) mmol/L Carbon Dioxide 23 (22-30) mmol/L Anion Gap 14 mmol/L BUN 93 H* (7-17) mg/dL Creatinine 2.07 H (0.52-1.04) mg/dL Est GFR (MDRD) Af Amer 29 (>60 ml/min/1.73 sqM) Est GFR (MDRD) Non-Af 24 (>60 ml/min/1.73 sqM) Glucose 133 H (74-99) mg/dL POC Glucose (mg/dL) 141 H 162 H (75-99) mg/dL POC Glu Regional Maintenance Manager Roby Hearn [address] Glu mg/dL mg/dL Hemoglobin A1c (4.2-6.1) % Calcium 9.7 (8.4-10.2) mg/dL Phosphorus (2.5-4.5) mg/dL Magnesium (1.6-2.3) mg/dL Iron (37-170) ug/dL TIBC (265-497) ug/dL % Saturation (20-50) % Ferritin (11-264) ng/mL Total Bilirubin 0.4 (0.2-1.3) mg/dL AST 19 (14-36) U/L ALT 29 (9-52) U/L Alkaline Phosphatase 81 (38-126) U/L NT-Pro-B Natriuret Pep pg/mL Total Protein 6.6 (6.3-8.2) g/dL Albumin 3.9 (3.5-5.0) g/dL Urine Color Urine Appearance (Clear) Urine pH (5.0-8.0) Ur Specific [place] (1.001-1.035) Urine Protein (Negative) Urine Glucose (UA) (Negative) Urine Ketones (Negative) Urine Blood (Negative) Urine Nitrite (Negative) Urine Bilirubin (Negative) Urine Urobilinogen (<2.0) mg/dL Ur Leukocyte Esterase (Negative) Urine WBC (0-5) /hpf Ur Squamous Epith Cells (0-4) /hpf Urine Bacteria (None) /hpf Hepatitis A IgM Ab Hep Bs Antigen Hep B Core IgM Ab Hep C IgG Ab (Negative) Blood Type Blood Type Recheck Antibody Screen Crossmatch Spec Expiration Date 10/22/16 10/22/16 10/22/16 Range/Units 08:50 09:13 11:18 WBC (3.8-10.6) k/uL RBC (3.80-5.40) m/uL Hgb (11.4-16.0) gm/dL Hct (34.0-46.0) % MCV (80.0-100.0) fL MCH (25.0-35.0) pg MCHC (31.0-37.0) g/dL RDW (11.5-15.5) % Plt Count (150-450) k/uL Neutrophils % % Neutrophils % (Manual) % Lymphocytes % % Lymphocytes % (Manual) % Monocytes % % Monocytes % (Manual) % Eosinophils % % Basophils % % Metamyelocytes % % Myelocytes % % Neutrophils # (1.3-7.7) k/uL Neutrophils # (Manual) (1.3-7.7) k/uL Lymphocytes # (1.0-4.8) k/uL Lymphocytes # (Manual) (1.0-4.8) k/uL Monocytes # (0-1.0) k/uL Monocytes # (Manual) (0-1.0) k/uL Eosinophils # (0-0.7) k/uL Basophils # (0-0.2) k/uL Nucleated RBCs (0-0) /100 WBC Manual Slide Review Polychromasia Hypochromasia Poikilocytosis Poikilocytosis (manual Anisocytosis Macrocytosis PT (9.0-12.0) sec INR (<1.1) APTT (22.0-30.0) sec D-Dimer 1.72 H (<0.60) mg/L FEU Sample Site rt radial ABG pH 7.23 L (7.35-7.45) ABG pCO2 64 H (35-45) mmHg ABG pO2 325 H (83-108) mmHg ABG HCO3 26 H (21-25) mmol/L ABG Total CO2 28 H (19-24) mmol/L ABG O2 Saturation 100.0 H (94-97) % ABG Base Excess -0.5 mmol/L FiO2 100 % Sodium (137-145) mmol/L Potassium (3.5-5.1) mmol/L Chloride (98-107) mmol/L Carbon Dioxide (22-30) mmol/L Anion Gap mmol/L BUN (7-17) mg/dL Creatinine (0.52-1.04) mg/dL Est GFR (MDRD) Af Amer (>60 ml/min/1.73 sqM) Est GFR (MDRD) Non-Af (>60 ml/min/1.73 sqM) Glucose (74-99) mg/dL POC Glucose (mg/dL) 176 H (75-99) mg/dL POC Glu Regional Maintenance Manager Frieda Nolasco [address] Glu mg/dL mg/dL Hemoglobin A1c (4.2-6.1) % Calcium (8.4-10.2) mg/dL Phosphorus (2.5-4.5) mg/dL Magnesium (1.6-2.3) mg/dL Iron (37-170) ug/dL TIBC (265-497) ug/dL % Saturation (20-50) % Ferritin (11-264) ng/mL Total Bilirubin (0.2-1.3) mg/dL AST (14-36) U/L ALT (9-52) U/L Alkaline Phosphatase (38-126) U/L NT-Pro-B Natriuret Pep pg/mL Total Protein (6.3-8.2) g/dL Albumin (3.5-5.0) g/dL Urine Color Urine Appearance (Clear) Urine pH (5.0-8.0) Ur Specific [place] (1.001-1.035) Urine Protein (Negative) Urine Glucose (UA) (Negative) Urine Ketones (Negative) Urine Blood (Negative) Urine Nitrite (Negative) Urine Bilirubin (Negative) Urine Urobilinogen (<2.0) mg/dL Ur Leukocyte Esterase (Negative) Urine WBC (0-5) /hpf Ur Squamous Epith Cells (0-4) /hpf Urine Bacteria (None) /hpf Hepatitis A IgM Ab Hep Bs Antigen Hep B Core IgM Ab Hep C IgG Ab (Negative) Blood Type Blood Type Recheck Antibody Screen Crossmatch Spec Expiration Date 10/22/16 10/22/16 10/22/16 Range/Units 14:30 16:50 16:56 WBC (3.8-10.6) k/uL RBC (3.80-5.40) m/uL Hgb (11.4-16.0) gm/dL Hct (34.0-46.0) % MCV (80.0-100.0) fL MCH (25.0-35.0) pg MCHC (31.0-37.0) g/dL RDW (11.5-15.5) % Plt Count (150-450) k/uL Neutrophils % % Neutrophils % (Manual) % Lymphocytes % % Lymphocytes % (Manual) % Monocytes % % Monocytes % (Manual) % Eosinophils % % Basophils % % Metamyelocytes % % Myelocytes % % Neutrophils # (1.3-7.7) k/uL Neutrophils # (Manual) (1.3-7.7) k/uL Lymphocytes # (1.0-4.8) k/uL Lymphocytes # (Manual) (1.0-4.8) k/uL Monocytes # (0-1.0) k/uL Monocytes # (Manual) (0-1.0) k/uL Eosinophils # (0-0.7) k/uL Basophils # (0-0.2) k/uL Nucleated RBCs (0-0) /100 WBC Manual Slide Review Polychromasia Hypochromasia Poikilocytosis Poikilocytosis (manual Anisocytosis Macrocytosis PT 10.5 (9.0-12.0) sec INR 1.0 (<1.1) APTT 20.9 L (22.0-30.0) sec D-Dimer (<0.60) mg/L FEU Sample Site ABG pH (7.35-7.45) ABG pCO2 (35-45) mmHg ABG pO2 (83-108) mmHg ABG HCO3 (21-25) mmol/L ABG Total CO2 (19-24) mmol/L ABG O2 Saturation (94-97) % ABG Base Excess mmol/L FiO2 % Sodium (137-145) mmol/L Potassium 5.3 H (3.5-5.1) mmol/L Chloride (98-107) mmol/L Carbon Dioxide (22-30) mmol/L Anion Gap mmol/L BUN (7-17) mg/dL Creatinine (0.52-1.04) mg/dL Est GFR (MDRD) Af Amer (>60 ml/min/1.73 sqM) Est GFR (MDRD) Non-Af (>60 ml/min/1.73 sqM) Glucose (74-99) mg/dL POC Glucose (mg/dL) 97 (75-99) mg/dL POC Glu Regional Maintenance Manager ID Yonas Jenni [address] Glu mg/dL mg/dL Hemoglobin A1c (4.2-6.1) % Calcium (8.4-10.2) mg/dL Phosphorus (2.5-4.5) mg/dL Magnesium (1.6-2.3) mg/dL Iron (37-170) ug/dL TIBC (265-497) ug/dL % Saturation (20-50) % Ferritin (11-264) ng/mL Total Bilirubin (0.2-1.3) mg/dL AST (14-36) U/L ALT (9-52) U/L Alkaline Phosphatase (38-126) U/L NT-Pro-B Natriuret Pep pg/mL Total Protein (6.3-8.2) g/dL Albumin (3.5-5.0) g/dL Urine Color Urine Appearance (Clear) Urine pH (5.0-8.0) Ur Specific [place] (1.001-1.035) Urine Protein (Negative) Urine Glucose (UA) (Negative) Urine Ketones (Negative) Urine Blood (Negative) Urine Nitrite (Negative) Urine Bilirubin (Negative) Urine Urobilinogen (<2.0) mg/dL Ur Leukocyte Esterase (Negative) Urine WBC (0-5) /hpf Ur Squamous Epith Cells (0-4) /hpf Urine Bacteria (None) /hpf Hepatitis A IgM Ab Hep Bs Antigen Hep B Core IgM Ab Hep C IgG Ab (Negative) Blood Type Blood Type Recheck Antibody Screen Crossmatch Spec Expiration Date 10/22/16 10/22/16 10/22/16 Range/Units 18:54 19:48 20:37 WBC (3.8-10.6) k/uL RBC (3.80-5.40) m/uL Hgb (11.4-16.0) gm/dL Hct (34.0-46.0) % MCV (80.0-100.0) fL MCH (25.0-35.0) pg MCHC (31.0-37.0) g/dL RDW (11.5-15.5) % Plt Count (150-450) k/uL Neutrophils % % Neutrophils % (Manual) % Lymphocytes % % Lymphocytes % (Manual) % Monocytes % % Monocytes % (Manual) % Eosinophils % % Basophils % % Metamyelocytes % % Myelocytes % % Neutrophils # (1.3-7.7) k/uL Neutrophils # (Manual) (1.3-7.7) k/uL Lymphocytes # (1.0-4.8) k/uL Lymphocytes # (Manual) (1.0-4.8) k/uL Monocytes # (0-1.0) k/uL Monocytes # (Manual) (0-1.0) k/uL Eosinophils # (0-0.7) k/uL Basophils # (0-0.2) k/uL Nucleated RBCs (0-0) /100 WBC Manual Slide Review Polychromasia Hypochromasia Poikilocytosis Poikilocytosis (manual Anisocytosis Macrocytosis PT (9.0-12.0) sec INR (<1.1) APTT 26.8 (22.0-30.0) sec D-Dimer (<0.60) mg/L FEU Sample Site L BRACHIAL ABG pH 7.25 L (7.35-7.45) ABG pCO2 61 H (35-45) mmHg ABG pO2 72 L (83-108) mmHg ABG HCO3 26 H (21-25) mmol/L ABG Total CO2 28 H (19-24) mmol/L ABG O2 Saturation 91.0 L (94-97) % ABG Base Excess -0.2 mmol/L FiO2 40 % Sodium (137-145) mmol/L Potassium (3.5-5.1) mmol/L Chloride (98-107) mmol/L Carbon Dioxide (22-30) mmol/L Anion Gap mmol/L BUN (7-17) mg/dL Creatinine (0.52-1.04) mg/dL Est GFR (MDRD) Af Amer (>60 ml/min/1.73 sqM) Est GFR (MDRD) Non-Af (>60 ml/min/1.73 sqM) Glucose (74-99) mg/dL POC Glucose (mg/dL) 231 H (75-99) mg/dL POC Glu Regional Maintenance Manager ID Mecca Banks [address] Glu mg/dL mg/dL Hemoglobin A1c (4.2-6.1) % Calcium (8.4-10.2) mg/dL Phosphorus (2.5-4.5) mg/dL Magnesium (1.6-2.3) mg/dL Iron (37-170) ug/dL TIBC (265-497) ug/dL % Saturation (20-50) % Ferritin (11-264) ng/mL Total Bilirubin (0.2-1.3) mg/dL AST (14-36) U/L ALT (9-52) U/L Alkaline Phosphatase (38-126) U/L NT-Pro-B Natriuret Pep pg/mL Total Protein (6.3-8.2) g/dL Albumin (3.5-5.0) g/dL Urine Color Urine Appearance (Clear) Urine pH (5.0-8.0) Ur Specific [place] (1.001-1.035) Urine Protein (Negative) Urine Glucose (UA) (Negative) Urine Ketones (Negative) Urine Blood (Negative) Urine Nitrite (Negative) Urine Bilirubin (Negative) Urine Urobilinogen (<2.0) mg/dL Ur Leukocyte Esterase (Negative) Urine WBC (0-5) /hpf Ur Squamous Epith Cells (0-4) /hpf Urine Bacteria (None) /hpf Hepatitis A IgM Ab Hep Bs Antigen Hep B Core IgM Ab Hep C IgG Ab (Negative) Blood Type Blood Type Recheck Antibody Screen Crossmatch Spec Expiration Date 10/23/16 10/23/16 10/23/16 Range/Units 04:41 04:41 04:41 WBC 11.7 H (3.8-10.6) k/uL RBC 3.01 L (3.80-5.40) m/uL Hgb 8.3 L (11.4-16.0) gm/dL Hct 29.7 L (34.0-46.0) % MCV 98.8 (80.0-100.0) fL MCH 27.5 (25.0-35.0) pg MCHC 27.8 L (31.0-37.0) g/dL RDW 15.8 H (11.5-15.5) % Plt Count 471 H (150-450) k/uL Neutrophils % 89 % Neutrophils % (Manual) % Lymphocytes % 5 % Lymphocytes % (Manual) % Monocytes % 4 % Monocytes % (Manual) % Eosinophils % 1 % Basophils % 0 % Metamyelocytes % % Myelocytes % % Neutrophils # 10.4 H (1.3-7.7) k/uL Neutrophils # (Manual) (1.3-7.7) k/uL Lymphocytes # 0.6 L (1.0-4.8) k/uL Lymphocytes # (Manual) (1.0-4.8) k/uL Monocytes # 0.4 (0-1.0) k/uL Monocytes # (Manual) (0-1.0) k/uL Eosinophils # 0.1 (0-0.7) k/uL Basophils # 0.0 (0-0.2) k/uL Nucleated RBCs (0-0) /100 WBC Manual Slide Review Polychromasia Hypochromasia Marked Poikilocytosis Slight Poikilocytosis (manual Anisocytosis Macrocytosis Slight PT (9.0-12.0) sec INR (<1.1) APTT 36.8 H (22.0-30.0) sec D-Dimer (<0.60) mg/L FEU Sample Site ABG pH (7.35-7.45) ABG pCO2 (35-45) mmHg ABG pO2 (83-108) mmHg ABG HCO3 (21-25) mmol/L ABG Total CO2 (19-24) mmol/L ABG O2 Saturation (94-97) % ABG Base Excess mmol/L FiO2 % Sodium 145 (137-145) mmol/L Potassium 5.1 (3.5-5.1) mmol/L Chloride 107 (98-107) mmol/L Carbon Dioxide 29 (22-30) mmol/L Anion Gap 9 mmol/L BUN 70 H (7-17) mg/dL Creatinine 1.50 H (0.52-1.04) mg/dL Est GFR (MDRD) Af Amer 42 (>60 ml/min/1.73 sqM) Est GFR (MDRD) Non-Af 35 (>60 ml/min/1.73 sqM) Glucose 133 H (74-99) mg/dL POC Glucose (mg/dL) (75-99) mg/dL POC Glu Regional Maintenance Manager ID [address]imated [address] Glu mg/dL mg/dL Hemoglobin A1c (4.2-6.1) % Calcium 9.8 (8.4-10.2) mg/dL Phosphorus 5.4 H (2.5-4.5) mg/dL Magnesium 2.4 H (1.6-2.3) mg/dL Iron (37-170) ug/dL TIBC (265-497) ug/dL % Saturation (20-50) % Ferritin (11-264) ng/mL Total Bilirubin 0.2 (0.2-1.3) mg/dL AST 26 (14-36) U/L ALT 44 (9-52) U/L Alkaline Phosphatase 78 (38-126) U/L NT-Pro-B Natriuret Pep pg/mL Total Protein 6.6 (6.3-8.2) g/dL Albumin 3.9 (3.5-5.0) g/dL Urine Color Urine Appearance (Clear) Urine pH (5.0-8.0) Ur Specific [place] (1.001-1.035) Urine Protein (Negative) Urine Glucose (UA) (Negative) Urine Ketones (Negative) Urine Blood (Negative) Urine Nitrite (Negative) Urine Bilirubin (Negative) Urine Urobilinogen (<2.0) mg/dL Ur Leukocyte Esterase (Negative) Urine WBC (0-5) /hpf Ur Squamous Epith Cells (0-4) /hpf Urine Bacteria (None) /hpf Hepatitis A IgM Ab Hep Bs Antigen Hep B Core IgM Ab Hep C IgG Ab (Negative) Blood Type Blood Type Recheck Antibody Screen Crossmatch Spec Expiration Date 10/23/16 10/23/16 10/23/16 Range/Units 04:41 06:06 11:54 WBC (3.8-10.6) k/uL RBC (3.80-5.40) m/uL Hgb (11.4-16.0) gm/dL Hct (34.0-46.0) % MCV (80.0-100.0) fL MCH (25.0-35.0) pg MCHC (31.0-37.0) g/dL RDW (11.5-15.5) % Plt Count (150-450) k/uL Neutrophils % % Neutrophils % (Manual) % Lymphocytes % % Lymphocytes % (Manual) % Monocytes % % Monocytes % (Manual) % Eosinophils % % Basophils % % Metamyelocytes % % Myelocytes % % Neutrophils # (1.3-7.7) k/uL Neutrophils # (Manual) (1.3-7.7) k/uL Lymphocytes # (1.0-4.8) k/uL Lymphocytes # (Manual) (1.0-4.8) k/uL Monocytes # (0-1.0) k/uL Monocytes # (Manual) (0-1.0) k/uL Eosinophils # (0-0.7) k/uL Basophils # (0-0.2) k/uL Nucleated RBCs (0-0) /100 WBC Manual Slide Review Polychromasia Hypochromasia Poikilocytosis Poikilocytosis (manual Anisocytosis Macrocytosis PT (9.0-12.0) sec INR (<1.1) APTT (22.0-30.0) sec D-Dimer (<0.60) mg/L FEU Sample Site ABG pH (7.35-7.45) ABG pCO2 (35-45) mmHg ABG pO2 (83-108) mmHg ABG HCO3 (21-25) mmol/L ABG Total CO2 (19-24) mmol/L ABG O2 Saturation (94-97) % ABG Base Excess mmol/L FiO2 % Sodium (137-145) mmol/L Potassium (3.5-5.1) mmol/L Chloride (98-107) mmol/L Carbon Dioxide (22-30) mmol/L Anion Gap mmol/L BUN (7-17) mg/dL Creatinine (0.52-1.04) mg/dL Est GFR (MDRD) Af Amer (>60 ml/min/1.73 sqM) Est GFR (MDRD) Non-Af (>60 ml/min/1.73 sqM) Glucose (74-99) mg/dL POC Glucose (mg/dL) 138 H 110 H (75-99) mg/dL POC Glu [facility]June DemetrioMckay lopezFrieda [address] Glu mg/dL mg/dL Hemoglobin A1c (4.2-6.1) % Calcium (8.4-10.2) mg/dL Phosphorus (2.5-4.5) mg/dL Magnesium (1.6-2.3) mg/dL Iron 39 (37-170) ug/dL TIBC 386 (265-497) ug/dL % Saturation 10.1 L (20-50) % Ferritin 20 (11-264) ng/mL Total Bilirubin (0.2-1.3) mg/dL AST (14-36) U/L ALT (9-52) U/L Alkaline Phosphatase (38-126) U/L NT-Pro-B Natriuret Pep pg/mL Total Protein (6.3-8.2) g/dL Albumin (3.5-5.0) g/dL Urine Color Urine Appearance (Clear) Urine pH (5.0-8.0) Ur Specific [place] (1.001-1.035) Urine Protein (Negative) Urine Glucose (UA) (Negative) Urine Ketones (Negative) Urine Blood (Negative) Urine Nitrite (Negative) Urine Bilirubin (Negative) Urine Urobilinogen (<2.0) mg/dL Ur Leukocyte Esterase (Negative) Urine WBC (0-5) /hpf Ur Squamous Epith Cells (0-4) /hpf Urine Bacteria (None) /hpf Hepatitis A IgM Ab Hep Bs Antigen Hep B Core IgM Ab Hep C IgG Ab (Negative) Blood Type Blood Type Recheck Antibody Screen Crossmatch Spec Expiration Date 10/23/16 10/23/16 10/24/16 Range/Units 16:26 20:53 05:39 WBC (3.8-10.6) k/uL RBC (3.80-5.40) m/uL Hgb (11.4-16.0) gm/dL Hct (34.0-46.0) % MCV (80.0-100.0) fL MCH (25.0-35.0) pg MCHC (31.0-37.0) g/dL RDW (11.5-15.5) % Plt Count (150-450) k/uL Neutrophils % % Neutrophils % (Manual) % Lymphocytes % % Lymphocytes % (Manual) % Monocytes % % Monocytes % (Manual) % Eosinophils % % Basophils % % Metamyelocytes % % Myelocytes % % Neutrophils # (1.3-7.7) k/uL Neutrophils # (Manual) (1.3-7.7) k/uL Lymphocytes # (1.0-4.8) k/uL Lymphocytes # (Manual) (1.0-4.8) k/uL Monocytes # (0-1.0) k/uL Monocytes # (Manual) (0-1.0) k/uL Eosinophils # (0-0.7) k/uL Basophils # (0-0.2) k/uL Nucleated RBCs (0-0) /100 WBC Manual Slide Review Polychromasia Hypochromasia Poikilocytosis Poikilocytosis (manual Anisocytosis Macrocytosis PT (9.0-12.0) sec INR (<1.1) APTT (22.0-30.0) sec D-Dimer (<0.60) mg/L FEU Sample Site ABG pH (7.35-7.45) ABG pCO2 (35-45) mmHg ABG pO2 (83-108) mmHg ABG HCO3 (21-25) mmol/L ABG Total CO2 (19-24) mmol/L ABG O2 Saturation (94-97) % ABG Base Excess mmol/L FiO2 % Sodium (137-145) mmol/L Potassium (3.5-5.1) mmol/L Chloride (98-107) mmol/L Carbon Dioxide (22-30) mmol/L Anion Gap mmol/L BUN (7-17) mg/dL Creatinine (0.52-1.04) mg/dL Est GFR (MDRD) Af Amer (>60 ml/min/1.73 sqM) Est GFR (MDRD) Non-Af (>60 ml/min/1.73 sqM) Glucose (74-99) mg/dL POC Glucose (mg/dL) 90 301 H 135 H (75-99) mg/dL POC Glu Regional Maintenance Manager Frieda Nolasco, [address] Glu mg/dL mg/dL Hemoglobin A1c (4.2-6.1) % Calcium (8.4-10.2) mg/dL Phosphorus (2.5-4.5) mg/dL Magnesium (1.6-2.3) mg/dL Iron (37-170) ug/dL TIBC (265-497) ug/dL % Saturation (20-50) % Ferritin (11-264) ng/mL Total Bilirubin (0.2-1.3) mg/dL AST (14-36) U/L ALT (9-52) U/L Alkaline Phosphatase (38-126) U/L NT-Pro-B Natriuret Pep pg/mL Total Protein (6.3-8.2) g/dL Albumin (3.5-5.0) g/dL Urine Color Urine Appearance (Clear) Urine pH (5.0-8.0) Ur Specific [place] (1.001-1.035) Urine Protein (Negative) Urine Glucose (UA) (Negative) Urine Ketones (Negative) Urine Blood (Negative) Urine Nitrite (Negative) Urine Bilirubin (Negative) Urine Urobilinogen (<2.0) mg/dL Ur Leukocyte Esterase (Negative) Urine WBC (0-5) /hpf Ur Squamous Epith Cells (0-4) /hpf Urine Bacteria (None) /hpf Hepatitis A IgM Ab Hep Bs Antigen Hep B Core IgM Ab Hep C IgG Ab (Negative) Blood Type Blood Type Recheck Antibody Screen Crossmatch Spec Expiration Date 10/24/16 10/24/16 10/24/16 Range/Units 06:35 06:35 06:35 WBC 11.7 H (3.8-10.6) k/uL RBC 2.69 L (3.80-5.40) m/uL Hgb 7.5 L (11.4-16.0) gm/dL Hct 26.1 L (34.0-46.0) % MCV 96.9 (80.0-100.0) fL MCH 28.0 (25.0-35.0) pg MCHC 28.9 L (31.0-37.0) g/dL RDW 16.2 H (11.5-15.5) % Plt Count 462 H (150-450) k/uL Neutrophils % 72 % Neutrophils % (Manual) % Lymphocytes % 19 % Lymphocytes % (Manual) % Monocytes % 7 % Monocytes % (Manual) % Eosinophils % 0 % Basophils % 0 % Metamyelocytes % % Myelocytes % % Neutrophils # 8.4 H (1.3-7.7) k/uL Neutrophils # (Manual) (1.3-7.7) k/uL Lymphocytes # 2.2 (1.0-4.8) k/uL Lymphocytes # (Manual) (1.0-4.8) k/uL Monocytes # 0.8 (0-1.0) k/uL Monocytes # (Manual) (0-1.0) k/uL Eosinophils # 0.0 (0-0.7) k/uL Basophils # 0.0 (0-0.2) k/uL Nucleated RBCs (0-0) /100 WBC Manual Slide Review Polychromasia Hypochromasia Marked Poikilocytosis Slight Poikilocytosis (manual Anisocytosis Slight Macrocytosis Slight PT (9.0-12.0) sec INR (<1.1) APTT 49.6 H (22.0-30.0) sec D-Dimer (<0.60) mg/L FEU Sample Site ABG pH (7.35-7.45) ABG pCO2 (35-45) mmHg ABG pO2 (83-108) mmHg ABG HCO3 (21-25) mmol/L ABG Total CO2 (19-24) mmol/L ABG O2 Saturation (94-97) % ABG Base Excess mmol/L FiO2 % Sodium 145 (137-145) mmol/L Potassium 4.4 (3.5-5.1) mmol/L Chloride 107 (98-107) mmol/L Carbon Dioxide 29 (22-30) mmol/L Anion Gap 9 mmol/L BUN 60 H (7-17) mg/dL Creatinine 1.22 H (0.52-1.04) mg/dL Est GFR (MDRD) Af Amer 54 (>60 ml/min/1.73 sqM) Est GFR (MDRD) Non-Af 44 (>60 ml/min/1.73 sqM) Glucose 100 H (74-99) mg/dL POC Glucose (mg/dL) (75-99) mg/dL POC Glu Regional Maintenance Manager ID Estimated Ave Glu mg/dL mg/dL Hemoglobin A1c (4.2-6.1) % Calcium 9.6 (8.4-10.2) mg/dL Phosphorus (2.5-4.5) mg/dL Magnesium (1.6-2.3) mg/dL Iron (37-170) ug/dL TIBC (265-497) ug/dL % Saturation (20-50) % Ferritin (11-264) ng/mL Total Bilirubin (0.2-1.3) mg/dL AST (14-36) U/L ALT (9-52) U/L Alkaline Phosphatase (38-126) U/L NT-Pro-B Natriuret Pep pg/mL Total Protein (6.3-8.2) g/dL Albumin (3.5-5.0) g/dL Urine Color Urine Appearance (Clear) Urine pH (5.0-8.0) Ur Specific [place] (1.001-1.035) Urine Protein (Negative) Urine Glucose (UA) (Negative) Urine Ketones (Negative) Urine Blood (Negative) Urine Nitrite (Negative) Urine Bilirubin (Negative) Urine Urobilinogen (<2.0) mg/dL Ur Leukocyte Esterase (Negative) Urine WBC (0-5) /hpf Ur Squamous Epith Cells (0-4) /hpf Urine Bacteria (None) /hpf Hepatitis A IgM Ab Hep Bs Antigen Hep B Core IgM Ab Hep C IgG Ab (Negative) Blood Type Blood Type Recheck Antibody Screen Crossmatch Spec Expiration Date 0510/24/16 10/24/16 Range/Units 11:33 16:31 20:46 WBC (3.8-10.6) k/uL RBC (3.80-5.40) m/uL Hgb (11.4-16.0) gm/dL Hct (34.0-46.0) % MCV (80.0-100.0) fL MCH (25.0-35.0) pg MCHC (31.0-37.0) g/dL RDW (11.5-15.5) % Plt Count (150-450) k/uL Neutrophils % % Neutrophils % (Manual) % Lymphocytes % % Lymphocytes % (Manual) % Monocytes % % Monocytes % (Manual) % Eosinophils % % Basophils % % Metamyelocytes % % Myelocytes % % Neutrophils # (1.3-7.7) k/uL Neutrophils # (Manual) (1.3-7.7) k/uL Lymphocytes # (1.0-4.8) k/uL Lymphocytes # (Manual) (1.0-4.8) k/uL Monocytes # (0-1.0) k/uL Monocytes # (Manual) (0-1.0) k/uL Eosinophils # (0-0.7) k/uL Basophils # (0-0.2) k/uL Nucleated RBCs (0-0) /100 WBC Manual Slide Review Polychromasia Hypochromasia Poikilocytosis Poikilocytosis (manual Anisocytosis Macrocytosis PT (9.0-12.0) sec INR (<1.1) APTT (22.0-30.0) sec D-Dimer (<0.60) mg/L FEU Sample Site ABG pH (7.35-7.45) ABG pCO2 (35-45) mmHg ABG pO2 (83-108) mmHg ABG HCO3 (21-25) mmol/L ABG Total CO2 (19-24) mmol/L ABG O2 Saturation (94-97) % ABG Base Excess mmol/L FiO2 % Sodium (137-145) mmol/L Potassium (3.5-5.1) mmol/L Chloride (98-107) mmol/L Carbon Dioxide (22-30) mmol/L Anion Gap mmol/L BUN (7-17) mg/dL Creatinine (0.52-1.04) mg/dL Est GFR (MDRD) Af Amer (>60 ml/min/1.73 sqM) Est GFR (MDRD) Non-Af (>60 ml/min/1.73 sqM) Glucose (74-99) mg/dL POC Glucose (mg/dL) 161 H 121 H 133 H (75-99) mg/dL POC Glu Regional Maintenance Manager ID Demetrio, Frieda Demetrio, FriedaLilly Mcguire [address] Glu mg/dL mg/dL Hemoglobin A1c (4.2-6.1) % Calcium (8.4-10.2) mg/dL Phosphorus (2.5-4.5) mg/dL Magnesium (1.6-2.3) mg/dL Iron (37-170) ug/dL TIBC (265-497) ug/dL % Saturation (20-50) % Ferritin (11-264) ng/mL Total Bilirubin (0.2-1.3) mg/dL AST (14-36) U/L ALT (9-52) U/L Alkaline Phosphatase (38-126) U/L NT-Pro-B Natriuret Pep pg/mL Total Protein (6.3-8.2) g/dL Albumin (3.5-5.0) g/dL Urine Color Urine Appearance (Clear) Urine pH (5.0-8.0) Ur Specific [place] (1.001-1.035) Urine Protein (Negative) Urine Glucose (UA) (Negative) Urine Ketones (Negative) Urine Blood (Negative) Urine Nitrite (Negative) Urine Bilirubin (Negative) Urine Urobilinogen (<2.0) mg/dL Ur Leukocyte Esterase (Negative) Urine WBC (0-5) /hpf Ur Squamous Epith Cells (0-4) /hpf Urine Bacteria (None) /hpf Hepatitis A IgM Ab Hep Bs Antigen Hep B Core IgM Ab Hep C IgG Ab (Negative) Blood Type Blood Type Recheck Antibody Screen Crossmatch Spec Expiration Date 10/25/16 10/25/16 10/25/16 Range/Units 02:00 05:57 05:57 WBC 21.7 H (3.8-10.6) k/uL RBC 2.96 L (3.80-5.40) m/uL Hgb 8.2 L (11.4-16.0) gm/dL Hct 29.1 L (34.0-46.0) % MCV 98.3 (80.0-100.0) fL MCH 27.7 (25.0-35.0) pg MCHC 28.2 L (31.0-37.0) g/dL RDW 16.6 H (11.5-15.5) % Plt Count 445 (150-450) k/uL Neutrophils % % Neutrophils % (Manual) 83.0 % Lymphocytes % % Lymphocytes % (Manual) 6.0 % Monocytes % % Monocytes % (Manual) 6.0 % Eosinophils % % Basophils % % Metamyelocytes % 1.5 % Myelocytes % 3.5 % Neutrophils # (1.3-7.7) k/uL Neutrophils # (Manual) 18.0 H (1.3-7.7) k/uL Lymphocytes # (1.0-4.8) k/uL Lymphocytes # (Manual) 1.3 (1.0-4.8) k/uL Monocytes # (0-1.0) k/uL Monocytes # (Manual) 1.3 H (0-1.0) k/uL Eosinophils # (0-0.7) k/uL Basophils # (0-0.2) k/uL Nucleated RBCs 0 (0-0) /100 WBC Manual Slide Review Performed Polychromasia Present Hypochromasia Marked Poikilocytosis Poikilocytosis (manual Present Anisocytosis Slight Macrocytosis Slight PT (9.0-12.0) sec INR (<1.1) APTT (22.0-30.0) sec D-Dimer (<0.60) mg/L FEU Sample Site ABG pH (7.35-7.45) ABG pCO2 (35-45) mmHg ABG pO2 (83-108) mmHg ABG HCO3 (21-25) mmol/L ABG Total CO2 (19-24) mmol/L ABG O2 Saturation (94-97) % ABG Base Excess mmol/L FiO2 % Sodium 139 (137-145) mmol/L Potassium 5.3 H (3.5-5.1) mmol/L Chloride 104 (98-107) mmol/L Carbon Dioxide 25 (22-30) mmol/L Anion Gap 10 mmol/L BUN 73 H (7-17) mg/dL Creatinine 2.26 H (0.52-1.04) mg/dL Est GFR (MDRD) Af Amer 26 (>60 ml/min/1.73 sqM) Est GFR (MDRD) Non-Af 22 (>60 ml/min/1.73 sqM) Glucose 177 H (74-99) mg/dL POC Glucose (mg/dL) 207 H (75-99) mg/dL POC Glu Regional Maintenance Manager ID Bethany Kay [address] Glu mg/dL mg/dL Hemoglobin A1c (4.2-6.1) % Calcium 9.1 (8.4-10.2) mg/dL Phosphorus (2.5-4.5) mg/dL Magnesium (1.6-2.3) mg/dL Iron (37-170) ug/dL TIBC (265-497) ug/dL % Saturation (20-50) % Ferritin (11-264) ng/mL Total Bilirubin (0.2-1.3) mg/dL AST (14-36) U/L ALT (9-52) U/L Alkaline Phosphatase (38-126) U/L NT-Pro-B Natriuret Pep pg/mL Total Protein (6.3-8.2) g/dL Albumin (3.5-5.0) g/dL Urine Color Urine Appearance (Clear) Urine pH (5.0-8.0) Ur Specific [place] (1.001-1.035) Urine Protein (Negative) Urine Glucose (UA) (Negative) Urine Ketones (Negative) Urine Blood (Negative) Urine Nitrite (Negative) Urine Bilirubin (Negative) Urine Urobilinogen (<2.0) mg/dL Ur Leukocyte Esterase (Negative) Urine WBC (0-5) /hpf Ur Squamous Epith Cells (0-4) /hpf Urine Bacteria (None) /hpf Hepatitis A IgM Ab Hep Bs Antigen Hep B Core IgM Ab Hep C IgG Ab (Negative) Blood Type Blood Type Recheck Antibody Screen Crossmatch Spec Expiration Date 10/25/16 10/25/16 10/25/16 Range/Units 05:57 05:57 11:53 WBC (3.8-10.6) k/uL RBC (3.80-5.40) m/uL Hgb (11.4-16.0) gm/dL Hct (34.0-46.0) % MCV (80.0-100.0) fL MCH (25.0-35.0) pg MCHC (31.0-37.0) g/dL RDW (11.5-15.5) % Plt Count (150-450) k/uL Neutrophils % % Neutrophils % (Manual) % Lymphocytes % % Lymphocytes % (Manual) % Monocytes % % Monocytes % (Manual) % Eosinophils % % Basophils % % Metamyelocytes % % Myelocytes % % Neutrophils # (1.3-7.7) k/uL Neutrophils # (Manual) (1.3-7.7) k/uL Lymphocytes # (1.0-4.8) k/uL Lymphocytes # (Manual) (1.0-4.8) k/uL Monocytes # (0-1.0) k/uL Monocytes # (Manual) (0-1.0) k/uL Eosinophils # (0-0.7) k/uL Basophils # (0-0.2) k/uL Nucleated RBCs (0-0) /100 WBC Manual Slide Review Polychromasia Hypochromasia Poikilocytosis Poikilocytosis (manual Anisocytosis Macrocytosis PT (9.0-12.0) sec INR (<1.1) APTT 21.7 L (22.0-30.0) sec D-Dimer (<0.60) mg/L FEU Sample Site ABG pH (7.35-7.45) ABG pCO2 (35-45) mmHg ABG pO2 (83-108) mmHg ABG HCO3 (21-25) mmol/L ABG Total CO2 (19-24) mmol/L ABG O2 Saturation (94-97) % ABG Base Excess mmol/L FiO2 % Sodium (137-145) mmol/L Potassium (3.5-5.1) mmol/L Chloride (98-107) mmol/L Carbon Dioxide (22-30) mmol/L Anion Gap mmol/L BUN (7-17) mg/dL Creatinine (0.52-1.04) mg/dL Est GFR (MDRD) Af Amer (>60 ml/min/1.73 sqM) Est GFR (MDRD) Non-Af (>60 ml/min/1.73 sqM) Glucose (74-99) mg/dL POC Glucose (mg/dL) 224 H 227 H (75-99) mg/dL POC Glu Regional Maintenance Manager Lilly Oates [address] Glu mg/dL mg/dL Hemoglobin A1c (4.2-6.1) % Calcium (8.4-10.2) mg/dL Phosphorus (2.5-4.5) mg/dL Magnesium (1.6-2.3) mg/dL Iron (37-170) ug/dL TIBC (265-497) ug/dL % Saturation (20-50) % Ferritin (11-264) ng/mL Total Bilirubin (0.2-1.3) mg/dL AST (14-36) U/L ALT (9-52) U/L Alkaline Phosphatase (38-126) U/L NT-Pro-B Natriuret Pep pg/mL Total Protein (6.3-8.2) g/dL Albumin (3.5-5.0) g/dL Urine Color Urine Appearance (Clear) Urine pH (5.0-8.0) Ur Specific [place] (1.001-1.035) Urine Protein (Negative) Urine Glucose (UA) (Negative) Urine Ketones (Negative) Urine Blood (Negative) Urine Nitrite (Negative) Urine Bilirubin (Negative) Urine Urobilinogen (<2.0) mg/dL Ur Leukocyte Esterase (Negative) Urine WBC (0-5) /hpf Ur Squamous Epith Cells (0-4) /hpf Urine Bacteria (None) /hpf Hepatitis A IgM Ab Hep Bs Antigen Hep B Core IgM Ab Hep C IgG Ab (Negative) Blood Type Blood Type Recheck Antibody Screen Crossmatch Spec Expiration Date 10/25/16 10/25/16 10/25/16 Range/Units 13:26 13:26 16:39 WBC 15.9 H (3.8-10.6) k/uL RBC 2.91 L (3.80-5.40) m/uL Hgb 8.0 L (11.4-16.0) gm/dL Hct 28.5 L (34.0-46.0) % MCV 98.0 (80.0-100.0) fL MCH 27.7 (25.0-35.0) pg MCHC 28.2 L (31.0-37.0) g/dL RDW 16.3 H (11.5-15.5) % Plt Count 349 (150-450) k/uL Neutrophils % 91 % Neutrophils % (Manual) % Lymphocytes % 3 % Lymphocytes % (Manual) % Monocytes % 4 % Monocytes % (Manual) % Eosinophils % 0 % Basophils % 0 % Metamyelocytes % % Myelocytes % % Neutrophils # 14.5 H (1.3-7.7) k/uL Neutrophils # (Manual) (1.3-7.7) k/uL Lymphocytes # 0.5 L (1.0-4.8) k/uL Lymphocytes # (Manual) (1.0-4.8) k/uL Monocytes # 0.6 (0-1.0) k/uL Monocytes # (Manual) (0-1.0) k/uL Eosinophils # 0.1 (0-0.7) k/uL Basophils # 0.1 (0-0.2) k/uL Nucleated RBCs (0-0) /100 WBC Manual Slide Review Polychromasia Hypochromasia Marked Poikilocytosis Poikilocytosis (manual Anisocytosis Slight Macrocytosis Slight PT (9.0-12.0) sec INR (<1.1) APTT (22.0-30.0) sec D-Dimer (<0.60) mg/L FEU Sample Site ABG pH (7.35-7.45) ABG pCO2 (35-45) mmHg ABG pO2 (83-108) mmHg ABG HCO3 (21-25) mmol/L ABG Total CO2 (19-24) mmol/L ABG O2 Saturation (94-97) % ABG Base Excess mmol/L FiO2 % Sodium 137 (137-145) mmol/L Potassium 5.2 H (3.5-5.1) mmol/L Chloride 104 (98-107) mmol/L Carbon Dioxide 23 (22-30) mmol/L Anion Gap 10 mmol/L BUN 77 H (7-17) mg/dL Creatinine 2.51 H (0.52-1.04) mg/dL Est GFR (MDRD) Af Amer 23 (>60 ml/min/1.73 sqM) Est GFR (MDRD) Non-Af 19 (>60 ml/min/1.73 sqM) Glucose 198 H (74-99) mg/dL POC Glucose (mg/dL) 273 H (75-99) mg/dL POC Glu Regional Maintenance Manager Frieda Nolasco [address] Glu mg/dL mg/dL Hemoglobin A1c (4.2-6.1) % Calcium 8.8 (8.4-10.2) mg/dL Phosphorus (2.5-4.5) mg/dL Magnesium (1.6-2.3) mg/dL Iron (37-170) ug/dL TIBC (265-497) ug/dL % Saturation (20-50) % Ferritin (11-264) ng/mL Total Bilirubin (0.2-1.3) mg/dL AST (14-36) U/L ALT (9-52) U/L Alkaline Phosphatase (38-126) U/L NT-Pro-B Natriuret Pep pg/mL Total Protein (6.3-8.2) g/dL Albumin (3.5-5.0) g/dL Urine Color Urine Appearance (Clear) Urine pH (5.0-8.0) Ur Specific [place] (1.001-1.035) Urine Protein (Negative) Urine Glucose (UA) (Negative) Urine Ketones (Negative) Urine Blood (Negative) Urine Nitrite (Negative) Urine Bilirubin (Negative) Urine Urobilinogen (<2.0) mg/dL Ur Leukocyte Esterase (Negative) Urine WBC (0-5) /hpf Ur Squamous Epith Cells (0-4) /hpf Urine Bacteria (None) /hpf Hepatitis A IgM Ab Hep Bs Antigen Hep B Core IgM Ab Hep C IgG Ab (Negative) Blood Type Blood Type Recheck Antibody Screen Crossmatch Spec Expiration Date 10/25/16 10/25/16 10/26/16 Range/Units 18:51 20:18 05:29 WBC 20.5 H (3.8-10.6) k/uL RBC 2.92 L (3.80-5.40) m/uL Hgb 8.3 L (11.4-16.0) gm/dL Hct 27.5 L (34.0-46.0) % MCV 94.3 (80.0-100.0) fL MCH 28.5 (25.0-35.0) pg MCHC 30.3 L (31.0-37.0) g/dL RDW 17.3 H (11.5-15.5) % Plt Count 267 (150-450) k/uL Neutrophils % % Neutrophils % (Manual) 81.5 % Lymphocytes % % Lymphocytes % (Manual) 7.0 % Monocytes % % Monocytes % (Manual) 8.5 % Eosinophils % % Basophils % % Metamyelocytes % % Myelocytes % 3.0 % Neutrophils # (1.3-7.7) k/uL Neutrophils # (Manual) 16.7 H (1.3-7.7) k/uL Lymphocytes # (1.0-4.8) k/uL Lymphocytes # (Manual) 1.4 (1.0-4.8) k/uL Monocytes # (0-1.0) k/uL Monocytes # (Manual) 1.7 H (0-1.0) k/uL Eosinophils # (0-0.7) k/uL Basophils # (0-0.2) k/uL Nucleated RBCs 0 (0-0) /100 WBC Manual Slide Review Performed Polychromasia Present Hypochromasia Marked Poikilocytosis Slight Poikilocytosis (manual Anisocytosis Slight Macrocytosis PT (9.0-12.0) sec INR (<1.1) APTT (22.0-30.0) sec D-Dimer (<0.60) mg/L FEU Sample Site ABG pH (7.35-7.45) ABG pCO2 (35-45) mmHg ABG pO2 (83-108) mmHg ABG HCO3 (21-25) mmol/L ABG Total CO2 (19-24) mmol/L ABG O2 Saturation (94-97) % ABG Base Excess mmol/L FiO2 % Sodium (137-145) mmol/L Potassium (3.5-5.1) mmol/L Chloride (98-107) mmol/L Carbon Dioxide (22-30) mmol/L Anion Gap mmol/L BUN (7-17) mg/dL Creatinine (0.52-1.04) mg/dL Est GFR (MDRD) Af Amer (>60 ml/min/1.73 sqM) Est GFR (MDRD) Non-Af (>60 ml/min/1.73 sqM) Glucose (74-99) mg/dL POC Glucose (mg/dL) 224 H (75-99) mg/dL POC Glu Regional Maintenance Manager ID Maykel Martinez [address] Glu mg/dL mg/dL Hemoglobin A1c (4.2-6.1) % Calcium (8.4-10.2) mg/dL Phosphorus (2.5-4.5) mg/dL Magnesium (1.6-2.3) mg/dL Iron (37-170) ug/dL TIBC (265-497) ug/dL % Saturation (20-50) % Ferritin (11-264) ng/mL Total Bilirubin (0.2-1.3) mg/dL AST (14-36) U/L ALT (9-52) U/L Alkaline Phosphatase (38-126) U/L NT-Pro-B Natriuret Pep pg/mL Total Protein (6.3-8.2) g/dL Albumin (3.5-5.0) g/dL Urine Color Yellow Urine Appearance Cloudy H (Clear) Urine pH 5.0 (5.0-8.0) Ur Specific [place] 1.016 (1.001-1.035) Urine Protein 1+ H (Negative) Urine Glucose (UA) Negative (Negative) Urine Ketones Negative (Negative) Urine Blood Trace H (Negative) Urine Nitrite Negative (Negative) Urine Bilirubin Negative (Negative) Urine Urobilinogen <2.0 (<2.0) mg/dL Ur Leukocyte Esterase Negative (Negative) Urine WBC 1 (0-5) /hpf Ur Squamous Epith Cells 1 (0-4) /hpf Urine Bacteria Rare H (None) /hpf Hepatitis A IgM Ab Hep Bs Antigen Hep B Core IgM Ab Hep C IgG Ab (Negative) Blood Type Blood Type Recheck Antibody Screen Crossmatch Spec Expiration Date 10/26/16 10/26/16 10/26/16 Range/Units 05:29 05:29 06:20 WBC (3.8-10.6) k/uL RBC (3.80-5.40) m/uL Hgb (11.4-16.0) gm/dL Hct (34.0-46.0) % MCV (80.0-100.0) fL MCH (25.0-35.0) pg MCHC (31.0-37.0) g/dL RDW (11.5-15.5) % Plt Count (150-450) k/uL Neutrophils % % Neutrophils % (Manual) % Lymphocytes % % Lymphocytes % (Manual) % Monocytes % % Monocytes % (Manual) % Eosinophils % % Basophils % % Metamyelocytes % % Myelocytes % % Neutrophils # (1.3-7.7) k/uL Neutrophils # (Manual) (1.3-7.7) k/uL Lymphocytes # (1.0-4.8) k/uL Lymphocytes # (Manual) (1.0-4.8) k/uL Monocytes # (0-1.0) k/uL Monocytes # (Manual) (0-1.0) k/uL Eosinophils # (0-0.7) k/uL Basophils # (0-0.2) k/uL Nucleated RBCs (0-0) /100 WBC Manual Slide Review Polychromasia Hypochromasia Poikilocytosis Poikilocytosis (manual Anisocytosis Macrocytosis PT (9.0-12.0) sec INR (<1.1) APTT (22.0-30.0) sec D-Dimer (<0.60) mg/L FEU Sample Site ABG pH (7.35-7.45) ABG pCO2 (35-45) mmHg ABG pO2 (83-108) mmHg ABG HCO3 (21-25) mmol/L ABG Total CO2 (19-24) mmol/L ABG O2 Saturation (94-97) % ABG Base Excess mmol/L FiO2 % Sodium 138 (137-145) mmol/L Potassium 4.8 (3.5-5.1) mmol/L Chloride 104 (98-107) mmol/L Carbon Dioxide 22 (22-30) mmol/L Anion Gap 12 mmol/L BUN 84 H* (7-17) mg/dL Creatinine 3.50 H (0.52-1.04) mg/dL Est GFR (MDRD) Af Amer 16 (>60 ml/min/1.73 sqM) Est GFR (MDRD) Non-Af 13 (>60 ml/min/1.73 sqM) Glucose 153 H (74-99) mg/dL POC Glucose (mg/dL) 176 H (75-99) mg/dL POC Glu Regional Maintenance Manager ID Maykel Martinez [address] Glu mg/dL mg/dL Hemoglobin A1c (4.2-6.1) % Calcium 8.5 (8.4-10.2) mg/dL Phosphorus (2.5-4.5) mg/dL Magnesium 2.5 H (1.6-2.3) mg/dL Iron (37-170) ug/dL TIBC (265-497) ug/dL % Saturation (20-50) % Ferritin (11-264) ng/mL Total Bilirubin 0.5 (0.2-1.3) mg/dL AST 4436 H (14-36) U/L ALT 6713 H (9-52) U/L Alkaline Phosphatase 151 H (38-126) U/L NT-Pro-B Natriuret Pep pg/mL Total Protein 5.2 L (6.3-8.2) g/dL Albumin 3.0 L (3.5-5.0) g/dL Urine Color Urine Appearance (Clear) Urine pH (5.0-8.0) Ur Specific [place] (1.001-1.035) Urine Protein (Negative) Urine Glucose (UA) (Negative) Urine Ketones (Negative) Urine Blood (Negative) Urine Nitrite (Negative) Urine Bilirubin (Negative) Urine Urobilinogen (<2.0) mg/dL Ur Leukocyte Esterase (Negative) Urine WBC (0-5) /hpf Ur Squamous Epith Cells (0-4) /hpf Urine Bacteria (None) /hpf Hepatitis A IgM Ab NEGATIVE Hep Bs Antigen Negative Hep B Core IgM Ab NEGATIVE Hep C IgG Ab Negative (Negative) Blood Type Blood Type Recheck Antibody Screen Crossmatch Spec Expiration Date 10/26/16 10/26/16 10/26/16 Range/Units 11:31 16:27 20:50 WBC (3.8-10.6) k/uL RBC (3.80-5.40) m/uL Hgb (11.4-16.0) gm/dL Hct (34.0-46.0) % MCV (80.0-100.0) fL MCH (25.0-35.0) pg MCHC (31.0-37.0) g/dL RDW (11.5-15.5) % Plt Count (150-450) k/uL Neutrophils % % Neutrophils % (Manual) % Lymphocytes % % Lymphocytes % (Manual) % Monocytes % % Monocytes % (Manual) % Eosinophils % % Basophils % % Metamyelocytes % % Myelocytes % % Neutrophils # (1.3-7.7) k/uL Neutrophils # (Manual) (1.3-7.7) k/uL Lymphocytes # (1.0-4.8) k/uL Lymphocytes # (Manual) (1.0-4.8) k/uL Monocytes # (0-1.0) k/uL Monocytes # (Manual) (0-1.0) k/uL Eosinophils # (0-0.7) k/uL Basophils # (0-0.2) k/uL Nucleated RBCs (0-0) /100 WBC Manual Slide Review Polychromasia Hypochromasia Poikilocytosis Poikilocytosis (manual Anisocytosis Macrocytosis PT (9.0-12.0) sec INR (<1.1) APTT (22.0-30.0) sec D-Dimer (<0.60) mg/L FEU Sample Site ABG pH (7.35-7.45) ABG pCO2 (35-45) mmHg ABG pO2 (83-108) mmHg ABG HCO3 (21-25) mmol/L ABG Total CO2 (19-24) mmol/L ABG O2 Saturation (94-97) % ABG Base Excess mmol/L FiO2 % Sodium (137-145) mmol/L Potassium (3.5-5.1) mmol/L Chloride (98-107) mmol/L Carbon Dioxide (22-30) mmol/L Anion Gap mmol/L BUN (7-17) mg/dL Creatinine (0.52-1.04) mg/dL Est GFR (MDRD) Af Amer (>60 ml/min/1.73 sqM) Est GFR (MDRD) Non-Af (>60 ml/min/1.73 sqM) Glucose (74-99) mg/dL POC Glucose (mg/dL) 167 H 218 H 220 H (75-99) mg/dL POC Glu Regional Maintenance Manager Mauri Kilgore Andrew Witmer, Jeremy [address] Glu mg/dL mg/dL Hemoglobin A1c (4.2-6.1) % Calcium (8.4-10.2) mg/dL Phosphorus (2.5-4.5) mg/dL Magnesium (1.6-2.3) mg/dL Iron (37-170) ug/dL TIBC (265-497) ug/dL % Saturation (20-50) % Ferritin (11-264) ng/mL Total Bilirubin (0.2-1.3) mg/dL AST (14-36) U/L ALT (9-52) U/L Alkaline Phosphatase (38-126) U/L NT-Pro-B Natriuret Pep pg/mL Total Protein (6.3-8.2) g/dL Albumin (3.5-5.0) g/dL Urine Color Urine Appearance (Clear) Urine pH (5.0-8.0) Ur Specific [place] (1.001-1.035) Urine Protein (Negative) Urine Glucose (UA) (Negative) Urine Ketones (Negative) Urine Blood (Negative) Urine Nitrite (Negative) Urine Bilirubin (Negative) Urine Urobilinogen (<2.0) mg/dL Ur Leukocyte Esterase (Negative) Urine WBC (0-5) /hpf Ur Squamous Epith Cells (0-4) /hpf Urine Bacteria (None) /hpf Hepatitis A IgM Ab Hep Bs Antigen Hep B Core IgM Ab Hep C IgG Ab (Negative) Blood Type Blood Type Recheck Antibody Screen Crossmatch Spec Expiration Date 10/27/16 10/27/16 10/27/16 Range/Units 05:47 05:47 06:28 WBC 16.6 H (3.8-10.6) k/uL RBC 2.75 L (3.80-5.40) m/uL Hgb 7.8 L (11.4-16.0) gm/dL Hct 26.3 L (34.0-46.0) % MCV 95.3 (80.0-100.0) fL MCH 28.2 (25.0-35.0) pg MCHC 29.5 L (31.0-37.0) g/dL RDW 17.5 H (11.5-15.5) % Plt Count 240 (150-450) k/uL Neutrophils % 86 % Neutrophils % (Manual) % Lymphocytes % 7 % Lymphocytes % (Manual) % Monocytes % 4 % Monocytes % (Manual) % Eosinophils % 1 % Basophils % 1 % Metamyelocytes % % Myelocytes % % Neutrophils # 14.3 H (1.3-7.7) k/uL Neutrophils # (Manual) (1.3-7.7) k/uL Lymphocytes # 1.2 (1.0-4.8) k/uL Lymphocytes # (Manual) (1.0-4.8) k/uL Monocytes # 0.7 (0-1.0) k/uL Monocytes # (Manual) (0-1.0) k/uL Eosinophils # 0.1 (0-0.7) k/uL Basophils # 0.2 (0-0.2) k/uL Nucleated RBCs (0-0) /100 WBC Manual Slide Review Polychromasia Hypochromasia Marked Poikilocytosis Slight Poikilocytosis (manual Anisocytosis Slight Macrocytosis Slight PT (9.0-12.0) sec INR (<1.1) APTT (22.0-30.0) sec D-Dimer (<0.60) mg/L FEU Sample Site ABG pH (7.35-7.45) ABG pCO2 (35-45) mmHg ABG pO2 (83-108) mmHg ABG HCO3 (21-25) mmol/L ABG Total CO2 (19-24) mmol/L ABG O2 Saturation (94-97) % ABG Base Excess mmol/L FiO2 % Sodium 139 (137-145) mmol/L Potassium 4.6 (3.5-5.1) mmol/L Chloride 107 (98-107) mmol/L Carbon Dioxide 22 (22-30) mmol/L Anion Gap 10 mmol/L BUN 96 H* (7-17) mg/dL Creatinine 3.45 H (0.52-1.04) mg/dL Est GFR (MDRD) Af Amer 16 (>60 ml/min/1.73 sqM) Est GFR (MDRD) Non-Af 13 (>60 ml/min/1.73 sqM) Glucose 113 H (74-99) mg/dL POC Glucose (mg/dL) 114 H (75-99) mg/dL POC Glu Regional Maintenance Manager ID [place] [address] Glu mg/dL mg/dL Hemoglobin A1c (4.2-6.1) % Calcium 8.5 (8.4-10.2) mg/dL Phosphorus (2.5-4.5) mg/dL Magnesium (1.6-2.3) mg/dL Iron (37-170) ug/dL TIBC (265-497) ug/dL % Saturation (20-50) % Ferritin (11-264) ng/mL Total Bilirubin 0.6 (0.2-1.3) mg/dL AST 1221 H (14-36) U/L ALT 4125 H (9-52) U/L Alkaline Phosphatase 138 H (38-126) U/L NT-Pro-B Natriuret Pep pg/mL Total Protein 5.1 L (6.3-8.2) g/dL Albumin 2.7 L (3.5-5.0) g/dL Urine Color Urine Appearance (Clear) Urine pH (5.0-8.0) Ur Specific [place] (1.001-1.035) Urine Protein (Negative) Urine Glucose (UA) (Negative) Urine Ketones (Negative) Urine Blood (Negative) Urine Nitrite (Negative) Urine Bilirubin (Negative) Urine Urobilinogen (<2.0) mg/dL Ur Leukocyte Esterase (Negative) Urine WBC (0-5) /hpf Ur Squamous Epith Cells (0-4) /hpf Urine Bacteria (None) /hpf Hepatitis A IgM Ab Hep Bs Antigen Hep B Core IgM Ab Hep C IgG Ab (Negative) Blood Type Blood Type Recheck Antibody Screen Crossmatch Spec Expiration Date 10/27/16 10/27/16 10/27/16 Range/Units 11:53 16:51 17:38 WBC (3.8-10.6) k/uL RBC (3.80-5.40) m/uL Hgb (11.4-16.0) gm/dL Hct (34.0-46.0) % MCV (80.0-100.0) fL MCH (25.0-35.0) pg MCHC (31.0-37.0) g/dL RDW (11.5-15.5) % Plt Count (150-450) k/uL Neutrophils % % Neutrophils % (Manual) % Lymphocytes % % Lymphocytes % (Manual) % Monocytes % % Monocytes % (Manual) % Eosinophils % % Basophils % % Metamyelocytes % % Myelocytes % % Neutrophils # (1.3-7.7) k/uL Neutrophils # (Manual) (1.3-7.7) k/uL Lymphocytes # (1.0-4.8) k/uL Lymphocytes # (Manual) (1.0-4.8) k/uL Monocytes # (0-1.0) k/uL Monocytes # (Manual) (0-1.0) k/uL Eosinophils # (0-0.7) k/uL Basophils # (0-0.2) k/uL Nucleated RBCs (0-0) /100 WBC Manual Slide Review Polychromasia Hypochromasia Poikilocytosis Poikilocytosis (manual Anisocytosis Macrocytosis PT (9.0-12.0) sec INR (<1.1) APTT (22.0-30.0) sec D-Dimer (<0.60) mg/L FEU Sample Site ABG pH (7.35-7.45) ABG pCO2 (35-45) mmHg ABG pO2 (83-108) mmHg ABG HCO3 (21-25) mmol/L ABG Total CO2 (19-24) mmol/L ABG O2 Saturation (94-97) % ABG Base Excess mmol/L FiO2 % Sodium (137-145) mmol/L Potassium (3.5-5.1) mmol/L Chloride (98-107) mmol/L Carbon Dioxide (22-30) mmol/L Anion Gap mmol/L BUN (7-17) mg/dL Creatinine (0.52-1.04) mg/dL Est GFR (MDRD) Af Amer (>60 ml/min/1.73 sqM) Est GFR (MDRD) Non-Af (>60 ml/min/1.73 sqM) Glucose (74-99) mg/dL POC Glucose (mg/dL) 178 H 145 H 91 (75-99) mg/dL POC Glu Regional Maintenance Manager SHRAVAN Alvarado, Angelique Alvarado, Estephanie Cohen [address] Glu mg/dL mg/dL Hemoglobin A1c (4.2-6.1) % Calcium (8.4-10.2) mg/dL Phosphorus (2.5-4.5) mg/dL Magnesium (1.6-2.3) mg/dL Iron (37-170) ug/dL TIBC (265-497) ug/dL % Saturation (20-50) % Ferritin (11-264) ng/mL Total Bilirubin (0.2-1.3) mg/dL AST (14-36) U/L ALT (9-52) U/L Alkaline Phosphatase (38-126) U/L NT-Pro-B Natriuret Pep pg/mL Total Protein (6.3-8.2) g/dL Albumin (3.5-5.0) g/dL Urine Color Urine Appearance (Clear) Urine pH (5.0-8.0) Ur Specific [place] (1.001-1.035) Urine Protein (Negative) Urine Glucose (UA) (Negative) Urine Ketones (Negative) Urine Blood (Negative) Urine Nitrite (Negative) Urine Bilirubin (Negative) Urine Urobilinogen (<2.0) mg/dL Ur Leukocyte Esterase (Negative) Urine WBC (0-5) /hpf Ur Squamous Epith Cells (0-4) /hpf Urine Bacteria (None) /hpf Hepatitis A IgM Ab Hep Bs Antigen Hep B Core IgM Ab Hep C IgG Ab (Negative) Blood Type Blood Type Recheck Antibody Screen Crossmatch Spec Expiration Date Critical Care Time Critical Care Time: Yes Critical Care Time: 33 minutes of critical care time which includes the initial response to the CODE BLUE supervision and direction of CPR ACLS efforts including direction reintubate the patient. This was accomplished by PACKAGE DELIVERY DRIVER. Discussion with multiple family members. Documentation of the above. Disposition Clinical Impression: Asystole, Adult respiratory distress syndrome Disposition: STILL PT- FOR INTERIM BILLING Condition: Critical
[2016-10-27 19:39] VITALS: BP 90/46; TEMP 96.9
[2016-10-27] MEDS ORDERED: BUDESONIDE 0.5 MG/2 ML NEBU INHALATION SCH (20:00)
[2016-10-27 20:05] VITALS: PULSE 0; RESP 0
[2016-10-27] MEDS ORDERED: CHLORHEXIDINE GLUCONATE 15 ML CUP MUCOUS MEM SCH (21:00)
--- NOTE | 2016-10-27 22:04 | PN ---
This 66-year-old woman with a past medical history of multiple medical problems, admitted with COPD acute exacerbation, right lower lobe pneumonia. The patient had acute respiratory failure. The patient on BIPAP, paroxysmal atrial fibrillation as well as acute hepatitis, possibly ischemic as well as acute renal failure. The patient being closely monitored by multiple consultants including nephrology, cardiology and infectious disease are following the patient closely. There is no history of fever, rigors or chills. Past medical history reviewed. REVIEW OF SYSTEMS: CARDIOVASCULAR: No palpitations or angina. RESPIRATORY: As mentioned earlier. GI: As mentioned earlier. GENITOURINARY: As mentioned earlier. CENTRAL NERVOUS SYSTEM: No numbness. Diffusely weak. Medications are reviewed and include: 1. Xanax 0.5 t.i.d. 2. Pulmicort 0.5 mg b.i.d. 3. Ceftin 500 mg p.o. b.i.d. 4. Vitamin D3 1000 q.h.s.. 5. Iron sulfate 320 mg. 6. Lasix drip. 7. Neurontin 100 mg p.o. t.i.d. 8. Levemir 8 units subcu q.h.s. 9. Humalog. 10. Atrovent updrafts. 11. Imdur. 12. Xopenex 1.25 q.i.d. 13. Lopressor. 14. Singulair. 15. Habitrol. 16. Protonix. 17. Paxil. 18. Prednisone 40 mg daily. PHYSICAL EXAMINATION: The patient is alert and oriented times two. Pulse is 130, blood pressure 105/51, respirations 18. Temperature 97.2, pulse ox 97% on 3 L. HEENT: Conjunctivae normal. Oral mucosa moist. NECK: No jugular venous distention. No carotid bruit. CARDIOVASCULAR: S1, S2 regular. Tachycardic. RESPIRATORY: Breath sounds diminished at the bases. Bilateral scattered rhonchi and crackles. ABDOMEN: Soft, nontender. No mass palpable. LEGS: No edema. No swelling. Nervous system: Higher functions as mentioned earlier. Moves all four limbs. No focal deficits. LYMPHATICS: No lymph nodes palpable in the neck, axillae or groin. SKIN: No ulcer, rash or bleeding. LABS: WBC 16.6, hemoglobin 7.8 and creatinine 3.45. The AST is 1221 and ALT is 4125. Albumin is 2.7. ASSESSMENT: 1. Chronic obstructive pulmonary disease acute exacerbation with right lower lobe pneumonia, possibly viral pneumonia, possibly gram-negative with possible sepsis. 2. Acute hypoxic respiratory failure secondary to chronic obstructive pulmonary disease. 3. Paroxysmal atrial fibrillation with rapid ventricular rate. 4. Acute hepatitis, possibly ischemic in origin. 5. Acute renal failure, possible acute tubular necrosis and prerenal factors. 6. Increased AST, ALT. 7. Hypoalbuminemia. 8. Increased WBC. 9. Anemia of chronic disease. 10. History of congestive heart failure with acute on chronic diastolic dysfunction, ejection fraction 55% to 60%. 11. Remote history of pulmonary hypertension. 12. History of chronic obstructive pulmonary disease. 14. History of hypertension. 15. History of hyperlipidemia. 16. History of renal disease. 17. History of seizure disorder. 18. History of sleep apnea. 19. Chronic hypoxic respiratory failure, on 2 liters home oxygen. 20. Chronic kidney disease, stage 3 history. 21. History of degenerative joint disease. 22. History of cataracts. 23. History of cholecystectomy. 24. History of panic disorder. 25. History of nicotine dependence. Continued ongoing. 26. Obesity with body mass index 38.4. 27. FULL CODE. RECOMMENDATION: In this 66-year-old woman who presented with multiple complex medical issues, we will monitor the patient closely. Continue the current medications, continue symptomatic treatment. Otherwise, at this time, I recommend to continue the current medications, continue with intensive bronchodilator treatment. Otherwise, closely follow with pulmonary. Guarded prognosis because of multiple complex medical issues. Further recommendations to follow. Broad spectrum IV antibiotics. We will obtain cultures. [facility]
--- NOTE | 2016-10-31 07:49 | DS ---
DATE OF ADMISSION: 10/18/2016 DATE OF DISCHARGE: 10/27/2016 The preliminary cause of is: Chronic obstructive pulmonary disease acute exacerbation . OTHER DIAGNOSES: 1. Right lower lobe pneumonia, possibly viral pneumonia, possibly gram negative with sepsis present on admission. 2. Acute hypoxic respiratory failure secondary to chronic obstructive pulmonary disease. 3. Paroxysmal atrial fibrillation with rapid ventricular rate. 4. Acute hepatitis, possibly ischemic in origin. 5. Acute renal failure, possible acute tubular necrosis and prerenal factors. 6. Increased AST, ALT. 7. History of hypoalbuminemia. 8. Increased WBC. 9. Anemia of chronic disease. 10. History of congestive heart failure with chronic diastolic dysfunction, ejection fraction 55% to 60%. 11. Remote history of pulmonary hypertension. 12. Chronic obstructive pulmonary disease. 13. History of hypertension. 14. Hyperlipidemia. 15. History of renal disease. 16. History of seizure disorder. 17. History of sleep apnea. 18. Chronic hypoxic respiratory failure, on 2 L nasal cannula at home. 19. Chronic kidney disease, stage III. 20. History of degenerative joint disease. 21. History of cataracts. 22. History of cholecystectomy. 23. History of panic disorder. 24. History of nicotine dependence, continued ongoing. 25. Obesity with body mass index 38.4. 26. FULL CODE. HISTORY OF PRESENT ILLNESS: This 66-year-old woman with a past medical history of multiple medical problems admitted with COPD acute exacerbation, pneumonia and multiple other medical problems. The patient's condition was extremely guarded throughout the hospitalization. The patient was treated with bronchodilators and antibiotics. The patient was also on BiPAP as well. Dr. Guillermo saw the patient from the pulmonary point of view. The patient was also seen by Dr. Alvarez from nephrology and well as Dr. Delarosa from Infectious Disease. Antibiotics were also given care. Care was coordinated, but, however, the creatinine was 3.45. The patient also had features of hepatitis. The patient's condition worsened while in the hospital and the patient was transferred to ICU. The patient suffered a cardiopulmonary arrest and succumbed to her illness. Once again, please refer to the multiple progress notes and staff notes and consultation notes for further evaluation. The prognosis remained guarded throughout the hospital stay. BRANDYN
--- NOTE | 2016-11-01 12:53 | CDI ---
In responding to this query, please exercise your independent professional judgment. The [facility] Coding Staff and Clinical Documentation Specialists appreciate your assistance in clarifying documentation, maintaining compliance with coding guidelines, accurately documenting patients condition and capturing severity of illness. The fact that a question is asked does not imply that any particular answer is desired or expected. Communication forms are a method of clarifying documentation and are not made part of the Legal Health Record. Thank you in advance for your clarification. Last Revision, April 2015 Seda Guzman [address] [place] [address] Documentation Clarification Form Date: 11/01/2016 12:40:00 PM From: Otilia Krishnamurthy/Amberly Mejia Admit Date: 10/18/2016 12:38:00 PM Patient Name: Lisette Patel Visit Number: [id number] Discharge Date: Dr. Donell Fried The following has been documented in your 10/27 progress note and discharge summary and in Dr. Alvarez's 10/26 progress note. History/Risk Factors: Patient admitted with COPD exacerbation and pneumonia. Clinical Indicators: encephalopathy documented beginning 10/22, leukocytosis - 9.9 and 10/19 11.2, 97.6 on admission, 90 on admission, 16 on admission, 111/ 52 on admission Treatment: IV Ceftriaxone Sodium, IV Vancomycin, po ceftin Definition of Present on Admission (POA): A diagnosis present at the time the order for admission to inpatient status was written. For each diagnosis, documentation must be clear to determine if the condition was present at the time of the patients inpatient admission or developed during the hospital stay. Please clarify in progress notes and discharge summary as to whether was: ? Y = Yes, the condition was present at the time of the order for inpatient admission. ? N = No, the condition was not present at the time of the order for inpatient admission. ? W = Clinically undetermined if the condition was present at the time of the order for inpatient admission. Please continue to document in your progress notes and discharge summary in order to capture severity of illness and risk of mortality. Include clinical findings that support your diagnosis. FYI: Press F11 to launch patient chart. BRANDYN
--- NOTE | 2016-11-20 23:27 | PN ---
ADDENDUM/CORRECTION: DATE OF SERVICE: 10/20/2016 This is for my progress note dictated on 10/20/16 at 2142, date transcribed 10/20/16 at 2237. The correct date of service is 10/20/16.
== END 2016-10-27 22:53 | disposition expired | DRG 871 ==
LOC: 6SEL 12:38 → 6ICU 10-27 17:32
PROVIDERS: ADMIT Hospitalist; ATTEND Hospitalist
PROC: 30233N1 Transfusion of Nonautologous Red Blood Cells into Peripheral Vein, Percutaneous Approach (ICD-10-PCS; 2016-10-19)
PROC: 5A09557 Assistance with Respiratory Ventilation, Greater than 96 Consecutive Hours, Continuous Positive Airway Pressure (ICD-10-PCS; principal; 2016-10-22)
PROC: 5A1935Z Respiratory Ventilation, Less than 24 Consecutive Hours (ICD-10-PCS; 2016-10-27)
PROC: 0BH17EZ Insertion of Endotracheal Airway into Trachea, Via Natural or Artificial Opening (ICD-10-PCS; 2016-10-27)
PROC: 5A12012 Performance of Cardiac Output, Single, Manual (ICD-10-PCS; 2016-10-27)
DX: A41.50 Gram-negative sepsis, unspecified (principal); J96.21 Acute and chronic respiratory failure with hypoxia; N17.0 Acute kidney failure with tubular necrosis; G93.41 Metabolic encephalopathy; I50.33 Acute on chronic diastolic (congestive) heart failure; J12.9 Viral pneumonia, unspecified; J15.6 Pneumonia due to other Gram-negative bacteria; J96.22 Acute and chronic respiratory failure with hypercapnia; J80 Acute respiratory distress syndrome; J44.0 Chronic obstructive pulmonary disease with (acute) lower respiratory infection; E66.2 Morbid (severe) obesity with alveolar hypoventilation; I13.0 Hypertensive heart and chronic kidney disease with heart failure and stage 1 through stage 4 chronic kidney disease, or unspecified chronic kidney disease; J44.1 Chronic obstructive pulmonary disease with (acute) exacerbation; I27.2 Other secondary pulmonary hypertension; K75.89 Other specified inflammatory liver diseases; E11.22 Type 2 diabetes mellitus with diabetic chronic kidney disease; I48.0 Paroxysmal atrial fibrillation; E88.09 Other disorders of plasma-protein metabolism, not elsewhere classified; D63.8 Anemia in other chronic diseases classified elsewhere; E11.65 Type 2 diabetes mellitus with hyperglycemia; E78.5 Hyperlipidemia, unspecified; E87.5 Hyperkalemia; F17.210 Nicotine dependence, cigarettes, uncomplicated; F41.0 Panic disorder [episodic paroxysmal anxiety]; G40.909 Epilepsy, unspecified, not intractable, without status epilepticus; I46.9 Cardiac arrest, cause unspecified; I48.2 Chronic atrial fibrillation; N18.3 Chronic kidney disease, stage 3 (moderate); T38.0X5A Adverse effect of glucocorticoids and synthetic analogues, initial encounter; M19.90 Unspecified osteoarthritis, unspecified site; D50.9 Iron deficiency anemia, unspecified; D72.829 Elevated white blood cell count, unspecified; Z51.5 Encounter for palliative care; Z68.38 Body mass index [BMI] 38.0-38.9, adult; Z99.81 Dependence on supplemental oxygen; Z79.01 Long term (current) use of anticoagulants; Z79.4 Long term (current) use of insulin; Z79.899 Other long term (current) drug therapy; Z88.5 Allergy status to narcotic agent; Z87.01 Personal history of pneumonia (recurrent)
CPT/HCPCS: 36600; 70450; 71010; 71020; 74022; 76604; 76770; 78582; 80048; 80053; 80074; 81001; 81003; 82728; 82805; 83036; 83540; 83550; 83735; 83880; 84100; 84132; 85025; 85027; 85379; 85610; 85730; 86850; 86900; 86901; 86920; 87040; 87086; 93306; 93970; 94002; 94640; 94660; 94760